=== PATIENT | male | born 1995 | race Hispanic/Latino ===

== ENCOUNTER 2018-03-27 12:16 | Inpatient (IN) | payer OTHER ==
[2018-03-27] VITALS (33 sets, daily range): BP systolic 54–144; BP diastolic 25–107
[~2018-03-27] VITALS: Ht 182.9 cm; Wt 130.8 kg
[~2018-03-27 12:16] MED LIST: DAYQUIL; TYLENOL
[2018-03-27] MEDS ORDERED: AMIODARONE HCL 200 ML IV ONE (12:43)
[2018-03-27] MEDS ORDERED: ASPIRIN 81 MG CHEW TAB PO ONE ×2 (12:45→16:00)
[2018-03-27] MEDS ORDERED: ADENOSINE 6 MG/2 ML VIAL IV ONE (12:45)
[2018-03-27] MEDS ORDERED: MIDAZOLAM HCL 2 MG/2 ML VIAL ONE ×3 (12:49→18:37)
[2018-03-27] MEDS ORDERED: SODIUM CHLORIDE 0.9% 1000ML 1,000 ML ONE ×3 (12:50→22:33)
[2018-03-27] MEDS ORDERED: AMIODARONE 900MG 500 ML IV ONE (12:52)
[2018-03-27 13:06] LABS: BASOPHILS # (AUTO) 0.1 (0.0-0.1); BASOPHILS % 0.4 % (0.0-1.0); EOSINOPHILS % 0.3 % (0.0-6.0); HEMATOCRIT 48.6 % (38.2-49.6); HEMOGLOBIN 16.1 g/dL (14.0-18.0); LYMPHOCYTES # (AUTO) 4.4 (1.0-3.2); LYMPHOCYTES % 29.2 % (18.0-39.1); MEAN CORPUSCULAR HEMOGLOBIN 28.6 pg (28-32); MEAN CORPUSCULAR HGB CONC 33.1 g/dL (31-35); MEAN CORPUSCULAR VOLUME 86.5 fL (81-99); MONOCYTES # (AUTO) 0.9 (0.2-0.8); MONOCYTES % 6.1 % (4.4-11.3); NEUTROPHILS # (AUTO) 9.5 (2.1-6.9); NEUTROPHILS % 63.7 % (38.7-80.0); PLATELET COUNT 321 x10e3/uL (140-360); RED BLOOD COUNT 5.62 x10e6/uL (4.3-5.7); RED CELL DISTRIBUTION WIDTH 13.5 % (11.7-14.4)
[2018-03-27 13:11] LABS: INR 1.09; PROTHROMBIN TIME 13.3 seconds (11.9-14.5)
[2018-03-27 13:12] LABS: PARTIAL THROMBOPLASTIN TIME 26.4 seconds (23.8-35.5)
[2018-03-27 13:19] LABS: ALANINE AMINOTRANSFERASE 66 IU/L (0-55); ALBUMIN/GLOBULIN RATIO 1.1 (0.8-2.0); ALKALINE PHOSPHATASE 78 IU/L (40-150); ANION GAP 14.8 mmol/L (8-16); BLOOD UREA NITROGEN 7 mg/dL (7-26); BUN/CREATININE RATIO 9 (6-25); CALCIUM 9.5 mg/dL (8.4-10.2); CARBON DIOXIDE 22 mmol/L (22-29); CHLORIDE 106 mmol/L (98-107); CREATINE KINASE 199 IU/L (30-200); CREATININE, SERUM 0.77 mg/dL (0.72-1.25); EST GLOMERULAR FILTRATION RATE > 60 ML/MIN (60-); GLUCOSE 105 mg/dL (74-118); POTASSIUM 3.8 mmol/L (3.5-5.1); SODIUM 139 mmol/L (136-145)
[2018-03-27] MEDS ORDERED: FUROSEMIDE INJ 10 MG/ML 2 ML VIAL IV ONE (14:15)
--- NOTE | 2018-03-27 14:43 | Diagnostic Imaging Report ---
EXAMINATION: CHEST SINGLE (PORTABLE) INDICATION: \S\ERMD ORDER \S\[id number] \S\1335 \S\Y COMPARISON: None FINDINGS: AP view TUBES and LINES: None. LUNGS: Lungs are well inflated. Hazy bibasilar opacity. Central venous congestion. PLEURA: No pleural effusion or pneumothorax. HEART AND MEDIASTINUM: The cardiomediastinal silhouette is upper normal.. BONES AND SOFT TISSUES: No acute osseous lesion. Soft tissues are unremarkable. UPPER ABDOMEN: No free air under the diaphragm. IMPRESSION: Hazy bibasilar opacities which may be related to body habitus and technique. Recommend two-view chest radiograph if clinically feasible. Signed by: DR. Cheo Jay MD on 03/27/2018 2:39 PM
[2018-03-27] MEDS ORDERED: LIDOCAINE HCL 2% 100 MG/5 ML IV ONE ×2 (14:47→15:19)
[2018-03-27] MEDS ORDERED: MAGNESIUM SULFATE 2GM/50ML 50 ML IV ONE ×2 (14:51→15:00)
[2018-03-27] MEDS ORDERED: LIDOCAINE 1% 5ML-MPF INJ ONE (15:00)
[2018-03-27] MEDS ORDERED: METOPROLOL TARTRATE INJ 1 MG/ML VIAL ONE (15:10)
[2018-03-27 15:26] LABS: FREE T4 (FREE THYROXINE) 1.2 ng/dL (0.9-1.8); THYROID STIMULATING HORMONE 1.208 uIU/mL (0.350-4.940)
[2018-03-27] MEDS ORDERED: DEXTROSE 5% IV STA (15:31)
[2018-03-27] MEDS ORDERED: PROCAINAMIDE HCL IV STA (15:31)
[2018-03-27 15:59] LABS: AMPHETAMINES SCREEN,URINE NEGATIVE (NEGATIVE); BENZODIAZEPINES SCREEN,URINE NEGATIVE (NEGATIVE); BILIRUBIN,URINE NEGATIVE (NEGATIVE); CLARITY,URINE SL CLOUDY (CLEAR); COLOR,URINE YELLOW (YELLOW); KETONES,URINE NEGATIVE (NEGATIVE); LEUKOCYTE ESTERASE ,URINE NEGATIVE (NEGATIVE); NITRITE,URINE NEGATIVE (NEGATIVE); PHENCYCLIDINE SCREEN,URINE NEGATIVE (NEGATIVE); PROTEIN,URINE DIPSTICK 1+ (NEGATIVE); URINE UROBILINOGEN 0.2 mg/dL (0.2 - 1)
[2018-03-27 16:08] LABS: CHOL/HDL RATIO 4.5 (3.9-4.7)
[2018-03-27 16:10] LABS: BACTERIA,URINE FEW /HPF; EPITHELIAL CELLS,URINE FEW /LPF; MUCUS,URINE MODERATE (RARE); WBC,URINE (MAN) 0-5 /HPF (0-5)
[2018-03-27] MEDS ORDERED: VECURONIUM BROMIDE FOR INJ 20 MG VIAL ONE ×3 (16:15→22:36)
[2018-03-27 16:23] LABS: ABG HCO3 17 mmol/L (23-28); ABG PCO2 42 mmHg (41-51); ABG PO2 58 mmHg (80-105)
[2018-03-27] MEDS ORDERED: FUROSEMIDE INJ 10 MG/ML 4 ML VIAL IV ONE (16:45)
--- NOTE | 2018-03-27 16:45 | Diagnostic Imaging Report ---
EXAM: CT Chest WITH contrast 03/27/2018 2:13 PM INDICATION: \S\PE PROTOCOL \S\[id number] \S\1600 \S\Y COMPARISON: None TECHNIQUE: Chest was scanned utilizing a multidetector helical scanner from the lung apex through the level of the adrenal glands without administration of IV contrast. Coronal and sagittal reformations were obtained. Routine protocol was performed. IV CONTRAST: 100 mL of Isovue-370 COMPLICATIONS: None RADIATION DOSE: Total DLP: 593.62 mGy*cm Estimated effective dose: (DLP x 0.014 x size factor) mSv CTDIvol has been reviewed. It is below the limits set by the Radiation Protocol Committee (RPC). FINDINGS: LINES/ TUBES: Endotracheal tube tip approximately 2.8 cm above the geramnia. LUNGS AND AIRWAYS: Patchy bilateral airspace opacities with interlobular septal thickening. No filling defects to the level of the segmental pulmonary arteries. Central airways are clear. PLEURA: Small pleural effusions. HEART AND MEDIASTINUM: The thyroid gland is normal. No mediastinal, hilar or axillary lymphadenopathy. The heart is normal in size.. There is no pericardial effusion. Main pulmonary artery measures 2.7 cm in diameter. UPPER ABDOMEN: Unremarkable. BONES: The visualized bony thorax is within normal limits. SOFT TISSUES: Unremarkable. IMPRESSION: Findings concerning for multifocal pneumonia with superimposed interstitial edema. No pulmonary emboli. Signed by: DR. Cheo Jay MD on 03/27/2018 4:41 PM
[2018-03-27] MEDS: MIDAZOLAM HCL 25 MG in SODIUM CHLORIDE 0.9% 50ML 45 ML IV PRN ×2 (16:53→20:45)
[2018-03-27] MEDS ORDERED: ENOXAPARIN SOD INJ 40 MG/0.4 ML SYR SC SCH (17:00)
[2018-03-27] MEDS ORDERED: ACETAMINOPHEN 1000 MG/100 ML 100 ML IV ONE ×2 (17:08→22:42)
--- NOTE | 2018-03-27 17:12 | Consultation ---
DATE OF CONSULTATION: March 27, 2018 CARDIOLOGY CONSULTATION REQUESTING PHYSICIAN: Dr. Sarmiento REASON FOR CONSULTATION: Ventricular tachycardia. HISTORY OF PRESENT ILLNESS: Mr. Kaur is a 22-year-old gentleman with past medical history as listed below. Reportedly has been short of breath since yesterday. Patient reportedly did not sleep well. Today the patient reportedly went to [facility]. He was noted to have wide-complex tachycardia, and he was sent to the hospital. Patient was noted to have wide-complex tachycardia. He was given amiodarone reportedly and transiently converted to sinus rhythm but went back into wide-complex tachycardia. Subsequently, the patient vomited, and he had to be intubated. He was shocked multiple times. The patient has been going back and forth into wide-complex tachycardia, probably ventricular tachycardia and sinus rhythm. He reportedly had smoked some marijuana 5 days back. Patient was also given lidocaine. He denied any chest pain or palpitations earlier. At the current time, the patient is intubated and on the vent. He was converted to sinus rhythm. Some PACs/PVCs. There is mild slurring of his QRS although there is an obvious pre-excitation on surface EKG. Patient is going to be given procainamide and going to be started on a procainamide drip. REVIEW OF SYMPTOMS: Not obtainable. However, prior to intubation, the patient apparently denied any palpitations or chest pain. He has been complaining of shortness of breath. PAST MEDICAL HISTORY: No significant past medical history. SOCIAL HISTORY: Patient apparently smoked marijuana a few days back. Otherwise, unsure about his other social habits. FAMILY HISTORY: Noncontributory. PHYSICAL EXAMINATION GENERAL: Obese gentleman, intubated on a vent. VITALS: Heart rate at the current time is in the 90s, has converted to sinus rhythm with some PACs with aberrant conduction. Blood pressure 116/72. HEENT: Atraumatic. Orotracheal tube in place. NECK: No JVD, bruit, thyromegaly, lymphadenopathy. CARDIOVASCULAR: First and 2nd heart sounds heard. No murmurs, rubs or gallops appreciated. CHEST: Decreased air entry at the bases. No adventitious sounds appreciated. ABDOMEN: Obese, nontender. EXTREMITIES: No edema. LABORATORY DATA: WBC is 14.9, hemoglobin 16.1, hematocrit 48.6, platelets 321. Sodium is 139, potassium 3.8, chloride 106, bicarb 22, BUN 7, creatinine 0.7. Total bili is 1.7, AST is 41, ALT 66, alk phos 78. Troponin 0.032. BNP is 535. TSH is 1.2. Chest x-ray: Hazy bibasilar opacities may be related to body habitus. EKG from 1231 showed wide QRS tachycardia with left bundle-branch block. Repeat EKG at 1524 showed sinus rhythm with PACs with aberrant conduction at 99 beats per minute. Normal axis. Prolonged QT interval. Nonspecific ST-T changes. IMPRESSION 1. Wide-complex tachycardia, probably ventricular tachycardia. 2. Obesity. 3. History of marijuana use. PLAN 1. Patient received multiple antiarrhythmics including amiodarone, lidocaine and procainamide. He is going to be started on procainamide drip. 2. No obvious pre-excitation on surface EKG. However, underlying concealed accessory pathway cannot be totally ruled out. 3. Patient has been intubated. He has received multiple shocks. He has converted to a sinus rhythm. He had some PACs with aberrant conduction. 4. Get echocardiogram to assess LV function and valvular function. 5. Get a CT scan to rule out PE. 6. Electrophysiology has been consulted. Discussed the case with Dr. Tsang, who has graciously agreed to see the patient. 7. Continue to follow electrolytes. 8. Will follow cardiac enzymes. Ischemia is less likely cause. However, cardiac enzymes could be elevated given the patient was shocked multiple times. 9. The patient's BNP is elevated. Will repeat and follow up. Give lasix. 10. Patient's TSH is normal. 11. Further cardiac workup depending on clinical course. As always, I appreciate and thank you very much for your referrals. Job#: [id number] SONIA MCCORMACK
[2018-03-27] MEDS ORDERED: CEFTRIAXONE SOD 1 GM VIAL IV SCH (17:15)
[2018-03-27] MEDS ORDERED: DEXTROSE 5% IV SCH (17:30)
[2018-03-27] MEDS ORDERED: VECURONIUM BROMIDE FOR INJ 20 MG VIAL IV PRN ×2 (17:30→18:15)
[2018-03-27] MEDS ORDERED: PROCAINAMIDE HCL IV SCH (17:30)
[2018-03-27] MEDS ORDERED: AMIODARONE HCL 900 MG in DEXTROSE 5% 500ML 500 ML IV SCH (17:30)
--- OUTSIDE RECORDS SUMMARY | 2018-03-27 17:31 | XMS REPORT ---
Author Author [facility] Address Unknown Phone Unavailable Care Team Providers Care Glue Plant Operator Name Role Phone DANTE JACKSON Unavailable Unavailable Problems This patient has no known problems. Allergies, Adverse Reactions, Alerts This patient has no known allergies or adverse reactions. Medications This patient has no known medications. Results Test Description Test Time Test Comments Text Results Atomic Results Result Comments CT CHEST W [place] [address] Patient Name: MERON COFFMAN MR #: [id number] : 1995 Age/Sex: 22/M Req #: [id number] Adm Physician: Ordered by: DANTE JACKSON MD Report #: [id number] Location: ER Room/Bed: Procedure: [id number] CT/CT CHEST W Exam Date: 03/27/18 Exam Time: 1600 REPORT STATUS: Signed EXAM: CT Chest WITH contrast 03/27/2018 2:13 PM INDICATION: COMPARISON: None TECHNIQUE: Chest was scanned utilizing a multidetector helical scanner from the lung apex through the level of the adrenal glands without administration of IV contrast. Coronal and sagittal reformations were obtained. Routine protocol was performed. IV CONTRAST: 100 mL of Isovue-370 COMPLICATIONS: None RADIATION DOSE: Total DLP: 593.62 mGy*cm Estimated effective dose: (DLP x 0.014 x size factor) mSv CTDIvol has been reviewed. It is below the limits set by the Radiation Protocol Committee (RPC). FINDINGS : LINES/ TUBES: Endotracheal tube tip approximately 2.8 cm above the germania. LUNGS AND AIRWAYS: Patchy bilateral airspace opacities with interlobular septal thickening. No filling defects to the level of the segmental pulmonary arteries. Central airways are clear. PLEURA: Small pleural effusions. HEART AND MEDIASTINUM: The thyroid gland is normal. No mediastinal, hilar or axillary lymphadenopathy. The heart is normal in size.. There is no pericardial effusion. Main pulmonary artery measures 2.7 cm in diameter. UPPER ABDOMEN: Unremarkable. BONES: The visualized bony thorax is within normal limits. SOFT TISSUES: Unremarkable. IMPRESSION: Findings concerning for multifocal pneumonia with superimposed interstitial edema. No pulmonary emboli. Signed by: DR. Cheo Patel MD on 03/27/2018 4:41 PM Dictated By: CHEO PATEL MD 164 Transcribed By: NU on 1641 COPY TO: DANTE JACKSON MD CHEST SINGLE (PORTABLE) [place] [address] Patient Name: MERON COFFMAN MR #: [id number] : 1995 Age/Sex: 22/M Req #: [id number] Adm Physician: Ordered by: MATT BERGERON NP Report #: [id number] Location: ER Room/Bed: Procedure: [id number] DX/CHEST SINGLE (PORTABLE) Exam Date: 03/27/18 Exam Time: 1335 REPORT STATUS: Signed EXAMINATION: CHEST SINGLE (PORTABLE) INDICATION: COMPARISON: None FINDINGS: AP view TUBES and LINES: None. LUNGS: Lungs are well inflated. Hazy bibasilar opacity. Central venous congestion. PLEURA: No pleural effusion or pneumothorax. HEART AND MEDIASTINUM: The cardiomediastinal silhouette is upper normal.. BONES AND SOFT TISSUES: No acute osseous lesion. Soft tissues are unremarkable. UPPER ABDOMEN: No free air under the diaphragm. IMPRESSION: Hazy bibasilar opacities which may be related to body habitus and technique. Recommend two-view chest radiograph if clinically feasible. Signed by: DR. Cheo Patel MD on 03/27/2018 2:39 PM Dictated By: CHEO PATEL MD 143 Transcribed By: NU on 03/27/18 1439 COPY TO: MATT BERGERON NP
[2018-03-27] MEDS ORDERED: SODIUM CHLORIDE 0.9% 50ML 50 ML ONE ×2 (18:31→20:42)
[2018-03-27] MEDS ORDERED: IOPAMIDOL 370 MG/ML 200 ML INFUS..BTL INJ ONE (18:33)
[2018-03-27] MEDS ORDERED: ETOMIDATE 2 MG/ML 10 ML INJ IV ONE (18:37)
[2018-03-27] MEDS ORDERED: WATER STERILE 10 ML VIAL ONE (18:37)
[2018-03-27] MEDS ORDERED: SUCCINYLCHOLINE CHLORIDE 20 MG/ML 10ML VIAL ONE (18:37)
--- NOTE | 2018-03-27 19:13 | Consultation ---
DATE OF CONSULTATION: March 27, 2018 PULMONARY CRITICAL CARE MEDICINE CONSULTATION REASON FOR REFERRAL: Shortness of breath. HISTORY: Mr. Kaur is a pleasant 22-year-old gentleman with acute respiratory failure. The patient presented to his clinic today where he was found to have shortness of breath. He was having tachycardia with abnormal EKG with widening of the QRS interval. Patient was referred to the hospital. When he presented to [facility], heart rate was 170s. Reported narrow complex tachycardia related to refractory symptoms. He required amiodarone and then he later progressed to have wide complex tachycardia reported. He even threw up. At this point, the patient went into tachycardia, and he was noted to have need for electrical cardioversion. The patient remained refractory, and overall had 6-7 different shocks . Patient was eventually intubated and he was getting short of breath and having frothy sputum come up. Patient went for chest x-ray showing bilateral patchy opacities, pneumonia versus heart failure. CT angiography showed no PE, but consistent with more focal pneumonitis with superimposed edema. Spleen borderline small, left adrenal mildly increased, although no mass present. I am consulted. Patient later had fever to 101.6. Preliminary EF is 20% by echo. PAST MEDICAL HISTORY: Not significant. MEDICATIONS: Reportedly no medications. ALLERGIES: NO KNOWN DRUG ALLERGIES. SOCIAL HISTORY: Smoked marijuana apparently a few days back, but unclear of other social habits. Mother and father at bedside. Limited due to intubated state. FAMILY HISTORY: Noncontributory to this that we know of as of now. REVIEW OF SYSTEMS: Cannot get as he is intubated. PHYSICAL EXAMINATION VITAL SIGNS: Noted and unstable per electronic record. GENERAL: In no acute distress, but sedated. HEENT: Normocephalic and atraumatic. NECK: Supple. Throat midline. LUNGS: Bilateral air entry. Few crackles. CARDIOVASCULAR: S1 and S2. No murmurs, rubs or gallops. ABDOMEN: Soft and nontender. EXTREMITIES: No clubbing. No cyanosis. There is no edema. INTEGUMENT: No rash. No purpura. LABS: Potassium 2.8, magnesium 2. White count mildly elevated. No anemia. BNP 555. Urine drug screen unremarkable. LFTs minimally elevated. CK 199. Albumin is 4 with globulin of 3.6. IMPRESSION AND PLAN 1. Acute respiratory failure, intubated. 2. Pulmonary edema. 3. Abnormal chest radiography: More classic for pattern of pneumonitis for which we will treat for. 4. Cardiomyopathy, not otherwise specified, under evaluation. 5. Mild obesity. 6. Elevated liver function tests, mild. 7. Elevated gammaglobulin. 8. Refractory tachycardia, now in wide complex per record. At this point, check thyroid function tests. Maintain potassium and magnesium high normal. Patient furthermore needs to have extensive sedation and even needs to have paralysis if needed. Avoid QT prolonging agents. Will follow along closely. Empiric antibiotics for pneumonia. Once the patient is stable, will work on diuresing him. Follow liver function testing. Patient is very critical, and I discussed how fragile he is with his parents. Will follow up awaiting further optimization per electrophysiology experts who for now want amiodarone and procainamide. Thank you very much, Dr. George, for this consult. Please call for questions. >30 min direct care, multiple evaluation and intervention over multiple times this date Job#: [id number] DARON MCCORMACK
[2018-03-27] MEDS ORDERED: VANCOMYCIN 1GM/NS 250 ML 250 ML IV ONE (19:15)
[2018-03-27] MEDS ORDERED: AMIODARONE 900MG 500 ML IV SCH (19:30)
[2018-03-27] MEDS: VECURONIUM BROMIDE FOR INJ 20 MG VIAL IV PRN ×2 (19:40→22:45)
[2018-03-27 19:46] LABS: CREATINE KINASE MB 1.5 ng/mL (0-5.0)
[2018-03-27] MEDS: SODIUM CHLORIDE FLUSH 10 ML SYR INJ PRN ×16 (19:48→23:15)
[2018-03-27] MEDS ORDERED: MIDAZOLAM HCL 5 MG/ML VIAL ONE (20:42)
[2018-03-27] MEDS ORDERED: ACETAMINOPHEN 325 MG TAB PO PRN (20:45)
[2018-03-27] MEDS ORDERED: METOPROLOL TARTRATE 25 MG TAB PO ONE (20:45)
[2018-03-27] MEDS ORDERED: METOPROLOL SUCCINATE 25 MG TAB XL ONE (20:51)
--- NOTE | 2018-03-27 22:16 | Diagnostic Imaging Report ---
CHEST XRAY LINE PLACEMENT, 03/27/2018 9:33 PM Technique: CHEST XRAY LINE PLACEMENT Comparison: 03/27/2018 Clinical history: PICC line placement Findings: See Impression Impression: Severely limited by portable technique and body habitus. 1. Lines/Tubes: Right PICC seen over the expected right brachiocephalic vein. ET tube 3.1 cm above the germania. NG tube extends subdiaphragmatically. 2. Stable enlarged cardiomediastinal silhouette. Diffuse bilateral opacities increased from prior chest radiograph. Signed by: Dr Isadora Amin MD on 03/27/2018 10:12 PM
[2018-03-27] MEDS: SODIUM CHLORIDE 0.9% 1000ML 1,000 ML IV PRN (22:35)
[2018-03-27] MEDS ORDERED: ACETAMINOPHEN 1000 MG/100 ML IV PRN (22:40)
[2018-03-27 22:54] LABS: ABG HCO3 17 mmol/L (23-28); ABG PCO2 32 mmHg (41-51); ABG PH 7.33 (7.31-7.41); ABG PO2 144 mmHg (80-105)
[2018-03-27 22:56] LABS: BASOPHILS % 0.2 % (0.0-1.0); HEMOGLOBIN 15.9 g/dL (14.0-18.0); LYMPHOCYTES # (AUTO) 1.5 (1.0-3.2); LYMPHOCYTES % 8.6 % (18.0-39.1); MEAN CORPUSCULAR HEMOGLOBIN 28.5 pg (28-32); MEAN CORPUSCULAR HGB CONC 32.4 g/dL (31-35); MONOCYTES % 6.1 % (4.4-11.3); NEUTROPHILS # (AUTO) 14.3 (2.1-6.9); NEUTROPHILS % 84.2 % (38.7-80.0); PLATELET COUNT 234 x10e3/uL (140-360); RED BLOOD COUNT 5.57 x10e6/uL (4.3-5.7); RED CELL DISTRIBUTION WIDTH 13.5 % (11.7-14.4)
[2018-03-27 23:12] LABS: ALANINE AMINOTRANSFERASE 862 IU/L (0-55); ALBUMIN 3.2 g/dL (3.5-5.0); ALBUMIN/GLOBULIN RATIO 1.1 (0.8-2.0); ALKALINE PHOSPHATASE 66 IU/L (40-150); ANION GAP 14.4 mmol/L (8-16); BLOOD UREA NITROGEN 13 mg/dL (7-26); BUN/CREATININE RATIO 10 (6-25); CALCIUM 7.9 mg/dL (8.4-10.2); CARBON DIOXIDE 20 mmol/L (22-29); CHLORIDE 108 mmol/L (98-107); CREATININE, SERUM 1.33 mg/dL (0.72-1.25); EST GLOMERULAR FILTRATION RATE > 60 ML/MIN (60-); GLUCOSE 123 mg/dL (74-118); POTASSIUM 5.4 mmol/L (3.5-5.1); SODIUM 137 mmol/L (136-145)
[2018-03-27] MEDS ORDERED: VANCOMYCIN 1GM/NS 250 ML 250 ML ONE (23:24)
[2018-03-27] MEDS: FAMOTIDINE 20 MG/2 ML VIAL IV SCH (23:30)
[2018-03-27] MEDS ORDERED: SOD POLYSTYRENE SULFONATE SUSP 15 GM/60 ML BTL PR ONE (23:45)
[2018-03-27] MEDS ORDERED: SOD POLYSTYRENE SULFONATE SUSP 15 GM/60 ML BTL PO ONE (23:45)
[2018-03-27] MEDS: DOXYCYCLINE 100MG/NS 100ML 100 ML IV SCH (23:45)
[2018-03-28] VITALS (252 sets, daily range): BP systolic 79–143; BP diastolic 20–116
[2018-03-28] MEDS ORDERED: METOPROLOL TARTRATE 25 MG TAB PO SCH
[2018-03-28] MEDS: SODIUM CHLORIDE 0.9% 1000ML 1,000 ML IV PRN (00:15)
[2018-03-28 00:36] LABS: ALANINE AMINOTRANSFERASE 1176 IU/L (0-55); ALBUMIN 2.8 g/dL (3.5-5.0); ALKALINE PHOSPHATASE 64 IU/L (40-150); ANION GAP 16.7 mmol/L (8-16); BLOOD UREA NITROGEN 11 mg/dL (7-26); BUN/CREATININE RATIO 9 (6-25); CARBON DIOXIDE 13 mmol/L (22-29); CHLORIDE 97 mmol/L (98-107); CREATININE, SERUM 1.17 mg/dL (0.72-1.25); EST GLOMERULAR FILTRATION RATE > 60 ML/MIN (60-); MAGNESIUM 2.6 MG/DL (1.3-2.1); PHOSPHORUS 5.6 MG/DL (2.3-4.7); POTASSIUM 4.7 mmol/L (3.5-5.1); SODIUM 122 mmol/L (136-145)
[2018-03-28 00:39] LABS: GLUCOSE 661 mg/dL (74-118)
[2018-03-28 00:40] LABS: CALCIUM 6.6 mg/dL (8.4-10.2)
[2018-03-28] MEDS ORDERED: CALCIUM GLUCONATE 10% INJ 0.465 MEQ/ML VIAL ONE (00:53)
[2018-03-28] MEDS ORDERED: SODIUM CHLORIDE 0.9% 200 ML ONE (00:54)
[2018-03-28] MEDS ORDERED: INSULIN REGULAR, HUMAN 100 UNIT/1 ML 3ML VIAL ONE (00:55)
[2018-03-28] MEDS ORDERED: INSULIN REGULAR, HUMAN 3ML VL 100 UNIT in SODIUM CHLORIDE 0.9% 100 ML 99 ML IV SCH ×2 (01:00)
[2018-03-28] MEDS ORDERED: CALCIUM GLUCONATE 10% INJ 9.3 MEQ in SODIUM CHLORIDE 0.9% 100 ML 100 ML IV ONE (01:00)
[2018-03-28] MEDS ORDERED: NOREPINEPHRINE 8 MG/D5W 250 ML 250 ML ONE ×2 (01:04→07:07)
[2018-03-28] MEDS: NOREPINEPHRINE INJ 4MG/4ML 8 MG in DEXTROSE 5% 250ML 250 ML IV PRN ×3 (01:05→10:39)
[2018-03-28 01:22] LABS: AMYLASE 25 U/L (25-125); LIPASE 14 U/L (8-78)
[2018-03-28] MEDS ORDERED: AMIODARONE 900MG 500 ML IV SCH (01:30)
[2018-03-28] MEDS: SODIUM CHLORIDE FLUSH 10 ML SYR INJ PRN ×4 (02:00→03:05)
[2018-03-28] MEDS ORDERED: MIDAZOLAM HCL 5 MG/ML VIAL ONE (02:19)
[2018-03-28] MEDS ORDERED: MIDAZOLAM HCL 2 MG/2 ML VIAL ONE (02:20)
[2018-03-28] MEDS ORDERED: SODIUM CHLORIDE 0.9% 50ML 50 ML ONE (02:21)
[2018-03-28] MEDS: MIDAZOLAM HCL 25 MG in SODIUM CHLORIDE 0.9% 50ML 45 ML IV PRN ×4 (02:30→15:58)
[2018-03-28 03:07] LABS: CREATINE KINASE MB 1.2 ng/mL (0-5.0)
[2018-03-28 03:16] LABS: ANION GAP 17.4 mmol/L (8-16); BLOOD UREA NITROGEN 14 mg/dL (7-26); BUN/CREATININE RATIO 10 (6-25); CALCIUM 7.3 mg/dL (8.4-10.2); CARBON DIOXIDE 14 mmol/L (22-29); CHLORIDE 111 mmol/L (98-107); EST GLOMERULAR FILTRATION RATE > 60 ML/MIN (60-); GLUCOSE 111 mg/dL (74-118); POTASSIUM 5.4 mmol/L (3.5-5.1); SODIUM 137 mmol/L (136-145)
[2018-03-28 04:40] LABS: ALBUMIN 3.2 g/dL (3.5-5.0)
[2018-03-28] MEDS: FAMOTIDINE 20 MG/2 ML VIAL IV SCH (04:50)
[2018-03-28] MEDS ORDERED: AMIODARONE 900MG 500 ML IV ONE (04:55)
[2018-03-28] MEDS: VECURONIUM BROMIDE FOR INJ 20 MG VIAL IV PRN ×6 (05:04→21:40)
--- NOTE | 2018-03-28 05:59 | Diagnostic Imaging Report ---
CHEST SINGLE (PORTABLE), 03/28/2018 5:00 AM Technique: CHEST SINGLE (PORTABLE) Comparison: previous day Clinical history: Intubated Findings: See Impression Impression: Severely limited by portable technique and motion with lung apices excluded. 1. Lines/Tubes: Right PICC seen over the expected very proximal SVC. ET tube 3.3 cm above the germania. Subdiaphragmatic NG tube. 2. Stable cardiomediastinal silhouette. 3. Persistent bilateral pulmonary opacities. Signed by: Dr Isadora Amin MD on 03/28/2018 5:55 AM
[2018-03-28 06:14] LABS: BASOPHILS # (AUTO) 0.1 (0.0-0.1); BASOPHILS % 0.3 % (0.0-1.0); HEMATOCRIT 53.6 % (38.2-49.6); HEMOGLOBIN 17.1 g/dL (14.0-18.0); LYMPHOCYTES # (AUTO) 1.5 (1.0-3.2); LYMPHOCYTES % 7.3 % (18.0-39.1); MEAN CORPUSCULAR HEMOGLOBIN 28.8 pg (28-32); MEAN CORPUSCULAR HGB CONC 31.9 g/dL (31-35); MEAN CORPUSCULAR VOLUME 90.2 fL (81-99); MONOCYTES # (AUTO) 2.1 (0.2-0.8); MONOCYTES % 10.1 % (4.4-11.3); NEUTROPHILS % 80.5 % (38.7-80.0); PLATELET COUNT 208 x10e3/uL (140-360); RED BLOOD COUNT 5.94 x10e6/uL (4.3-5.7); RED CELL DISTRIBUTION WIDTH 13.5 % (11.7-14.4)
[2018-03-28 06:29] LABS: INR 2.05; PROTHROMBIN TIME 21.7 seconds (11.9-14.5)
[2018-03-28 06:37] LABS: ALBUMIN 3.4 g/dL (3.5-5.0); ALBUMIN/GLOBULIN RATIO 1.1 (0.8-2.0); ANION GAP 20.7 mmol/L (8-16); CALCIUM 8.1 mg/dL (8.4-10.2); CREATININE, SERUM 1.65 mg/dL (0.72-1.25); MAGNESIUM 2.3 MG/DL (1.3-2.1); PHOSPHORUS 7.4 MG/DL (2.3-4.7); POTASSIUM 5.7 mmol/L (3.5-5.1)
[2018-03-28 06:58] LABS: AMYLASE 46 U/L (25-125); LIPASE 25 U/L (8-78)
[2018-03-28 06:59] LABS: CREATINE KINASE MB 1.7 ng/mL (0-5.0)
[2018-03-28 07:43] LABS: BAND NEUTROPHILS % (MANUAL) 3 %; LYMPHOCYTES % (MANUAL) 6 % (19-48); MONOCYTES % (MANUAL) 11 % (3.4-9.0); NEUTROPHILS % (MANUAL) 80 % (40-74)
[2018-03-28 07:44] LABS: PLATELET ESTIMATE ADEQUATE; PLATELET MORPHOLOGY COMMENT NORMAL; RBC MORPHOLOGY COMMENT NORMAL
[2018-03-28] MEDS: DOXYCYCLINE 100MG/NS 100ML 100 ML IV SCH ×2 (08:54→20:25)
[2018-03-28] MEDS ORDERED: FUROSEMIDE INJ 10 MG/ML 4 ML VIAL IV SCH (09:00)
[2018-03-28] MEDS ORDERED: PIPER-TAZ 3.375 GM 50 ML IV SCH (12:00)
[2018-03-28] MEDS ORDERED: LACTATED RINGER'S 1,000 ML IV ONE (12:00)
[2018-03-28 12:06] LABS: BASOPHILS # (AUTO) 0.1 (0.0-0.1); BASOPHILS % 0.2 % (0.0-1.0); HEMATOCRIT 51.2 % (38.2-49.6); HEMOGLOBIN 15.8 g/dL (14.0-18.0); LYMPHOCYTES # (AUTO) 1.2 (1.0-3.2); LYMPHOCYTES % 4.9 % (18.0-39.1); MEAN CORPUSCULAR HEMOGLOBIN 28.6 pg (28-32); MEAN CORPUSCULAR HGB CONC 30.9 g/dL (31-35); MEAN CORPUSCULAR VOLUME 92.6 fL (81-99); MONOCYTES # (AUTO) 1.9 (0.2-0.8); MONOCYTES % 7.5 % (4.4-11.3); NEUTROPHILS # (AUTO) 21.1 (2.1-6.9); NEUTROPHILS % 85.5 % (38.7-80.0); PLATELET COUNT 278 x10e3/uL (140-360); RED BLOOD COUNT 5.53 x10e6/uL (4.3-5.7); RED CELL DISTRIBUTION WIDTH 13.4 % (11.7-14.4)
[2018-03-28] MEDS ORDERED: METHYLPREDNISOLONE SOD SUCC 40 MG/ML VIAL IV ONE (12:15)
--- NOTE | 2018-03-28 12:18 | Diagnostic Imaging Report ---
PROCEDURE:X-RAY ABDOMEN - KUB COMPARISON:[facility], DX, CHEST SINGLE (PORTABLE), 03/28/2018, 5:30. INDICATIONS:ABD PAIN FINDINGS: Enteric tube has distal tip projecting in the stomach fundus. Mild dilation of the ascending colon, which is air-filled and measures approximately 8 cm in diameter. No other air-filled, dilated loops of bowel are identified. No abnormal calcifications project over genitourinary system. No acute bony abnormalities. Unchanged increased density in the left retrocardiac region and obscuration of left hemidiaphragm, which represent pleural effusion with atelectasis and/or consolidation. CONCLUSION: Enteric tube with distal tip projecting in the stomach fundus. Mild dilation of the ascending colon, which is air-filled and measures approximately 8 cm. Kirby Sharp M.D. Dictated by: Kirby Sharp M.D. on 03/28/2018 at 12:21 Electronically approved by: Kirby Sharp M.D. on 03/28/2018 at 12:21
[2018-03-28 12:28] LABS: CREATINE KINASE MB 2.6 ng/mL (0-5.0)
[2018-03-28 12:31] LABS: INR 1.89; PROTHROMBIN TIME 20.4 seconds (11.9-14.5)
[2018-03-28 12:32] LABS: PARTIAL THROMBOPLASTIN TIME 33.8 seconds (23.8-35.5)
[2018-03-28] MEDS ORDERED: BUMETANIDE INJ 0.25MG/ML 4ML VIAL ONE (12:32)
[2018-03-28 12:35] LABS: ALBUMIN 3.5 g/dL (3.5-5.0); BILIRUBIN,DIRECT 1.1 mg/dL (0.0-0.5); CALCIUM 8.1 mg/dL (8.4-10.2); CREATININE, SERUM 2.26 mg/dL (0.72-1.25); MAGNESIUM 2.2 MG/DL (1.3-2.1); PHOSPHORUS 7.7 MG/DL (2.3-4.7)
[2018-03-28] MEDS ORDERED: SODIUM BICARBONATE 8.4% SYRING 150 ML in DEXTROSE 5% 1,000 ML IV SCH ×2 (12:37→13:15)
[2018-03-28 12:39] LABS: LYMPHOCYTES % (MANUAL) 3 % (19-48); MONOCYTES % (MANUAL) 9 % (3.4-9.0); NEUTROPHILS % (MANUAL) 88 % (40-74)
[2018-03-28 12:40] LABS: PLATELET ESTIMATE ADEQUATE; PLATELET MORPHOLOGY COMMENT NORMAL; RBC MORPHOLOGY COMMENT NORMAL
[2018-03-28] MEDS ORDERED: BUMETANIDE INJ 0.25MG/ML 4ML VIAL IV STA (12:41)
[2018-03-28] MEDS ORDERED: VASOPRESSIN 100 UNIT in DEXTROSE 5% 100ML 100 ML IV PRN ×2 (12:45→13:00)
[2018-03-28] MEDS ORDERED: CALCIUM GLUCONATE 10% INJ 4.65 MEQ in SODIUM CHLORIDE 0.9% 50ML 50 ML IV ONE ×2 (12:45→13:15)
--- NOTE | 2018-03-28 14:01 | Progress Note ---
DATE: March 28, 2018 PULMONARY MEDICINE PROGRESS NOTE SUBJECTIVE: Mr. Kaur was seen and examined at bedside. He continues to have a lot of critical issues going on. He remained febrile throughout the night despite some Tylenol use and some cooling techniques. He remains intubated, heavily sedated and intermittently paralyzed. Reviewing the chart, there was no succinylcholine or de-polarizing neuromuscular agents that I can see that were given. The patient currently on Levophed at 12 mcg per minute. He is some basal fluids, which was usually about 50 mL at night in addition to the boluses. He is intubated and on the ventilator. LFTs also with extensive worsening, as well as kidney function, which is also diminished significantly. Potassium was addressed, although it is not clear if he had a good bowel movement on Kayexalate. REVIEW OF SYSTEMS: Cannot get as he is intubated. OBJECTIVE VITAL SIGNS: Noted. Per electronic record. GENERAL: In no acute distress, although he is heavily sedated/paralyzed. HEENT: Normocephalic and atraumatic. NECK: Supple. Throat midline. LUNGS: Bilateral air entry. Limited on auscultation and limited efforts. CARDIOVASCULAR: S1 and S2. No enlarged precordial thump. ABDOMEN: Soft, obese and nontender. EXTREMITIES: No clubbing. No cyanosis. There is no edema. INTEGUMENT: No rash. No purpura. LABS: White count 24,000, hematocrit 51 and platelets 278,000. INR is 1.89 right now. Potassium went to 6, bicarbonate 14, BUN 19, creatinine 2.3. Calcium 8.1. Phosphorus 7.7, magnesium 2.2. AST 14,600, ALT 5500. Chest x-ray with small opacities to the lung, endotracheal tube in place. IMPRESSION AND PLAN 1. Critical ventricular tachycardia, recurrent episodes: Status post multiple cardioversions electrical yesterday. 2. Cardiomyopathy, 15% to 20% ejection fraction estimated. 3. Acute respiratory failure: Pulmonary edema plus or minus pneumonia. 4. Acute kidney injury, hypoperfusion, possible septic acute tubular necrosis, possible cardiorenal/hepatorenal. 5. Acute liver failure. 6. Obesity. 7. Coagulopathy: Mostly from liver. 8. Possible sepsis: Viral versus other. At this time, will continue current therapy. The patient remains in very critical condition. He remains at high risk of , but so far his heart is being shown stability. Amiodarone was stopped, although he continues on close watch per the EP service for his arrhythmia. Keep him heavily sedated/paralyzed. Control temperature slowly. Adjust ventilator by increasing PEEP mildly and decreasing FIO2. Update ABG. Give vitamin K. Repeat blood work to ensure that the liver and kidneys start to improve. Renal has been consulted as expected. Give dialysis likely. Will follow along closely. I discussed with sausage cooker and primary doctor. Thank you very much for the opportunity to participate in the care of Mr. Kaur. Call for questions. Greater than 30 minutes in direct care and multiple evaluations. Job#: [id number] DARON
--- NOTE | 2018-03-28 14:33 | Consultation ---
DATE OF CONSULTATION: March 28, 2018 RENAL CONSULTATION HISTORY OF PRESENT ILLNESS: History predominantly from family. A 22-year-old gentleman, no prior history of any medical disorders. Developed shortness of breath, could not breathe very well Tuesday night and he lives with his parents. Mother thought that it was the heat. He was also coughing, coming up with phlegm, and he was coughing quite hard according to mother. Today they brought the patient to [facility] where he was immediately sent to the emergency room, and they were told that patient had a high heart rate. Here patient developed respiratory failure, was intubated. Now has multiorgan failure with acute kidney injury, most likely ATN with oliguria, hyperkalemic, severely acidotic. Elevated white count 24,000 with liver failure. AST of 8989, ALT of 4018, total bilirubin 2.1. He is intubated. He is sedated. He is on Levophed. Has a Valdez catheter. He does not appear to be in any distress. I am unable to get review of systems. He does not follow any commands because of sedation. PAST MEDICAL HISTORY: There is no history of prior surgical procedures, diabetes, hypertension. SOCIAL HISTORY: Patient smokes cigarette. Last day family knows he had any alcohol was a month ago. He does occasionally do marijuana but not recently. There is no other history of substance abuse. CURRENT MEDICATIONS: He is on norepinephrine, famotidine, midazolam, doxycycline, piperacillin/tazobactam, metoprolol, Tylenol p.r.n. Was on Ringer's lactate, but that has been stopped. FAMILY HISTORY: Significant for hypertension in mother and diabetes in father. CURRENT LABS: Sodium 136. Potassium 6. Chloride 107. Bicarbonate 14. BUN 19. Creatinine 2.2. White count 24.7. Hemoglobin 15.8. Platelet 278. Chest x-ray shows bilateral infiltrates with cardiomegaly. Echo shows a dilated cardiomyopathy with poor ejection fraction but no left ventricular hypertrophy. He also had a CT with IV contrast. Please see official reports. There was no PE. His INR is 1.89. PHYSICAL EXAMINATION: VITALS: At the moment blood pressure 92/57, temperature 102.8, pulse 109, oxygen saturation 94%. HEAD AND NECK: Pupils slightly dilated and reactive. Orally intubated. LUNGS: Harsh vesicular breath sounds. Air entry good bilaterally. HEART: A 2/6 to 3/6 ejection systolic murmur heard over left sternal border. Questionable S3 gallop. ABDOMEN: Otherwise soft, nontender. Flanks full. LOWER EXTREMITY EXAMINATION: No edema and no rash noted. He has got a tattoo on the right upper extremity. IMPRESSION: Multiorgan failure, acute tubular necrosis, oligoanuric with bilateral lung infiltrates, cardiomyopathy. Severely septic with septic shock, focus probably pneumonia given his history. Infectious Disease consulted. Critical Care has seen the patient. I discussed with Dr. Galvan and Dr. George and family in great detail. Patient has life-threatening hyperkalemia and acidosis. Will start IV bicarbonate, give 1 amp of calcium gluconate for the ionized calcium of 1. Will send a urine drug screen and HIV. Will get a stat dialysis catheter placed by IR. IR consulted at 12:45 p.m. for a stat Trialysis triple-lumen dialysis catheter. Dialysis nurse at bedside ready to start dialysis. Will attempt diuresis with Bumex 3 mg IV and more diuretics later. Overall prognosis guarded. Discussed in detail with both father and mother. Job#: [id number] [place]
[2018-03-28] MEDS ORDERED: VANCOMYCIN 1GM/NS 250 ML 250 ML IV ONE (15:00)
[2018-03-28] MEDS ORDERED: VANCOMYCIN 1GM/NS 250 ML 250 ML IV SCH (15:00)
[2018-03-28 15:20] LABS: ABG HCO3 18 mmol/L (23-28); ABG PCO2 55 mmHg (41-51); ABG PH 7.12 (7.31-7.41); ABG PO2 68 mmHg (80-105)
--- NOTE | 2018-03-28 15:53 | Diagnostic Imaging Report ---
PROCEDURE: A single AP view of the chest. COMPARISON: [facility], , CHEST SINGLE (PORTABLE), 03/28/2018, 5:30. INDICATIONS: S/P HD CATHETER FINDINGS: See impression. IMPRESSION: 1. interval placement of hemodialysis catheter, with distal tip projecting in the region of the proximal atrium. Unchanged endotracheal and enteric tubes. 2. No pneumothorax is identified. 3. No interval change in enlarged cardiac silhouette, central pulmonary venous congestion, bilateral interstitial edema and likely bilateral pleural effusions, left greater than right, with left lower lobe atelectasis or consolidation. Kirby Sharp M.D. Dictated by: Kirby Sharp M.D. on 03/28/2018 at 15:56 Electronically approved by: Kirby Sharp M.D. on 03/28/2018 at 15:56
--- NOTE | 2018-03-28 16:03 | Consultation ---
DATE OF CONSULTATION: REASON FOR CONSULTATION: Sepsis and pneumonia. This patient who is a 22-year-old male with no past medical history and obesity. For the last 4 weeks or so, he has been having progressive shortness of breath and not feeling well in general. There is no fever. No chills. No cough in the beginning. He just had shortness of breath. Could not sleep well. Then in the last 3-4 days had been progressively worse. He went to go to the emergency room. His mother made an appointment with [facility] to see him at 9 in the morning. He came to [facility] and apparently was tachycardiac. He was sent to the emergency room where he was admitted. Currently, the patient is reintubated, on multiple vasopressors and infectious disease was consulted. PAST MEDICAL HISTORY: Denies. PAST SURGICAL HISTORY: Denies. ALLERGIES: NKA. SOCIAL HISTORY: He smoked marijuana, but no smoking, drug abuse or alcohol abuse. There is no travel recently. He used to [employer] and [employer], but the last time was 5 months ago. He went fishing 6 months ago. Besides what is mentioned above, I have met with the mother and father, and that is the only complaint that the patient had. REVIEW OF SYSTEMS: Not reviewed any problems. There is no new drugs. PHYSICAL EXAMINATION GENERAL: The patient is currently intubated and sedated. He is running fever. HEENT: Orally intubated. CHEST: Few crackles bilateral. CORE: S1 and S2. No murmurs. ABDOMEN: Soft and obese. EXTREMITIES: No edema. VITALS: His temperature has been running 103 and 102 since admission. LABORATORY DATA: Reviewed. White count is 24.7, hemoglobin 15.8, his hematocrit is 51, and platelets 278,000. Sodium 136, potassium 6, creatinine of 2.26. AST 14,606. His BNP was elevated at 1393. Patient is currently intubated and sedated. IMPRESSION: Multiorgan failure at the present time. My concern is it probably started with some type myocarditis and led to cardiomyopathy and congestive heart failure leading to multiorgan failure, including kidney, liver and lungs. He may have superimposed pneumonia, bacterial at the present time. My concern is that he may need either a ventricular assist or other. What I recommend is proceed with hemodialysis now. Will put him on meropenem, vancomycin, doxycycline. Will send serology for HIV and hepatitis and . He is already in the process of transferring him downtown. Discussed with the family at length and discussed with all consultants. Will follow. Job#: [id number] [place]
--- NOTE | 2018-03-28 16:13 | Diagnostic Imaging Report ---
PROCEDURE:US RETROPERITONEAL ( KIDNEY ). COMPARISON:None. INDICATIONS:ATN TECHNIQUE: Maher-scale and color sonographic images of the bilateral kidneys and bladder where obtained in transverse and longitudinal planes. FINDINGS: Exam limited due to the patient's large body habitus and inability to mobilize, intubation (ICU patient) RIGHT KIDNEY: 13.7 cm, cortex 1.5 cm Cysts: None Solid masses: None Stones: None Hydronephrosis: None Echogenicity: Normal LEFT KIDNEY: 12.6 cm, cortex 2.0 cm Cysts: None Solid masses: None Stones: None Hydronephrosis: None Echogenicity: Normal Bladder: Decompressed, with Valdez catheter in place. Incidental note is made of increase echogenicity of the visualized hepatic parenchyma. CONCLUSION: 1. Normal bilateral renal size, and echogenicity. No hydronephrosis, stones, or solid masses. 2. Hepatic steatosis. Kirby Sharp M.D. Dictated by: Kirby Sharp M.D. on 03/28/2018 at 16:16 Electronically approved by: Kirby Sharp M.D. on 03/28/2018 at 16:16
--- NOTE | 2018-03-28 16:29 | Diagnostic Imaging Report ---
Non-tunneled Dialysis Catheter Placement 03/28/2018 Pre-Procedure Diagnosis: Kidney failure Post-procedure Diagnosis:Kidney failure Hot Sealing Machine Operator: Rohan Be Cullet Trucker: None Sedation: None. Heart rate and oxygen saturation were monitored in real-time. Blood pressure was measured in 5 minute increments. 1% lidocaine was used for local anesthesia. Estimate blood loss: <5 mL Blood administered: None Complications: None Implants/Grafts: 13 Arabic 15 cm 3 lumen temporary dialysis catheter (Trialysis) Specimen: None Procedure: Informed consent was obtained and the patient positioned supine in the ICU. A timeout was performed, followed by preliminary ultrasound of the right internal jugular vein (see findings below). The right neck and chest were prepped and draped in standard fashion. Using real-time ultrasound guidance a 18 gauge vascular needle was used to access the right internal jugular vein. An image was stored in the electronic medical record. A wire was advanced and the needle exchanged for a non-tunneled dialysis catheter using standard Salinger technique. At the end of the procedure the catheter was flushed, secured to the skin and a sterile dressing applied. The patient tolerated the procedure well and without immediate complication. Findings: Patent right internal jugular vein as demonstrated by normal ultrasound compressibility. Impression: Successful placement of a non-tunneled right internal jugular vein dialysis catheter using ultrasound guidance. This report was generated with voice-recognition technology. Errors in smt technician can occur. Please interpret accordingly and contact a radiologist if there are any questions regarding the report. Signed by: Dr. Naman Be M.D. on 03/28/2018 4:25 PM
[2018-03-28] MEDS ORDERED: MEROPENEM 500 MG VIAL IV SCH ×2 (16:30→21:00)
[2018-03-28] MEDS ORDERED: MANNITOL 25% 12.5GM/50ML 100 ML ONE (17:36)
[2018-03-28] MEDS ORDERED: SODIUM CHLORIDE 0.9% 1000ML 2,000 ML IV PRN (17:45)
[2018-03-28] MEDS ORDERED: HEPARIN SOD (PORCINE) 1000 UNIT/ML SDV IV PRN (17:45)
[2018-03-28] MEDS ORDERED: MANNITOL 25% 12.5GM/50 ML VIAL IV PRN (17:45)
[2018-03-28 19:22] LABS: ABG HCO3 23 mmol/L (23-28); ABG PCO2 37 mmHg (41-51); ABG PH 7.39 (7.31-7.41); ABG PO2 84 mmHg (80-105)
[2018-03-28] MEDS ORDERED: PIPER-TAZ 3.375 GM / NS 50ML IV SCH (21:00)
[2018-03-28] MEDS ORDERED: MEROPENEM 500MG 500 MG in SODIUM CHLORIDE 0.9% 50ML 50 ML IV SCH (21:00)
[2018-03-28] MEDS ORDERED: AMIODARONE HCL 300 MG in DEXTROSE 5% 100ML 100 ML IV ONE (21:30)
--- NOTE | 2018-03-28 21:38 | Consultation ---
DATE OF CONSULTATION: GASTROENTEROLOGY CONSULTATION REFERRING PHYSICIAN: Dr. George. REASON FOR CONSULTATION: Elevated LFTs. HISTORY OF PRESENT ILLNESS: Mr. Kaur is a 22-year-old man who came in initially with shortness of breath. He was found at [facility] to have wide complex tachycardia and sent to the hospital. Apparently, as he came here, he went into VT. Had multiple shocks, reportedly vomited and is intubated. He is found to have low ejection fraction and is being [facility]. He also has significantly elevated liver function tests. On admission, his bilirubin was 1.7 and has fluctuated at 2.2 highest. AST is steadily rising from 41 to 14,606. ALT is also rising from 66 to 5513. Alkaline phosphatase is normal. Family is not aware of any prior elevated LFTs. His INR is currently 1.89. U-tox was negative. Influenza was negative. Apparently, he smoked some marijuana recently per notes, but otherwise not had any illicit substances. Per family, they do not think he had any significant alcohol use, maybe a small volume a couple of times a week, but never intoxicated or daily. He had been having some cold and headaches and did take [facility] NyQuil and some occasional acetaminophen, but it does not appear it was at a therapeutic range. He did not have any flu-like or mono-like symptoms immediately prior to this hospital stay. PAST MEDICAL HISTORY: Obesity. MEDICATION AND ALLERGIES: REVIEWED, PLEASE SEE MAR. SOCIAL HISTORY: History of marijuana, but no other significant habits other than occasional alcohol. FAMILY HISTORY: Negative for liver disease. REVIEW OF SYSTEMS: Unable to obtain due to altered mental status and intubation. Most of history was obtained from family. PHYSICAL EXAMINATION: GENERAL: He is intubated, sedated, paralyzed. HEENT: Eyes are anicteric. He is intubated. NECK: Supple. LUNGS: Positive for crackles. CARDIOVASCULAR: S1 and S2. ABDOMEN: Soft, nontender, nondistended. No organomegaly. EXTREMITIES: No clubbing, cyanosis. PSYCHIATRIC: Unable. NEURO: Unable. HEM/ONC: No significant ecchymosis or adenopathy. SKIN: No rash. Electronic health records reviewed for laboratory and radiologic studies as well as history. ASSESSMENT: Elevated liver function tests: This degree of transaminase elevation is most likely related to an ischemic liver injury. Given his history, it is much less likely that he would have had a toxic ingestion or viral infection. I will go ahead and send off acute hepatitis workup. However, I expect that this is more likely related to an ischemic liver injury. He will need ultrasound with Doppler to evaluate his portal system. Otherwise, continue to try to optimize him from a cardiopulmonary standpoint. Thank you very much for asking me to see Mr. Kaur. Any questions or concerns, please do not hesitate to contact me. Job#: [id number]
--- NOTE | 2018-03-28 22:54 | Diagnostic Imaging Report ---
EXAM: US LIVER DATE: 03/28/2018 12:00 AM INDICATION: \S\elevated lft, evaluate portal system, COMPARISON: None TECHNIQUE: Transverse and longitudinal prieto scale and color doppler sonographic images of the upper abdomen were obtained. FINDINGS: LIVER 17.2 cm in the right midclavicular line, borderline enlarged Increased echogenicity, normal contour, no masses. GALLBLADDER No stones, sludge, wall-thickening (remeasured 2.6 mm) or pericholecystic fluid. Negative sonographic Guan's sign. BILE DUCTS No intra nor extra-hepatic biliary dilation. Common bile duct measures 0.4 cm PANCREAS: Visualized portions are normal. RIGHT KIDNEY: 12.1 cm Echogenicity: Normal Collecting System: No hydronephrosis Stones: None Cyst/Mass: None VESSELS: Aorta: Visualized portions are within normal size limits Inferior Vena Cava: Visualized portions are normal Main Portal Vein: 1.2 cm, with hepatopetal flow, but with slow velocities < 20 cm/s. Patent visualized right and left portal veins. FREE FLUID: None IMPRESSION: Hepatic steatosis with borderline hepatomegaly. Patent visualized portal veins, with slow velocities in the main portal vein. Signed by: Dr Isadora Amin MD on 03/28/2018 10:51 PM
[2018-03-29] MEDS ORDERED: PHYTONADIONE 10 MG/ML AMP SQ SCH (09:00)
[2018-03-29] MEDS ORDERED: FAMOTIDINE 20 MG/2 ML VIAL IV SCH (09:00)
--- NOTE | 2018-03-29 17:40 | Progress Note ---
DATE: March 28, 2018 PULMONARY MEDICINE PROGRESS NOTE ADDENDUM TO EARLIER PROGRESS NOTE SUBJECTIVE: Patient with continued critical illness. He was able to start dialysis, but he did have some wide-complex tachycardia episodes. Patient required more cardioversion. Patient successfully did have dialysis with 800 mL taken out. Patient left finally to [facility] for further care. Patient was arranged to go by [facility]. IMPRESSION AND PLAN: 1. Acute respiratory failure, intubated. 2. Advanced cardiomyopathy, under investigation. 3. Chest radiography suggestive of pneumonitis. 4. Pulmonary edema. 5. Acute kidney injury. 6. Shock liver. Continue current treatment. He will continue to require aggressive care and for this reason, he was life flighted out to [facility] for hospital facility. Will follow. For now, will sign off, but we are available if needed. Continue aggressive care as ordered. Job#: [id number]
--- NOTE | 2018-03-30 07:47 | Diagnostic Imaging Report ---
Non-tunneled Dialysis Catheter Placement 03/28/2018 Pre-Procedure Diagnosis: Kidney failure Post-procedure Diagnosis: Kidney failure Stationary Steam Engineer: Rohan Be Field Crops Harvest Machine Operator: None Sedation: None. Heart rate and oxygen saturation were monitored in real-time. Blood pressure was measured in 5 minute increments. 1% lidocaine was used for local anesthesia. Estimate blood loss: <5 mL Blood administered: None Complications: None Implants/Grafts: 13 Zimbabwean 15 cm 3 lumen temporary dialysis catheter (Trialysis) Specimen: None Procedure: Informed consent was obtained and the patient positioned supine in the ICU. A timeout was performed, followed by preliminary ultrasound of the right internal jugular vein (see findings below). The right neck and chest were prepped and draped in standard fashion. Using real-time ultrasound guidance a 18 gauge vascular needle was used to access the right internal jugular vein. An image was stored in the electronic medical record. A wire was advanced and the needle exchanged for a non-tunneled dialysis catheter using standard Salinger technique. At the end of the procedure the catheter was flushed, secured to the skin and a sterile dressing applied. The patient tolerated the procedure well and without immediate complication. Findings: Patent right internal jugular vein as demonstrated by normal ultrasound compressibility. Impression: Successful placement of a non-tunneled right internal jugular vein dialysis catheter using ultrasound guidance. Electronically approved by: Naman Be M.D. on 03/30/2018 at 7:50
== END 2018-03-28 22:35 | disposition short-term general hospital (02) | DRG 871 ==
LOC: ER 12:16 → ERHOLD 17:28 → ICU 21:55
PROVIDERS: ADMIT Internal Medicine; ATTEND Internal Medicine
PROC: 0BH18EZ Insertion of Endotracheal Airway into Trachea, Via Natural or Artificial Opening Endoscopic (ICD-10-PCS; principal; 2018-03-27)
PROC: 5A1935Z Respiratory Ventilation, Less than 24 Consecutive Hours (ICD-10-PCS; 2018-03-27)
PROC: 02HV33Z Insertion of Infusion Device into Superior Vena Cava, Percutaneous Approach (ICD-10-PCS; 2018-03-27)
PROC: 02HV33Z Insertion of Infusion Device into Superior Vena Cava, Percutaneous Approach (ICD-10-PCS; 2018-03-28)
PROC: B548ZZA Ultrasonography of Superior Vena Cava, Guidance (ICD-10-PCS; 2018-03-28)
PROC: 5A1D70Z Performance of Urinary Filtration, Intermittent, Less than 6 Hours Per Day (ICD-10-PCS; 2018-03-28)
DX: A41.9 Sepsis, unspecified organism (principal); J96.00 Acute respiratory failure, unspecified whether with hypoxia or hypercapnia; N17.0 Acute kidney failure with tubular necrosis; R65.21 Severe sepsis with septic shock; J18.9 Pneumonia, unspecified organism; K72.00 Acute and subacute hepatic failure without coma; R57.0 Cardiogenic shock; I42.9 Cardiomyopathy, unspecified; E87.2 Acidosis; I47.2 Ventricular tachycardia; D68.4 Acquired coagulation factor deficiency; G72.81 Critical illness myopathy; E87.5 Hyperkalemia; F17.210 Nicotine dependence, cigarettes, uncomplicated; D89.2 Hypergammaglobulinemia, unspecified; E66.9 Obesity, unspecified; Z68.39 Body mass index [BMI] 39.0-39.9, adult; F12.10 Cannabis abuse, uncomplicated; I49.3 Ventricular premature depolarization
CPT/HCPCS: 31500; 36415; 36430; 36556; 36569; 36600; 51700; 71045; 74018; 74470; 76705; 76770; 76937; 80048; 80053; 80076; 82150; 82330; 82390; 82550; 82553; 82805; 82948; 83605; 83690; 83735; 83880; 84100; 84479; 84484; 85025; 85379; 85610; 85730; 86039; 86255; 86631; 86644; 86645; 86663; 86664; 86665; 86677; 86704; 86707; 86738; 86757; 86803; 87340; 87529; 93005; 93970; 94003; 96365; 99285; J0330; J0610; J0696; J1644; J1650; J1940; J2001; J2150; J2185; J2250; J2543; J2690; J2920; J3370; J7030; J7050; J7060; J7070; J7120; Q9967

== ENCOUNTER 2020-06-30 10:04 | Emergency (ER) | payer OTHER ==
[~2020-06-30] VITALS: Ht 177.8 cm; Wt 110.2 kg
[2020-06-30] MEDS ORDERED: ASPIRIN 81 MG CHEW TAB PO ONE (10:45)
[2020-06-30 11:40] LABS: ALANINE AMINOTRANSFERASE 17 IU/L (0-55); ALBUMIN 4.5 g/dL (3.5-5.0); ALBUMIN/GLOBULIN RATIO 1.3 (0.8-2.0); ALKALINE PHOSPHATASE 102 IU/L (40-150); ANION GAP 15.9 mmol/L (8-16); BASOPHILS # (AUTO) 0.1 (0.0-0.1); BASOPHILS % 0.5 % (0.0-1.0); BLOOD UREA NITROGEN 10 mg/dL (7-26); BUN/CREATININE RATIO 13 (6-25); CALCIUM 9.4 mg/dL (8.4-10.2); CARBON DIOXIDE 21 mmol/L (22-29); CHLORIDE 105 mmol/L (98-107); CREATINE KINASE 237 IU/L (30-200); CREATININE, SERUM 0.75 mg/dL (0.72-1.25); EOSINOPHILS # (AUTO) 0.1 (0.0-0.4); EOSINOPHILS % 1.1 % (0.0-6.0); EST GLOMERULAR FILTRATION RATE > 60 ML/MIN (60-); GLUCOSE 91 mg/dL (74-118); HEMATOCRIT 52.9 % (38.2-49.6); HEMOGLOBIN 17.2 g/dL (14.0-18.0); LYMPHOCYTES # (AUTO) 3.5 (1.0-3.2); LYMPHOCYTES % 35.6 % (18.0-39.1); MAGNESIUM 2.1 MG/DL (1.3-2.1); MEAN CORPUSCULAR HEMOGLOBIN 28.1 pg (28-32); MEAN CORPUSCULAR HGB CONC 32.5 g/dL (31-35); MEAN CORPUSCULAR VOLUME 86.3 fL (81-99); MONOCYTES # (AUTO) 0.6 (0.2-0.8); MONOCYTES % 6.5 % (4.4-11.3); NEUTROPHILS # (AUTO) 5.5 (2.1-6.9); NEUTROPHILS % 55.8 % (38.7-80.0); PLATELET COUNT 274 x10e3/uL (140-360); POTASSIUM 3.9 mmol/L (3.5-5.1); RED BLOOD COUNT 6.13 x10e6/uL (4.3-5.7); RED CELL DISTRIBUTION WIDTH 14.3 % (11.7-14.4); SODIUM 138 mmol/L (136-145)
--- OUTSIDE RECORDS SUMMARY | 2020-06-30 11:49 | XMS REPORT | Clinical Summary ---
Author Author [facility] Address Unknown Phone Unavailable Care Team Providers Care Toy Assembly Supervisor Name Role Phone Rai Ibrahim RN PCP Unavailable Librado Ortega Unavailable Allergies No Known Allergies Medications End Date Status Medication Sig Dispensed Refills Start Date Active ferrous sulfate 325 (65 Take 325 mg 0 FE) MG tabletIndications: by mouth Post-operative state daily with breakfast . 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 Last Filed Vital Signs Not on file Plan of Treatment Health Maintenance Due Date Last Done Comments PNEUMOCOCCAL VACCINE 2-64 2000 YEARS AT RISK (1 of 1 - PPSV23) INFLUENZA VACCINE (#1) 2020 LIPID PANEL 04/05/2021 04/05/2018 Implants Device Identifier Shelf Expiration Date Model / Serial / L ot Implanted Type Area Manufactur er 12/28/2020 [id number] / [id number] / [id number] Grft Vasc [id number] - Graft/Patc Right: Chest TER UMO:VAS [id number] [id number] Implanted: Qty: 1 on 03/31/2018 by Shanna Saunders MD Results Not on fileafter 06/30/2019 Insurance Payer Benefit Subscriber ID Type Phone Address Plan / Group [employer] - MGD CARE CIGNA xxxxxxxxxxx HMO/POS HMO/POS/OP EN ACCESS Advance Directives For more information, please contact: [address] [address] Date Inactivated Comments Code Status Date Activated 04/27/2018 6:46 PM Full Code 04/19/2018 9:45 PM This code status was determined by: Patient 04/19/2018 9:45 PM Full Code 03/29/2018 2:48 AM This code status was determined by: Patient
--- NOTE | 2020-06-30 11:51 | Diagnostic Imaging Report ---
TECHNIQUE: Frontal view of the chest. INDICATION: ^SHORTNESS OF BREATH ^20200630 ^1102 COMPARISON: Prior day. DISCUSSION: Limited evaluation due to portable technique. Lines and hardware: None Heart and mediastinum: Cardiomediastinal silhouette and pulmonary vascularity are within normal limits. Trachea projects midline. Lungs and pleura: No focal airspace consolidation. No pleural effusion. No pneumothorax. Soft tissues and bones: No acute abnormality. Surgical clips are noted in the right axilla. IMPRESSION: Negative for acute intrathoracic process. Signed by: Iglesia Mina MD on 06/30/2020 11:48 AM
--- OUTSIDE RECORDS SUMMARY | 2020-06-30 11:52 | XMS REPORT | Continuity of Care Document ---
Author Author [facility] t Organization [facility] Address [address] [place] [address] [address] [place] [address] Phone Unavailable Care Team Providers Care Progress Worker Name Role Phone NONSTAFF PCP Unavailable Sangeeta Church Attphys Unavailable MASSAMEE, FRANCIA Attphys Unavailable Margarita BALDWIN Attphys Unavailable Ronaldo GANT Admphys Unavailable Margarita BALDWIN YICHING Admphys Unavailable Payers Payer Name Policy Type Policy Number Effective Date Expiration Date Ronaldo schwartz CIGNA - MGD CARECIGNA HMO/POS/OPEN ACCESSxxxxxxxxxxxHMO/POS xxxxxxxxxxx [facility] Cigna o [id number] 2016 00:00:00 [facility] Problems Condition Name Condition Details Condition Category Status Onset Date Resolution Date Last Treatment Date Treating Clinician Comments Source 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 Social History Social Habit Start Date Stop Date Quantity Comments Source Sex Assigned At [facility] Smoking Status Start Date Stop Date Source Never smoker [facility] Medications Ordered Medication Name Filled Medication Name Start Date Stop Da te Current Medication? Ordering Clinician Indication Dosage Frequency Signature (SIG) Comments Components Source ferrous sulfate 325 (65 FE) MG tablet 2018-05-11 09:25:22 Yes Post- operative state 325mg Take 325 mg by mouth daily with breakfast . [facility] Dayquil , Dayquil , 2015-07-23 00:00:00 No [facility] Tylenol , Tylenol , 2015-07-23 00:00:00 No [facility] Procedures Procedure Date / Time Performed Performing Clinician [facility]ly [facility] e Ultrasound, renal 2018-03-28 00:00:00 ROBSON ZAMORANO [facility] Ultrasound guidance for vascular access 2018-03-28 00:00:00 EDGAR BALDWIN [facility] US liver 2018-03-28 00:00:00 MOLLY HESS [facility] Computed tomography of chest with contrast 2018-03-27 00:00:00 H DANTE FUNES [facility] Plan of Care Planned Activity Planned Date Details Comments Source Future Scheduled Test 2021-04-05 00:00:00 Lipid panel (proce dure) [code = 98494313] [facility] Future Scheduled Test 2020-07-01 00:00:00 INFLUENZA VACCINE (#1) [code = INFLUENZA VACCINE (#1)] [facility] Future Scheduled Test 2000 00:00:00 PNEUMOCOCCAL VACCI NE 2-64 YEARS AT RISK (1 of 1 - PPSV23) [code = PNEUMOCOCCAL VACCINE 2-64 YEARS AT RISK (1 of 1 - PPSV23)] [facility] Encounters Start Date/Time End Date/Time Encounter Type Admission Type [facility] Care Department Encounter ID Source 2018-03-27 17:28:00 2018-03-28 22:35:00 Discharged Inpatient [address] [facility] [id number] [facility] Results Test Description Test Time Test Comments Results Result Comments Source CBC W/PLT COUNT & AUTO DIFFERENTIAL 2018-04-27 14:08:00 Test Item WHITE BLOOD CELL COUNT (BEAKER) (test code = 775) 3.9 K/ L 3.5- 10.5 RED BLOOD CELL COUNT (BEAKER) (test code = 761) 3.22 M/ L 4.63-6 .08 L HEMOGLOBIN (BEAKER) (test code = 410) 9.5 GM/DL 13.7-17.5 L HEMATOCRIT (BEAKER) (test code = 411) 30.7 % 40.1-51.0 L MEAN CORPUSCULAR VOLUME (BEAKER) (test code = 753) 95.3 fL 79. 0-92.2 H MEAN CORPUSCULAR HEMOGLOBIN (BEAKER) (test code = 751) 29.5 pg 25.7-32.2 MEAN CORPUSCULAR HEMOGLOBIN CONC (BEAKER) (test code = 752) 30.9 GM/DL 32.3-36.5 L RED CELL DISTRIBUTION WIDTH (BEAKER) (test code = 412) 15.4 % 11.6-14.4 H PLATELET COUNT (BEAKER) (test code = 756) 423 K/CU MM 150-450 MEAN PLATELET VOLUME (BEAKER) (test code = 754) 9.9 fL 9.4-12 .4 NUCLEATED RED BLOOD CELLS (BEAKER) (test code = 413) 2 /100 WBC 0 -0 H (CELLAVISION MANUAL DIFF)2018-04-27 14:08:00* Test Item Value Reference Range Interpretation Comments NEUTROPHILS - REL (CELLAVISION)(BEAKER) (test code = 2816) 1 % LYMPHOCYTES - REL (CELLAVISION)(BEAKER) (test code = 2817) 52 % MONOCYTES - REL (CELLAVISION)(BEAKER) (test code = 2818) 14 % EOSINOPHILS - REL (CELLAVISION)(BEAKER) (test code = 2819) 1 % METAMYELOCYTES - REL (CELLAVISION)(BEAKER) (test code = 2821) 6 % 0-0 H MYELOCYTES - REL (CELLAVISION)(BEAKER) (test code = 2822) 4 % 0-0 H PROMYELOCYTES - REL (CELLAVSION)(BEAKER) (test code = 2825) 13 % 0-0 H BANDS - REL (CELLAVISION)(BEAKER) (test code = 2826) 5 % 0 -10 ATYPICAL LYMPHOCYTES - REL (CELLAVISION)(BEAKER) (test code = 2829) 4 % 0-0 H NEUTROPHILS - ABS (CELLAVISION)(BEAKER) (test code = 2830) 0.04 K/ul 1.78-5.38 L LYMPHOCYTES - ABS (CELLAVISION)(BEAKER) (test code = 2831) 2.03 K/ul 1.32-3.57 MONOCYTES - ABS (CELLAVISION)(BEAKER) (test code = 2832) 0.55 K/uL 0.30-0.82 EOSINOPHILS - ABS (CELLAVISION)(BEAKER) (test code = 2834) 0.04 K/uL 0.04-0.54 METAMYELOCYTES - ABS (CELLAVISION)(BEAKER) (test code = 2836 ) 0.23 K/uL 0.00-0.00 H MYELOCYTES-ABS (CELLAVISION)(BEAKER) (test code = 2837) 0.16 K/uL 0.00-0.00 H PROMYELOCYTES - ABS (CELLAVISION)(BEAKER) (test code = 2838) 0.51 K/uL 0.00-0.00 H BANDS - ABS (CELLAVISION)(BEAKER) (test code = 2840) 0.20 K/uL 0 .00-0.80 ATYPICAL LYMPHOCYTES - ABS (CELLAVISION)(BEAKER) (test code = 2858) 0.16 K/uL 0.00-0.00 H TOTAL COUNTED (BEAKER) (test code = 1351) 100 MANUAL NRBC PER 100 CELLS (BEAKER) (test code = 1353) 5 /100 WBC 0-0 H SMUDGE CELLS (BEAKER) (test code = 1371) Present GIANT PLATELETS (BEAKER) (test code = 313) Present POLYCHROMATOPHILLIC RBCS(BEAKER) (test code = 478) 1+ few ANISOCYTOSIS (BEAKER) (test code = 961) 1+ few MICROCYTES (BEAKER) (test code = 965) 1+ few ARTIFACT (CELLAVISION)(BEAKER) (test code = 3432) Present PLATELET CONCENTRATION (CELLAVISION)(BEAKER) (test code = 3438) Pascale quate Received comment: User comments: Slide comments: COMPREHENSIVE METABOLIC PANEL 2018-04-27 05:55:00* Test Item Value Reference Range Interpretation Comments TOTAL PROTEIN (BEAKER) (test code = 770) 7.0 gm/dL 6.0-8.3 ALBUMIN (BEAKER) (test code = 1145) 3.4 g/dL 3.5-5.0 L ALKALINE PHOSPHATASE (BEAKER) (test code = 346) 102 U/L 40-150 BILIRUBIN TOTAL (BEAKER) (test code = 377) 1.5 mg/dL 0.2-1.2 H SODIUM (BEAKER) (test code = 381) 139 meq/L 136-145 POTASSIUM (BEAKER) (test code = 379) 3.5 meq/L 3.5-5.1 CHLORIDE (BEAKER) (test code = 382) 106 meq/L 98-107 CO2 (BEAKER) (test code = 355) 23 meq/L 22-29 BLOOD UREA NITROGEN (BEAKER) (test code = 354) 23 mg/dL 7-21 H CREATININE (BEAKER) (test code = 358) 1.51 mg/dL 0.57-1.25 H GLUCOSE RANDOM (BEAKER) (test code = 652) 76 mg/dL 70-105 CALCIUM (BEAKER) (test code = 697) 9.0 mg/dL 8.4-10.2 AST (SGOT) (BEAKER) (test code = 353) 29 U/L 5-34 ALT (SGPT) (BEAKER) (test code = 347) 32 U/L 6-55 EGFR (BEAKER) (test code = 1092) mL/min/1.73 sq m INSUFFICIENT CLINICAL DATA TO CALCULATE ESTIMATED GFR. [id number] 05:30:00* Test Item Value Reference Range Interpretation Comments MAGNESIUM (BEAKER) (test code = 627) 1.5 mg/dL 1.6-2.6 L RAD, CHEST, 1 VIEW, NON [id number] 05:08:00Reason for exam:->pulmonary edemaShould this be performed at the bedside?->YesFINAL REPORT Comparison examination: 04/26/2018 No pneumothorax, focal pulmonary consolidation, or significant pleural effusion. The cardiac size is magnified by the portable technique. Normal mediastinal contours. Normal skeleton. Right midline catheter is stable in position. Right axillary surgical skin sadie and right axillary surgical clips redemonstrated. Impression: No acute abnormality. Signed: Steven Wei MDReport Verified Date/Time: 04/27/2018 05:08:57 Reading Location: [facility] [id number] Ortho Consult Reading Room W/PLT COUNT & AUTO DIFFERENTIAL 2018-04-26 09:50:00* Test Item Value Reference Range Interpretation Comments WHITE BLOOD CELL COUNT (BEAKER) (test code = 775) 2.1 K/ L 3.5- 10.5 L RED BLOOD CELL COUNT (BEAKER) (test code = 761) 2.91 M/ L 4.63-6 .08 L HEMOGLOBIN (BEAKER) (test code = 410) 8.7 GM/DL 13.7-17.5 L HEMATOCRIT (BEAKER) (test code = 411) 27.3 % 40.1-51.0 L MEAN CORPUSCULAR VOLUME (BEAKER) (test code = 753) 93.8 fL 79. 0-92.2 H MEAN CORPUSCULAR HEMOGLOBIN (BEAKER) (test code = 751) 29.9 pg 25.7-32.2 MEAN CORPUSCULAR HEMOGLOBIN CONC (BEAKER) (test code = 752) 31.9 GM/DL 32.3-36.5 L RED CELL DISTRIBUTION WIDTH (BEAKER) (test code = 412) 15.1 % 11.6-14.4 H PLATELET COUNT (BEAKER) (test code = 756) 373 K/CU MM 150-450 MEAN PLATELET VOLUME (BEAKER) (test code = 754) 10.1 fL 9.4-12 .4 NUCLEATED RED BLOOD CELLS (BEAKER) (test code = 413) 2 /100 WBC 0 -0 H (CELLAVISION MANUAL DIFF)2018-04-26 09:50:00* Test Item Value Reference Range Interpretation Comments LYMPHOCYTES - REL (CELLAVISION)(BEAKER) (test code = 2817) 82 % MONOCYTES - REL (CELLAVISION)(BEAKER) (test code = 2818) 15 % BASOPHILS - REL (CELLAVISION)(BEAKER) (test code = 2820) 3 % LYMPHOCYTES - ABS (CELLAVISION)(BEAKER) (test code = 2831) 1.72 K/ul 1.32-3.57 MONOCYTES - ABS (CELLAVISION)(BEAKER) (test code = 2832) 0.32 K/uL 0.30-0.82 BASOPHILS - ABS (CELLAVISION)(BEAKER) (test code = 2835) 0.06 K/uL 0.01-0.08 TOTAL COUNTED (BEAKER) (test code = 1351) 100 MANUAL NRBC PER 100 CELLS (BEAKER) (test code = 1353) 2 /100 WBC 0-0 H PLT MORPHOLOGY (BEAKER) (test code = 486) Normal SMUDGE CELLS (BEAKER) (test code = 1371) Present POLYCHROMATOPHILLIC RBCS(BEAKER) (test code = 478) 1+ few ANISOCYTOSIS (BEAKER) (test code = 961) 1+ few MICROCYTES (BEAKER) (test code = 965) 1+ few ARTIFACT (CELLAVISION)(BEAKER) (test code = 3432) Present PLATELET CONCENTRATION (CELLAVISION)(BEAKER) (test code = 3438) Pascale quate Received comment: User comments: Slide comments: RAD, CHEST, 1 VIEW, NON DEPT 2018-04-26 07:59:00Reason for exam:->pulmonary edemaShould this be performed at the bedside?->YesFINAL REPORT Chest one view compared to April 25 Discussion: Heart, lungs, bones, soft tissues unremarkable. No effusion or pneumothorax. Signed: Angela Griffin Verified Date/Time: 04/26/2018 07:59:36 Reading Location: [facility] Radiology Reading Room REHENSIVE METABOLIC [id number] 05:45:00* Test Item Value Reference Range Interpretation Comments TOTAL PROTEIN (BEAKER) (test code = 770) 6.7 gm/dL 6.0-8.3 ALBUMIN (BEAKER) (test code = 1145) 3.3 g/dL 3.5-5.0 L ALKALINE PHOSPHATASE (BEAKER) (test code = 346) 89 U/L 40-150 BILIRUBIN TOTAL (BEAKER) (test code = 377) 1.4 mg/dL 0.2-1.2 H SODIUM (BEAKER) (test code = 381) 141 meq/L 136-145 POTASSIUM (BEAKER) (test code = 379) 3.7 meq/L 3.5-5.1 CHLORIDE (BEAKER) (test code = 382) 110 meq/L 98-107 H CO2 (BEAKER) (test code = 355) 20 meq/L 22-29 L BLOOD UREA NITROGEN (BEAKER) (test code = 354) 26 mg/dL 7-21 H CREATININE (BEAKER) (test code = 358) 1.41 mg/dL 0.57-1.25 H GLUCOSE RANDOM (BEAKER) (test code = 652) 89 mg/dL 70-105 CALCIUM (BEAKER) (test code = 697) 9.1 mg/dL 8.4-10.2 AST (SGOT) (BEAKER) (test code = 353) 26 U/L 5-34 ALT (SGPT) (BEAKER) (test code = 347) 33 U/L 6-55 EGFR (BEAKER) (test code = 1092) mL/min/1.73 sq m INSUFFICIENT CLINICAL DATA TO CALCULATE ESTIMATED GFR. [id number] 05:38:00* Test Item Value Reference Range Interpretation Comments MAGNESIUM (BEAKER) (test code = 627) 1.8 mg/dL 1.6-2.6 CBC W/PLT COUNT & AUTO [id number] 16:09:00* Test Item Value Reference Range Interpretation Comments WHITE BLOOD CELL COUNT (BEAKER) (test code = 775) 1.5 K/ L 3.5- 10.5 L RED BLOOD CELL COUNT (BEAKER) (test code = 761) 2.99 M/ L 4.63-6 .08 L HEMOGLOBIN (BEAKER) (test code = 410) 8.9 GM/DL 13.7-17.5 L HEMATOCRIT (BEAKER) (test code = 411) 27.9 % 40.1-51.0 L MEAN CORPUSCULAR VOLUME (BEAKER) (test code = 753) 93.3 fL 79. 0-92.2 H MEAN CORPUSCULAR HEMOGLOBIN (BEAKER) (test code = 751) 29.8 pg 25.7-32.2 MEAN CORPUSCULAR HEMOGLOBIN CONC (BEAKER) (test code = 752) 31.9 GM/DL 32.3-36.5 L RED CELL DISTRIBUTION WIDTH (BEAKER) (test code = 412) 14.7 % 11.6-14.4 H PLATELET COUNT (BEAKER) (test code = 756) 411 K/CU MM 150-450 MEAN PLATELET VOLUME (BEAKER) (test code = 754) 10.3 fL 9.4-12 .4 NUCLEATED RED BLOOD CELLS (BEAKER) (test code = 413) 0 /100 WBC 0 -0 (MANUAL DIFFERENTIAL)2018-04-25 16:09:00* Test Item Value Reference Range Interpretation Comments NEUTROPHILS - REL (DIFF) (BEAKER) (test code = 1359) 3 % LYMPHOCYTES - REL (DIFF) (BEAKER) (test code = 1360) 80 % MONOCYTES - REL (DIFF) (BEAKER) (test code = 1361) 11 % EOSINOPHILS - REL (DIFF) (BEAKER) (test code = 1362) 0 % BASOPHILS - REL (DIFF) (BEAKER) (test code = 1363) 1 % ATYPICAL LYMPHOCYTE - REL (DIFF) (BEAKER) (test code = 260) 5 % 0-0 H NEUTROPHILS - ABS (DIFF) (BEAKER) (test code = 1365) 0.05 K/ L 1 .80-8.00 L LYMPHOCYTES - ABS (DIFF) (BEAKER) (test code = 1366) 1.20 K/ L 1 .48-4.50 L MONOCYTES - ABS (DIFF) (BEAKER) (test code = 1367) 0.17 K/ L 0.0 0-1.30 EOSINOPHILS - ABS (DIFF) (BEAKER) (test code = 1368) 0.00 K/ L 0 .00-0.50 BASOPHILS - ABS (DIFF) (BEAKER) (test code = 1369) 0.02 K/ L 0.0 0-0.20 ATYPICAL LYMPHOCYTES - ABS (DIFF) (BEAKER) (test code = 263) 0.08 K/ L 0.00-0.00 H TOTAL COUNTED (BEAKER) (test code = 1351) 100 WBC MORPHOLOGY (BEAKER) (test code = 487) Normal PLT MORPHOLOGY (BEAKER) (test code = 486) Normal RBC MORPHOLOGY (BEAKER) (test code = 762) Normal COMPREHENSIVE METABOLIC [id number] 07:46:00* Test Item Value Reference Range Interpretation Comments TOTAL PROTEIN (BEAKER) (test code = 770) 7.3 gm/dL 6.0-8.3 ALBUMIN (BEAKER) (test code = 1145) 3.5 g/dL 3.5-5.0 ALKALINE PHOSPHATASE (BEAKER) (test code = 346) 94 U/L 40-150 BILIRUBIN TOTAL (BEAKER) (test code = 377) 1.5 mg/dL 0.2-1.2 H SODIUM (BEAKER) (test code = 381) 142 meq/L 136-145 POTASSIUM (BEAKER) (test code = 379) 3.6 meq/L 3.5-5.1 CHLORIDE (BEAKER) (test code = 382) 109 meq/L 98-107 H CO2 (BEAKER) (test code = 355) 22 meq/L 22-29 BLOOD UREA NITROGEN (BEAKER) (test code = 354) 31 mg/dL 7-21 H CREATININE (BEAKER) (test code = 358) 1.59 mg/dL 0.57-1.25 H GLUCOSE RANDOM (BEAKER) (test code = 652) 91 mg/dL 70-105 CALCIUM (BEAKER) (test code = 697) 9.4 mg/dL 8.4-10.2 AST (SGOT) (BEAKER) (test code = 353) 29 U/L 5-34 ALT (SGPT) (BEAKER) (test code = 347) 39 U/L 6-55 EGFR (BEAKER) (test code = 1092) mL/min/1.73 sq m INSUFFICIENT CLINICAL DATA TO CALCULATE ESTIMATED GFR. [id number] 07:42:00* Test Item Value Reference Range Interpretation Comments MAGNESIUM (BEAKER) (test code = 627) 1.9 mg/dL 1.6-2.6 RAD, CHEST, 1 VIEW, NON [id number] 07:42:00Reason for exam:->pulmonary edemaShould this be performed at the bedside?->YesFINAL REPORT Chest one view compared to April 24, 2018 Discussion: Heart, lungs, bones, soft tissues unremarkable. No effusion or pneumothorax. Signed: Angela Griffineport Verified Date/Time: 04/25/2018 07:42:02 Reading Location: [facility] Radiology Reading Room , CHEST, 1 VIEW, NON [id number] 08:45:00 Reason for exam:->pulmonary edemaShould this be performed at the bedside?->Yes FINAL REPORT INDICATION: pulmonary edema COMPARISON: April 23, 2018 TECHNIQUE: Chest radiograph, single view, portable technique. FINDINGS / IMPRESSION: There is no evidence of pneumonia or pulmonary edema. Cardiac and mediastinal contours are unremarkable for portable technique. Right subclavian cutdown site and right midline in the axillary vein noted. No pleural effusion o r pneumothorax is demonstrated. Osseous structures are unremarkable. Signed: Olivia Gayle MDReport Verified Date/Time: 04/24/2018 08:45:31 Reading Location : [facility] Mammo Reading Room W/PLT COUNT & AUTO [id number] 08:26:00 * Test Item Value Reference Range Interpretation Comments WHITE BLOOD CELL COUNT (BEAKER) (test code = 775) 1.3 K/ L 3.5- 10.5 L RED BLOOD CELL COUNT (BEAKER) (test code = 761) 3.06 M/ L 4.63-6 .08 L HEMOGLOBIN (BEAKER) (test code = 410) 9.1 GM/DL 13.7-17.5 L HEMATOCRIT (BEAKER) (test code = 411) 28.4 % 40.1-51.0 L MEAN CORPUSCULAR VOLUME (BEAKER) (test code = 753) 92.8 fL 79. 0-92.2 H MEAN CORPUSCULAR HEMOGLOBIN (BEAKER) (test code = 751) 29.7 pg 25.7-32.2 MEAN CORPUSCULAR HEMOGLOBIN CONC (BEAKER) (test code = 752) 32.0 GM/DL 32.3-36.5 L RED CELL DISTRIBUTION WIDTH (BEAKER) (test code = 412) 14.3 % 11.6-14.4 PLATELET COUNT (BEAKER) (test code = 756) 434 K/CU MM 150-450 MEAN PLATELET VOLUME (BEAKER) (test code = 754) 10.3 fL 9.4-12 .4 NUCLEATED RED BLOOD CELLS (BEAKER) (test code = 413) 0 /100 WBC 0 -0 (CELLAVISION MANUAL DIFF)2018-04-24 08:26:00* Test Item Value Reference Range Interpretation Comments LYMPHOCYTES - REL (CELLAVISION)(BEAKER) (test code = 2817) 84 % MONOCYTES - REL (CELLAVISION)(BEAKER) (test code = 2818) 13 % BASOPHILS - REL (CELLAVISION)(BEAKER) (test code = 2820) 1 % BANDS - REL (CELLAVISION)(BEAKER) (test code = 2826) 1 % 0 -10 ATYPICAL LYMPHOCYTES - REL (CELLAVISION)(BEAKER) (test code = 2829) 1 % 0-0 H LYMPHOCYTES - ABS (CELLAVISION)(BEAKER) (test code = 2831) 1.09 K/ul 1.32-3.57 L MONOCYTES - ABS (CELLAVISION)(BEAKER) (test code = 2832) 0.17 K/uL 0.30-0.82 L BASOPHILS - ABS (CELLAVISION)(BEAKER) (test code = 2835) 0.01 K/uL 0.01-0.08 BANDS - ABS (CELLAVISION)(BEAKER) (test code = 2840) 0.01 K/uL 0 .00-0.80 ATYPICAL LYMPHOCYTES - ABS (CELLAVISION)(BEAKER) (test code = 2858) 0.01 K/uL 0.00-0.00 H TOTAL COUNTED (BEAKER) (test code = 1351) 100 WBC MORPHOLOGY (BEAKER) (test code = 487) Normal LARGE PLT(BEAKER) (test code = 2156) Present POLYCHROMATOPHILLIC RBCS(BEAKER) (test code = 478) 1+ few ANISOCYTOSIS (BEAKER) (test code = 961) 2+ moderate MICROCYTES (BEAKER) (test code = 965) 2+ moderate ARTIFACT (CELLAVISION)(BEAKER) (test code = 3432) Present PLATELET CONCENTRATION (CELLAVISION)(BEAKER) (test code = 3438) Pascale quate Received comment: User comments: Slide comments: BASIC METABOLIC [id number] 08:09:00* Test Item Value Reference Range Interpretation Comments SODIUM (BEAKER) (test code = 381) 141 meq/L 136-145 POTASSIUM (BEAKER) (test code = 379) 3.8 meq/L 3.5-5.1 CHLORIDE (BEAKER) (test code = 382) 108 meq/L 98-107 H CO2 (BEAKER) (test code = 355) 25 meq/L 22-29 BLOOD UREA NITROGEN (BEAKER) (test code = 354) 33 mg/dL 7-21 H CREATININE (BEAKER) (test code = 358) 1.63 mg/dL 0.57-1.25 H GLUCOSE RANDOM (BEAKER) (test code = 652) 91 mg/dL 70-105 CALCIUM (BEAKER) (test code = 697) 9.8 mg/dL 8.4-10.2 EGFR (BEAKER) (test code = 1092) mL/min/1.73 sq m INSUFFICIENT CLINICAL DATA TO CALCULATE ESTIMATED GFR. [id number] 08:07:00* Test Item Value Reference Range Interpretation Comments MAGNESIUM (BEAKER) (test code = 627) 2.1 mg/dL 1.6-2.6 COMPREHENSIVE METABOLIC [id number] 05:21:00* Test Item Value Reference Range Interpretation Comments TOTAL PROTEIN (BEAKER) (test code = 770) 5.5 gm/dL 6.0-8.3 L ALBUMIN (BEAKER) (test code = 1145) 2.6 g/dL 3.5-5.0 L ALKALINE PHOSPHATASE (BEAKER) (test code = 346) 69 U/L 40-150 BILIRUBIN TOTAL (BEAKER) (test code = 377) 1.1 mg/dL 0.2-1.2 SODIUM (BEAKER) (test code = 381) 145 meq/L 136-145 POTASSIUM (BEAKER) (test code = 379) 2.9 meq/L 3.5-5.1 L CHLORIDE (BEAKER) (test code = 382) 118 meq/L 98-107 H CO2 (BEAKER) (test code = 355) 20 meq/L 22-29 L BLOOD UREA NITROGEN (BEAKER) (test code = 354) 29 mg/dL 7-21 H CREATININE (BEAKER) (test code = 358) 1.29 mg/dL 0.57-1.25 H GLUCOSE RANDOM (BEAKER) (test code = 652) 77 mg/dL 70-105 CALCIUM (BEAKER) (test code = 697) 7.4 mg/dL 8.4-10.2 L AST (SGOT) (BEAKER) (test code = 353) 28 U/L 5-34 ALT (SGPT) (BEAKER) (test code = 347) 31 U/L 6-55 EGFR (BEAKER) (test code = 1092) mL/min/1.73 sq m INSUFFICIENT CLINICAL DATA TO CALCULATE ESTIMATED GFR. [id number] 05:20:00* Test Item Value Reference Range Interpretation Comments MAGNESIUM (BEAKER) (test code = 627) 1.5 mg/dL 1.6-2.6 L CBC W/PLT COUNT & AUTO [id number] 10:34:00* Test Item Value Reference Range Interpretation Comments WHITE BLOOD CELL COUNT (BEAKER) (test code = 775) 1.3 K/ L 3.5- 10.5 L RED BLOOD CELL COUNT (BEAKER) (test code = 761) 2.93 M/ L 4.63-6 .08 L HEMOGLOBIN (BEAKER) (test code = 410) 8.7 GM/DL 13.7-17.5 L HEMATOCRIT (BEAKER) (test code = 411) 27.4 % 40.1-51.0 L MEAN CORPUSCULAR VOLUME (BEAKER) (test code = 753) 93.5 fL 79. 0-92.2 H MEAN CORPUSCULAR HEMOGLOBIN (BEAKER) (test code = 751) 29.7 pg 25.7-32.2 MEAN CORPUSCULAR HEMOGLOBIN CONC (BEAKER) (test code = 752) 31.8 GM/DL 32.3-36.5 L RED CELL DISTRIBUTION WIDTH (BEAKER) (test code = 412) 14.1 % 11.6-14.4 PLATELET COUNT (BEAKER) (test code = 756) 398 K/CU MM 150-450 MEAN PLATELET VOLUME (BEAKER) (test code = 754) 10.0 fL 9.4-12 .4 NUCLEATED RED BLOOD CELLS (BEAKER) (test code = 413) 0 /100 WBC 0 -0 (CELLAVISION MANUAL DIFF)2018-04-23 10:34:00* Test Item Value Reference Range Interpretation Comments NEUTROPHILS - REL (CELLAVISION)(BEAKER) (test code = 2816) 11 % LYMPHOCYTES - REL (CELLAVISION)(BEAKER) (test code = 2817) 76 % MONOCYTES - REL (CELLAVISION)(BEAKER) (test code = 2818) 7 % ATYPICAL LYMPHOCYTES - REL (CELLAVISION)(BEAKER) (test code = 2829) 6 % 0-0 H NEUTROPHILS - ABS (CELLAVISION)(BEAKER) (test code = 2830) 0.14 K/ul 1.78-5.38 L LYMPHOCYTES - ABS (CELLAVISION)(BEAKER) (test code = 2831) 0.99 K/ul 1.32-3.57 L MONOCYTES - ABS (CELLAVISION)(BEAKER) (test code = 2832) 0.09 K/uL 0.30-0.82 L ATYPICAL LYMPHOCYTES - ABS (CELLAVISION)(BEAKER) (test code = 2858) 0.08 K/uL 0.00-0.00 H TOTAL COUNTED (BEAKER) (test code = 1351) 100 WBC MORPHOLOGY (BEAKER) (test code = 487) Normal LARGE PLT(BEAKER) (test code = 2156) Present POLYCHROMATOPHILLIC RBCS(BEAKER) (test code = 478) 1+ few ARTIFACT (CELLAVISION)(BEAKER) (test code = 3432) Present PLATELET CONCENTRATION (CELLAVISION)(BEAKER) (test code = 3438) Pascale quate Received comment: User comments: Slide comments: RAD, CHEST, 1 VIEW, NON DEPT 2018-04-23 07:33:00Reason for exam:->pulmonary edemaShould this be performed at the bedside?->YesFINAL REPORT Chest one view AP 04/23/2018 7:33 AM CLINICAL HISTORY: pulmonary edema COMPARISON: 04/22/2018 FINDINGS: The lungs are clear. Cardiomediastinal contours are within normal limits. The central pulmonary vasculature is not engorged. IMPRESSION: Unremarkable frontal chest radiograph. Signed: Delroy Oro Verified Date/Time: 04/23/2018 07:33:14 Reading Location: [address] Neuro Reading Room REHENSIVE METABOLIC [id number] 06:57:00* Test Item Value Reference Range Interpretation Comments TOTAL PROTEIN (BEAKER) (test code = 770) 7.3 gm/dL 6.0-8.3 ALBUMIN (BEAKER) (test code = 1145) 3.4 g/dL 3.5-5.0 L ALKALINE PHOSPHATASE (BEAKER) (test code = 346) 87 U/L 40-150 BILIRUBIN TOTAL (BEAKER) (test code = 377) 1.6 mg/dL 0.2-1.2 H SODIUM (BEAKER) (test code = 381) 141 meq/L 136-145 POTASSIUM (BEAKER) (test code = 379) 3.6 meq/L 3.5-5.1 CHLORIDE (BEAKER) (test code = 382) 109 meq/L 98-107 H CO2 (BEAKER) (test code = 355) 22 meq/L 22-29 BLOOD UREA NITROGEN (BEAKER) (test code = 354) 36 mg/dL 7-21 H CREATININE (BEAKER) (test code = 358) 1.75 mg/dL 0.57-1.25 H GLUCOSE RANDOM (BEAKER) (test code = 652) 92 mg/dL 70-105 CALCIUM (BEAKER) (test code = 697) 9.0 mg/dL 8.4-10.2 AST (SGOT) (BEAKER) (test code = 353) 43 U/L 5-34 H ALT (SGPT) (BEAKER) (test code = 347) 42 U/L 6-55 EGFR (BEAKER) (test code = 1092) mL/min/1.73 sq m INSUFFICIENT CLINICAL DATA TO CALCULATE ESTIMATED GFR. [id number] 06:50:00* Test Item Value Reference Range Interpretation Comments MAGNESIUM (BEAKER) (test code = 627) 2.0 mg/dL 1.6-2.6 CBC W/PLT COUNT & AUTO [id number] 09:03:00* Test Item Value Reference Range Interpretation Comments WHITE BLOOD CELL COUNT (BEAKER) (test code = 775) 1.9 K/ L 3.5- 10.5 L RED BLOOD CELL COUNT (BEAKER) (test code = 761) 2.66 M/ L 4.63-6 .08 L HEMOGLOBIN (BEAKER) (test code = 410) 8.0 GM/DL 13.7-17.5 L HEMATOCRIT (BEAKER) (test code = 411) 24.5 % 40.1-51.0 L MEAN CORPUSCULAR VOLUME (BEAKER) (test code = 753) 92.1 fL 79. 0-92.2 MEAN CORPUSCULAR HEMOGLOBIN (BEAKER) (test code = 751) 30.1 pg 25.7-32.2 MEAN CORPUSCULAR HEMOGLOBIN CONC (BEAKER) (test code = 752) 32.7 GM/DL 32.3-36.5 RED CELL DISTRIBUTION WIDTH (BEAKER) (test code = 412) 14.2 % 11.6-14.4 PLATELET COUNT (BEAKER) (test code = 756) 333 K/CU MM 150-450 MEAN PLATELET VOLUME (BEAKER) (test code = 754) 10.4 fL 9.4-12 .4 NUCLEATED RED BLOOD CELLS (BEAKER) (test code = 413) 0 /100 WBC 0 -0 (CELLAVISION MANUAL DIFF)2018-04-22 09:03:00* Test Item Value Reference Range Interpretation Comments NEUTROPHILS - REL (CELLAVISION)(BEAKER) (test code = 2816) 22 % LYMPHOCYTES - REL (CELLAVISION)(BEAKER) (test code = 2817) 71 % MONOCYTES - REL (CELLAVISION)(BEAKER) (test code = 2818) 4 % BASOPHILS - REL (CELLAVISION)(BEAKER) (test code = 2820) 2 % ATYPICAL LYMPHOCYTES - REL (CELLAVISION)(BEAKER) (test code = 2829) 1 % 0-0 H NEUTROPHILS - ABS (CELLAVISION)(BEAKER) (test code = 2830) 0.42 K/ul 1.78-5.38 L LYMPHOCYTES - ABS (CELLAVISION)(BEAKER) (test code = 2831) 1.35 K/ul 1.32-3.57 MONOCYTES - ABS (CELLAVISION)(BEAKER) (test code = 2832) 0.08 K/uL 0.30-0.82 L BASOPHILS - ABS (CELLAVISION)(BEAKER) (test code = 2835) 0.04 K/uL 0.01-0.08 ATYPICAL LYMPHOCYTES - ABS (CELLAVISION)(BEAKER) (test code = 2858) 0.02 K/uL 0.00-0.00 H TOTAL COUNTED (BEAKER) (test code = 1351) 100 WBC MORPHOLOGY (BEAKER) (test code = 487) Normal PLT MORPHOLOGY (BEAKER) (test code = 486) Normal ANISOCYTOSIS (BEAKER) (test code = 961) 1+ few MICROCYTES (BEAKER) (test code = 965) 1+ few ARTIFACT (CELLAVISION)(BEAKER) (test code = 3432) Present PLATELET CONCENTRATION (CELLAVISION)(BEAKER) (test code = 3438) Pascale quate Received comment: User comments: Slide comments: RAD, CHEST, 1 VIEW, NON DEPT 2018-04-22 07:57:00Reason for exam:->pulmonary edemaShould this be performed at the bedside?->YesFINAL REPORT INDICATION: pulmonary edema COMPARISON: April 21, 2018 TECHNIQUE: Chest radiograph, single view, portable technique. FINDINGS / IMPRESSION: There is no evidence of pneumonia or pulmonary edema. Cardiac and mediastinal contours are unremarkable for portable technique. Right subclavian cutdown skin sadie noted. No pleural effusion or pneumothorax is demonstrated. Osseous structures are unremarkable. Signed: Olivia Duraneport Verified Date/Time: 04/22/2018 07:57:14 Reading Location: [facility] [id number] Ortho Consult Reading Room [id number] 06:05:00* Test Item Value Reference Range Interpretation Comments MAGNESIUM (BEAKER) (test code = 627) 2.2 mg/dL 1.6-2.6 COMPREHENSIVE METABOLIC [id number] 06:05:00* Test Item Value Reference Range Interpretation Comments TOTAL PROTEIN (BEAKER) (test code = 770) 7.0 gm/dL 6.0-8.3 ALBUMIN (BEAKER) (test code = 1145) 3.2 g/dL 3.5-5.0 L ALKALINE PHOSPHATASE (BEAKER) (test code = 346) 78 U/L 40-150 BILIRUBIN TOTAL (BEAKER) (test code = 377) 1.4 mg/dL 0.2-1.2 H SODIUM (BEAKER) (test code = 381) 140 meq/L 136-145 POTASSIUM (BEAKER) (test code = 379) 3.5 meq/L 3.5-5.1 CHLORIDE (BEAKER) (test code = 382) 110 meq/L 98-107 H CO2 (BEAKER) (test code = 355) 20 meq/L 22-29 L BLOOD UREA NITROGEN (BEAKER) (test code = 354) 44 mg/dL 7-21 H CREATININE (BEAKER) (test code = 358) 2.11 mg/dL 0.57-1.25 H GLUCOSE RANDOM (BEAKER) (test code = 652) 94 mg/dL 70-105 CALCIUM (BEAKER) (test code = 697) 8.6 mg/dL 8.4-10.2 AST (SGOT) (BEAKER) (test code = 353) 45 U/L 5-34 H ALT (SGPT) (BEAKER) (test code = 347) 39 U/L 6-55 EGFR (BEAKER) (test code = 1092) mL/min/1.73 sq m INSUFFICIENT CLINICAL DATA TO CALCULATE ESTIMATED GFR. B-TYPE NATRIURETIC FACTOR (BNP)2018-04-22 05:21:00* Test Item Value Reference Range Interpretation Comments B-TYPE NATRIURETIC PEPTIDE (BEAKER) (test code = 700) 393 pg/mL 0-100 H COMPREHENSIVE METABOLIC [id number] 05:07:00* Test Item Value Reference Range Interpretation Comments TOTAL PROTEIN (BEAKER) (test code = 770) 7.0 gm/dL 6.0-8.3 ALBUMIN (BEAKER) (test code = 1145) 3.2 g/dL 3.5-5.0 L ALKALINE PHOSPHATASE (BEAKER) (test code = 346) 77 U/L 40-150 BILIRUBIN TOTAL (BEAKER) (test code = 377) 1.3 mg/dL 0.2-1.2 H SODIUM (BEAKER) (test code = 381) 142 meq/L 136-145 POTASSIUM (BEAKER) (test code = 379) 3.6 meq/L 3.5-5.1 CHLORIDE (BEAKER) (test code = 382) 109 meq/L 98-107 H CO2 (BEAKER) (test code = 355) 22 meq/L 22-29 BLOOD UREA NITROGEN (BEAKER) (test code = 354) 49 mg/dL 7-21 H CREATININE (BEAKER) (test code = 358) 2.29 mg/dL 0.57-1.25 H GLUCOSE RANDOM (BEAKER) (test code = 652) 91 mg/dL 70-105 CALCIUM (BEAKER) (test code = 697) 9.0 mg/dL 8.4-10.2 AST (SGOT) (BEAKER) (test code = 353) 42 U/L 5-34 H ALT (SGPT) (BEAKER) (test code = 347) 39 U/L 6-55 EGFR (BEAKER) (test code = 1092) mL/min/1.73 sq m INSUFFICIENT CLINICAL DATA TO CALCULATE ESTIMATED GFR. [id number] 04:53:00* Test Item Value Reference Range Interpretation Comments PHOSPHORUS (BEAKER) (test code = 604) 4.2 mg/dL 2.3-4.7 [id number] 04:53:00* Test Item Value Reference Range Interpretation Comments MAGNESIUM (BEAKER) (test code = 627) 1.8 mg/dL 1.6-2.6 RAD, CHEST, 1 VIEW, NON [id number] 04:41:00Reason for exam:->IMPELLA PLACEMENT, volume overload, cardiogenic shockShould this be performed at the bedside?->YesFINAL REPORT EXAMINATION: AP PORTABLE CHEST RADIOGRAPH CLINICAL INDICATION: Cardiogenic shock IMPRESSION: Compared with 04/20/2018 The Impella device has been removed in the interval. Catheter tubing projects over the right axilla which may reflect a peripherally inserted central line. Cardiac silhouette is mildly prominent for this projection but stable. Overall aeration of the lungs has improved. Thin curvilinear opacities persist in both lungs. The morphology and distribution favor atelectasis. No evidence of pulmonary edema, large pleural effusion or pneumothorax. Signed: Juarez Pineda MDReport Verified Date/Time: 04/21/2018 04:41:49 Reading Location: [address] Reading Room D GAS, [id number] 03:51:00* Test Item Value Reference Range Interpretation Comments PH ARTERIAL (BEAKER) (test code = 383) 7.46 7.35-7.45 H PCO2 ARTERIAL (BEAKER) (test code = 384) 38 mmHg 35-45 PO2 ARTERIAL (BEAKER) (test code = 385) 134 mmHg 80-90 H O2 SATURATION ARTERIAL (BEAKER) (test code = 386) 98.8 % 96.0 -97.0 H HCO3 ARTERIAL (BEAKER) (test code = 388) 26 mmol/L 21-29 BASE EXCESS ARTERIAL (BEAKER) (test code = 387) 2.5 mmol/L -2.0-3 .0 PATIENT TEMPERATURE (BEAKER) (test code = 1818) 37.0 C FIO2 (BEAKER) (test code = 1819) 100.0 % LACTIC ACID, ARTERIAL, WHOLE [id number] 03:44:00* Test Item Value Reference Range Interpretation Comments LACTATE BLOOD ARTERIAL (2) (BEAKER) (test code = 2874) 0.7 mmol/L 0.5-2.2 Effective 03/03/2016: Units/Reference Range ChangeNew: 0.5-2.2 mmol/L Previous: 5 -20 mg/dLCBC W/PLT COUNT & AUTO [id number] 03:36:00* Test Item Value Reference Range Interpretation Comments WHITE BLOOD CELL COUNT (BEAKER) (test code = 775) 2.5 K/ L 3.5- 10.5 L RED BLOOD CELL COUNT (BEAKER) (test code = 761) 2.85 M/ L 4.63-6 .08 L HEMOGLOBIN (BEAKER) (test code = 410) 8.4 GM/DL 13.7-17.5 L HEMATOCRIT (BEAKER) (test code = 411) 26.2 % 40.1-51.0 L MEAN CORPUSCULAR VOLUME (BEAKER) (test code = 753) 91.9 fL 79. 0-92.2 MEAN CORPUSCULAR HEMOGLOBIN (BEAKER) (test code = 751) 29.5 pg 25.7-32.2 MEAN CORPUSCULAR HEMOGLOBIN CONC (BEAKER) (test code = 752) 32.1 GM/DL 32.3-36.5 L RED CELL DISTRIBUTION WIDTH (BEAKER) (test code = 412) 14.2 % 11.6-14.4 PLATELET COUNT (BEAKER) (test code = 756) 283 K/CU MM 150-450 MEAN PLATELET VOLUME (BEAKER) (test code = 754) 10.1 fL 9.4-12 .4 NUCLEATED RED BLOOD CELLS (BEAKER) (test code = 413) 0 /100 WBC 0 -0 NEUTROPHILS RELATIVE PERCENT (BEAKER) (test code = 429) 40 % LYMPHOCYTES RELATIVE PERCENT (BEAKER) (test code = 430) 44 % MONOCYTES RELATIVE PERCENT (BEAKER) (test code = 431) 15 % EOSINOPHILS RELATIVE PERCENT (BEAKER) (test code = 432) 0 % BASOPHILS RELATIVE PERCENT (BEAKER) (test code = 437) 1 % NEUTROPHILS ABSOLUTE COUNT (BEAKER) (test code = 670) 1.01 K/ L 1.78-5.38 L LYMPHOCYTES ABSOLUTE COUNT (BEAKER) (test code = 414) 1.10 K/ L 1.32-3.57 L MONOCYTES ABSOLUTE COUNT (BEAKER) (test code = 415) 0.37 K/ L 0. 30-0.82 EOSINOPHILS ABSOLUTE COUNT (BEAKER) (test code = 416) 0.01 K/ L 0.04-0.54 L BASOPHILS ABSOLUTE COUNT (BEAKER) (test code = 417) 0.03 K/ L 0. 01-0.08 IMMATURE GRANULOCYTES-RELATIVE PERCENT (BEAKER) (test code = 2801) 0 % 0-1 HEMOGLOBIN AND [id number] 08:28:00* Test Item Value Reference Range Interpretation Comments HEMOGLOBIN (BEAKER) (test code = 410) 8.4 GM/DL 13.7-17.5 L HEMATOCRIT (BEAKER) (test code = 411) 25.7 % 40.1-51.0 L COMPREHENSIVE METABOLIC [id number] 05:20:00* Test Item Value Reference Range Interpretation Comments TOTAL PROTEIN (BEAKER) (test code = 770) 6.7 gm/dL 6.0-8.3 ALBUMIN (BEAKER) (test code = 1145) 3.0 g/dL 3.5-5.0 L ALKALINE PHOSPHATASE (BEAKER) (test code = 346) 74 U/L 40-150 BILIRUBIN TOTAL (BEAKER) (test code = 377) 1.6 mg/dL 0.2-1.2 H SODIUM (BEAKER) (test code = 381) 142 meq/L 136-145 POTASSIUM (BEAKER) (test code = 379) 3.6 meq/L 3.5-5.1 CHLORIDE (BEAKER) (test code = 382) 107 meq/L 98-107 CO2 (BEAKER) (test code = 355) 23 meq/L 22-29 BLOOD UREA NITROGEN (BEAKER) (test code = 354) 54 mg/dL 7-21 H CREATININE (BEAKER) (test code = 358) 2.58 mg/dL 0.57-1.25 H GLUCOSE RANDOM (BEAKER) (test code = 652) 96 mg/dL 70-105 CALCIUM (BEAKER) (test code = 697) 9.0 mg/dL 8.4-10.2 AST (SGOT) (BEAKER) (test code = 353) 43 U/L 5-34 H ALT (SGPT) (BEAKER) (test code = 347) 43 U/L 6-55 EGFR (BEAKER) (test code = 1092) mL/min/1.73 sq m INSUFFICIENT CLINICAL DATA TO CALCULATE ESTIMATED GFR. [id number] 05:15:00* Test Item Value Reference Range Interpretation Comments PHOSPHORUS (BEAKER) (test code = 604) 4.4 mg/dL 2.3-4.7 [id number] 05:15:00* Test Item Value Reference Range Interpretation Comments MAGNESIUM (BEAKER) (test code = 627) 2.0 mg/dL 1.6-2.6 LACTATE DEHYDROGENASE (LDH)2018-04-20 05:15:00* Test Item Value Reference Range Interpretation Comments LACTATE DEHYDROGENASE (BEAKER) (test code = 635) 870 U/L 125-2 20 H [id number] 05:11:00* Test Item Value Reference Range Interpretation Comments PARTIAL THROMBOPLASTIN TIME (BEAKER) (test code = 760) 62.4 seconds 22.5-36.0 H LACTIC ACID, ARTERIAL, WHOLE [id number] 05:01:00* Test Item Value Reference Range Interpretation Comments LACTATE BLOOD ARTERIAL (2) (BEAKER) (test code = 2874) 0.6 mmol/L 0.5-2.2 Effective 03/03/2016: Units/Reference Range ChangeNew: 0.5-2.2 mmol/L Previous: 5 -20 mg/dLCBC W/PLT COUNT & AUTO [id number] 04:41:00* Test Item Value Reference Range Interpretation Comments WHITE BLOOD CELL COUNT (BEAKER) (test code = 775) 3.0 K/ L 3.5- 10.5 L RED BLOOD CELL COUNT (BEAKER) (test code = 761) 2.80 M/ L 4.63-6 .08 L HEMOGLOBIN (BEAKER) (test code = 410) 8.2 GM/DL 13.7-17.5 L HEMATOCRIT (BEAKER) (test code = 411) 25.7 % 40.1-51.0 L MEAN CORPUSCULAR VOLUME (BEAKER) (test code = 753) 91.8 fL 79. 0-92.2 MEAN CORPUSCULAR HEMOGLOBIN (BEAKER) (test code = 751) 29.3 pg 25.7-32.2 MEAN CORPUSCULAR HEMOGLOBIN CONC (BEAKER) (test code = 752) 31.9 GM/DL 32.3-36.5 L RED CELL DISTRIBUTION WIDTH (BEAKER) (test code = 412) 14.2 % 11.6-14.4 PLATELET COUNT (BEAKER) (test code = 756) 228 K/CU MM 150-450 MEAN PLATELET VOLUME (BEAKER) (test code = 754) 10.4 fL 9.4-12 .4 NUCLEATED RED BLOOD CELLS (BEAKER) (test code = 413) 0 /100 WBC 0 -0 NEUTROPHILS RELATIVE PERCENT (BEAKER) (test code = 429) 56 % LYMPHOCYTES RELATIVE PERCENT (BEAKER) (test code = 430) 33 % MONOCYTES RELATIVE PERCENT (BEAKER) (test code = 431) 10 % EOSINOPHILS RELATIVE PERCENT (BEAKER) (test code = 432) 1 % BASOPHILS RELATIVE PERCENT (BEAKER) (test code = 437) 0 % NEUTROPHILS ABSOLUTE COUNT (BEAKER) (test code = 670) 1.70 K/ L 1.78-5.38 L LYMPHOCYTES ABSOLUTE COUNT (BEAKER) (test code = 414) 0.98 K/ L 1.32-3.57 L MONOCYTES ABSOLUTE COUNT (BEAKER) (test code = 415) 0.30 K/ L 0. 30-0.82 EOSINOPHILS ABSOLUTE COUNT (BEAKER) (test code = 416) 0.02 K/ L 0.04-0.54 L BASOPHILS ABSOLUTE COUNT (BEAKER) (test code = 417) 0.01 K/ L 0. 01-0.08 IMMATURE GRANULOCYTES-RELATIVE PERCENT (BEAKER) (test code = 2801) 0 % 0-1 RAD, CHEST, 1 VIEW, NON [id number] 04:30:00Reason for exam:->IMPELLA PLACEMENT, volume overload, cardiogenic shockShould this be performed at the bedside?->YesFINAL REPORT EXAMINATION: AP PORTABLE CHEST RADIOGRAPH CLINICAL INDICATION: Cardiogenic shock. IMPRESSION: Compared with 04/19/2018 An Impella device is again noted, grossly stable in position. Curvilinear and patchy opacities are again noted in both lungs, similar to previous. No definite evidence of new lung consolidation or pneumothorax. Cardiac and mediastinal contours are also unchanged. Signed: Juarez Pinedaeport Verified Date/Time: 04/20/2018 04:30:59 Reading Location: [address] Reading Room [id number] 01:07:00* Test Item Value Reference Range Interpretation Comments PARTIAL THROMBOPLASTIN TIME (BEAKER) (test code = 760) 58.7 seconds 22.5-36.0 H POTASSIUM-STAT [id number] 00:56:00* Test Item Value Reference Range Interpretation Comments POTASSIUM (BEAKER) (test code = 379) 3.5 meq/L 3.6-5.5 L HEMOGLOBIN AND [id number] 00:55:00* Test Item Value Reference Range Interpretation Comments HEMOGLOBIN (BEAKER) (test code = 410) 8.1 GM/DL 13.7-17.5 L HEMATOCRIT (BEAKER) (test code = 411) 24.8 % 40.1-51.0 L [id number] 18:25:00* Test Item Value Reference Range Interpretation Comments PARTIAL THROMBOPLASTIN TIME (BEAKER) (test code = 760) 60.9 seconds 22.5-36.0 H POCT-GLUCOSE [id number] 18:17:00* Test Item Value Reference Range Interpretation Comments POC-GLUCOSE METER (BEAKER) (test code = 1538) 105 mg/dL 70-110 TESTED AT [place] [address] [facility] [address] HEMOGLOBIN AND [id number] 16:36:00* Test Item Value Reference Range Interpretation Comments HEMOGLOBIN (BEAKER) (test code = 410) 8.8 GM/DL 13.7-17.5 L HEMATOCRIT (BEAKER) (test code = 411) 26.6 % 40.1-51.0 L POTASSIUM-STAT [id number] 16:29:00* Test Item Value Reference Range Interpretation Comments POTASSIUM (BEAKER) (test code = 379) 3.3 meq/L 3.6-5.5 L OXYGEN SATURATION, [id number] 14:01:00* Test Item Value Reference Range Interpretation Comments O2 SATURATION (MEASURED) (BEAKER) (test code = 1455) 57.0 % [id number] 11:35:00* Test Item Value Reference Range Interpretation Comments PARTIAL THROMBOPLASTIN TIME (BEAKER) (test code = 760) 53.3 seconds 22.5-36.0 H HEMOGLOBIN AND [id number] 09:06:00* Test Item Value Reference Range Interpretation Comments HEMOGLOBIN (BEAKER) (test code = 410) 8.2 GM/DL 13.7-17.5 L HEMATOCRIT (BEAKER) (test code = 411) 25.5 % 40.1-51.0 L [id number] 05:00:00* Test Item Value Reference Range Interpretation Comments PARTIAL THROMBOPLASTIN TIME (BEAKER) (test code = 760) 79.7 seconds 22.5-36.0 H LACTIC ACID, ARTERIAL, WHOLE [id number] 04:35:00* Test Item Value Reference Range Interpretation Comments LACTATE BLOOD ARTERIAL (2) (BEAKER) (test code = 2874) 0.7 mmol/L 0.5-2.2 Effective 03/03/2016: Units/Reference Range ChangeNew: 0.5-2.2 mmol/L Previous: 5 -20 mg/dLCOMPREHENSIVE METABOLIC [id number] 04:26:00* Test Item Value Reference Range Interpretation Comments TOTAL PROTEIN (BEAKER) (test code = 770) 6.5 gm/dL 6.0-8.3 ALBUMIN (BEAKER) (test code = 1145) 2.9 g/dL 3.5-5.0 L ALKALINE PHOSPHATASE (BEAKER) (test code = 346) 74 U/L 40-150 BILIRUBIN TOTAL (BEAKER) (test code = 377) 1.6 mg/dL 0.2-1.2 H SODIUM (BEAKER) (test code = 381) 142 meq/L 136-145 POTASSIUM (BEAKER) (test code = 379) 3.8 meq/L 3.5-5.1 CHLORIDE (BEAKER) (test code = 382) 107 meq/L 98-107 CO2 (BEAKER) (test code = 355) 25 meq/L 22-29 BLOOD UREA NITROGEN (BEAKER) (test code = 354) 64 mg/dL 7-21 H CREATININE (BEAKER) (test code = 358) 3.14 mg/dL 0.57-1.25 H GLUCOSE RANDOM (BEAKER) (test code = 652) 99 mg/dL 70-105 CALCIUM (BEAKER) (test code = 697) 8.9 mg/dL 8.4-10.2 AST (SGOT) (BEAKER) (test code = 353) 43 U/L 5-34 H ALT (SGPT) (BEAKER) (test code = 347) 40 U/L 6-55 EGFR (BEAKER) (test code = 1092) mL/min/1.73 sq m INSUFFICIENT CLINICAL DATA TO CALCULATE ESTIMATED GFR. [id number] 04:24:00* Test Item Value Reference Range Interpretation Comments PHOSPHORUS (BEAKER) (test code = 604) 4.6 mg/dL 2.3-4.7 [id number] 04:24:00* Test Item Value Reference Range Interpretation Comments MAGNESIUM (BEAKER) (test code = 627) 2.1 mg/dL 1.6-2.6 LACTATE DEHYDROGENASE (LDH)2018-04-19 04:24:00* Test Item Value Reference Range Interpretation Comments LACTATE DEHYDROGENASE (BEAKER) (test code = 635) 954 U/L 125-2 20 H CBC W/PLT COUNT & AUTO [id number] 04:15:00* Test Item Value Reference Range Interpretation Comments WHITE BLOOD CELL COUNT (BEAKER) (test code = 775) 4.8 K/ L 3.5- 10.5 RED BLOOD CELL COUNT (BEAKER) (test code = 761) 2.70 M/ L 4.63-6 .08 L HEMOGLOBIN (BEAKER) (test code = 410) 7.9 GM/DL 13.7-17.5 L HEMATOCRIT (BEAKER) (test code = 411) 24.8 % 40.1-51.0 L MEAN CORPUSCULAR VOLUME (BEAKER) (test code = 753) 91.9 fL 79. 0-92.2 MEAN CORPUSCULAR HEMOGLOBIN (BEAKER) (test code = 751) 29.3 pg 25.7-32.2 MEAN CORPUSCULAR HEMOGLOBIN CONC (BEAKER) (test code = 752) 31.9 GM/DL 32.3-36.5 L RED CELL DISTRIBUTION WIDTH (BEAKER) (test code = 412) 14.8 % 11.6-14.4 H PLATELET COUNT (BEAKER) (test code = 756) 145 K/CU MM 150-450 L MEAN PLATELET VOLUME (BEAKER) (test code = 754) 10.4 fL 9.4-12 .4 NUCLEATED RED BLOOD CELLS (BEAKER) (test code = 413) 0 /100 WBC 0 -0 NEUTROPHILS RELATIVE PERCENT (BEAKER) (test code = 429) 61 % LYMPHOCYTES RELATIVE PERCENT (BEAKER) (test code = 430) 26 % MONOCYTES RELATIVE PERCENT (BEAKER) (test code = 431) 11 % EOSINOPHILS RELATIVE PERCENT (BEAKER) (test code = 432) 2 % BASOPHILS RELATIVE PERCENT (BEAKER) (test code = 437) 0 % NEUTROPHILS ABSOLUTE COUNT (BEAKER) (test code = 670) 2.92 K/ L 1.78-5.38 LYMPHOCYTES ABSOLUTE COUNT (BEAKER) (test code = 414) 1.22 K/ L 1.32-3.57 L MONOCYTES ABSOLUTE COUNT (BEAKER) (test code = 415) 0.54 K/ L 0. 30-0.82 EOSINOPHILS ABSOLUTE COUNT (BEAKER) (test code = 416) 0.08 K/ L 0.04-0.54 BASOPHILS ABSOLUTE COUNT (BEAKER) (test code = 417) 0.02 K/ L 0. 01-0.08 IMMATURE GRANULOCYTES-RELATIVE PERCENT (BEAKER) (test code = 2801) 0 % 0-1 POTASSIUM-STAT [id number] 04:07:00* Test Item Value Reference Range Interpretation Comments POTASSIUM (BEAKER) (test code = 379) 3.7 meq/L 3.6-5.5 BLOOD GAS, [id number] 04:07:00* Test Item Value Reference Range Interpretation Comments PH ARTERIAL (BEAKER) (test code = 383) 7.48 7.35-7.45 H PCO2 ARTERIAL (BEAKER) (test code = 384) 35 mmHg 35-45 PO2 ARTERIAL (BEAKER) (test code = 385) 105 mmHg 80-90 H O2 SATURATION ARTERIAL (BEAKER) (test code = 386) 98.2 % 96.0 -97.0 H HCO3 ARTERIAL (BEAKER) (test code = 388) 25 mmol/L 21-29 BASE EXCESS ARTERIAL (BEAKER) (test code = 387) 2.0 mmol/L -2.0-3 .0 PATIENT TEMPERATURE (BEAKER) (test code = 1818) 37.2 C FIO2 (BEAKER) (test code = 1819) 32.0 % RAD, CHEST, 1 VIEW, NON [id number] 03:58:00Reason for exam:->IMPELLA PLACEMENT, volume overload, cardiogenic shockShould this be performed at the bedside?->YesFINAL REPORT CLINICAL INDICATION: Support lines. Comparison: 04/18/2018 The cardiomediastinal contours are stable. Central pulmonary vascular congestion and bilateral parenchymal opacities have significantly improved, suggesting improving pulmonary edema. There is no pneumothorax. Support lines are stable. Signed: Radha Duran MDReport Verified Date/Time: 04/19/2018 03:58:24 Reading Location: [address] Reading Room [id number] 22:14:00* Test Item Value Reference Range Interpretation Comments PARTIAL THROMBOPLASTIN TIME (BEAKER) (test code = 760) 71.2 seconds 22.5-36.0 H [id number] 15:23:00* Test Item Value Reference Range Interpretation Comments PARTIAL THROMBOPLASTIN TIME (BEAKER) (test code = 760) 54.1 seconds 22.5-36.0 H POTASSIUM-STAT [id number] 15:15:00* Test Item Value Reference Range Interpretation Comments POTASSIUM (BEAKER) (test code = 379) 3.5 meq/L 3.6-5.5 L HEMOGLOBIN AND [id number] 15:13:00* Test Item Value Reference Range Interpretation Comments HEMOGLOBIN (BEAKER) (test code = 410) 7.8 GM/DL 13.7-17.5 L HEMATOCRIT (BEAKER) (test code = 411) 24.0 % 40.1-51.0 L VANCOMYCIN LEVEL, [id number] 05:54:00* Test Item Value Reference Range Interpretation Comments VANCOMYCIN RANDOM (BEAKER) (test code = 523) 18.1 ug/mL Reference Range: No NormalsRAD, CHEST, 1 VIEW, NON [id number] 04:48:00Reason for exam:->IMPELLA PLACEMENT, volume overload, cardiogenic shockShould this be performed at the bedside?->YesFINAL REPORT CLINICAL INDICATION: Support lines. Comparison: 04/17/2018 The cardiomediastinal contours are stable. The lung volumes remain low. Central pulmonary vascular prominence and bilateral parenchymal opacities are unchanged. There is no pneumothorax. A right IJ CVC has been removed. An Impella device remains in place. Signed: Radha Duran MDReport Verified Date/Time: 04/18/2018 04:48:39 Reading Location: [address] Reading Room REHENSIVE METABOLIC PANEL 2018-04-18 04:05:00* Test Item Value Reference Range Interpretation Comments TOTAL PROTEIN (BEAKER) (test code = 770) 6.4 gm/dL 6.0-8.3 ALBUMIN (BEAKER) (test code = 1145) 2.9 g/dL 3.5-5.0 L ALKALINE PHOSPHATASE (BEAKER) (test code = 346) 73 U/L 40-150 BILIRUBIN TOTAL (BEAKER) (test code = 377) 1.7 mg/dL 0.2-1.2 H SODIUM (BEAKER) (test code = 381) 139 meq/L 136-145 POTASSIUM (BEAKER) (test code = 379) 3.5 meq/L 3.5-5.1 CHLORIDE (BEAKER) (test code = 382) 104 meq/L 98-107 CO2 (BEAKER) (test code = 355) 24 meq/L 22-29 BLOOD UREA NITROGEN (BEAKER) (test code = 354) 72 mg/dL 7-21 H CREATININE (BEAKER) (test code = 358) 4.27 mg/dL 0.57-1.25 H GLUCOSE RANDOM (BEAKER) (test code = 652) 115 mg/dL 70-105 H CALCIUM (BEAKER) (test code = 697) 8.7 mg/dL 8.4-10.2 AST (SGOT) (BEAKER) (test code = 353) 49 U/L 5-34 H ALT (SGPT) (BEAKER) (test code = 347) 36 U/L 6-55 EGFR (BEAKER) (test code = 1092) mL/min/1.73 sq m INSUFFICIENT CLINICAL DATA TO CALCULATE ESTIMATED GFR. [id number] 03:54:00* Test Item Value Reference Range Interpretation Comments PHOSPHORUS (BEAKER) (test code = 604) 5.0 mg/dL 2.3-4.7 H [id number] 03:54:00* Test Item Value Reference Range Interpretation Comments MAGNESIUM (BEAKER) (test code = 627) 2.3 mg/dL 1.6-2.6 LACTATE DEHYDROGENASE (LDH)2018-04-18 03:54:00* Test Item Value Reference Range Interpretation Comments LACTATE DEHYDROGENASE (BEAKER) (test code = 635) 1085 U/L 125-2 20 H LACTIC ACID, ARTERIAL, WHOLE [id number] 03:44:00* Test Item Value Reference Range Interpretation Comments LACTATE BLOOD ARTERIAL (2) (BEAKER) (test code = 2874) 0.6 mmol/L 0.5-2.2 Effective 03/03/2016: Units/Reference Range ChangeNew: 0.5-2.2 mmol/L Previous: 5 -20 mg/[id number] 03:40:00* Test Item Value Reference Range Interpretation Comments PARTIAL THROMBOPLASTIN TIME (BEAKER) (test code = 760) 37.3 seconds 22.5-36.0 H BLOOD GAS, [id number] 03:39:00* Test Item Value Reference Range Interpretation Comments PH ARTERIAL (BEAKER) (test code = 383) 7.46 7.35-7.45 H PCO2 ARTERIAL (BEAKER) (test code = 384) 37 mmHg 35-45 PO2 ARTERIAL (BEAKER) (test code = 385) 86 mmHg 80-90 O2 SATURATION ARTERIAL (BEAKER) (test code = 386) 97.1 % 96.0 -97.0 H HCO3 ARTERIAL (BEAKER) (test code = 388) 26 mmol/L 21-29 BASE EXCESS ARTERIAL (BEAKER) (test code = 387) 2.1 mmol/L -2.0-3 .0 PATIENT TEMPERATURE (BEAKER) (test code = 1818) 36.7 C FIO2 (BEAKER) (test code = 1819) 36.0 % POTASSIUM-STAT [id number] 03:39:00* Test Item Value Reference Range Interpretation Comments POTASSIUM (BEAKER) (test code = 379) 3.3 meq/L 3.6-5.5 L CBC W/PLT COUNT & AUTO [id number] 03:30:00* Test Item Value Reference Range Interpretation Comments WHITE BLOOD CELL COUNT (BEAKER) (test code = 775) 6.6 K/ L 3.5- 10.5 RED BLOOD CELL COUNT (BEAKER) (test code = 761) 2.59 M/ L 4.63-6 .08 L HEMOGLOBIN (BEAKER) (test code = 410) 7.8 GM/DL 13.7-17.5 L HEMATOCRIT (BEAKER) (test code = 411) 23.9 % 40.1-51.0 L MEAN CORPUSCULAR VOLUME (BEAKER) (test code = 753) 92.3 fL 79. 0-92.2 H MEAN CORPUSCULAR HEMOGLOBIN (BEAKER) (test code = 751) 30.1 pg 25.7-32.2 MEAN CORPUSCULAR HEMOGLOBIN CONC (BEAKER) (test code = 752) 32.6 GM/DL 32.3-36.5 RED CELL DISTRIBUTION WIDTH (BEAKER) (test code = 412) 15.0 % 11.6-14.4 H PLATELET COUNT (BEAKER) (test code = 756) 102 K/CU MM 150-450 L MEAN PLATELET VOLUME (BEAKER) (test code = 754) 10.0 fL 9.4-12 .4 NUCLEATED RED BLOOD CELLS (BEAKER) (test code = 413) 0 /100 WBC 0 -0 NEUTROPHILS RELATIVE PERCENT (BEAKER) (test code = 429) 77 % LYMPHOCYTES RELATIVE PERCENT (BEAKER) (test code = 430) 12 % MONOCYTES RELATIVE PERCENT (BEAKER) (test code = 431) 10 % EOSINOPHILS RELATIVE PERCENT (BEAKER) (test code = 432) 1 % BASOPHILS RELATIVE PERCENT (BEAKER) (test code = 437) 0 % NEUTROPHILS ABSOLUTE COUNT (BEAKER) (test code = 670) 5.09 K/ L 1.78-5.38 LYMPHOCYTES ABSOLUTE COUNT (BEAKER) (test code = 414) 0.78 K/ L 1.32-3.57 L MONOCYTES ABSOLUTE COUNT (BEAKER) (test code = 415) 0.64 K/ L 0. 30-0.82 EOSINOPHILS ABSOLUTE COUNT (BEAKER) (test code = 416) 0.09 K/ L 0.04-0.54 BASOPHILS ABSOLUTE COUNT (BEAKER) (test code = 417) 0.01 K/ L 0. 01-0.08 IMMATURE GRANULOCYTES-RELATIVE PERCENT (BEAKER) (test code = 2801) 1 % 0-1 [id number] 21:59:00* Test Item Value Reference Range Interpretation Comments MAGNESIUM (BEAKER) (test code = 627) 2.4 mg/dL 1.6-2.6 POTASSIUM-STAT [id number] 21:44:00* Test Item Value Reference Range Interpretation Comments POTASSIUM (BEAKER) (test code = 379) 3.3 meq/L 3.6-5.5 L BASIC METABOLIC [id number] 15:25:00* Test Item Value Reference Range Interpretation Comments SODIUM (BEAKER) (test code = 381) 139 meq/L 136-145 POTASSIUM (BEAKER) (test code = 379) 3.8 meq/L 3.5-5.1 CHLORIDE (BEAKER) (test code = 382) 105 meq/L 98-107 CO2 (BEAKER) (test code = 355) 24 meq/L 22-29 BLOOD UREA NITROGEN (BEAKER) (test code = 354) 71 mg/dL 7-21 H CREATININE (BEAKER) (test code = 358) 4.63 mg/dL 0.57-1.25 H GLUCOSE RANDOM (BEAKER) (test code = 652) 107 mg/dL 70-105 H CALCIUM (BEAKER) (test code = 697) 8.6 mg/dL 8.4-10.2 EGFR (BEAKER) (test code = 1092) mL/min/1.73 sq m INSUFFICIENT CLINICAL DATA TO CALCULATE ESTIMATED GFR. HEMOGLOBIN AND [id number] 15:02:00* Test Item Value Reference Range Interpretation Comments HEMOGLOBIN (BEAKER) (test code = 410) 8.0 GM/DL 13.7-17.5 L HEMATOCRIT (BEAKER) (test code = 411) 24.1 % 40.1-51.0 L [id number] 08:13:00* Test Item Value Reference Range Interpretation Comments PARTIAL THROMBOPLASTIN TIME (BEAKER) (test code = 760) 35.8 seconds 22.5-36.0 HEMOGLOBIN AND [id number] 08:05:00* Test Item Value Reference Range Interpretation Comments HEMOGLOBIN (BEAKER) (test code = 410) 8.6 GM/DL 13.7-17.5 L HEMATOCRIT (BEAKER) (test code = 411) 26.7 % 40.1-51.0 L CBC W/PLT COUNT & AUTO [id number] 06:25:00* Test Item Value Reference Range Interpretation Comments WHITE BLOOD CELL COUNT (BEAKER) (test code = 775) 10.1 K/ L 3.5- 10.5 RED BLOOD CELL COUNT (BEAKER) (test code = 761) 2.66 M/ L 4.63-6 .08 L HEMOGLOBIN (BEAKER) (test code = 410) 7.9 GM/DL 13.7-17.5 L HEMATOCRIT (BEAKER) (test code = 411) 24.1 % 40.1-51.0 L MEAN CORPUSCULAR VOLUME (BEAKER) (test code = 753) 90.6 fL 79. 0-92.2 MEAN CORPUSCULAR HEMOGLOBIN (BEAKER) (test code = 751) 29.7 pg 25.7-32.2 MEAN CORPUSCULAR HEMOGLOBIN CONC (BEAKER) (test code = 752) 32.8 GM/DL 32.3-36.5 RED CELL DISTRIBUTION WIDTH (BEAKER) (test code = 412) 15.3 % 11.6-14.4 H PLATELET COUNT (BEAKER) (test code = 756) 101 K/CU MM 150-450 L MEAN PLATELET VOLUME (BEAKER) (test code = 754) 10.3 fL 9.4-12 .4 NUCLEATED RED BLOOD CELLS (BEAKER) (test code = 413) 0 /100 WBC 0 -0 NEUTROPHILS RELATIVE PERCENT (BEAKER) (test code = 429) 81 % LYMPHOCYTES RELATIVE PERCENT (BEAKER) (test code = 430) 10 % MONOCYTES RELATIVE PERCENT (BEAKER) (test code = 431) 8 % EOSINOPHILS RELATIVE PERCENT (BEAKER) (test code = 432) 1 % BASOPHILS RELATIVE PERCENT (BEAKER) (test code = 437) 0 % NEUTROPHILS ABSOLUTE COUNT (BEAKER) (test code = 670) 8.13 K/ L 1.78-5.38 H LYMPHOCYTES ABSOLUTE COUNT (BEAKER) (test code = 414) 0.99 K/ L 1.32-3.57 L MONOCYTES ABSOLUTE COUNT (BEAKER) (test code = 415) 0.82 K/ L 0. 30-0.82 EOSINOPHILS ABSOLUTE COUNT (BEAKER) (test code = 416) 0.07 K/ L 0.04-0.54 BASOPHILS ABSOLUTE COUNT (BEAKER) (test code = 417) 0.02 K/ L 0. 01-0.08 IMMATURE GRANULOCYTES-RELATIVE PERCENT (BEAKER) (test code = 2801) 1 % 0-1 LACTATE DEHYDROGENASE (LDH)2018-04-17 05:48:00* Test Item Value Reference Range Interpretation Comments LACTATE DEHYDROGENASE (BEAKER) (test code = 635) 1073 U/L 125-2 20 H COMPREHENSIVE METABOLIC [id number] 05:44:00* Test Item Value Reference Range Interpretation Comments TOTAL PROTEIN (BEAKER) (test code = 770) 5.9 gm/dL 6.0-8.3 L ALBUMIN (BEAKER) (test code = 1145) 2.7 g/dL 3.5-5.0 L ALKALINE PHOSPHATASE (BEAKER) (test code = 346) 72 U/L 40-150 BILIRUBIN TOTAL (BEAKER) (test code = 377) 1.7 mg/dL 0.2-1.2 H SODIUM (BEAKER) (test code = 381) 139 meq/L 136-145 POTASSIUM (BEAKER) (test code = 379) 3.4 meq/L 3.5-5.1 L CHLORIDE (BEAKER) (test code = 382) 105 meq/L 98-107 CO2 (BEAKER) (test code = 355) 24 meq/L 22-29 BLOOD UREA NITROGEN (BEAKER) (test code = 354) 69 mg/dL 7-21 H CREATININE (BEAKER) (test code = 358) 5.12 mg/dL 0.57-1.25 H GLUCOSE RANDOM (BEAKER) (test code = 652) 103 mg/dL 70-105 CALCIUM (BEAKER) (test code = 697) 8.6 mg/dL 8.4-10.2 AST (SGOT) (BEAKER) (test code = 353) 48 U/L 5-34 H ALT (SGPT) (BEAKER) (test code = 347) 30 U/L 6-55 EGFR (BEAKER) (test code = 1092) mL/min/1.73 sq m INSUFFICIENT CLINICAL DATA TO CALCULATE ESTIMATED GFR. POTASSIUM-STAT [id number] 05:36:00* Test Item Value Reference Range Interpretation Comments POTASSIUM (BEAKER) (test code = 379) 3.2 meq/L 3.6-5.5 L BLOOD GAS, [id number] 05:36:00* Test Item Value Reference Range Interpretation Comments PH ARTERIAL (BEAKER) (test code = 383) 7.44 7.35-7.45 PCO2 ARTERIAL (BEAKER) (test code = 384) 39 mmHg 35-45 PO2 ARTERIAL (BEAKER) (test code = 385) 107 mmHg 80-90 H O2 SATURATION ARTERIAL (BEAKER) (test code = 386) 98.1 % 96.0 -97.0 H HCO3 ARTERIAL (BEAKER) (test code = 388) 25 mmol/L 21-29 BASE EXCESS ARTERIAL (BEAKER) (test code = 387) 1.1 mmol/L -2.0-3 .0 PATIENT TEMPERATURE (BEAKER) (test code = 1818) 36.7 C FIO2 (BEAKER) (test code = 1819) 36.0 % LACTIC ACID, ARTERIAL, WHOLE [id number] 05:36:00* Test Item Value Reference Range Interpretation Comments LACTATE BLOOD ARTERIAL (2) (BEAKER) (test code = 2874) 0.6 mmol/L 0.5-2.2 Effective 03/03/2016: Units/Reference Range ChangeNew: 0.5-2.2 mmol/L Previous: 5 -20 mg/dLRAD, CHEST, 1 VIEW, NON [id number] 04:55:00Reason for exam:-> IMPELLA PLACEMENT, volume overload, cardiogenic shockShould this be performed at the bedside?->YesFINAL REPORT Comparison exam: 04/16/2018 Increasing airspace opacities, especially in the right lung. Stable cardiomediastinal contours. Right IJ central venous catheter terminates in the inferior vena cava. If clinically indicated, the catheter been can be retracted by 14 [address] in order to place the tip near the junction of the superior vena cava and right atrium. Impella stable in position. Signed: Steven Wei MDReport Verified Date/Time: 04/17/2018 04:55:05 Reading Location: [address] Ortho Consult Reading Room GLOBIN AND [id number] 00:30:00* Test Item Value Reference Range Interpretation Comments HEMOGLOBIN (BEAKER) (test code = 410) 8.1 GM/DL 13.7-17.5 L HEMATOCRIT (BEAKER) (test code = 411) 24.6 % 40.1-51.0 L POTASSIUM-STAT [id number] 00:26:00* Test Item Value Reference Range Interpretation Comments POTASSIUM (BEAKER) (test code = 379) 3.5 meq/L 3.6-5.5 L BLOOD GAS, [id number] 19:50:00* Test Item Value Reference Range Interpretation Comments PH ARTERIAL (BEAKER) (test code = 383) 7.50 7.35-7.45 H PCO2 ARTERIAL (BEAKER) (test code = 384) 30 mmHg 35-45 L PO2 ARTERIAL (BEAKER) (test code = 385) 62 mmHg 80-90 L O2 SATURATION ARTERIAL (BEAKER) (test code = 386) 93.3 % 96.0 -97.0 L HCO3 ARTERIAL (BEAKER) (test code = 388) 23 mmol/L 21-29 BASE EXCESS ARTERIAL (BEAKER) (test code = 387) 0.2 mmol/L -2.0-3 .0 PATIENT TEMPERATURE (BEAKER) (test code = 1818) 37.7 C FIO2 (BEAKER) (test code = 1819) 32.0 % HEMOGLOBIN AND [id number] 18:11:00* Test Item Value Reference Range Interpretation Comments HEMOGLOBIN (BEAKER) (test code = 410) 8.2 GM/DL 13.7-17.5 L HEMATOCRIT (BEAKER) (test code = 411) 23.9 % 40.1-51.0 L POTASSIUM-STAT [id number] 18:05:00* Test Item Value Reference Range Interpretation Comments POTASSIUM (BEAKER) (test code = 379) 3.6 meq/L 3.6-5.5 RAD, CHEST, 1 VIEW, NON [id number] 14:34:00Reason for exam:->eval pulmonary congestionShould this be performed at the bedside?->YesFINAL REPORT Clinical History: Evaluate pulmonary congestion Comparison Study: April 16, 2018 Findings: The cardiac silhouette is enlarged. An Impella device is seen. Surgical skin sadie are seen. There is a right-sided central line, the tip extending inferiorly towards the IVC. Pulmonary venous congestion is seen with scattered airspace opacities. The pleural spaces are clear. No significant bony or soft tissue abnormalities are seen. Impression: 1. Cardiomegaly. Findings suggestive of volume overload. It is similar to previou s.2. Tip of right central line extending inferiorly towards the IVC below the co nfines of the film. Signed: Suma Martinez MDReport Verified Date/Time: 2017 14:34:28 Reading Location: [address] Ortho Consult Reading Room Dejah ctronically signed by: SUMA MARTINEZ M.D. on 04/16/2018 02:34 PM HEMOGLOBIN AND [id number] 10:18:00* Test Item Value Reference Range Interpretation Comments HEMOGLOBIN (BEAKER) (test code = 410) 8.2 GM/DL 13.7-17.5 L HEMATOCRIT (BEAKER) (test code = 411) 24.3 % 40.1-51.0 L RAD, CHEST, 1 VIEW, NON [id number] 05:07:00Reason for exam:->IMPELLA PLACEMENT, volume overload, cardiogenic shockShould this be performed at the bedside?->YesFINAL REPORT Comparison exam: 04/14/2018 Pulmonary venous congestion new when compared to the prior exam. Stable cardiomediastinal contours. Appropriate position of the support hardware. Signed: Steven Weiort Verified Date/Time: 04/16/2018 05:07:27 Reading Location: [facility] B1 [id number] Ortho Consult Reading Room OMYCIN LEVEL, [id number] 05:00:00* Test Item Value Reference Range Interpretation Comments VANCOMYCIN RANDOM (BEAKER) (test code = 523) 18.4 ug/mL Reference Range: No NormalsCOMPREHENSIVE METABOLIC [id number] 04:56:00* Test Item Value Reference Range Interpretation Comments TOTAL PROTEIN (BEAKER) (test code = 770) 5.8 gm/dL 6.0-8.3 L ALBUMIN (BEAKER) (test code = 1145) 2.6 g/dL 3.5-5.0 L ALKALINE PHOSPHATASE (BEAKER) (test code = 346) 72 U/L 40-150 BILIRUBIN TOTAL (BEAKER) (test code = 377) 1.7 mg/dL 0.2-1.2 H SODIUM (BEAKER) (test code = 381) 135 meq/L 136-145 L POTASSIUM (BEAKER) (test code = 379) 3.4 meq/L 3.5-5.1 L CHLORIDE (BEAKER) (test code = 382) 100 meq/L 98-107 CO2 (BEAKER) (test code = 355) 22 meq/L 22-29 BLOOD UREA NITROGEN (BEAKER) (test code = 354) 74 mg/dL 7-21 H CREATININE (BEAKER) (test code = 358) 6.24 mg/dL 0.57-1.25 H GLUCOSE RANDOM (BEAKER) (test code = 652) 97 mg/dL 70-105 CALCIUM (BEAKER) (test code = 697) 8.5 mg/dL 8.4-10.2 AST (SGOT) (BEAKER) (test code = 353) 43 U/L 5-34 H ALT (SGPT) (BEAKER) (test code = 347) 29 U/L 6-55 EGFR (BEAKER) (test code = 1092) mL/min/1.73 sq m INSUFFICIENT CLINICAL DATA TO CALCULATE ESTIMATED GFR. LACTATE DEHYDROGENASE (LDH)2018-04-16 04:54:00* Test Item Value Reference Range Interpretation Comments LACTATE DEHYDROGENASE (BEAKER) (test code = 635) 985 U/L 125-2 20 H LACTIC ACID, ARTERIAL, WHOLE [id number] 04:40:00* Test Item Value Reference Range Interpretation Comments LACTATE BLOOD ARTERIAL (2) (BEAKER) (test code = 2874) 0.6 mmol/L 0.5-2.2 Effective 03/03/2016: Units/Reference Range ChangeNew: 0.5-2.2 mmol/L Previous: 5 -20 mg/dLPOTASSIUM-STAT [id number] 04:33:00* Test Item Value Reference Range Interpretation Comments POTASSIUM (BEAKER) (test code = 379) 3.2 meq/L 3.6-5.5 L BLOOD GAS, [id number] 04:33:00* Test Item Value Reference Range Interpretation Comments PH ARTERIAL (BEAKER) (test code = 383) 7.48 7.35-7.45 H PCO2 ARTERIAL (BEAKER) (test code = 384) 34 mmHg 35-45 L PO2 ARTERIAL (BEAKER) (test code = 385) 92 mmHg 80-90 H O2 SATURATION ARTERIAL (BEAKER) (test code = 386) 97.7 % 96.0 -97.0 H HCO3 ARTERIAL (BEAKER) (test code = 388) 25 mmol/L 21-29 BASE EXCESS ARTERIAL (BEAKER) (test code = 387) 1.7 mmol/L -2.0-3 .0 PATIENT TEMPERATURE (BEAKER) (test code = 1818) 36.3 C FIO2 (BEAKER) (test code = 1819) 28.0 % [id number] 04:32:00* Test Item Value Reference Range Interpretation Comments PARTIAL THROMBOPLASTIN TIME (BEAKER) (test code = 760) 36.1 seconds 22.5-36.0 H CBC W/PLT COUNT & AUTO [id number] 04:25:00* Test Item Value Reference Range Interpretation Comments WHITE BLOOD CELL COUNT (BEAKER) (test code = 775) 10.0 K/ L 3.5- 10.5 RED BLOOD CELL COUNT (BEAKER) (test code = 761) 2.59 M/ L 4.63-6 .08 L HEMOGLOBIN (BEAKER) (test code = 410) 7.8 GM/DL 13.7-17.5 L HEMATOCRIT (BEAKER) (test code = 411) 23.0 % 40.1-51.0 L MEAN CORPUSCULAR VOLUME (BEAKER) (test code = 753) 88.8 fL 79. 0-92.2 MEAN CORPUSCULAR HEMOGLOBIN (BEAKER) (test code = 751) 30.1 pg 25.7-32.2 MEAN CORPUSCULAR HEMOGLOBIN CONC (BEAKER) (test code = 752) 33.9 GM/DL 32.3-36.5 RED CELL DISTRIBUTION WIDTH (BEAKER) (test code = 412) 15.1 % 11.6-14.4 H PLATELET COUNT (BEAKER) (test code = 756) 94 K/CU MM 150-450 L MEAN PLATELET VOLUME (BEAKER) (test code = 754) 10.3 fL 9.4-12 .4 NUCLEATED RED BLOOD CELLS (BEAKER) (test code = 413) 0 /100 WBC 0 -0 NEUTROPHILS RELATIVE PERCENT (BEAKER) (test code = 429) 76 % LYMPHOCYTES RELATIVE PERCENT (BEAKER) (test code = 430) 10 % MONOCYTES RELATIVE PERCENT (BEAKER) (test code = 431) 13 % EOSINOPHILS RELATIVE PERCENT (BEAKER) (test code = 432) 1 % BASOPHILS RELATIVE PERCENT (BEAKER) (test code = 437) 0 % NEUTROPHILS ABSOLUTE COUNT (BEAKER) (test code = 670) 7.53 K/ L 1.78-5.38 H LYMPHOCYTES ABSOLUTE COUNT (BEAKER) (test code = 414) 1.01 K/ L 1.32-3.57 L MONOCYTES ABSOLUTE COUNT (BEAKER) (test code = 415) 1.25 K/ L 0. 30-0.82 H EOSINOPHILS ABSOLUTE COUNT (BEAKER) (test code = 416) 0.14 K/ L 0.04-0.54 BASOPHILS ABSOLUTE COUNT (BEAKER) (test code = 417) 0.01 K/ L 0. 01-0.08 IMMATURE GRANULOCYTES-RELATIVE PERCENT (BEAKER) (test code = 2801) 0 % 0-1 HEMOGLOBIN AND [id number] 23:55:00* Test Item Value Reference Range Interpretation Comments HEMOGLOBIN (BEAKER) (test code = 410) 7.9 GM/DL 13.7-17.5 L HEMATOCRIT (BEAKER) (test code = 411) 23.2 % 40.1-51.0 L POTASSIUM-STAT [id number] 16:36:00* Test Item Value Reference Range Interpretation Comments POTASSIUM (BEAKER) (test code = 379) 4.0 meq/L 3.5-5.1 HEMOGLOBIN AND [id number] 16:09:00* Test Item Value Reference Range Interpretation Comments HEMOGLOBIN (BEAKER) (test code = 410) 8.2 GM/DL 13.7-17.5 L HEMATOCRIT (BEAKER) (test code = 411) 24.1 % 40.1-51.0 L HEMOGLOBIN AND [id number] 10:31:00* Test Item Value Reference Range Interpretation Comments HEMOGLOBIN (BEAKER) (test code = 410) 8.3 GM/DL 13.7-17.5 L HEMATOCRIT (BEAKER) (test code = 411) 24.7 % 40.1-51.0 L COMPREHENSIVE METABOLIC [id number] 05:23:00* Test Item Value Reference Range Interpretation Comments TOTAL PROTEIN (BEAKER) (test code = 770) 5.7 gm/dL 6.0-8.3 L ALBUMIN (BEAKER) (test code = 1145) 2.6 g/dL 3.5-5.0 L ALKALINE PHOSPHATASE (BEAKER) (test code = 346) 74 U/L 40-150 BILIRUBIN TOTAL (BEAKER) (test code = 377) 2.0 mg/dL 0.2-1.2 H SODIUM (BEAKER) (test code = 381) 131 meq/L 136-145 L POTASSIUM (BEAKER) (test code = 379) 3.6 meq/L 3.5-5.1 CHLORIDE (BEAKER) (test code = 382) 96 meq/L 98-107 L CO2 (BEAKER) (test code = 355) 21 meq/L 22-29 L BLOOD UREA NITROGEN (BEAKER) (test code = 354) 73 mg/dL 7-21 H CREATININE (BEAKER) (test code = 358) 6.97 mg/dL 0.57-1.25 H GLUCOSE RANDOM (BEAKER) (test code = 652) 98 mg/dL 70-105 CALCIUM (BEAKER) (test code = 697) 8.3 mg/dL 8.4-10.2 L AST (SGOT) (BEAKER) (test code = 353) 46 U/L 5-34 H ALT (SGPT) (BEAKER) (test code = 347) 30 U/L 6-55 EGFR (BEAKER) (test code = 1092) mL/min/1.73 sq m INSUFFICIENT CLINICAL DATA TO CALCULATE ESTIMATED GFR. LACTATE DEHYDROGENASE (LDH)2018-04-15 05:21:00* Test Item Value Reference Range Interpretation Comments LACTATE DEHYDROGENASE (BEAKER) (test code = 635) 1020 U/L 125-2 20 H LACTIC ACID, ARTERIAL, WHOLE [id number] 04:59:00* Test Item Value Reference Range Interpretation Comments LACTATE BLOOD ARTERIAL (2) (BEAKER) (test code = 2874) 0.6 mmol/L 0.5-2.2 Effective 03/03/2016: Units/Reference Range ChangeNew: 0.5-2.2 mmol/L Previous: 5 -20 mg/[id number] 04:55:00* Test Item Value Reference Range Interpretation Comments PARTIAL THROMBOPLASTIN TIME (BEAKER) (test code = 760) 36.0 seconds 22.5-36.0 CBC W/PLT COUNT & AUTO [id number] 04:52:00* Test Item Value Reference Range Interpretation Comments WHITE BLOOD CELL COUNT (BEAKER) (test code = 775) 11.9 K/ L 3.5- 10.5 H RED BLOOD CELL COUNT (BEAKER) (test code = 761) 2.59 M/ L 4.63-6 .08 L HEMOGLOBIN (BEAKER) (test code = 410) 7.8 GM/DL 13.7-17.5 L HEMATOCRIT (BEAKER) (test code = 411) 22.9 % 40.1-51.0 L MEAN CORPUSCULAR VOLUME (BEAKER) (test code = 753) 88.4 fL 79. 0-92.2 MEAN CORPUSCULAR HEMOGLOBIN (BEAKER) (test code = 751) 30.1 pg 25.7-32.2 MEAN CORPUSCULAR HEMOGLOBIN CONC (BEAKER) (test code = 752) 34.1 GM/DL 32.3-36.5 RED CELL DISTRIBUTION WIDTH (BEAKER) (test code = 412) 15.6 % 11.6-14.4 H PLATELET COUNT (BEAKER) (test code = 756) 86 K/CU MM 150-450 L MEAN PLATELET VOLUME (BEAKER) (test code = 754) 10.3 fL 9.4-12 .4 NUCLEATED RED BLOOD CELLS (BEAKER) (test code = 413) 0 /100 WBC 0 -0 NEUTROPHILS RELATIVE PERCENT (BEAKER) (test code = 429) 79 % LYMPHOCYTES RELATIVE PERCENT (BEAKER) (test code = 430) 9 % MONOCYTES RELATIVE PERCENT (BEAKER) (test code = 431) 10 % EOSINOPHILS RELATIVE PERCENT (BEAKER) (test code = 432) 1 % BASOPHILS RELATIVE PERCENT (BEAKER) (test code = 437) 0 % NEUTROPHILS ABSOLUTE COUNT (BEAKER) (test code = 670) 9.35 K/ L 1.78-5.38 H LYMPHOCYTES ABSOLUTE COUNT (BEAKER) (test code = 414) 1.02 K/ L 1.32-3.57 L MONOCYTES ABSOLUTE COUNT (BEAKER) (test code = 415) 1.24 K/ L 0. 30-0.82 H EOSINOPHILS ABSOLUTE COUNT (BEAKER) (test code = 416) 0.16 K/ L 0.04-0.54 BASOPHILS ABSOLUTE COUNT (BEAKER) (test code = 417) 0.03 K/ L 0. 01-0.08 IMMATURE GRANULOCYTES-RELATIVE PERCENT (BEAKER) (test code = 2801) 1 % 0-1 HEMOGLOBIN AND [id number] 04:47:00* Test Item Value Reference Range Interpretation Comments HEMOGLOBIN (BEAKER) (test code = 410) 7.8 GM/DL 13.7-17.5 L HEMATOCRIT (BEAKER) (test code = 411) 22.9 % 40.1-51.0 L BLOOD GAS, [id number] 04:40:00* Test Item Value Reference Range Interpretation Comments PH ARTERIAL (BEAKER) (test code = 383) 7.52 7.35-7.45 H PCO2 ARTERIAL (BEAKER) (test code = 384) 29 mmHg 35-45 L PO2 ARTERIAL (BEAKER) (test code = 385) 90 mmHg 80-90 O2 SATURATION ARTERIAL (BEAKER) (test code = 386) 97.6 % 96.0 -97.0 H HCO3 ARTERIAL (BEAKER) (test code = 388) 23 mmol/L 21-29 BASE EXCESS ARTERIAL (BEAKER) (test code = 387) 0.6 mmol/L -2.0-3 .0 PATIENT TEMPERATURE (BEAKER) (test code = 1818) 37.3 C FIO2 (BEAKER) (test code = 1819) 30.0 % POTASSIUM-STAT [id number] 04:39:00* Test Item Value Reference Range Interpretation Comments POTASSIUM (BEAKER) (test code = 379) 3.4 meq/L 3.6-5.5 L HEMOGLOBIN AND [id number] 02:47:00* Test Item Value Reference Range Interpretation Comments HEMOGLOBIN (BEAKER) (test code = 410) 7.9 GM/DL 13.7-17.5 L HEMATOCRIT (BEAKER) (test code = 411) 23.0 % 40.1-51.0 L HEMOGLOBIN AND [id number] 23:29:00* Test Item Value Reference Range Interpretation Comments HEMOGLOBIN (BEAKER) (test code = 410) 8.1 GM/DL 13.7-17.5 L HEMATOCRIT (BEAKER) (test code = 411) 24.1 % 40.1-51.0 L HEMOGLOBIN AND [id number] 18:42:00* Test Item Value Reference Range Interpretation Comments HEMOGLOBIN (BEAKER) (test code = 410) 8.5 GM/DL 13.7-17.5 L HEMATOCRIT (BEAKER) (test code = 411) 25.3 % 40.1-51.0 L POTASSIUM-STAT [id number] 15:32:00* Test Item Value Reference Range Interpretation Comments POTASSIUM (BEAKER) (test code = 379) 3.4 meq/L 3.6-5.5 L HGB/HCT (H&H) - STAT [id number] 15:32:00* Test Item Value Reference Range Interpretation Comments HEMOGLOBIN (BEAKER) (test code = 410) 9.0 GM/DL 13.0-16.8 L HEMATOCRIT (BEAKER) (test code = 411) 26.0 % 40.0-50.0 L BASIC METABOLIC [id number] 11:33:00* Test Item Value Reference Range Interpretation Comments SODIUM (BEAKER) (test code = 381) 131 meq/L 136-145 L POTASSIUM (BEAKER) (test code = 379) 3.9 meq/L 3.5-5.1 CHLORIDE (BEAKER) (test code = 382) 97 meq/L 98-107 L CO2 (BEAKER) (test code = 355) 20 meq/L 22-29 L BLOOD UREA NITROGEN (BEAKER) (test code = 354) 69 mg/dL 7-21 H CREATININE (BEAKER) (test code = 358) 6.88 mg/dL 0.57-1.25 H GLUCOSE RANDOM (BEAKER) (test code = 652) 134 mg/dL 70-105 H CALCIUM (BEAKER) (test code = 697) 8.4 mg/dL 8.4-10.2 EGFR (BEAKER) (test code = 1092) mL/min/1.73 sq m INSUFFICIENT CLINICAL DATA TO CALCULATE ESTIMATED GFR. Specimen slightly [id number] 11:31:00* Test Item Value Reference Range Interpretation Comments PHOSPHORUS (BEAKER) (test code = 604) 6.2 mg/dL 2.3-4.7 H [id number] 11:31:00* Test Item Value Reference Range Interpretation Comments MAGNESIUM (BEAKER) (test code = 627) 1.6 mg/dL 1.6-2.6 HEMOGLOBIN AND [id number] 11:11:00* Test Item Value Reference Range Interpretation Comments HEMOGLOBIN (BEAKER) (test code = 410) 8.9 GM/DL 13.7-17.5 L HEMATOCRIT (BEAKER) (test code = 411) 26.2 % 40.1-51.0 L RAD, CHEST, 1 VIEW, NON [id number] 08:21:00Reason for exam:->IMPELLA PLACEMENT, volume overload, cardiogenic shockShould this be performed at the bedside?->YesFINAL REPORT Chest, 1 view Clinical history: IMPELLA PLACEMENT, volume overload, cardiogenic shock Comparison: 04/13/2018 Discussion: The support hardware appears unchanged in positions. There is no pneumothorax or pleural effusion. There is mild bibasilar atelectasis. The cardiac silhouette is magnified by portable technique. Signed: Charlie Sadlereport Verified Date/Time: 04/14/2018 08:21:39 Reading Location: [facility] Radiology Reading Room D GAS, [id number] 05:56:00* Test Item Value Reference Range Interpretation Comments PH ARTERIAL (BEAKER) (test code = 383) 7.50 7.35-7.45 H PCO2 ARTERIAL (BEAKER) (test code = 384) 34 mm Hg 35-45 L PO2 ARTERIAL (BEAKER) (test code = 385) 96 mm Hg 80-90 H O2 SATURATION ARTERIAL (BEAKER) (test code = 386) 97.8 % 96.0 -97.0 H HCO3 ARTERIAL (BEAKER) (test code = 388) 26 mmol/L 21-29 BASE EXCESS ARTERIAL (BEAKER) (test code = 387) 2.4 mmol/L -2.0-3 .0 PATIENT TEMPERATURE (BEAKER) (test code = 1818) 37.2 FIO2 (BEAKER) (test code = 1819) 21 VANCOMYCIN LEVEL, [id number] 05:50:00* Test Item Value Reference Range Interpretation Comments VANCOMYCIN RANDOM (BEAKER) (test code = 523) 16.8 ug/mL Reference Range: No NormalsCOMPREHENSIVE METABOLIC [id number] 05:38:00* Test Item Value Reference Range Interpretation Comments TOTAL PROTEIN (BEAKER) (test code = 770) 5.4 gm/dL 6.0-8.3 L ALBUMIN (BEAKER) (test code = 1145) 2.5 g/dL 3.5-5.0 L ALKALINE PHOSPHATASE (BEAKER) (test code = 346) 72 U/L 40-150 BILIRUBIN TOTAL (BEAKER) (test code = 377) 2.0 mg/dL 0.2-1.2 H SODIUM (BEAKER) (test code = 381) 132 meq/L 136-145 L POTASSIUM (BEAKER) (test code = 379) 3.8 meq/L 3.5-5.1 CHLORIDE (BEAKER) (test code = 382) 97 meq/L 98-107 L CO2 (BEAKER) (test code = 355) 23 meq/L 22-29 BLOOD UREA NITROGEN (BEAKER) (test code = 354) 66 mg/dL 7-21 H CREATININE (BEAKER) (test code = 358) 7.14 mg/dL 0.57-1.25 H GLUCOSE RANDOM (BEAKER) (test code = 652) 94 mg/dL 70-105 CALCIUM (BEAKER) (test code = 697) 8.3 mg/dL 8.4-10.2 L AST (SGOT) (BEAKER) (test code = 353) 46 U/L 5-34 H ALT (SGPT) (BEAKER) (test code = 347) 32 U/L 6-55 EGFR (BEAKER) (test code = 1092) mL/min/1.73 sq m INSUFFICIENT CLINICAL DATA TO CALCULATE ESTIMATED GFR. LACTATE DEHYDROGENASE (LDH)2018-04-14 05:37:00* Test Item Value Reference Range Interpretation Comments LACTATE DEHYDROGENASE (BEAKER) (test code = 635) 917 U/L 125-2 20 H [id number] 05:33:00* Test Item Value Reference Range Interpretation Comments PARTIAL THROMBOPLASTIN TIME (BEAKER) (test code = 760) 35.2 seconds 22.5-36.0 LACTIC ACID, ARTERIAL, WHOLE [id number] 05:31:00* Test Item Value Reference Range Interpretation Comments LACTATE BLOOD ARTERIAL (2) (BEAKER) (test code = 2874) 0.6 mmol/L 0.5-2.2 Effective 03/03/2016: Units/Reference Range ChangeNew: 0.5-2.2 mmol/L Previous: 5 -20 mg/dLCBC W/PLT COUNT & AUTO [id number] 05:22:00* Test Item Value Reference Range Interpretation Comments WHITE BLOOD CELL COUNT (BEAKER) (test code = 775) 14.1 K/ L 3.5- 10.5 H RED BLOOD CELL COUNT (BEAKER) (test code = 761) 2.42 M/ L 4.63-6 .08 L HEMOGLOBIN (BEAKER) (test code = 410) 7.3 GM/DL 13.7-17.5 L HEMATOCRIT (BEAKER) (test code = 411) 21.6 % 40.1-51.0 L MEAN CORPUSCULAR VOLUME (BEAKER) (test code = 753) 89.3 fL 79. 0-92.2 MEAN CORPUSCULAR HEMOGLOBIN (BEAKER) (test code = 751) 30.2 pg 25.7-32.2 MEAN CORPUSCULAR HEMOGLOBIN CONC (BEAKER) (test code = 752) 33.8 GM/DL 32.3-36.5 RED CELL DISTRIBUTION WIDTH (BEAKER) (test code = 412) 15.7 % 11.6-14.4 H PLATELET COUNT (BEAKER) (test code = 756) 78 K/CU MM 150-450 L MEAN PLATELET VOLUME (BEAKER) (test code = 754) 10.6 fL 9.4-12 .4 NUCLEATED RED BLOOD CELLS (BEAKER) (test code = 413) 0 /100 WBC 0 -0 NEUTROPHILS RELATIVE PERCENT (BEAKER) (test code = 429) 81 % LYMPHOCYTES RELATIVE PERCENT (BEAKER) (test code = 430) 9 % MONOCYTES RELATIVE PERCENT (BEAKER) (test code = 431) 9 % EOSINOPHILS RELATIVE PERCENT (BEAKER) (test code = 432) 1 % BASOPHILS RELATIVE PERCENT (BEAKER) (test code = 437) 0 % NEUTROPHILS ABSOLUTE COUNT (BEAKER) (test code = 670) 11.33 K/ L 1.78-5.38 H LYMPHOCYTES ABSOLUTE COUNT (BEAKER) (test code = 414) 1.24 K/ L 1.32-3.57 L MONOCYTES ABSOLUTE COUNT (BEAKER) (test code = 415) 1.22 K/ L 0. 30-0.82 H EOSINOPHILS ABSOLUTE COUNT (BEAKER) (test code = 416) 0.17 K/ L 0.04-0.54 BASOPHILS ABSOLUTE COUNT (BEAKER) (test code = 417) 0.02 K/ L 0. 01-0.08 IMMATURE GRANULOCYTES-RELATIVE PERCENT (BEAKER) (test code = 2801) 1 % 0-1 HEMOGLOBIN AND [id number] 05:21:00* Test Item Value Reference Range Interpretation Comments HEMOGLOBIN (BEAKER) (test code = 410) 7.3 GM/DL 13.7-17.5 L HEMATOCRIT (BEAKER) (test code = 411) 21.6 % 40.1-51.0 L HEMOGLOBIN AND [id number] 05:21:00* Test Item Value Reference Range Interpretation Comments HEMOGLOBIN (BEAKER) (test code = 410) 7.2 GM/DL 13.7-17.5 L HEMATOCRIT (BEAKER) (test code = 411) 21.1 % 40.1-51.0 L HEMOGLOBIN AND [id number] 22:27:00* Test Item Value Reference Range Interpretation Comments HEMOGLOBIN (BEAKER) (test code = 410) 7.8 GM/DL 13.7-17.5 L HEMATOCRIT (BEAKER) (test code = 411) 22.9 % 40.1-51.0 L HEMOGLOBIN AND [id number] 19:05:00* Test Item Value Reference Range Interpretation Comments HEMOGLOBIN (BEAKER) (test code = 410) 7.7 GM/DL 13.7-17.5 L HEMATOCRIT (BEAKER) (test code = 411) 23.2 % 40.1-51.0 L HEMOGLOBIN AND [id number] 15:19:00* Test Item Value Reference Range Interpretation Comments HEMOGLOBIN (BEAKER) (test code = 410) 8.0 GM/DL 13.7-17.5 L HEMATOCRIT (BEAKER) (test code = 411) 23.4 % 40.1-51.0 L POTASSIUM-STAT [id number] 15:17:00* Test Item Value Reference Range Interpretation Comments POTASSIUM (BEAKER) (test code = 379) 3.8 meq/L 3.6-5.5 PERIPHERAL BLOOD SMEAR - PATHOLOGIST [id number] 12:08:00* Test Item Value Reference Range Interpretation Comments RBC MORPHOLOGY (BEAKER) (test code = 2846) Polychromasia RBC MORPHOLOGY (BEAKER) (test code = 01123) Anisocytosis RBC MORPHOLOGY (BEAKER) (test code = 68922) Poikilocytosis WBC MORPHOLOGY (BEAKER) (test code = 2847) Toxic Granulation [id number] (BEAKER) (test code = 2849) Gayle Mcknight M.D. (electronic signature) HEMOGLOBIN AND [id number] 08:37:00* Test Item Value Reference Range Interpretation Comments HEMOGLOBIN (BEAKER) (test code = 410) 8.4 GM/DL 13.7-17.5 L HEMATOCRIT (BEAKER) (test code = 411) 24.7 % 40.1-51.0 L RAD, CHEST, 1 VIEW, NON [id number] 07:57:00Reason for exam:->IMPELLA PLACEMENT, volume overload, cardiogenic shockShould this be performed at the bedside?->YesFINAL REPORT HISTORY : IMPELLA PLACEMENT, volume overload, cardiogenic shock. Comparison: 04/12/2018 Comment: Single portable view of the chest was obtained. The cardiac silhouette size is enlarged. Support lines, tubes and hardware are unchanged. No pneumothorax or pleural effusion is seen. There is some left basilar linear subsegmental atelectasis versus scarring. There is a mild degree of pulmonary venous congestion. Some interstitial prominence may represent interstitial edema. Signed: Collin Lubin MDReport Verified Date/Time: 04/13/2018 07:57:32 Reading Location: [facility] Diagnostic Imaging Reading Room - [place] [address] REHENSIVE METABOLIC [id number] 05:33:00* Test Item Value Reference Range Interpretation Comments TOTAL PROTEIN (BEAKER) (test code = 770) 5.1 gm/dL 6.0-8.3 L ALBUMIN (BEAKER) (test code = 1145) 2.4 g/dL 3.5-5.0 L ALKALINE PHOSPHATASE (BEAKER) (test code = 346) 70 U/L 40-150 BILIRUBIN TOTAL (BEAKER) (test code = 377) 2.1 mg/dL 0.2-1.2 H SODIUM (BEAKER) (test code = 381) 131 meq/L 136-145 L POTASSIUM (BEAKER) (test code = 379) 4.1 meq/L 3.5-5.1 CHLORIDE (BEAKER) (test code = 382) 98 meq/L 98-107 CO2 (BEAKER) (test code = 355) 22 meq/L 22-29 BLOOD UREA NITROGEN (BEAKER) (test code = 354) 56 mg/dL 7-21 H CREATININE (BEAKER) (test code = 358) 6.22 mg/dL 0.57-1.25 H GLUCOSE RANDOM (BEAKER) (test code = 652) 93 mg/dL 70-105 CALCIUM (BEAKER) (test code = 697) 7.9 mg/dL 8.4-10.2 L AST (SGOT) (BEAKER) (test code = 353) 46 U/L 5-34 H ALT (SGPT) (BEAKER) (test code = 347) 33 U/L 6-55 EGFR (BEAKER) (test code = 1092) mL/min/1.73 sq m INSUFFICIENT CLINICAL DATA TO CALCULATE ESTIMATED GFR. LACTATE DEHYDROGENASE (LDH)2018-04-13 05:32:00* Test Item Value Reference Range Interpretation Comments LACTATE DEHYDROGENASE (BEAKER) (test code = 635) 923 U/L 125-2 20 H [id number] 05:01:00* Test Item Value Reference Range Interpretation Comments PARTIAL THROMBOPLASTIN TIME (BEAKER) (test code = 760) 35.6 seconds 22.5-36.0 LACTIC ACID, ARTERIAL, WHOLE [id number] 05:00:00* Test Item Value Reference Range Interpretation Comments LACTATE BLOOD ARTERIAL (2) (BEAKER) (test code = 2874) 0.6 mmol/L 0.5-2.2 Effective 03/03/2016: Units/Reference Range ChangeNew: 0.5-2.2 mmol/L Previous: 5 -20 mg/dLCBC W/PLT COUNT & AUTO [id number] 04:57:00* Test Item Value Reference Range Interpretation Comments WHITE BLOOD CELL COUNT (BEAKER) (test code = 775) 12.7 K/ L 3.5- 10.5 H RED BLOOD CELL COUNT (BEAKER) (test code = 761) 2.46 M/ L 4.63-6 .08 L HEMOGLOBIN (BEAKER) (test code = 410) 7.4 GM/DL 13.7-17.5 L HEMATOCRIT (BEAKER) (test code = 411) 22.1 % 40.1-51.0 L MEAN CORPUSCULAR VOLUME (BEAKER) (test code = 753) 89.8 fL 79. 0-92.2 MEAN CORPUSCULAR HEMOGLOBIN (BEAKER) (test code = 751) 30.1 pg 25.7-32.2 MEAN CORPUSCULAR HEMOGLOBIN CONC (BEAKER) (test code = 752) 33.5 GM/DL 32.3-36.5 RED CELL DISTRIBUTION WIDTH (BEAKER) (test code = 412) 16.1 % 11.6-14.4 H PLATELET COUNT (BEAKER) (test code = 756) 70 K/CU MM 150-450 L MEAN PLATELET VOLUME (BEAKER) (test code = 754) 11.4 fL 9.4-12 .4 NUCLEATED RED BLOOD CELLS (BEAKER) (test code = 413) 0 /100 WBC 0 -0 NEUTROPHILS RELATIVE PERCENT (BEAKER) (test code = 429) 75 % LYMPHOCYTES RELATIVE PERCENT (BEAKER) (test code = 430) 10 % MONOCYTES RELATIVE PERCENT (BEAKER) (test code = 431) 12 % EOSINOPHILS RELATIVE PERCENT (BEAKER) (test code = 432) 1 % BASOPHILS RELATIVE PERCENT (BEAKER) (test code = 437) 0 % NEUTROPHILS ABSOLUTE COUNT (BEAKER) (test code = 670) 9.50 K/ L 1.78-5.38 H LYMPHOCYTES ABSOLUTE COUNT (BEAKER) (test code = 414) 1.29 K/ L 1.32-3.57 L MONOCYTES ABSOLUTE COUNT (BEAKER) (test code = 415) 1.55 K/ L 0. 30-0.82 H EOSINOPHILS ABSOLUTE COUNT (BEAKER) (test code = 416) 0.18 K/ L 0.04-0.54 BASOPHILS ABSOLUTE COUNT (BEAKER) (test code = 417) 0.02 K/ L 0. 01-0.08 IMMATURE GRANULOCYTES-RELATIVE PERCENT (BEAKER) (test code = 2801) 1 % 0-1 CALCIUM, [id number] 04:54:00* Test Item Value Reference Range Interpretation Comments CALCIUM IONIZED (BEAKER) (test code = 698) 1.03 mmol/L 1.12-1.27 L PH, BLOOD (BEAKER) (test code = 1810) 7.47 BLOOD GAS, [id number] 04:54:00* Test Item Value Reference Range Interpretation Comments PH ARTERIAL (BEAKER) (test code = 383) 7.48 7.35-7.45 H PCO2 ARTERIAL (BEAKER) (test code = 384) 36 mmHg 35-45 PO2 ARTERIAL (BEAKER) (test code = 385) 81 mmHg 80-90 O2 SATURATION ARTERIAL (BEAKER) (test code = 386) 96.7 % 96.0 -97.0 HCO3 ARTERIAL (BEAKER) (test code = 388) 26 mmol/L 21-29 BASE EXCESS ARTERIAL (BEAKER) (test code = 387) 2.3 mmol/L -2.0-3 .0 PATIENT TEMPERATURE (BEAKER) (test code = 1818) 36.7 C FIO2 (BEAKER) (test code = 1819) 21.0 % HEMOGLOBIN AND [id number] 04:51:00* Test Item Value Reference Range Interpretation Comments HEMOGLOBIN (BEAKER) (test code = 410) 7.4 GM/DL 13.7-17.5 L HEMATOCRIT (BEAKER) (test code = 411) 22.1 % 40.1-51.0 L POTASSIUM-STAT [id number] 04:42:00* Test Item Value Reference Range Interpretation Comments POTASSIUM (BEAKER) (test code = 379) 4.0 meq/L 3.6-5.5 HEMOGLOBIN AND [id number] 02:07:00* Test Item Value Reference Range Interpretation Comments HEMOGLOBIN (BEAKER) (test code = 410) 7.6 GM/DL 13.7-17.5 L HEMATOCRIT (BEAKER) (test code = 411) 22.7 % 40.1-51.0 L HEMOGLOBIN AND [id number] 21:53:00* Test Item Value Reference Range Interpretation Comments HEMOGLOBIN (BEAKER) (test code = 410) 7.0 GM/DL 13.7-17.5 L HEMATOCRIT (BEAKER) (test code = 411) 20.6 % 40.1-51.0 L [id number] 18:56:00* Test Item Value Reference Range Interpretation Comments PARTIAL THROMBOPLASTIN TIME (BEAKER) (test code = 760) 36.3 seconds 22.5-36.0 H HGB/HCT (H&H) - STAT [id number] 18:08:00* Test Item Value Reference Range Interpretation Comments HEMOGLOBIN (BEAKER) (test code = 410) 6.6 g/dL 13.0-16.8 L HEMATOCRIT (BEAKER) (test code = 411) 19.0 % 40.0-50.0 L POTASSIUM-STAT [id number] 16:43:00* Test Item Value Reference Range Interpretation Comments POTASSIUM (BEAKER) (test code = 379) 4.1 meq/L 3.6-5.5 [id number] 12:04:00* Test Item Value Reference Range Interpretation Comments HAPTOGLOBIN (BEAKER) (test code = 366) < mg/dL 14-258 L HGB/HCT (H&H) - STAT [id number] 11:05:00* Test Item Value Reference Range Interpretation Comments HEMOGLOBIN (BEAKER) (test code = 410) 7.4 g/dL 13.0-16.8 L HEMATOCRIT (BEAKER) (test code = 411) 22.0 % 40.0-50.[address], [id number] 10:24:00Evaluate for source of bleedingFINAL REPORT CT of the Chest, abdomen and pelvis dated 04/12/2018 COMPARISON: April 05, 2018 Clinical information: Abdominal pain, unspecified Comment: Axial images of the chest, abdomen, and pelvis were obtained from thoracic inlet to the pubic symphysis without GI or intravenous contrast. Th is exam was performed according to our departmental dose-optimization program, w hich includes automated exposure control, adjustment of the mA and/or kV accordi ng to patient size and/or use of interactive reconstruction technique. A hematom a is seen in the right exam measuring approximately 4.5 x 5.1 cm, previously 4.5 x 5 cm. A second hematoma is seen in the right upper anterior chest wall measur ing approximately 3.3 x 4.1 cmSince prior study. A 1.9 x 6.2 cm hematoma is seen in the right mid lateral chest wall. Heart is normal in size. Great vessels are unremarkable. No adenopathy in the mediastinum or perihilar region. Trachea and mainstem bronchi are patent. Subsegmental atelectasis is seen in the lingula and both lung bases. A focal nodular parenchymal disease is seen in the left upp er lobe measuring approximately 2.4 cm. A 1.1 x 2.2 cm focal parenchyma disease is seen in the right mid lobe. There is trace left pleural effusion. Liver and s pleen are normal in size. No focal lesion is seen in the liver or the spleen. Ga llbladder is distended. No gallstone or biliary dilatation is noted. Pancreas an d adrenals are unremarkable. Both kidneys are normal in size. No hydronephrosis, hydroureter, or urolithiasis is seen. There is interval development of a hemato ma in the left retroperitoneal space surrounding the left Gerota's fascia and in volving the left iliopsoas musculature measuring at least 3.6 x 7.2 x 20 cm. A 3 x 3.5 cm hematoma is seen in the left inguinal region. A 1.8 x 3.2 cm hematoma is seen in the right inguinal region. The opacified small and large bowel are rivera boptimally evaluated secondary to lack of GI and intravenous contrast. No small large bowel dilatation is seen. Appendix is unremarkable. Trace amount of free f luid is seen in the abdomen and pelvis. Impression: 1. Interval development of h ematomas in the right chest wall, left perinephric space, left iliopsoas muscula ture, and bilateral inguinal region.2. Trace free fluid in the abdomen and pelvi s Findings were given to patient's nurse Radha at the time of the dictation. S igned: Cheyenne Mederos MDReport Verified Date/Time: 04/12/2018 10:24:42 Reading Loc ation: [facility] B1 C013Y CT Body Reading Room , CHEST, WITHOUT [id number] 10:24:00 Reevaluate hematoma and other source of bleedingFINAL REPORT CT of the Chest, abdomen and pelvis dated 04/12/2018 COMPARISON: April 05, 2018 Clinical information: Abdominal pain, unspecified Comment: Axial images of the chest, abdomen, and pelvis were obtained from thoracic inlet to the pubic symphysis without GI or intravenous contrast. This exam was performed according to our departmental dose-optimization program, which includes automated exposure control, adjustment of the mA and/or kV according to patient size and/or use of interactive reconstruction technique. A hematoma is seen in the right exam measuring approximately 4.5 x 5.1 cm, previously 4.5 x 5 cm. A second hematoma is seen in the right upper anterior chest wall measuring approximately 3.3 x 4.1 cmSince prior study. A 1.9 x 6.2 cm hematoma is seen in the right mid lateral chest wall. Heart is normal in size. Great vessels are unremarkable. No adenopathy in the mediastinum or perihilar region. Trachea and mainstem bronchi are patent. Subsegmental atelectasis is seen in the lingula and both lung bases. A focal nodular parenchymal disease is seen in the left upp er lobe measuring approximately 2.4 cm. A 1.1 x 2.2 cm focal parenchyma disease is seen in the right mid lobe. There is trace left pleural effusion. Liver and s pleen are normal in size. No focal lesion is seen in the liver or the spleen. Ga llbladder is distended. No gallstone or biliary dilatation is noted. Pancreas an d adrenals are unremarkable. Both kidneys are normal in size. No hydronephrosis, hydroureter, or urolithiasis is seen. There is interval development of a hemato ma in the left retroperitoneal space surrounding the left Gerota's fascia and in volving the left iliopsoas musculature measuring at least 3.6 x 7.2 x 20 cm. A 3 x 3.5 cm hematoma is seen in the left inguinal region. A 1.8 x 3.2 cm hematoma is seen in the right inguinal region. The opacified small and large bowel are rivera boptimally evaluated secondary to lack of GI and intravenous contrast. No small large bowel dilatation is seen. Appendix is unremarkable. Trace amount of free f luid is seen in the abdomen and pelvis. Impression: 1. Interval development of h ematomas in the right chest wall, left perinephric space, left iliopsoas muscula ture, and bilateral inguinal region.2. Trace free fluid in the abdomen and pelvi s Findings were given to patient's nurse Radha at the time of the dictation. S igned: Cheyenne Mederos [facility] Verified Date/Time: 04/12/2018 10:24:42 Reading Loc ation: [facility] B1 C013Y CT Body Reading Room C METABOLIC [id number] 09:32:00* Test Item Value Reference Range Interpretation Comments SODIUM (BEAKER) (test code = 381) 134 meq/L 136-145 L POTASSIUM (BEAKER) (test code = 379) 4.1 meq/L 3.5-5.1 CHLORIDE (BEAKER) (test code = 382) 101 meq/L 98-107 CO2 (BEAKER) (test code = 355) 24 meq/L 22-29 BLOOD UREA NITROGEN (BEAKER) (test code = 354) 47 mg/dL 7-21 H CREATININE (BEAKER) (test code = 358) 4.77 mg/dL 0.57-1.25 H GLUCOSE RANDOM (BEAKER) (test code = 652) 103 mg/dL 70-105 CALCIUM (BEAKER) (test code = 697) 8.3 mg/dL 8.4-10.2 L EGFR (BEAKER) (test code = 1092) mL/min/1.73 sq m INSUFFICIENT CLINICAL DATA TO CALCULATE ESTIMATED GFR. [id number] 09:04:00* Test Item Value Reference Range Interpretation Comments PHOSPHORUS (BEAKER) (test code = 604) 4.7 mg/dL 2.3-4.7 [id number] 09:04:00* Test Item Value Reference Range Interpretation Comments MAGNESIUM (BEAKER) (test code = 627) 1.9 mg/dL 1.6-2.6 RAD, ABDOMEN/KUB, 1 VIEW [id number] 08:00:00Reason for exam:->LLQ discomfort FINAL REPORT CLINICAL HISTORY: LLQ discomfort TECHNIQUE: Supine abdomen COMPARISON: 04/01/2018 IMPRESSION: Tubing terminates over the right hemidiaphragm, in the expected location of the inferior vena cava. There is rel ative displacement of bowel away from the left lower quadrant. The bowel gas pat tern is otherwise nonspecific. Free air and air-fluid levels cannot be excluded on the supine view. If clinically warranted, cross-sectional imaging should be p erformed for further evaluation. Signed: Idris Braxton MDReport Verified Date/Ti me: 04/12/2018 08:00:08 Reading Location: [facility] Radiology Reading Room OMYCIN LEVEL, [id number] 07:24:00* Test Item Value Reference Range Interpretation Comments VANCOMYCIN RANDOM (BEAKER) (test code = 523) 11.1 ug/mL Reference Range: No NormalsLACTIC ACID, ARTERIAL, WHOLE [id number] 04:57:00 * Test Item Value Reference Range Interpretation Comments LACTATE BLOOD ARTERIAL (2) (BEAKER) (test code = 2874) 0.6 mmol/L 0.5-2.2 Effective 03/03/2016: Units/Reference Range ChangeNew: 0.5-2.2 mmol/L Previous: 5 -20 mg/dLCOMPREHENSIVE METABOLIC [id number] 04:55:00* Test Item Value Reference Range Interpretation Comments TOTAL PROTEIN (BEAKER) (test code = 770) 5.5 gm/dL 6.0-8.3 L ALBUMIN (BEAKER) (test code = 1145) 2.5 g/dL 3.5-5.0 L ALKALINE PHOSPHATASE (BEAKER) (test code = 346) 82 U/L 40-150 BILIRUBIN TOTAL (BEAKER) (test code = 377) 2.2 mg/dL 0.2-1.2 H SODIUM (BEAKER) (test code = 381) 131 meq/L 136-145 L POTASSIUM (BEAKER) (test code = 379) 3.8 meq/L 3.5-5.1 CHLORIDE (BEAKER) (test code = 382) 97 meq/L 98-107 L CO2 (BEAKER) (test code = 355) 23 meq/L 22-29 BLOOD UREA NITROGEN (BEAKER) (test code = 354) 63 mg/dL 7-21 H CREATININE (BEAKER) (test code = 358) 5.72 mg/dL 0.57-1.25 H GLUCOSE RANDOM (BEAKER) (test code = 652) 107 mg/dL 70-105 H CALCIUM (BEAKER) (test code = 697) 8.2 mg/dL 8.4-10.2 L AST (SGOT) (BEAKER) (test code = 353) 56 U/L 5-34 H ALT (SGPT) (BEAKER) (test code = 347) 39 U/L 6-55 EGFR (BEAKER) (test code = 1092) mL/min/1.73 sq m INSUFFICIENT CLINICAL DATA TO CALCULATE ESTIMATED GFR. Specimen slightly ictericBASIC METABOLIC [id number] 04:55:00* Test Item Value Reference Range Interpretation Comments SODIUM (BEAKER) (test code = 381) 131 meq/L 136-145 L POTASSIUM (BEAKER) (test code = 379) 3.8 meq/L 3.5-5.1 CHLORIDE (BEAKER) (test code = 382) 97 meq/L 98-107 L CO2 (BEAKER) (test code = 355) 23 meq/L 22-29 BLOOD UREA NITROGEN (BEAKER) (test code = 354) 63 mg/dL 7-21 H CREATININE (BEAKER) (test code = 358) 5.72 mg/dL 0.57-1.25 H GLUCOSE RANDOM (BEAKER) (test code = 652) 107 mg/dL 70-105 H CALCIUM (BEAKER) (test code = 697) 8.2 mg/dL 8.4-10.2 L EGFR (BEAKER) (test code = 1092) mL/min/1.73 sq m INSUFFICIENT CLINICAL DATA TO CALCULATE ESTIMATED GFR. Specimen slightly [id number] 04:53:00* Test Item Value Reference Range Interpretation Comments PHOSPHORUS (BEAKER) (test code = 604) 5.1 mg/dL 2.3-4.7 H [id number] 04:53:00* Test Item Value Reference Range Interpretation Comments MAGNESIUM (BEAKER) (test code = 627) 1.6 mg/dL 1.6-2.6 LACTATE DEHYDROGENASE (LDH)2018-04-12 04:53:00* Test Item Value Reference Range Interpretation Comments LACTATE DEHYDROGENASE (BEAKER) (test code = 635) 1034 U/L 125-2 20 H [id number] 04:28:00* Test Item Value Reference Range Interpretation Comments PARTIAL THROMBOPLASTIN TIME (BEAKER) (test code = 760) 62.5 seconds 22.5-36.0 H CBC W/PLT COUNT & AUTO [id number] 04:16:00* Test Item Value Reference Range Interpretation Comments WHITE BLOOD CELL COUNT (BEAKER) (test code = 775) 14.5 K/ L 3.5- 10.5 H RED BLOOD CELL COUNT (BEAKER) (test code = 761) 2.30 M/ L 4.63-6 .08 L HEMOGLOBIN (BEAKER) (test code = 410) 6.8 GM/DL 13.7-17.5 L HEMATOCRIT (BEAKER) (test code = 411) 20.2 % 40.1-51.0 L MEAN CORPUSCULAR VOLUME (BEAKER) (test code = 753) 87.8 fL 79. 0-92.2 MEAN CORPUSCULAR HEMOGLOBIN (BEAKER) (test code = 751) 29.6 pg 25.7-32.2 MEAN CORPUSCULAR HEMOGLOBIN CONC (BEAKER) (test code = 752) 33.7 GM/DL 32.3-36.5 RED CELL DISTRIBUTION WIDTH (BEAKER) (test code = 412) 17.0 % 11.6-14.4 H PLATELET COUNT (BEAKER) (test code = 756) 75 K/CU MM 150-450 L MEAN PLATELET VOLUME (BEAKER) (test code = 754) 11.2 fL 9.4-12 .4 NUCLEATED RED BLOOD CELLS (BEAKER) (test code = 413) 0 /100 WBC 0 -0 NEUTROPHILS RELATIVE PERCENT (BEAKER) (test code = 429) 82 % LYMPHOCYTES RELATIVE PERCENT (BEAKER) (test code = 430) 7 % MONOCYTES RELATIVE PERCENT (BEAKER) (test code = 431) 8 % EOSINOPHILS RELATIVE PERCENT (BEAKER) (test code = 432) 1 % BASOPHILS RELATIVE PERCENT (BEAKER) (test code = 437) 0 % NEUTROPHILS ABSOLUTE COUNT (BEAKER) (test code = 670) 11.92 K/ L 1.78-5.38 H LYMPHOCYTES ABSOLUTE COUNT (BEAKER) (test code = 414) 1.05 K/ L 1.32-3.57 L MONOCYTES ABSOLUTE COUNT (BEAKER) (test code = 415) 1.21 K/ L 0. 30-0.82 H EOSINOPHILS ABSOLUTE COUNT (BEAKER) (test code = 416) 0.14 K/ L 0.04-0.54 BASOPHILS ABSOLUTE COUNT (BEAKER) (test code = 417) 0.01 K/ L 0. 01-0.08 IMMATURE GRANULOCYTES-RELATIVE PERCENT (BEAKER) (test code = 2801) 1 % 0-1 CALCIUM, [id number] 04:09:00* Test Item Value Reference Range Interpretation Comments CALCIUM IONIZED (BEAKER) (test code = 698) 1.03 mmol/L 1.12-1.27 L PH, BLOOD (BEAKER) (test code = 1810) 7.46 BLOOD GAS, [id number] 04:08:00* Test Item Value Reference Range Interpretation Comments PH ARTERIAL (BEAKER) (test code = 383) 7.47 7.35-7.45 H PCO2 ARTERIAL (BEAKER) (test code = 384) 37 mmHg 35-45 PO2 ARTERIAL (BEAKER) (test code = 385) 86 mmHg 80-90 O2 SATURATION ARTERIAL (BEAKER) (test code = 386) 97.2 % 96.0 -97.0 H HCO3 ARTERIAL (BEAKER) (test code = 388) 27 mmol/L 21-29 BASE EXCESS ARTERIAL (BEAKER) (test code = 387) 2.8 mmol/L -2.0-3 .0 PATIENT TEMPERATURE (BEAKER) (test code = 1818) 36.6 C FIO2 (BEAKER) (test code = 1819) 21.0 % RAD, CHEST, 1 VIEW, NON [id number] 03:48:00Reason for exam:->IMPELLA PLACEMENT, volume overload, cardiogenic shockShould this be performed at the bedside?->YesFINAL REPORT RAD, CHEST, 1 VIEW, NON DEPT INDICATION: IMPELLA PLACEMENT, volume overload, cardiogenic shock COMPARISON: Prior day's exam FINDINGS: Portable frontal view of the chest. IMPRESSION: Support Lines: Right IJ central venous catheter terminates over the low right atrium. Correlation for function recommended. Stable positioning of the Impella device. Lungs and pleura: Clear lungs. No effusion or pneumothorax. No pneumothorax.Heart and mediastinum: Stable contours. Additional findings: None. Signed: JR Montgomery Robert MDReport Verified Date/Time: 04/12/2018 03:48:37 Reading Location: [address] Reading Room C METABOLIC [id number] 18:20:00* Test Item Value Reference Range Interpretation Comments SODIUM (BEAKER) (test code = 381) 123 meq/L 136-145 L POTASSIUM (BEAKER) (test code = 379) 4.4 meq/L 3.5-5.1 CHLORIDE (BEAKER) (test code = 382) 92 meq/L 98-107 L CO2 (BEAKER) (test code = 355) 17 meq/L 22-29 L BLOOD UREA NITROGEN (BEAKER) (test code = 354) 91 mg/dL 7-21 H CREATININE (BEAKER) (test code = 358) 9.18 mg/dL 0.57-1.25 H GLUCOSE RANDOM (BEAKER) (test code = 652) 120 mg/dL 70-105 H CALCIUM (BEAKER) (test code = 697) 7.9 mg/dL 8.4-10.2 L EGFR (BEAKER) (test code = 1092) mL/min/1.73 sq m INSUFFICIENT CLINICAL DATA TO CALCULATE ESTIMATED GFR. [id number] 18:17:00* Test Item Value Reference Range Interpretation Comments PHOSPHORUS (BEAKER) (test code = 604) 8.4 mg/dL 2.3-4.7 H [id number] 18:17:00* Test Item Value Reference Range Interpretation Comments MAGNESIUM (BEAKER) (test code = 627) 2.1 mg/dL 1.6-2.6 HEMOGLOBIN AND [id number] 17:58:00* Test Item Value Reference Range Interpretation Comments HEMOGLOBIN (BEAKER) (test code = 410) 7.5 GM/DL 13.7-17.5 L HEMATOCRIT (BEAKER) (test code = 411) 22.3 % 40.1-51.0 L ANG, NON-TUNNELED CATH/PICC >5 Y.O.2018-04-11 17:20:00Reason for exam:->picc insertion vs repositionFINAL REPORT Right upper extremity midline insertion, 04/11/2018. History: Need for IV access. Malpositioned right arm PICC. Pulper Operator: Fanta. Rebrander: None. Modality: Fluoroscopy. Sedation: None. Anesthesia: Two percent Lidocaine without epinephrine. Estimated blood loss: None Specimen: None. Fluoroscopy Time: 1.7 min. Dose (Ka,r): 31.6 mGy. Technique: Informed written consent was obtained. All elements maximal sterile barrier technique was utilized for this procedure, including utilization of sterile scrub solution for skin prep, a large sterile sheet to cover the areas of the patient that were not prepped, and hand hygiene, mask, head covering, and sterile gown for performing radiologist and scrub technologist. The skin was anesthetized with 2% lidocaine. The existing PICC was partially withdrawn. A 0.018 inch wire was placed through the existing right arm PICC line into the vein, but resistance was encountered in the right subclavian region. Contrast was injected for DSA run. The old PICC was removed and a 5 British peel-away sheath was placed. The 5 British double-lumen PICC line was measured and cut at 22 cm, and advanced through the sheath, with its distal tip terminating in the right axillary vein. The peel-away sheath was removed. The ports were flushed and aspirated easily following placement. The PICC line was secured with suture material. Vital signs were monitored throughout the procedure by a nurse, and remained stable. The patient tolerated the procedure well and left the department in the same condition. Findings: 1. 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 Spot radiograph of the chest demonstrates the new right upper extremity midline to terminate in the right axillary region. Impression: Successful, uncomplicated placement of a right upper extremity midline using fluoroscopic guidance. Signed: Jaret Gibson Verified Date/Time: 04/11/2018 17:20:57 Reading Location: [place] [address] Angio Body Reading Room SSIUM-STAT [id number] 16:24:00* Test Item Value Reference Range Interpretation Comments POTASSIUM (BEAKER) (test code = 379) 4.1 meq/L 3.6-5.5 [id number] 05:28:00* Test Item Value Reference Range Interpretation Comments PARTIAL THROMBOPLASTIN TIME (BEAKER) (test code = 760) 58.2 seconds 22.5-36.0 H For IR procedure todayRAD, CHEST, 1 VIEW, NON [id number] 04:18:00Reason for exam:->IMPELLA PLACEMENT, volume overload, cardiogenic shockShould this be performed at the bedside?->YesFINAL REPORT RAD, CHEST, 1 VIEW, NON DEPT INDICATION: IMPELLA PLACEMENT, volume overload, cardiogenic shock COMPARISON: Prior day's exam FINDINGS: Portable frontal view of the chest. IMPRESSION: Support Lines: Stable. Lungs and pleura: Lungs are clear. No effusion. No pneumothorax.Heart and mediastinum: Stable contours. Additional findings: None. Signed: JR Montgomery Robert MDReport Verified Date/Time: 04/11/2018 04:18:45 Reading Location: [address] Reading Room REHENSIVE METABOLIC [id number] 04:06:00* Test Item Value Reference Range Interpretation Comments TOTAL PROTEIN (BEAKER) (test code = 770) 5.7 gm/dL 6.0-8.3 L ALBUMIN (BEAKER) (test code = 1145) 2.7 g/dL 3.5-5.0 L ALKALINE PHOSPHATASE (BEAKER) (test code = 346) 83 U/L 40-150 BILIRUBIN TOTAL (BEAKER) (test code = 377) 1.9 mg/dL 0.2-1.2 H SODIUM (BEAKER) (test code = 381) 126 meq/L 136-145 L POTASSIUM (BEAKER) (test code = 379) 4.4 meq/L 3.5-5.1 CHLORIDE (BEAKER) (test code = 382) 94 meq/L 98-107 L CO2 (BEAKER) (test code = 355) 20 meq/L 22-29 L BLOOD UREA NITROGEN (BEAKER) (test code = 354) 87 mg/dL 7-21 H CREATININE (BEAKER) (test code = 358) 8.75 mg/dL 0.57-1.25 H GLUCOSE RANDOM (BEAKER) (test code = 652) 104 mg/dL 70-105 CALCIUM (BEAKER) (test code = 697) 8.0 mg/dL 8.4-10.2 L AST (SGOT) (BEAKER) (test code = 353) 60 U/L 5-34 H ALT (SGPT) (BEAKER) (test code = 347) 47 U/L 6-55 EGFR (BEAKER) (test code = 1092) mL/min/1.73 sq m INSUFFICIENT CLINICAL DATA TO CALCULATE ESTIMATED GFR. VANCOMYCIN LEVEL, [id number] 04:05:00* Test Item Value Reference Range Interpretation Comments VANCOMYCIN RANDOM (BEAKER) (test code = 523) 24.3 ug/mL Reference Range: No NormalsLACTIC ACID, ARTERIAL, WHOLE [id number] 04:05:00 * Test Item Value Reference Range Interpretation Comments LACTATE BLOOD ARTERIAL (2) (BEAKER) (test code = 2874) 0.7 mmol/L 0.5-2.2 Effective 03/03/2016: Units/Reference Range ChangeNew: 0.5-2.2 mmol/L Previous: 5 -20 mg/dLLACTATE DEHYDROGENASE (LDH)2018-04-11 04:03:00* Test Item Value Reference Range Interpretation Comments LACTATE DEHYDROGENASE (BEAKER) (test code = 635) 1114 U/L 125-2 20 H PROTHROMBIN [id number] 04:00:00* Test Item Value Reference Range Interpretation Comments PROTIME (BEAKER) (test code = 759) 14.9 seconds 11.7-14.7 H INR (BEAKER) (test code = 370) 1.2 <=5.9 RECOMMENDED COUMADIN/WARFARIN INR THERAPY RANGESSTANDARD DOSE: 2.0 - 3.0 Inclu beata: PROPHYLAXIS for venous thrombosis, systemic embolization; TREATMENT for shaan ous thrombosis and/or pulmonary embolus.HIGH RISK: Target INR is 2.5-3.5 for pat ients with mechanical heart valves.[facility] 2018-04-11 03:57:00* Test Item Value Reference Range Interpretation Comments WHITE BLOOD CELL COUNT (BEAKER) (test code = 775) 14.6 K/ L 3.5- 10.5 H RED BLOOD CELL COUNT (BEAKER) (test code = 761) 2.36 M/ L 4.63-6 .08 L HEMOGLOBIN (BEAKER) (test code = 410) 7.0 GM/DL 13.7-17.5 L HEMATOCRIT (BEAKER) (test code = 411) 20.7 % 40.1-51.0 L MEAN CORPUSCULAR VOLUME (BEAKER) (test code = 753) 87.7 fL 79. 0-92.2 MEAN CORPUSCULAR HEMOGLOBIN (BEAKER) (test code = 751) 29.7 pg 25.7-32.2 MEAN CORPUSCULAR HEMOGLOBIN CONC (BEAKER) (test code = 752) 33.8 GM/DL 32.3-36.5 RED CELL DISTRIBUTION WIDTH (BEAKER) (test code = 412) 18.0 % 11.6-14.4 H PLATELET COUNT (BEAKER) (test code = 756) 76 K/CU MM 150-450 L MEAN PLATELET VOLUME (BEAKER) (test code = 754) 11.7 fL 9.4-12 .4 NUCLEATED RED BLOOD CELLS (BEAKER) (test code = 413) 0 /100 WBC 0 -0 BLOOD GAS, [id number] 03:46:00* Test Item Value Reference Range Interpretation Comments PH ARTERIAL (BEAKER) (test code = 383) 7.47 7.35-7.45 H PCO2 ARTERIAL (BEAKER) (test code = 384) 31 mmHg 35-45 L PO2 ARTERIAL (BEAKER) (test code = 385) 73 mmHg 80-90 L O2 SATURATION ARTERIAL (BEAKER) (test code = 386) 95.5 % 96.0 -97.0 L HCO3 ARTERIAL (BEAKER) (test code = 388) 22 mmol/L 21-29 BASE EXCESS ARTERIAL (BEAKER) (test code = 387) -1.0 mmol/L -2.0-3 .0 PATIENT TEMPERATURE (BEAKER) (test code = 1818) 37.3 C FIO2 (BEAKER) (test code = 1819) 21.0 % POTASSIUM-STAT [id number] 03:34:00* Test Item Value Reference Range Interpretation Comments POTASSIUM (BEAKER) (test code = 379) 4.3 meq/L 3.6-5.5 POCT-GLUCOSE [id number] 19:17:00* Test Item Value Reference Range Interpretation Comments POC-GLUCOSE METER (BEAKER) (test code = 1538) 131 mg/dL 70-[address] [facility] [address] [facility] [address] POTASSIUM-STAT [id number] 16:53:00* Test Item Value Reference Range Interpretation Comments POTASSIUM (BEAKER) (test code = 379) 4.5 meq/L 3.6-5.5 OCCULT BLOOD, [id number] 14:37:00* Test Item Value Reference Range Interpretation Comments FECAL OCCULT BLOOD (BEAKER) (test code = 618) Positive Negative A HEMOGLOBIN AND [id number] 11:19:00* Test Item Value Reference Range Interpretation Comments HEMOGLOBIN (BEAKER) (test code = 410) 8.2 GM/DL 13.7-17.5 L HEMATOCRIT (BEAKER) (test code = 411) 24.4 % 40.1-51.0 L CBC W/PLT COUNT & AUTO [id number] 10:32:00* Test Item Value Reference Range Interpretation Comments WHITE BLOOD CELL COUNT (BEAKER) (test code = 775) 15.2 K/ L 3.5- 10.5 H RED BLOOD CELL COUNT (BEAKER) (test code = 761) 2.41 M/ L 4.63-6 .08 L HEMOGLOBIN (BEAKER) (test code = 410) 7.1 GM/DL 13.7-17.5 L HEMATOCRIT (BEAKER) (test code = 411) 21.7 % 40.1-51.0 L MEAN CORPUSCULAR VOLUME (BEAKER) (test code = 753) 90.0 fL 79. 0-92.2 MEAN CORPUSCULAR HEMOGLOBIN (BEAKER) (test code = 751) 29.5 pg 25.7-32.2 MEAN CORPUSCULAR HEMOGLOBIN CONC (BEAKER) (test code = 752) 32.7 GM/DL 32.3-36.5 RED CELL DISTRIBUTION WIDTH (BEAKER) (test code = 412) 18.9 % 11.6-14.4 H PLATELET COUNT (BEAKER) (test code = 756) 73 K/CU MM 150-450 L MEAN PLATELET VOLUME (BEAKER) (test code = 754) 12.1 fL 9.4-12 .4 NUCLEATED RED BLOOD CELLS (BEAKER) (test code = 413) 0 /100 WBC 0 -0 (CELLAVISION MANUAL DIFF)2018-04-10 10:32:00* Test Item Value Reference Range Interpretation Comments NEUTROPHILS - REL (CELLAVISION)(BEAKER) (test code = 2816) 78 % LYMPHOCYTES - REL (CELLAVISION)(BEAKER) (test code = 2817) 10 % MONOCYTES - REL (CELLAVISION)(BEAKER) (test code = 2818) 5 % EOSINOPHILS - REL (CELLAVISION)(BEAKER) (test code = 2819) 4 % BASOPHILS - REL (CELLAVISION)(BEAKER) (test code = 2820) 1 % METAMYELOCYTES - REL (CELLAVISION)(BEAKER) (test code = 2821) 1 % 0-0 H NEUTROPHILS - ABS (CELLAVISION)(BEAKER) (test code = 2830) 11.86 K/ul 1.78-5.38 H LYMPHOCYTES - ABS (CELLAVISION)(BEAKER) (test code = 2831) 1.52 K/ul 1.32-3.57 MONOCYTES - ABS (CELLAVISION)(BEAKER) (test code = 2832) 0.76 K/uL 0.30-0.82 EOSINOPHILS - ABS (CELLAVISION)(BEAKER) (test code = 2834) 0.61 K/uL 0.04-0.54 H BASOPHILS - ABS (CELLAVISION)(BEAKER) (test code = 2835) 0.15 K/uL 0.01-0.08 H METAMYELOCYTES - ABS (CELLAVISION)(BEAKER) (test code = 2836 ) 0.15 K/uL 0.00-0.00 H TOTAL COUNTED (BEAKER) (test code = 1351) 100 WBC MORPHOLOGY (BEAKER) (test code = 487) Normal PLT MORPHOLOGY (BEAKER) (test code = 486) Normal POLYCHROMATOPHILLIC RBCS(BEAKER) (test code = 478) 1+ few ANISOCYTOSIS (BEAKER) (test code = 961) 1+ few MICROCYTES (BEAKER) (test code = 965) 1+ few ARTIFACT (CELLAVISION)(BEAKER) (test code = 3432) Present PLATELET CONCENTRATION (CELLAVISION)(BEAKER) (test code = 3438) Dec reased Received comment: User comments: Slide comments: IRON, TIBC, % SAT. (WITHOUT FERRITIN)2018-04-10 08:54:00* Test Item Value Reference Range Interpretation Comments IRON (BEAKER) (test code = 547) 46 ug/dL 40-160 TOTAL IRON BINDING CAPACITY (BEAKER) (test code = 769) 261 ug/dL 250-450 IRON % SATURATION (2) (BEAKER) (test code = 2590) 18 % 20-5 5 L RAD, CHEST, 1 VIEW, NON [id number] 06:54:00Reason for exam:->IMPELLA PLACEMENT, volume overload, cardiogenic shockShould this be performed at the bedside?->YesFINAL REPORT Chest one view. Clinical history: IMPELLA PLACEMENT, volume overload, cardiogenic shock Comparison: Chest radiograph 04/08/18 Technique: A single frontal view of the chest was obtained. Findings: There is an Impella device unchanged in position. There is a right IJ central venous catheter with tip in the distal right atrium. The cardiac silhouette is enlarged. There is no focal pulmonary consolidation, pleural effusion or pneumothorax. There is no pulmonary edema. Signed: Priscilla Emerson MDReport Verified Date/Time: 04/10/2018 06:54:49 Reading Location: [address] Transitional Reading Room ATE DEHYDROGENASE (LDH)2018-04-10 06:45:00* Test Item Value Reference Range Interpretation Comments LACTATE DEHYDROGENASE (BEAKER) (test code = 635) 1295 U/L 125-2 20 H Specimen slightly hemolyzed COMPREHENSIVE METABOLIC [id number] 06:44:00* Test Item Value Reference Range Interpretation Comments TOTAL PROTEIN (BEAKER) (test code = 770) 6.1 gm/dL 6.0-8.3 Specimen slightly hemolyzed ALBUMIN (BEAKER) (test code = 1145) 2.8 g/dL 3.5-5.0 L Specimen slightly hemolyzed ALKALINE PHOSPHATASE (BEAKER) (test code = 346) 92 U/L 40-150 BILIRUBIN TOTAL (BEAKER) (test code = 377) 2.1 mg/dL 0.2-1.2 H Specimen slightly hemolyzed SODIUM (BEAKER) (test code = 381) 127 meq/L 136-145 L POTASSIUM (BEAKER) (test code = 379) 4.7 meq/L 3.5-5.1 Specimen slightly hemolyzed CHLORIDE (BEAKER) (test code = 382) 96 meq/L 98-107 L CO2 (BEAKER) (test code = 355) 20 meq/L 22-29 L BLOOD UREA NITROGEN (BEAKER) (test code = 354) 75 mg/dL 7-21 H CREATININE (BEAKER) (test code = 358) 7.24 mg/dL 0.57-1.25 H Specimen slightly hemolyzed GLUCOSE RANDOM (BEAKER) (test code = 652) 106 mg/dL 70-105 H CALCIUM (BEAKER) (test code = 697) 7.7 mg/dL 8.4-10.2 L AST (SGOT) (BEAKER) (test code = 353) 76 U/L 5-34 H Specimen slightly hemolyzed ALT (SGPT) (BEAKER) (test code = 347) 53 U/L 6-55 Specimen slightly hemolyzed EGFR (BEAKER) (test code = 1092) mL/min/1.73 sq m INSUFFICIENT CLINICAL DATA TO CALCULATE ESTIMATED GFR. [id number] 06:11:00* Test Item Value Reference Range Interpretation Comments MAGNESIUM (BEAKER) (test code = 627) 2.2 mg/dL 1.6-2.6 Specimen slightly hemolyzed [id number] 06:11:00* Test Item Value Reference Range Interpretation Comments PHOSPHORUS (BEAKER) (test code = 604) 6.8 mg/dL 2.3-4.7 H Specimen slightly hemolyzed [id number] 06:00:00* Test Item Value Reference Range Interpretation Comments PARTIAL THROMBOPLASTIN TIME (BEAKER) (test code = 760) 63.2 seconds 22.5-36.0 H LACTIC ACID, ARTERIAL, WHOLE [id number] 05:50:00* Test Item Value Reference Range Interpretation Comments LACTATE BLOOD ARTERIAL (2) (BEAKER) (test code = 2874) 0.8 mmol/L 0.5-2.2 Effective 03/03/2016: Units/Reference Range ChangeNew: 0.5-2.2 mmol/L Previous: 5 -20 mg/dLCALCIUM, [id number] 05:40:00* Test Item Value Reference Range Interpretation Comments CALCIUM IONIZED (BEAKER) (test code = 698) 0.96 mmol/L 1.12-1.27 L PH, BLOOD (BEAKER) (test code = 1810) 7.49 BLOOD GAS, [id number] 05:39:00* Test Item Value Reference Range Interpretation Comments PH ARTERIAL (BEAKER) (test code = 383) 7.50 7.35-7.45 H PCO2 ARTERIAL (BEAKER) (test code = 384) 29 mmHg 35-45 L PO2 ARTERIAL (BEAKER) (test code = 385) 97 mmHg 80-90 H O2 SATURATION ARTERIAL (BEAKER) (test code = 386) 98.0 % 96.0 -97.0 H HCO3 ARTERIAL (BEAKER) (test code = 388) 22 mmol/L 21-29 BASE EXCESS ARTERIAL (BEAKER) (test code = 387) -0.9 mmol/L -2.0-3 .0 PATIENT TEMPERATURE (BEAKER) (test code = 1818) 36.8 C FIO2 (BEAKER) (test code = 1819) 21.0 % [id number] 22:32:00* Test Item Value Reference Range Interpretation Comments PARTIAL THROMBOPLASTIN TIME (BEAKER) (test code = 760) 51.1 seconds 22.5-36.0 H POTASSIUM-STAT [id number] 16:09:00* Test Item Value Reference Range Interpretation Comments POTASSIUM (BEAKER) (test code = 379) 4.3 meq/L 3.6-5.5 VANCOMYCIN LEVEL, [id number] 12:44:00* Test Item Value Reference Range Interpretation Comments VANCOMYCIN TROUGH (BEAKER) (test code = 522) 15.7 ug/mL 10.0-20.0 PT/[id number] 08:35:00* Test Item Value Reference Range Interpretation Comments PROTIME (BEAKER) (test code = 759) 14.6 seconds 11.7-14.7 INR (BEAKER) (test code = 370) 1.1 <=5.9 PARTIAL THROMBOPLASTIN TIME (BEAKER) (test code = 760) 58.1 seconds 22.5-36.0 H RECOMMENDED COUMADIN/WARFARIN INR THERAPY RANGESSTANDARD DOSE: 2.0 - 3.0 Inclu beata: PROPHYLAXIS for venous thrombosis, systemic embolization; TREATMENT for shaan ous thrombosis and/or pulmonary embolus.HIGH RISK: Target INR is 2.5-3.5 for pat ients with mechanical heart valves.VANCOMYCIN LEVEL, [id number] 08:33:00* Test Item Value Reference Range Interpretation Comments VANCOMYCIN RANDOM (BEAKER) (test code = 523) 15.3 ug/mL Reference Range: No NormalsHEMOGLOBIN AND [id number] 08:18:00* Test Item Value Reference Range Interpretation Comments HEMOGLOBIN (BEAKER) (test code = 410) 8.0 GM/DL 13.7-17.5 L HEMATOCRIT (BEAKER) (test code = 411) 24.6 % 40.1-51.0 L Post transfusionCOMPREHENSIVE METABOLIC [id number] 04:32:00* Test Item Value Reference Range Interpretation Comments TOTAL PROTEIN (BEAKER) (test code = 770) 6.1 gm/dL 6.0-8.3 ALBUMIN (BEAKER) (test code = 1145) 2.8 g/dL 3.5-5.0 L ALKALINE PHOSPHATASE (BEAKER) (test code = 346) 99 U/L 40-150 BILIRUBIN TOTAL (BEAKER) (test code = 377) 2.7 mg/dL 0.2-1.2 H SODIUM (BEAKER) (test code = 381) 130 meq/L 136-145 L POTASSIUM (BEAKER) (test code = 379) 3.8 meq/L 3.5-5.1 CHLORIDE (BEAKER) (test code = 382) 97 meq/L 98-107 L CO2 (BEAKER) (test code = 355) 21 meq/L 22-29 L BLOOD UREA NITROGEN (BEAKER) (test code = 354) 64 mg/dL 7-21 H CREATININE (BEAKER) (test code = 358) 5.09 mg/dL 0.57-1.25 H GLUCOSE RANDOM (BEAKER) (test code = 652) 99 mg/dL 70-105 CALCIUM (BEAKER) (test code = 697) 8.4 mg/dL 8.4-10.2 AST (SGOT) (BEAKER) (test code = 353) 87 U/L 5-34 H ALT (SGPT) (BEAKER) (test code = 347) 64 U/L 6-55 H EGFR (BEAKER) (test code = 1092) mL/min/1.73 sq m INSUFFICIENT CLINICAL DATA TO CALCULATE ESTIMATED GFR. Specimen slightly ictericBASIC METABOLIC [id number] 04:32:00* Test Item Value Reference Range Interpretation Comments SODIUM (BEAKER) (test code = 381) 130 meq/L 136-145 L POTASSIUM (BEAKER) (test code = 379) 3.8 meq/L 3.5-5.1 CHLORIDE (BEAKER) (test code = 382) 97 meq/L 98-107 L CO2 (BEAKER) (test code = 355) 21 meq/L 22-29 L BLOOD UREA NITROGEN (BEAKER) (test code = 354) 64 mg/dL 7-21 H CREATININE (BEAKER) (test code = 358) 5.09 mg/dL 0.57-1.25 H GLUCOSE RANDOM (BEAKER) (test code = 652) 99 mg/dL 70-105 CALCIUM (BEAKER) (test code = 697) 8.4 mg/dL 8.4-10.2 EGFR (BEAKER) (test code = 1092) mL/min/1.73 sq m INSUFFICIENT CLINICAL DATA TO CALCULATE ESTIMATED GFR. Specimen slightly [id number] 04:29:00* Test Item Value Reference Range Interpretation Comments PHOSPHORUS (BEAKER) (test code = 604) 5.1 mg/dL 2.3-4.7 H [id number] 04:29:00* Test Item Value Reference Range Interpretation Comments MAGNESIUM (BEAKER) (test code = 627) 2.0 mg/dL 1.6-2.6 LACTATE DEHYDROGENASE (LDH)2018-04-09 04:29:00* Test Item Value Reference Range Interpretation Comments LACTATE DEHYDROGENASE (BEAKER) (test code = 635) 1393 U/L 125-2 20 H LACTIC ACID, ARTERIAL, WHOLE [id number] 04:14:00* Test Item Value Reference Range Interpretation Comments LACTATE BLOOD ARTERIAL (2) (BEAKER) (test code = 2874) 0.6 mmol/L 0.5-2.2 Effective 03/03/2016: Units/Reference Range ChangeNew: 0.5-2.2 mmol/L Previous: 5 -20 mg/[id number] 04:00:00* Test Item Value Reference Range Interpretation Comments PARTIAL THROMBOPLASTIN TIME (BEAKER) (test code = 760) 38.3 seconds 22.5-36.0 H PROTHROMBIN TIME/[id number] 03:59:00* Test Item Value Reference Range Interpretation Comments PROTIME (BEAKER) (test code = 759) 14.5 seconds 11.7-14.7 INR (BEAKER) (test code = 370) 1.1 <=5.9 RECOMMENDED COUMADIN/WARFARIN INR THERAPY RANGESSTANDARD DOSE: 2.0 - 3.0 Inclu beata: PROPHYLAXIS for venous thrombosis, systemic embolization; TREATMENT for shaan ous thrombosis and/or pulmonary embolus.HIGH RISK: Target INR is 2.5-3.5 for pat ients with mechanical heart valves.CBC W/PLT COUNT & AUTO [id number] 03:52:00* Test Item Value Reference Range Interpretation Comments WHITE BLOOD CELL COUNT (BEAKER) (test code = 775) 14.5 K/ L 3.5- 10.5 H RED BLOOD CELL COUNT (BEAKER) (test code = 761) 2.33 M/ L 4.63-6 .08 L HEMOGLOBIN (BEAKER) (test code = 410) 7.0 GM/DL 13.7-17.5 L HEMATOCRIT (BEAKER) (test code = 411) 20.8 % 40.1-51.0 L MEAN CORPUSCULAR VOLUME (BEAKER) (test code = 753) 89.3 fL 79. 0-92.2 MEAN CORPUSCULAR HEMOGLOBIN (BEAKER) (test code = 751) 30.0 pg 25.7-32.2 MEAN CORPUSCULAR HEMOGLOBIN CONC (BEAKER) (test code = 752) 33.7 GM/DL 32.3-36.5 RED CELL DISTRIBUTION WIDTH (BEAKER) (test code = 412) 19.5 % 11.6-14.4 H PLATELET COUNT (BEAKER) (test code = 756) 73 K/CU MM 150-450 L MEAN PLATELET VOLUME (BEAKER) (test code = 754) 12.5 fL 9.4-12 .4 H NUCLEATED RED BLOOD CELLS (BEAKER) (test code = 413) 0 /100 WBC 0 -0 NEUTROPHILS RELATIVE PERCENT (BEAKER) (test code = 429) 74 % LYMPHOCYTES RELATIVE PERCENT (BEAKER) (test code = 430) 11 % MONOCYTES RELATIVE PERCENT (BEAKER) (test code = 431) 11 % EOSINOPHILS RELATIVE PERCENT (BEAKER) (test code = 432) 2 % BASOPHILS RELATIVE PERCENT (BEAKER) (test code = 437) 0 % NEUTROPHILS ABSOLUTE COUNT (BEAKER) (test code = 670) 10.70 K/ L 1.78-5.38 H LYMPHOCYTES ABSOLUTE COUNT (BEAKER) (test code = 414) 1.58 K/ L 1.32-3.57 MONOCYTES ABSOLUTE COUNT (BEAKER) (test code = 415) 1.63 K/ L 0. 30-0.82 H EOSINOPHILS ABSOLUTE COUNT (BEAKER) (test code = 416) 0.26 K/ L 0.04-0.54 BASOPHILS ABSOLUTE COUNT (BEAKER) (test code = 417) 0.01 K/ L 0. 01-0.08 IMMATURE GRANULOCYTES-RELATIVE PERCENT (BEAKER) (test code = 2801) 2 % 0-1 H CALCIUM, [id number] 03:48:00* Test Item Value Reference Range Interpretation Comments CALCIUM IONIZED (BEAKER) (test code = 698) 1.05 mmol/L 1.12-1.27 L PH, BLOOD (BEAKER) (test code = 1810) 7.49 BLOOD GAS, [id number] 03:47:00* Test Item Value Reference Range Interpretation Comments PH ARTERIAL (BEAKER) (test code = 383) 7.49 7.35-7.45 H PCO2 ARTERIAL (BEAKER) (test code = 384) 33 mmHg 35-45 L PO2 ARTERIAL (BEAKER) (test code = 385) 80 mmHg 80-90 O2 SATURATION ARTERIAL (BEAKER) (test code = 386) 96.7 % 96.0 -97.0 HCO3 ARTERIAL (BEAKER) (test code = 388) 25 mmol/L 21-29 BASE EXCESS ARTERIAL (BEAKER) (test code = 387) 1.5 mmol/L -2.0-3 .0 PATIENT TEMPERATURE (BEAKER) (test code = 1818) 36.9 C FIO2 (BEAKER) (test code = 1819) 21.0 % POTASSIUM-STAT [id number] 03:45:00* Test Item Value Reference Range Interpretation Comments POTASSIUM (BEAKER) (test code = 379) 3.7 meq/L 3.6-5.5 BASIC METABOLIC [id number] 23:45:00* Test Item Value Reference Range Interpretation Comments SODIUM (BEAKER) (test code = 381) 125 meq/L 136-145 L POTASSIUM (BEAKER) (test code = 379) 4.9 meq/L 3.5-5.1 CHLORIDE (BEAKER) (test code = 382) 96 meq/L 98-107 L CO2 (BEAKER) (test code = 355) 18 meq/L 22-29 L BLOOD UREA NITROGEN (BEAKER) (test code = 354) 91 mg/dL 7-21 H CREATININE (BEAKER) (test code = 358) 7.10 mg/dL 0.57-1.25 H GLUCOSE RANDOM (BEAKER) (test code = 652) 110 mg/dL 70-105 H CALCIUM (BEAKER) (test code = 697) 7.8 mg/dL 8.4-10.2 L EGFR (BEAKER) (test code = 1092) mL/min/1.73 sq m INSUFFICIENT CLINICAL DATA TO CALCULATE ESTIMATED GFR. [id number] 23:44:00* Test Item Value Reference Range Interpretation Comments PHOSPHORUS (BEAKER) (test code = 604) 6.8 mg/dL 2.3-4.7 H [id number] 23:44:00* Test Item Value Reference Range Interpretation Comments MAGNESIUM (BEAKER) (test code = 627) 2.2 mg/dL 1.6-2.6 CALCIUM, [id number] 23:39:00* Test Item Value Reference Range Interpretation Comments CALCIUM IONIZED (BEAKER) (test code = 698) 1.00 mmol/L 1.12-1.27 L PH, BLOOD (BEAKER) (test code = 1810) 7.46 [id number] 22:06:00* Test Item Value Reference Range Interpretation Comments PHOSPHORUS (BEAKER) (test code = 604) 9.2 mg/dL 2.3-4.7 HH BASIC METABOLIC [id number] 22:01:00* Test Item Value Reference Range Interpretation Comments SODIUM (BEAKER) (test code = 381) 123 meq/L 136-145 L POTASSIUM (BEAKER) (test code = 379) 5.9 meq/L 3.5-5.1 H CHLORIDE (BEAKER) (test code = 382) 93 meq/L 98-107 L CO2 (BEAKER) (test code = 355) 15 meq/L 22-29 L BLOOD UREA NITROGEN (BEAKER) (test code = 354) 108 mg/dL 7-21 H CREATININE (BEAKER) (test code = 358) 9.11 mg/dL 0.57-1.25 H GLUCOSE RANDOM (BEAKER) (test code = 652) 121 mg/dL 70-105 H CALCIUM (BEAKER) (test code = 697) 7.6 mg/dL 8.4-10.2 L EGFR (BEAKER) (test code = 1092) mL/min/1.73 sq m INSUFFICIENT CLINICAL DATA TO CALCULATE ESTIMATED GFR. [id number] 21:58:00* Test Item Value Reference Range Interpretation Comments MAGNESIUM (BEAKER) (test code = 627) 2.4 mg/dL 1.6-2.6 CALCIUM, [id number] 21:40:00* Test Item Value Reference Range Interpretation Comments CALCIUM IONIZED (BEAKER) (test code = 698) 0.95 mmol/L 1.12-1.27 L PH, BLOOD (BEAKER) (test code = 1810) 7.46 [id number] 15:30:00* Test Item Value Reference Range Interpretation Comments POTASSIUM (BEAKER) (test code = 379) 5.5 meq/L 3.5-5.1 H Draw potassium q 4 hours x [id number] 11:56:00* Test Item Value Reference Range Interpretation Comments POTASSIUM (BEAKER) (test code = 379) 5.6 meq/L 3.5-5.1 H Draw potassium q 4 hours x 3CBC (HEMOGRAM ONLY)2018-04-08 11:38:00* Test Item Value Reference Range Interpretation Comments WHITE BLOOD CELL COUNT (BEAKER) (test code = 775) 18.9 K/ L 3.5- 10.5 H RED BLOOD CELL COUNT (BEAKER) (test code = 761) 2.51 M/ L 4.63-6 .08 L HEMOGLOBIN (BEAKER) (test code = 410) 7.3 GM/DL 13.7-17.5 L HEMATOCRIT (BEAKER) (test code = 411) 22.2 % 40.1-51.0 L MEAN CORPUSCULAR VOLUME (BEAKER) (test code = 753) 88.4 fL 79. 0-92.2 MEAN CORPUSCULAR HEMOGLOBIN (BEAKER) (test code = 751) 29.1 pg 25.7-32.2 MEAN CORPUSCULAR HEMOGLOBIN CONC (BEAKER) (test code = 752) 32.9 GM/DL 32.3-36.5 RED CELL DISTRIBUTION WIDTH (BEAKER) (test code = 412) 19.0 % 11.6-14.4 H PLATELET COUNT (BEAKER) (test code = 756) 86 K/CU MM 150-450 L MEAN PLATELET VOLUME (BEAKER) (test code = 754) 12.0 fL 9.4-12 .4 NUCLEATED RED BLOOD CELLS (BEAKER) (test code = 413) 0 /100 WBC 0 -0 RAD, CHEST, 1 VIEW, NON [id number] 08:01:00Reason for exam:->PA CATHETER; IMPELLA PLACEMENTShould this be performed at the bedside?->YesFINAL REPORT HISTORY : PA CATHETER; IMPELLA PLACEMENT. Comparison: 04/07/2018 Comment: Single portable view of the chest was obtained. The cardiac silhouette size is enlarged. There are findings of pulmonary venous congestion. Some interstitial prominence may represent interstitial edema. There has been interval removal of the left sided internal jugular venous catheter. The remainder of the support lines and tubes are otherwise unchanged. No pneumothora x is visualized. Signed: Collin Lubin MDReport Verified Date/Time: 04/08/2018 0 8:01:46 Reading Location: [address] Transitional Reading Room [facility] signed by: COLLIN LUBIN M.D. on 04/08/2018 08:01 AM [id number] 07:55:00* Test Item Value Reference Range Interpretation Comments POTASSIUM (BEAKER) (test code = 379) 5.5 meq/L 3.5-5.1 H Draw potassium q 4 hours x 3HEMOGLOBIN AND [id number] 07:44:00* Test Item Value Reference Range Interpretation Comments HEMOGLOBIN (BEAKER) (test code = 410) 7.4 GM/DL 13.7-17.5 L HEMATOCRIT (BEAKER) (test code = 411) 23.0 % 40.1-51.0 L COMPREHENSIVE METABOLIC [id number] 04:33:00* Test Item Value Reference Range Interpretation Comments TOTAL PROTEIN (BEAKER) (test code = 770) 6.0 gm/dL 6.0-8.3 ALBUMIN (BEAKER) (test code = 1145) 2.7 g/dL 3.5-5.0 L ALKALINE PHOSPHATASE (BEAKER) (test code = 346) 101 U/L 40-150 BILIRUBIN TOTAL (BEAKER) (test code = 377) 2.5 mg/dL 0.2-1.2 H SODIUM (BEAKER) (test code = 381) 127 meq/L 136-145 L POTASSIUM (BEAKER) (test code = 379) 5.2 meq/L 3.5-5.1 H CHLORIDE (BEAKER) (test code = 382) 96 meq/L 98-107 L CO2 (BEAKER) (test code = 355) 17 meq/L 22-29 L BLOOD UREA NITROGEN (BEAKER) (test code = 354) 97 mg/dL 7-21 H CREATININE (BEAKER) (test code = 358) 7.67 mg/dL 0.57-1.25 H GLUCOSE RANDOM (BEAKER) (test code = 652) 115 mg/dL 70-105 H CALCIUM (BEAKER) (test code = 697) 7.5 mg/dL 8.4-10.2 L AST (SGOT) (BEAKER) (test code = 353) 111 U/L 5-34 H ALT (SGPT) (BEAKER) (test code = 347) 84 U/L 6-55 H EGFR (BEAKER) (test code = 1092) mL/min/1.73 sq m INSUFFICIENT CLINICAL DATA TO CALCULATE ESTIMATED GFR. [id number] 03:59:00* Test Item Value Reference Range Interpretation Comments PHOSPHORUS (BEAKER) (test code = 604) 8.0 mg/dL 2.3-4.7 H [id number] 03:59:00* Test Item Value Reference Range Interpretation Comments MAGNESIUM (BEAKER) (test code = 627) 2.4 mg/dL 1.6-2.6 LACTATE DEHYDROGENASE (LDH)2018-04-08 03:59:00* Test Item Value Reference Range Interpretation Comments LACTATE DEHYDROGENASE (BEAKER) (test code = 635) 1549 U/L 125-2 20 H CBC W/PLT COUNT & AUTO [id number] 03:51:00* Test Item Value Reference Range Interpretation Comments WHITE BLOOD CELL COUNT (BEAKER) (test code = 775) 18.8 K/ L 3.5- 10.5 H RED BLOOD CELL COUNT (BEAKER) (test code = 761) 2.19 M/ L 4.63-6 .08 L HEMOGLOBIN (BEAKER) (test code = 410) 6.5 GM/DL 13.7-17.5 L HEMATOCRIT (BEAKER) (test code = 411) 19.5 % 40.1-51.0 L MEAN CORPUSCULAR VOLUME (BEAKER) (test code = 753) 89.0 fL 79. 0-92.2 MEAN CORPUSCULAR HEMOGLOBIN (BEAKER) (test code = 751) 29.7 pg 25.7-32.2 MEAN CORPUSCULAR HEMOGLOBIN CONC (BEAKER) (test code = 752) 33.3 GM/DL 32.3-36.5 RED CELL DISTRIBUTION WIDTH (BEAKER) (test code = 412) 19.8 % 11.6-14.4 H PLATELET COUNT (BEAKER) (test code = 756) 78 K/CU MM 150-450 L MEAN PLATELET VOLUME (BEAKER) (test code = 754) 12.5 fL 9.4-12 .4 H NUCLEATED RED BLOOD CELLS (BEAKER) (test code = 413) 0 /100 WBC 0 -0 NEUTROPHILS RELATIVE PERCENT (BEAKER) (test code = 429) 69 % LYMPHOCYTES RELATIVE PERCENT (BEAKER) (test code = 430) 12 % MONOCYTES RELATIVE PERCENT (BEAKER) (test code = 431) 14 % EOSINOPHILS RELATIVE PERCENT (BEAKER) (test code = 432) 2 % BASOPHILS RELATIVE PERCENT (BEAKER) (test code = 437) 0 % NEUTROPHILS ABSOLUTE COUNT (BEAKER) (test code = 670) 13.01 K/ L 1.78-5.38 H LYMPHOCYTES ABSOLUTE COUNT (BEAKER) (test code = 414) 2.33 K/ L 1.32-3.57 MONOCYTES ABSOLUTE COUNT (BEAKER) (test code = 415) 2.57 K/ L 0. 30-0.82 H EOSINOPHILS ABSOLUTE COUNT (BEAKER) (test code = 416) 0.34 K/ L 0.04-0.54 BASOPHILS ABSOLUTE COUNT (BEAKER) (test code = 417) 0.04 K/ L 0. 01-0.08 IMMATURE GRANULOCYTES-RELATIVE PERCENT (BEAKER) (test code = 2801) 3 % 0-1 H LACTIC ACID, ARTERIAL, WHOLE [id number] 03:50:00* Test Item Value Reference Range Interpretation Comments LACTATE BLOOD ARTERIAL (2) (BEAKER) (test code = 2874) 0.7 mmol/L 0.5-2.2 Effective 03/03/2016: Units/Reference Range ChangeNew: 0.5-2.2 mmol/L Previous: 5 -20 mg/[id number] 03:39:00* Test Item Value Reference Range Interpretation Comments PARTIAL THROMBOPLASTIN TIME (BEAKER) (test code = 760) 67.4 seconds 22.5-36.0 H POTASSIUM-STAT [id number] 03:09:00* Test Item Value Reference Range Interpretation Comments POTASSIUM (BEAKER) (test code = 379) 5.1 meq/L 3.6-5.5 BLOOD GAS, [id number] 03:09:00* Test Item Value Reference Range Interpretation Comments PH ARTERIAL (BEAKER) (test code = 383) 7.52 7.35-7.45 H PCO2 ARTERIAL (BEAKER) (test code = 384) 23 mmHg 35-45 L PO2 ARTERIAL (BEAKER) (test code = 385) 84 mmHg 80-90 O2 SATURATION ARTERIAL (BEAKER) (test code = 386) 97.4 % 96.0 -97.0 H HCO3 ARTERIAL (BEAKER) (test code = 388) 18 mmol/L 21-29 L BASE EXCESS ARTERIAL (BEAKER) (test code = 387) -3.9 mmol/L -2.0-3 .0 L PATIENT TEMPERATURE (BEAKER) (test code = 1818) 36.9 C FIO2 (BEAKER) (test code = 1819) 21.0 % [id number] 16:43:00* Test Item Value Reference Range Interpretation Comments PHOSPHORUS (BEAKER) (test code = 604) 7.2 mg/dL 2.3-4.7 H [id number] 16:43:00* Test Item Value Reference Range Interpretation Comments MAGNESIUM (BEAKER) (test code = 627) 2.3 mg/dL 1.6-2.6 POTASSIUM-STAT [id number] 16:24:00* Test Item Value Reference Range Interpretation Comments POTASSIUM (BEAKER) (test code = 379) 5.1 meq/L 3.6-5.5 CALCIUM, [id number] 16:24:00* Test Item Value Reference Range Interpretation Comments CALCIUM IONIZED (BEAKER) (test code = 698) 0.98 mmol/L 1.12-1.27 L PH, BLOOD (BEAKER) (test code = 1810) 7.47 HGB/HCT (H&H) - STAT [id number] 16:24:00* Test Item Value Reference Range Interpretation Comments HEMOGLOBIN (BEAKER) (test code = 410) 7.6 g/dL 13.0-16.8 L HEMATOCRIT (BEAKER) (test code = 411) 22.0 % 40.0-50.0 L VANCOMYCIN LEVEL, [id number] 14:44:00* Test Item Value Reference Range Interpretation Comments VANCOMYCIN RANDOM (BEAKER) (test code = 523) 15.7 ug/mL Reference Range: No NormalsRAD, CHEST, 1 VIEW, NON [id number] 14:24:00Reason for exam:->check picc placementi suspect malpoShould this be performed at the bedside?->YesFINAL REPORT TECHNIQUE: Frontal chest radiograph dated 04/07/2018. CLINICAL HISTORY: Check picc placement COMPARISON STUDY: Chest radiograph performed earlier the same day. IMPRESSION:Right sided central vascular line is seen with the tip below the edge of the diaphragm, unchanged. Left-sided vascular line is seen with the tip near the region of the superior vena cava/right atrial junction. Impala device is unchanged. A catheter is seen projected over the right axilla with the tip projected over the scapula, it is not clear this is the PICC. Lungs are clear. No pleural effusion or pneumothorax. Cardiomediastinal silhouette is normal in size. No pulmonary edema. No fracture. Signed: Binh Hartmanneport Verified Date/Time: 04/07/2018 14:24:34 Reading Location: [facility] Radiology Reading Room [id number] 13:30:00* Test Item Value Reference Range Interpretation Comments PHOSPHORUS (BEAKER) (test code = 604) 6.4 mg/dL 2.3-4.7 H [id number] 13:30:00* Test Item Value Reference Range Interpretation Comments MAGNESIUM (BEAKER) (test code = 627) 2.5 mg/dL 1.6-2.6 CALCIUM, [id number] 13:02:00* Test Item Value Reference Range Interpretation Comments CALCIUM IONIZED (BEAKER) (test code = 698) 0.98 mmol/L 1.12-1.27 L PH, BLOOD (BEAKER) (test code = 1810) 7.50 BASIC METABOLIC [id number] 07:25:00* Test Item Value Reference Range Interpretation Comments SODIUM (BEAKER) (test code = 381) 129 meq/L 136-145 L POTASSIUM (BEAKER) (test code = 379) 4.6 meq/L 3.5-5.1 CHLORIDE (BEAKER) (test code = 382) 98 meq/L 98-107 CO2 (BEAKER) (test code = 355) 19 meq/L 22-29 L BLOOD UREA NITROGEN (BEAKER) (test code = 354) 74 mg/dL 7-21 H CREATININE (BEAKER) (test code = 358) 5.14 mg/dL 0.57-1.25 H GLUCOSE RANDOM (BEAKER) (test code = 652) 122 mg/dL 70-105 H CALCIUM (BEAKER) (test code = 697) 8.0 mg/dL 8.4-10.2 L EGFR (BEAKER) (test code = 1092) mL/min/1.73 sq m INSUFFICIENT CLINICAL DATA TO CALCULATE ESTIMATED GFR. Specimen slightly [id number] 07:20:00* Test Item Value Reference Range Interpretation Comments PHOSPHORUS (BEAKER) (test code = 604) 5.4 mg/dL 2.3-4.7 H [id number] 07:20:00* Test Item Value Reference Range Interpretation Comments MAGNESIUM (BEAKER) (test code = 627) 2.1 mg/dL 1.6-2.6 CALCIUM, [id number] 06:46:00* Test Item Value Reference Range Interpretation Comments CALCIUM IONIZED (BEAKER) (test code = 698) 1.01 mmol/L 1.12-1.27 L PH, BLOOD (BEAKER) (test code = 1810) 7.52 COMPREHENSIVE METABOLIC [id number] 05:02:00* Test Item Value Reference Range Interpretation Comments TOTAL PROTEIN (BEAKER) (test code = 770) 6.2 gm/dL 6.0-8.3 ALBUMIN (BEAKER) (test code = 1145) 2.9 g/dL 3.5-5.0 L ALKALINE PHOSPHATASE (BEAKER) (test code = 346) 110 U/L 40-150 BILIRUBIN TOTAL (BEAKER) (test code = 377) 3.3 mg/dL 0.2-1.2 H SODIUM (BEAKER) (test code = 381) 130 meq/L 136-145 L POTASSIUM (BEAKER) (test code = 379) 4.4 meq/L 3.5-5.1 CHLORIDE (BEAKER) (test code = 382) 99 meq/L 98-107 CO2 (BEAKER) (test code = 355) 20 meq/L 22-29 L BLOOD UREA NITROGEN (BEAKER) (test code = 354) 71 mg/dL 7-21 H CREATININE (BEAKER) (test code = 358) 4.63 mg/dL 0.57-1.25 H GLUCOSE RANDOM (BEAKER) (test code = 652) 122 mg/dL 70-105 H CALCIUM (BEAKER) (test code = 697) 8.6 mg/dL 8.4-10.2 AST (SGOT) (BEAKER) (test code = 353) 150 U/L 5-34 H ALT (SGPT) (BEAKER) (test code = 347) 125 U/L 6-55 H EGFR (BEAKER) (test code = 1092) mL/min/1.73 sq m INSUFFICIENT CLINICAL DATA TO CALCULATE ESTIMATED GFR. Specimen slightly [id number] 04:38:00* Test Item Value Reference Range Interpretation Comments MAGNESIUM (BEAKER) (test code = 627) 2.2 mg/dL 1.6-2.6 LACTATE DEHYDROGENASE (LDH)2018-04-07 04:38:00* Test Item Value Reference Range Interpretation Comments LACTATE DEHYDROGENASE (BEAKER) (test code = 635) 1855 U/L 125-2 20 H RAD, CHEST, 1 VIEW, NON [id number] 04:23:00Reason for exam:->PA CATHETER; IMPELLA PLACEMENTShould this be performed at the bedside?->YesFINAL REPORT RAD, CHEST, 1 VIEW, NON DEPT INDICATION: PA CATHETER; IMPELLA PLACEMENT COMPARISON: Prior day's exam FINDINGS: Portable frontal view of the chest. IMPRESSION: Support Lines: Stable. Lungs and pleura: Clear lungs. No effusion. No pneumothorax.Heart and mediastinum: Stable contours. Additional findings: None. Signed: JR Montgomery Robert MDReport Verified D ate/Time: 04/07/2018 04:23:29 Reading Location: [address] Reading Room IC ACID, ARTERIAL, WHOLE [id number] 04:17:00* Test Item Value Reference Range Interpretation Comments LACTATE BLOOD ARTERIAL (2) (BEAKER) (test code = 2874) 0.8 mmol/L 0.5-2.2 Effective 03/03/2016: Units/Reference Range ChangeNew: 0.5-2.2 mmol/L Previous: 5 -20 mg/dLSpecimen slightly [id number] 04:02:00* Test Item Value Reference Range Interpretation Comments PARTIAL THROMBOPLASTIN TIME (BEAKER) (test code = 760) 71.4 seconds 22.5-36.0 H BLOOD GAS, [id number] 03:59:00* Test Item Value Reference Range Interpretation Comments PH ARTERIAL (BEAKER) (test code = 383) 7.52 7.35-7.45 H PCO2 ARTERIAL (BEAKER) (test code = 384) 28 mmHg 35-45 L PO2 ARTERIAL (BEAKER) (test code = 385) 86 mmHg 80-90 O2 SATURATION ARTERIAL (BEAKER) (test code = 386) 97.4 % 96.0 -97.0 H HCO3 ARTERIAL (BEAKER) (test code = 388) 22 mmol/L 21-29 BASE EXCESS ARTERIAL (BEAKER) (test code = 387) -0.4 mmol/L -2.0-3 .0 PATIENT TEMPERATURE (BEAKER) (test code = 1818) 37.3 C FIO2 (BEAKER) (test code = 1819) 21.0 % POTASSIUM-STAT [id number] 03:56:00* Test Item Value Reference Range Interpretation Comments POTASSIUM (BEAKER) (test code = 379) 4.2 meq/L 3.6-5.5 CBC W/PLT COUNT & AUTO [id number] 03:54:00* Test Item Value Reference Range Interpretation Comments WHITE BLOOD CELL COUNT (BEAKER) (test code = 775) 24.4 K/ L 3.5- 10.5 H RED BLOOD CELL COUNT (BEAKER) (test code = 761) 2.53 M/ L 4.63-6 .08 L HEMOGLOBIN (BEAKER) (test code = 410) 7.4 GM/DL 13.7-17.5 L HEMATOCRIT (BEAKER) (test code = 411) 22.1 % 40.1-51.0 L MEAN CORPUSCULAR VOLUME (BEAKER) (test code = 753) 87.4 fL 79. 0-92.2 MEAN CORPUSCULAR HEMOGLOBIN (BEAKER) (test code = 751) 29.2 pg 25.7-32.2 MEAN CORPUSCULAR HEMOGLOBIN CONC (BEAKER) (test code = 752) 33.5 GM/DL 32.3-36.5 RED CELL DISTRIBUTION WIDTH (BEAKER) (test code = 412) 19.3 % 11.6-14.4 H PLATELET COUNT (BEAKER) (test code = 756) 56 K/CU MM 150-450 L MEAN PLATELET VOLUME (BEAKER) (test code = 754) 12.5 fL 9.4-12 .4 H NUCLEATED RED BLOOD CELLS (BEAKER) (test code = 413) 1 /100 WBC 0 -0 H NEUTROPHILS RELATIVE PERCENT (BEAKER) (test code = 429) 75 % LYMPHOCYTES RELATIVE PERCENT (BEAKER) (test code = 430) 11 % MONOCYTES RELATIVE PERCENT (BEAKER) (test code = 431) 10 % EOSINOPHILS RELATIVE PERCENT (BEAKER) (test code = 432) 1 % BASOPHILS RELATIVE PERCENT (BEAKER) (test code = 437) 0 % NEUTROPHILS ABSOLUTE COUNT (BEAKER) (test code = 670) 18.18 K/ L 1.78-5.38 H LYMPHOCYTES ABSOLUTE COUNT (BEAKER) (test code = 414) 2.71 K/ L 1.32-3.57 MONOCYTES ABSOLUTE COUNT (BEAKER) (test code = 415) 2.46 K/ L 0. 30-0.82 H EOSINOPHILS ABSOLUTE COUNT (BEAKER) (test code = 416) 0.20 K/ L 0.04-0.54 BASOPHILS ABSOLUTE COUNT (BEAKER) (test code = 417) 0.04 K/ L 0. 01-0.08 IMMATURE GRANULOCYTES-RELATIVE PERCENT (BEAKER) (test code = 2801) 3 % 0-1 H BASIC METABOLIC [id number] 01:18:00* Test Item Value Reference Range Interpretation Comments SODIUM (BEAKER) (test code = 381) 128 meq/L 136-145 L POTASSIUM (BEAKER) (test code = 379) 4.7 meq/L 3.5-5.1 CHLORIDE (BEAKER) (test code = 382) 98 meq/L 98-107 CO2 (BEAKER) (test code = 355) 18 meq/L 22-29 L BLOOD UREA NITROGEN (BEAKER) (test code = 354) 84 mg/dL 7-21 H CREATININE (BEAKER) (test code = 358) 5.19 mg/dL 0.57-1.25 H GLUCOSE RANDOM (BEAKER) (test code = 652) 118 mg/dL 70-105 H CALCIUM (BEAKER) (test code = 697) 8.1 mg/dL 8.4-10.2 L EGFR (BEAKER) (test code = 1092) mL/min/1.73 sq m INSUFFICIENT CLINICAL DATA TO CALCULATE ESTIMATED GFR. Specimen slightly [id number] 01:09:00* Test Item Value Reference Range Interpretation Comments PHOSPHORUS (BEAKER) (test code = 604) 4.7 mg/dL 2.3-4.7 [id number] 01:09:00* Test Item Value Reference Range Interpretation Comments MAGNESIUM (BEAKER) (test code = 627) 2.3 mg/dL 1.6-2.6 POTASSIUM-STAT [id number] 00:59:00* Test Item Value Reference Range Interpretation Comments POTASSIUM (BEAKER) (test code = 379) 4.5 meq/L 3.6-5.5 CALCIUM, [id number] 00:59:00* Test Item Value Reference Range Interpretation Comments CALCIUM IONIZED (BEAKER) (test code = 698) 1.02 mmol/L 1.12-1.27 L PH, BLOOD (BEAKER) (test code = 1810) 7.53 [id number] 22:15:00* Test Item Value Reference Range Interpretation Comments PHOSPHORUS (BEAKER) (test code = 604) 6.6 mg/dL 2.3-4.7 H [id number] 22:15:00* Test Item Value Reference Range Interpretation Comments MAGNESIUM (BEAKER) (test code = 627) 2.7 mg/dL 1.6-2.6 H BASIC METABOLIC [id number] 22:15:00* Test Item Value Reference Range Interpretation Comments SODIUM (BEAKER) (test code = 381) 127 meq/L 136-145 L POTASSIUM (BEAKER) (test code = 379) 5.7 meq/L 3.5-5.1 H CHLORIDE (BEAKER) (test code = 382) 99 meq/L 98-107 CO2 (BEAKER) (test code = 355) 12 meq/L 22-29 L BLOOD UREA NITROGEN (BEAKER) (test code = 354) 113 mg/dL 7-21 H CREATININE (BEAKER) (test code = 358) 7.26 mg/dL 0.57-1.25 H GLUCOSE RANDOM (BEAKER) (test code = 652) 124 mg/dL 70-105 H CALCIUM (BEAKER) (test code = 697) 7.2 mg/dL 8.4-10.2 L EGFR (BEAKER) (test code = 1092) mL/min/1.73 sq m INSUFFICIENT CLINICAL DATA TO CALCULATE ESTIMATED GFR. HEMOGLOBIN AND [id number] 21:33:00* Test Item Value Reference Range Interpretation Comments HEMOGLOBIN (BEAKER) (test code = 410) 7.0 GM/DL 13.7-17.5 L HEMATOCRIT (BEAKER) (test code = 411) 21.0 % 40.1-51.0 L POTASSIUM-STAT [id number] 21:29:00* Test Item Value Reference Range Interpretation Comments POTASSIUM (BEAKER) (test code = 379) 5.7 meq/L 3.6-5.5 H No hemolysis.CALCIUM, [id number] 21:25:00* Test Item Value Reference Range Interpretation Comments CALCIUM IONIZED (BEAKER) (test code = 698) 0.93 mmol/L 1.12-1.27 L PH, BLOOD (BEAKER) (test code = 1810) 7.45 BLOOD [id number] 18:00:00* Test Item Value Reference Range Interpretation Comments CULTURE (BEAKER) (test code = 1095) No growth in 5 days POTASSIUM-STAT [id number] 16:58:00* Test Item Value Reference Range Interpretation Comments POTASSIUM (BEAKER) (test code = 379) 5.5 meq/L 3.6-5.5 POTASSIUM-STAT [id number] 12:42:00* Test Item Value Reference Range Interpretation Comments POTASSIUM (BEAKER) (test code = 379) 5.6 meq/L 3.6-5.5 H BLOOD [id number] 11:00:00* Test Item Value Reference Range Interpretation Comments CULTURE (BEAKER) (test code = 1095) No growth in 5 days POTASSIUM-STAT [id number] 08:39:00* Test Item Value Reference Range Interpretation Comments POTASSIUM (BEAKER) (test code = 379) 5.1 meq/L 3.6-5.5 [id number] 07:26:00* Test Item Value Reference Range Interpretation Comments POTASSIUM (BEAKER) (test code = 379) 5.2 meq/L 3.5-5.1 H Do k every 4 hours x3CBC W/PLT COUNT & AUTO [id number] 04:44:00* Test Item Value Reference Range Interpretation Comments WHITE BLOOD CELL COUNT (BEAKER) (test code = 775) 24.9 K/ L 3.5- 10.5 H RED BLOOD CELL COUNT (BEAKER) (test code = 761) 2.38 M/ L 4.63-6 .08 L HEMOGLOBIN (BEAKER) (test code = 410) 6.8 GM/DL 13.7-17.5 L HEMATOCRIT (BEAKER) (test code = 411) 21.9 % 40.1-51.0 L MEAN CORPUSCULAR VOLUME (BEAKER) (test code = 753) 92.0 fL 79. 0-92.2 MEAN CORPUSCULAR HEMOGLOBIN (BEAKER) (test code = 751) 28.6 pg 25.7-32.2 MEAN CORPUSCULAR HEMOGLOBIN CONC (BEAKER) (test code = 752) 31.1 GM/DL 32.3-36.5 L RED CELL DISTRIBUTION WIDTH (BEAKER) (test code = 412) 21.2 % 11.6-14.4 H PLATELET COUNT (BEAKER) (test code = 756) 77 K/CU MM 150-450 L MEAN PLATELET VOLUME (BEAKER) (test code = 754) 13.4 fL 9.4-12 .4 H NUCLEATED RED BLOOD CELLS (BEAKER) (test code = 413) 1 /100 WBC 0 -0 H NEUTROPHILS RELATIVE PERCENT (BEAKER) (test code = 429) 68 % LYMPHOCYTES RELATIVE PERCENT (BEAKER) (test code = 430) 17 % MONOCYTES RELATIVE PERCENT (BEAKER) (test code = 431) 12 % EOSINOPHILS RELATIVE PERCENT (BEAKER) (test code = 432) 1 % BASOPHILS RELATIVE PERCENT (BEAKER) (test code = 437) 0 % NEUTROPHILS ABSOLUTE COUNT (BEAKER) (test code = 670) 16.96 K/ L 1.78-5.38 H LYMPHOCYTES ABSOLUTE COUNT (BEAKER) (test code = 414) 4.14 K/ L 1.32-3.57 H MONOCYTES ABSOLUTE COUNT (BEAKER) (test code = 415) 2.89 K/ L 0. 30-0.82 H EOSINOPHILS ABSOLUTE COUNT (BEAKER) (test code = 416) 0.14 K/ L 0.04-0.54 BASOPHILS ABSOLUTE COUNT (BEAKER) (test code = 417) 0.03 K/ L 0. 01-0.08 IMMATURE GRANULOCYTES-RELATIVE PERCENT (BEAKER) (test code = 2801) 3 % 0-1 H VANCOMYCIN LEVEL, [id number] 04:42:00* Test Item Value Reference Range Interpretation Comments VANCOMYCIN RANDOM (BEAKER) (test code = 523) 28.3 ug/mL Reference Range: No [id number] 04:37:00* Test Item Value Reference Range Interpretation Comments PARTIAL THROMBOPLASTIN TIME (BEAKER) (test code = 760) 63.3 seconds 22.5-36.0 H PROTHROMBIN TIME/[id number] 04:36:00* Test Item Value Reference Range Interpretation Comments PROTIME (BEAKER) (test code = 759) 16.4 seconds 11.7-14.7 H INR (BEAKER) (test code = 370) 1.3 <=5.9 RECOMMENDED COUMADIN/WARFARIN INR THERAPY RANGESSTANDARD DOSE: 2.0 - 3.0 Inclu beata: PROPHYLAXIS for venous thrombosis, systemic embolization; TREATMENT for shaan ous thrombosis and/or pulmonary embolus.HIGH RISK: Target INR is 2.5-3.5 for pat ients with mechanical heart valves.RAD, CHEST, 1 VIEW, NON [id number] 04:32:00Reason for exam:->PA CATHETER; IMPELLA PLACEMENTShould this be performed at the bedside?->YesFINAL REPORT RAD, CHEST, 1 VIEW, NON DEPT INDICATION: PA CATHETER; IMPELLA PLACEMENT COMPARISON: Prior day's exam FINDINGS: Portable frontal view of the chest. IMPRESSION: Support Lines: Stable. Lungs and pleura: No focal consolidation or effusion. No pneumothorax.Heart and mediastinum: Stable contours. Stable surgical changes.Additional findings: None. Signed: JR Montgomery Robert MDReport Verified Date/Time: 04/06/2018 04:32:03 Reading Location: [address] Reading Room REHENSIVE METABOLIC [id number] 04:30:00* Test Item Value Reference Range Interpretation Comments TOTAL PROTEIN (BEAKER) (test code = 770) 6.5 gm/dL 6.0-8.3 ALBUMIN (BEAKER) (test code = 1145) 3.0 g/dL 3.5-5.0 L ALKALINE PHOSPHATASE (BEAKER) (test code = 346) 106 U/L 40-150 BILIRUBIN TOTAL (BEAKER) (test code = 377) 3.3 mg/dL 0.2-1.2 H SODIUM (BEAKER) (test code = 381) 129 meq/L 136-145 L POTASSIUM (BEAKER) (test code = 379) 5.2 meq/L 3.5-5.1 H CHLORIDE (BEAKER) (test code = 382) 99 meq/L 98-107 CO2 (BEAKER) (test code = 355) 16 meq/L 22-29 L BLOOD UREA NITROGEN (BEAKER) (test code = 354) 100 mg/dL 7-21 H CREATININE (BEAKER) (test code = 358) 6.17 mg/dL 0.57-1.25 H GLUCOSE RANDOM (BEAKER) (test code = 652) 151 mg/dL 70-105 H CALCIUM (BEAKER) (test code = 697) 7.9 mg/dL 8.4-10.2 L AST (SGOT) (BEAKER) (test code = 353) 142 U/L 5-34 H ALT (SGPT) (BEAKER) (test code = 347) 180 U/L 6-55 H EGFR (BEAKER) (test code = 1092) mL/min/1.73 sq m INSUFFICIENT CLINICAL DATA TO CALCULATE ESTIMATED GFR. Specimen slightly ictericLACTATE DEHYDROGENASE (LDH)2018-04-06 04:30:00* Test Item Value Reference Range Interpretation Comments LACTATE DEHYDROGENASE (BEAKER) (test code = 635) 1918 U/L 125-2 20 H [id number] 04:28:00* Test Item Value Reference Range Interpretation Comments PHOSPHORUS (BEAKER) (test code = 604) 6.1 mg/dL 2.3-4.7 H [id number] 04:28:00* Test Item Value Reference Range Interpretation Comments MAGNESIUM (BEAKER) (test code = 627) 2.6 mg/dL 1.6-2.6 HEPATIC FUNCTION [id number] 04:28:00* Test Item Value Reference Range Interpretation Comments TOTAL PROTEIN (BEAKER) (test code = 770) 6.5 gm/dL 6.0-8.3 ALBUMIN (BEAKER) (test code = 1145) 3.0 g/dL 3.5-5.0 L BILIRUBIN TOTAL (BEAKER) (test code = 377) 3.3 mg/dL 0.2-1.2 H BILIRUBIN DIRECT (BEAKER) (test code = 706) 2.3 mg/dL 0.1-0.5 H ALKALINE PHOSPHATASE (BEAKER) (test code = 346) 106 U/L 40-150 AST (SGOT) (BEAKER) (test code = 353) 142 U/L 5-34 H ALT (SGPT) (BEAKER) (test code = 347) 180 U/L 6-55 H Specimen slightly ictericLACTIC ACID, ARTERIAL, WHOLE [id number] 04:25:00* Test Item Value Reference Range Interpretation Comments LACTATE BLOOD ARTERIAL (2) (BEAKER) (test code = 2874) 1.3 mmol/L 0.5-2.2 Effective 03/03/2016: Units/Reference Range ChangeNew: 0.5-2.2 mmol/L Previous: 5 -20 mg/dLSpecimen slightly ictericOXYGEN SATURATION, [id number] 04:07:00 * Test Item Value Reference Range Interpretation Comments O2 SATURATION (MEASURED) (BEAKER) (test code = 1455) 46.7 % BLOOD GAS, [id number] 04:03:00* Test Item Value Reference Range Interpretation Comments PH ARTERIAL (BEAKER) (test code = 383) 7.46 7.35-7.45 H PCO2 ARTERIAL (BEAKER) (test code = 384) 23 mmHg 35-45 L PO2 ARTERIAL (BEAKER) (test code = 385) 84 mmHg 80-90 O2 SATURATION ARTERIAL (BEAKER) (test code = 386) 97.1 % 96.0 -97.0 H HCO3 ARTERIAL (BEAKER) (test code = 388) 16 mmol/L 21-29 L BASE EXCESS ARTERIAL (BEAKER) (test code = 387) -7.0 mmol/L -2.0-3 .0 L PATIENT TEMPERATURE (BEAKER) (test code = 1818) 36.7 C FIO2 (BEAKER) (test code = 1819) 21.0 % CALCIUM, [id number] 04:01:00* Test Item Value Reference Range Interpretation Comments CALCIUM IONIZED (BEAKER) (test code = 698) 1.01 mmol/L 1.12-1.27 L PH, BLOOD (BEAKER) (test code = 1810) 7.46 POTASSIUM-STAT [id number] 00:36:00* Test Item Value Reference Range Interpretation Comments POTASSIUM (BEAKER) (test code = 379) 5.1 meq/L 3.6-5.5 POTASSIUM-STAT [id number] 20:19:00* Test Item Value Reference Range Interpretation Comments POTASSIUM (BEAKER) (test code = 379) 4.8 meq/L 3.6-5.5 CBC W/PLT COUNT & AUTO [id number] 18:55:00* Test Item Value Reference Range Interpretation Comments WHITE BLOOD CELL COUNT (BEAKER) (test code = 775) 30.2 K/ L 3.5- 10.5 H RED BLOOD CELL COUNT (BEAKER) (test code = 761) 2.59 M/ L 4.63-6 .08 L HEMOGLOBIN (BEAKER) (test code = 410) 7.4 GM/DL 13.7-17.5 L HEMATOCRIT (BEAKER) (test code = 411) 24.1 % 40.1-51.0 L MEAN CORPUSCULAR VOLUME (BEAKER) (test code = 753) 93.1 fL 79. 0-92.2 H MEAN CORPUSCULAR HEMOGLOBIN (BEAKER) (test code = 751) 28.6 pg 25.7-32.2 MEAN CORPUSCULAR HEMOGLOBIN CONC (BEAKER) (test code = 752) 30.7 GM/DL 32.3-36.5 L RED CELL DISTRIBUTION WIDTH (BEAKER) (test code = 412) 22.1 % 11.6-14.4 H PLATELET COUNT (BEAKER) (test code = 756) 74 K/CU MM 150-450 L MEAN PLATELET VOLUME (BEAKER) (test code = 754) 13.5 fL 9.4-12 .4 H NUCLEATED RED BLOOD CELLS (BEAKER) (test code = 413) 0 /100 WBC 0 -0 POCT-GLUCOSE [id number] 17:59:00* Test Item Value Reference Range Interpretation Comments POC-GLUCOSE METER (BEAKER) (test code = 1538) 116 mg/dL 70-[address] [facility] [address] [facility] [address] [address], ABDOMEN, WITHOUT [id number] 17:51:00Reason for exam:->LVAD workupWhat is the patient's sedation requirement?->No SedationFINAL REPORT CT scan of the chest and abdomen. HISTORY: Left ventricular assist device workup. COMPARISON STUDY: Chest x-ray dated April 05, 2018. TECHNIQUE: Contiguous helical slices were acquired through the thorax and abdomen without the administration of contrast. This exam was performed accord ing to our department dose optimization program which includes automated exposur e control, adjustment of the mA and/or kV according to the patient's size and/or use of iterative reconstruction technique. FINDINGS: The mediastinum demonstrat es no suspicious masses or adenopathy. A right-sided jugular line, Bessemer-Gentry cat heter, feeding tube and Impella device are in place. The tip of the jugular line is within the distal IVC. There is a 4.1 x 3.5 cm intramuscular hematoma in the right supraclavicular region at the Impella site insertion. Adjacent stranding is seen. No pleural effusion is seen. The tracheobronchial tree is clear with no bronchial lesions. The pulmonary parenchyma demonstrates a 3.2 x 3.6 cm groundg lass opacity in the anterior aspect of the left upper lobe. This extends more in feriorly where it measures 2.1 x 1.8 cm. Other peripheral multifocal airspace an d groundglass opacities are seen with scattered areas of subcentimeter nodularit y The abdomen is limited by lack of contrast. The liver, spleen, pancreas, kidne ys and adrenal glands are unremarkable. Some high attenuation material is seen w ithin the gallbladder, sludge versus stones. There are no dilated loops of bowel seen to suggest obstruction. A normal appendix is seen. No free fluid or free a ir is seen. There is no suspicious adenopathy. Bone windows demonstrate degenera tive changes. IMPRESSION:1. Multifocal predominately peripheral groundglass and airspace opacities with other areas of subcentimeter pulmonary nodular. The diff erential includes a multifocal pneumonia and embolic disease. Clinical correlati on is recommended. Follow-up imaging in nature resolution and exclude other etio logies.2. Multiple support lines and tubes in place. The tip of the right jugula r line is in the distal IVC.3. Intramuscular hematoma in the right supraclavicul ar region.4. High attenuation material in the gallbladder, sludge versus stones. A verbal report was given to the patient's nurse, Radha at the time of dictat ion. He was instructed to inform the physician. Signed: Suma Martinez MDReport Verified Date/Time: 04/05/2018 17:51:38 Reading Location: [address] Reading Room 18 05:[address], CHEST, WITHOUT [id number] 17:51:00Reason for exam:->LVAD workupWhat is the patient's sedation requirement?->No SedationFINAL REPORT CT scan of the chest and abdomen. HISTORY: Left ventricular assist device workup. COMPARISON STUDY: Chest x-ray dated April 05, 2018. TECHNIQUE: Contiguous helical slices were acquired through the thorax and abdomen without the administration of contrast. This exam was performed accord ing to our department dose optimization program which includes automated exposur e control, adjustment of the mA and/or kV according to the patient's size and/or use of iterative reconstruction technique. FINDINGS: The mediastinum demonstrat es no suspicious masses or adenopathy. A right-sided jugular line, [place]essemer-Gentry cat heter, feeding tube and Impella device are in place. The tip of the jugular line is within the distal IVC. There is a 4.1 x 3.5 cm intramuscular hematoma in the right supraclavicular region at the Impella site insertion. Adjacent stranding is seen. No pleural effusion is seen. The tracheobronchial tree is clear with no bronchial lesions. The pulmonary parenchyma demonstrates a 3.2 x 3.6 cm groundg lass opacity in the anterior aspect of the left upper lobe. This extends more in feriorly where it measures 2.1 x 1.8 cm. Other peripheral multifocal airspace an d groundglass opacities are seen with scattered areas of subcentimeter nodularit y The abdomen is limited by lack of contrast. The liver, spleen, pancreas, kidne ys and adrenal glands are unremarkable. Some high attenuation material is seen w ithin the gallbladder, sludge versus stones. There are no dilated loops of bowel seen to suggest obstruction. A normal appendix is seen. No free fluid or free a ir is seen. There is no suspicious adenopathy. Bone windows demonstrate degenera tive changes. IMPRESSION:1. Multifocal predominately peripheral groundglass and airspace opacities with other areas of subcentimeter pulmonary nodular. The diff erential includes a multifocal pneumonia and embolic disease. Clinical correlati on is recommended. Follow-up imaging in nature resolution and exclude other etio logies.2. Multiple support lines and tubes in place. The tip of the right jugula r line is in the distal IVC.3. Intramuscular hematoma in the right supraclavicul ar region.4. High attenuation material in the gallbladder, sludge versus stones. A verbal report was given to the patient's nurse, Radha at the time of dictat ion. He was instructed to inform the physician. Signed: Suma Martinez MDReport Verified Date/Time: 04/05/2018 17:51:38 Reading Location: [address] Reading Room 18 05:51 PM VITAMIN D, [id number] 15:25:00* Test Item Value Reference Range Interpretation Comments VITAMIN D 25-OH (BEAKER) (test code = 2764) 12.0 ng/mL 6.6-49.9 Effective 08/10/2017: Reference Range ChangeNew: 6.6-49.9 ng/mL Previous: 13.0 -47.8 ng/mLRecommended Vitamin D Target Range: 30.0-40.0 ng/[id number] 15:07:00* Test Item Value Reference Range Interpretation Comments PARTIAL THROMBOPLASTIN TIME (BEAKER) (test code = 760) 74.1 seconds 22.5-36.0 H PROTHROMBIN TIME/[id number] 15:06:00* Test Item Value Reference Range Interpretation Comments PROTIME (BEAKER) (test code = 759) 16.5 seconds 11.7-14.7 H INR (BEAKER) (test code = 370) 1.3 <=5.9 RECOMMENDED COUMADIN/WARFARIN INR THERAPY RANGESSTANDARD DOSE: 2.0 - 3.0 Inclu beata: PROPHYLAXIS for venous thrombosis, systemic embolization; TREATMENT for shaan ous thrombosis and/or pulmonary embolus.HIGH RISK: Target INR is 2.5-3.5 for pat ients with mechanical heart valves.[id number] 15:06:00* Test Item Value Reference Range Interpretation Comments FIBRINOGEN LEVEL (BEAKER) (test code = 658) 372 mg/dl 225-434 BASIC METABOLIC [id number] 14:52:00* Test Item Value Reference Range Interpretation Comments SODIUM (BEAKER) (test code = 381) 128 meq/L 136-145 L POTASSIUM (BEAKER) (test code = 379) 4.9 meq/L 3.5-5.1 CHLORIDE (BEAKER) (test code = 382) 98 meq/L 98-107 CO2 (BEAKER) (test code = 355) 19 meq/L 22-29 L BLOOD UREA NITROGEN (BEAKER) (test code = 354) 82 mg/dL 7-21 H CREATININE (BEAKER) (test code = 358) 4.66 mg/dL 0.57-1.25 H GLUCOSE RANDOM (BEAKER) (test code = 652) 166 mg/dL 70-105 H CALCIUM (BEAKER) (test code = 697) 8.0 mg/dL 8.4-10.2 L EGFR (BEAKER) (test code = 1092) mL/min/1.73 sq m INSUFFICIENT CLINICAL DATA TO CALCULATE ESTIMATED GFR. Specimen slightly ictericLACTATE DEHYDROGENASE (LDH)2018-04-05 14:52:00* Test Item Value Reference Range Interpretation Comments LACTATE DEHYDROGENASE (BEAKER) (test code = 635) 2022 U/L 125-2 20 H [id number] 14:49:00* Test Item Value Reference Range Interpretation Comments PHOSPHORUS (BEAKER) (test code = 604) 5.7 mg/dL 2.3-4.7 H [id number] 14:49:00* Test Item Value Reference Range Interpretation Comments MAGNESIUM (BEAKER) (test code = 627) 2.4 mg/dL 1.6-2.6 HEPATIC FUNCTION [id number] 14:49:00* Test Item Value Reference Range Interpretation Comments TOTAL PROTEIN (BEAKER) (test code = 770) 6.7 gm/dL 6.0-8.3 ALBUMIN (BEAKER) (test code = 1145) 3.2 g/dL 3.5-5.0 L BILIRUBIN TOTAL (BEAKER) (test code = 377) 3.7 mg/dL 0.2-1.2 H BILIRUBIN DIRECT (BEAKER) (test code = 706) 2.6 mg/dL 0.1-0.5 H ALKALINE PHOSPHATASE (BEAKER) (test code = 346) 100 U/L 40-150 AST (SGOT) (BEAKER) (test code = 353) 142 U/L 5-34 H ALT (SGPT) (BEAKER) (test code = 347) 233 U/L 6-55 H Specimen slightly [id number] 14:49:00* Test Item Value Reference Range Interpretation Comments AMYLASE (BEAKER) (test code = 349) 380 U/L 25-125 H Specimen slightly ictericCHOLESTEROL, [id number] 14:49:00* Test Item Value Reference Range Interpretation Comments CHOLESTEROL (BEAKER) (test code = 631) 119 mg/dL Cholesterol Reference Range: Low Risk <200 Borderline 200-239 High Risk >240 Specimen slightly [id number] 14:49:00* Test Item Value Reference Range Interpretation Comments LIPASE (BEAKER) (test code = 749) 378 U/L 8-78 H Specimen slightly [id number] 14:44:00* Test Item Value Reference Range Interpretation Comments PREALBUMIN (BEAKER) (test code = 586) 15 mg/dL 14-45 VANCOMYCIN LEVEL, [id number] 11:32:00* Test Item Value Reference Range Interpretation Comments VANCOMYCIN TROUGH (BEAKER) (test code = 522) 30.8 ug/mL 10.0-20.0 HH POTASSIUM-STAT [id number] 10:26:00* Test Item Value Reference Range Interpretation Comments POTASSIUM (BEAKER) (test code = 379) 4.8 meq/L 3.6-5.5 RAD, CHEST, 1 VIEW, NON [id number] 09:33:00Reason for exam:->possible movement of impella catheterShould this be performed at the bedside?->YesFINAL REPORT Chest one view INDICATION: Impella catheter COMPARISON: 04/05/2018 at 0433 hours IMPRESSION: The Impella catheter has been ret racted approximately 2-3 cm. Left jugular PA catheter extends to the right pulmo nary artery. Remaining support devices are grossly unchanged. The cardiac silhou ette is enlarged. There are low lung volumes with pulmonary vascular congestion and bibasilar opacities suggestive of atelectasis. Pneumonitis should be exclude d clinically. No pneumothorax or significant pleural effusion is seen. Signed: Amanda Jones MDReport Verified Date/Time: 04/05/2018 09:33:05 Reading Lo cation: [facility] Reading Room MBOELASTOGRAPH (TEG)2018-04-05 08:40:00* Test Item Value Reference Range Interpretation Comments TEG ACTIVATED CLOTTING TIME (BEAKER) (test code = 1407) 58.7 minute s 4.0-7.0 H NO CLOT DETECTED TEG FIBRINOGEN ACTIVITY (BEAKER) (test code = 1408) degrees 61 .0-73.0 NO CLOT DETECTED TEG PLT. AGGREGATION (BEAKER) (test code = 1409) MM 55.0- 65.0 NO CLOT DETECTED TEG FIBRINOLYSIS (BEAKER) (test code = 1410) % 0.0-5.0 NO CLOT DETECTED TGH ACTIVATED CLOTTING TIME (BEAKER) (test code = 1411) 9.8 minutes 4.0-7.0 H TGH FIBRINOGEN ACTIVITY (BEAKER) (test code = 1412) 60.8 degrees 61 .0-73.0 L TGH PLT. AGGREGATION (BEAKER) (test code = 1413) 43.4 MM 55.0- 65.0 L TGH FIBRINOLYSIS (BEAKER) (test code = 1414) 3.0 % 0.0-5.0 RAD, CHEST, 1 VIEW, NON [id number] 05:03:00Reason for exam:->PA CATHETER; IMPELLA PLACEMENTShould this be performed at the bedside?->YesFINAL REPORT Comparison exam: 04/04/2018 No pneumothorax, focal pulmonary consolidation, or significant pleural effusion. Stable cardi omediastinal contours. Appropriate position of the support hardware. Sig sarah: Steven Wei MDReport Verified Date/Time: 04/05/2018 05:03:54 Reading Loca tion: [facility] Reading Room ATE DEHYDROGENASE (LDH)2018-04-05 03:58:00* Test Item Value Reference Range Interpretation Comments LACTATE DEHYDROGENASE (BEAKER) (test code = 635) 2246 U/L 125-2 20 H COMPREHENSIVE METABOLIC [id number] 03:57:00* Test Item Value Reference Range Interpretation Comments TOTAL PROTEIN (BEAKER) (test code = 770) 7.4 gm/dL 6.0-8.3 ALBUMIN (BEAKER) (test code = 1145) 3.5 g/dL 3.5-5.0 ALKALINE PHOSPHATASE (BEAKER) (test code = 346) 107 U/L 40-150 BILIRUBIN TOTAL (BEAKER) (test code = 377) 4.8 mg/dL 0.2-1.2 H SODIUM (BEAKER) (test code = 381) 133 meq/L 136-145 L POTASSIUM (BEAKER) (test code = 379) 4.6 meq/L 3.5-5.1 CHLORIDE (BEAKER) (test code = 382) 100 meq/L 98-107 CO2 (BEAKER) (test code = 355) 18 meq/L 22-29 L BLOOD UREA NITROGEN (BEAKER) (test code = 354) 65 mg/dL 7-21 H CREATININE (BEAKER) (test code = 358) 3.36 mg/dL 0.57-1.25 H GLUCOSE RANDOM (BEAKER) (test code = 652) 124 mg/dL 70-105 H CALCIUM (BEAKER) (test code = 697) 9.2 mg/dL 8.4-10.2 AST (SGOT) (BEAKER) (test code = 353) 167 U/L 5-34 H ALT (SGPT) (BEAKER) (test code = 347) 334 U/L 6-55 H EGFR (BEAKER) (test code = 1092) mL/min/1.73 sq m INSUFFICIENT CLINICAL DATA TO CALCULATE ESTIMATED GFR. Specimen slightly [id number] 03:47:00* Test Item Value Reference Range Interpretation Comments PHOSPHORUS (BEAKER) (test code = 604) 3.6 mg/dL 2.3-4.7 [id number] 03:47:00* Test Item Value Reference Range Interpretation Comments MAGNESIUM (BEAKER) (test code = 627) 2.3 mg/dL 1.6-2.6 HEPATIC FUNCTION [id number] 03:47:00* Test Item Value Reference Range Interpretation Comments TOTAL PROTEIN (BEAKER) (test code = 770) 7.4 gm/dL 6.0-8.3 ALBUMIN (BEAKER) (test code = 1145) 3.5 g/dL 3.5-5.0 BILIRUBIN TOTAL (BEAKER) (test code = 377) 4.8 mg/dL 0.2-1.2 H BILIRUBIN DIRECT (BEAKER) (test code = 706) 3.2 mg/dL 0.1-0.5 H ALKALINE PHOSPHATASE (BEAKER) (test code = 346) 107 U/L 40-150 AST (SGOT) (BEAKER) (test code = 353) 167 U/L 5-34 H ALT (SGPT) (BEAKER) (test code = 347) 334 U/L 6-55 H Specimen slightly ictericLACTIC ACID, ARTERIAL, WHOLE [id number] 03:39:00* Test Item Value Reference Range Interpretation Comments LACTATE BLOOD ARTERIAL (2) (BEAKER) (test code = 2874) 2.1 mmol/L 0.5-2.2 Effective 03/03/2016: Units/Reference Range ChangeNew: 0.5-2.2 mmol/L Previous: 5 -20 mg/dLSpecimen slightly [id number] 03:23:00* Test Item Value Reference Range Interpretation Comments PARTIAL THROMBOPLASTIN TIME (BEAKER) (test code = 760) 64.9 seconds 22.5-36.0 H PROTHROMBIN TIME/[id number] 03:21:00* Test Item Value Reference Range Interpretation Comments PROTIME (BEAKER) (test code = 759) 15.9 seconds 11.7-14.7 H INR (BEAKER) (test code = 370) 1.3 <=5.9 RECOMMENDED COUMADIN/WARFARIN INR THERAPY RANGESSTANDARD DOSE: 2.0 - 3.0 Inclu beata: PROPHYLAXIS for venous thrombosis, systemic embolization; TREATMENT for shaan ous thrombosis and/or pulmonary embolus.HIGH RISK: Target INR is 2.5-3.5 for pat ients with mechanical heart valves.CBC W/PLT COUNT & AUTO [id number] 03:16:00* Test Item Value Reference Range Interpretation Comments WHITE BLOOD CELL COUNT (BEAKER) (test code = 775) 42.0 K/ L 3.5- 10.5 H RED BLOOD CELL COUNT (BEAKER) (test code = 761) 2.96 M/ L 4.63-6 .08 L HEMOGLOBIN (BEAKER) (test code = 410) 8.6 GM/DL 13.7-17.5 L HEMATOCRIT (BEAKER) (test code = 411) 26.7 % 40.1-51.0 L MEAN CORPUSCULAR VOLUME (BEAKER) (test code = 753) 90.2 fL 79. 0-92.2 MEAN CORPUSCULAR HEMOGLOBIN (BEAKER) (test code = 751) 29.1 pg 25.7-32.2 MEAN CORPUSCULAR HEMOGLOBIN CONC (BEAKER) (test code = 752) 32.2 GM/DL 32.3-36.5 L RED CELL DISTRIBUTION WIDTH (BEAKER) (test code = 412) 21.2 % 11.6-14.4 H PLATELET COUNT (BEAKER) (test code = 756) 74 K/CU MM 150-450 L MEAN PLATELET VOLUME (BEAKER) (test code = 754) 13.3 fL 9.4-12 .4 H NUCLEATED RED BLOOD CELLS (BEAKER) (test code = 413) 0 /100 WBC 0 -0 NEUTROPHILS RELATIVE PERCENT (BEAKER) (test code = 429) 77 % LYMPHOCYTES RELATIVE PERCENT (BEAKER) (test code = 430) 10 % MONOCYTES RELATIVE PERCENT (BEAKER) (test code = 431) 8 % EOSINOPHILS RELATIVE PERCENT (BEAKER) (test code = 432) 0 % BASOPHILS RELATIVE PERCENT (BEAKER) (test code = 437) 0 % NEUTROPHILS ABSOLUTE COUNT (BEAKER) (test code = 670) 32.41 K/ L 1.78-5.38 H LYMPHOCYTES ABSOLUTE COUNT (BEAKER) (test code = 414) 4.30 K/ L 1.32-3.57 H MONOCYTES ABSOLUTE COUNT (BEAKER) (test code = 415) 3.31 K/ L 0. 30-0.82 H EOSINOPHILS ABSOLUTE COUNT (BEAKER) (test code = 416) 0.06 K/ L 0.04-0.54 BASOPHILS ABSOLUTE COUNT (BEAKER) (test code = 417) 0.08 K/ L 0. 01-0.08 IMMATURE GRANULOCYTES-RELATIVE PERCENT (BEAKER) (test code = 2801) 4 % 0-1 H CALCIUM, [id number] 03:11:00* Test Item Value Reference Range Interpretation Comments CALCIUM IONIZED (BEAKER) (test code = 698) 1.11 mmol/L 1.12-1.27 L PH, BLOOD (BEAKER) (test code = 1810) 7.45 BLOOD GAS, [id number] 03:11:00* Test Item Value Reference Range Interpretation Comments PH ARTERIAL (BEAKER) (test code = 383) 7.45 7.35-7.45 PCO2 ARTERIAL (BEAKER) (test code = 384) 32 mmHg 35-45 L PO2 ARTERIAL (BEAKER) (test code = 385) 101 mmHg 80-90 H O2 SATURATION ARTERIAL (BEAKER) (test code = 386) 97.9 % 96.0 -97.0 H HCO3 ARTERIAL (BEAKER) (test code = 388) 22 mmol/L 21-29 BASE EXCESS ARTERIAL (BEAKER) (test code = 387) -1.7 mmol/L -2.0-3 .0 PATIENT TEMPERATURE (BEAKER) (test code = 1818) 37.1 C FIO2 (BEAKER) (test code = 1819) 36.0 % HGB/HCT (H&H) - STAT [id number] 03:11:00* Test Item Value Reference Range Interpretation Comments HEMOGLOBIN (BEAKER) (test code = 410) 9.2 g/dL 13.0-16.8 L HEMATOCRIT (BEAKER) (test code = 411) 27.0 % 40.0-50.0 L POTASSIUM-STAT [id number] 03:09:00* Test Item Value Reference Range Interpretation Comments POTASSIUM (BEAKER) (test code = 379) 4.6 meq/L 3.6-5.5 OXYGEN SATURATION, [id number] 03:06:00* Test Item Value Reference Range Interpretation Comments O2 SATURATION (MEASURED) (BEAKER) (test code = 1455) 44.5 % POCT-GLUCOSE [id number] 01:37:00* Test Item Value Reference Range Interpretation Comments POC-GLUCOSE METER (BEAKER) (test code = 1538) 159 mg/dL 70-[address] [facility] [address] [facility] [address] BASIC METABOLIC [id number] 22:00:00* Test Item Value Reference Range Interpretation Comments SODIUM (BEAKER) (test code = 381) 133 meq/L 136-145 L POTASSIUM (BEAKER) (test code = 379) 4.8 meq/L 3.5-5.1 CHLORIDE (BEAKER) (test code = 382) 99 meq/L 98-107 CO2 (BEAKER) (test code = 355) 18 meq/L 22-29 L BLOOD UREA NITROGEN (BEAKER) (test code = 354) 80 mg/dL 7-21 H CREATININE (BEAKER) (test code = 358) 4.29 mg/dL 0.57-1.25 H GLUCOSE RANDOM (BEAKER) (test code = 652) 110 mg/dL 70-105 H CALCIUM (BEAKER) (test code = 697) 8.5 mg/dL 8.4-10.2 EGFR (BEAKER) (test code = 1092) mL/min/1.73 sq m INSUFFICIENT CLINICAL DATA TO CALCULATE ESTIMATED GFR. Specimen slightly [id number] 21:49:00* Test Item Value Reference Range Interpretation Comments PHOSPHORUS (BEAKER) (test code = 604) 5.2 mg/dL 2.3-4.7 H [id number] 21:49:00* Test Item Value Reference Range Interpretation Comments MAGNESIUM (BEAKER) (test code = 627) 2.8 mg/dL 1.6-2.6 H [id number] 21:47:00* Test Item Value Reference Range Interpretation Comments PARTIAL THROMBOPLASTIN TIME (BEAKER) (test code = 760) 60.1 seconds 22.5-36.0 H CALCIUM, [id number] 21:32:00* Test Item Value Reference Range Interpretation Comments CALCIUM IONIZED (BEAKER) (test code = 698) 1.08 mmol/L 1.12-1.27 L PH, BLOOD (BEAKER) (test code = 1810) 7.47 HGB/HCT (H&H) - STAT [id number] 21:32:00* Test Item Value Reference Range Interpretation Comments HEMOGLOBIN (BEAKER) (test code = 410) 8.2 g/dL 13.0-16.8 L HEMATOCRIT (BEAKER) (test code = 411) 24.0 % 40.0-50.0 L GLUCOSE-STAT [id number] 21:32:00* Test Item Value Reference Range Interpretation Comments GLUCOSE RANDOM (BEAKER) (test code = 652) 111 mg/dL 70-110 H OXYGEN SATURATION, [id number] 21:32:00* Test Item Value Reference Range Interpretation Comments O2 SATURATION (MEASURED) (BEAKER) (test code = 1455) 47.9 % POTASSIUM-STAT [id number] 21:31:00* Test Item Value Reference Range Interpretation Comments POTASSIUM (BEAKER) (test code = 379) 4.6 meq/L 3.6-5.5 BASIC METABOLIC [id number] 16:50:00* Test Item Value Reference Range Interpretation Comments SODIUM (BEAKER) (test code = 381) 132 meq/L 136-145 L POTASSIUM (BEAKER) (test code = 379) 4.6 meq/L 3.5-5.1 CHLORIDE (BEAKER) (test code = 382) 100 meq/L 98-107 CO2 (BEAKER) (test code = 355) 20 meq/L 22-29 L BLOOD UREA NITROGEN (BEAKER) (test code = 354) 72 mg/dL 7-21 H CREATININE (BEAKER) (test code = 358) 3.65 mg/dL 0.57-1.25 H GLUCOSE RANDOM (BEAKER) (test code = 652) 115 mg/dL 70-105 H CALCIUM (BEAKER) (test code = 697) 8.7 mg/dL 8.4-10.2 EGFR (BEAKER) (test code = 1092) mL/min/1.73 sq m INSUFFICIENT CLINICAL DATA TO CALCULATE ESTIMATED GFR. [id number] 16:49:00* Test Item Value Reference Range Interpretation Comments PHOSPHORUS (BEAKER) (test code = 604) 4.7 mg/dL 2.3-4.7 [id number] 16:49:00* Test Item Value Reference Range Interpretation Comments MAGNESIUM (BEAKER) (test code = 627) 2.5 mg/dL 1.6-2.6 [id number] 16:38:00* Test Item Value Reference Range Interpretation Comments PROTIME (BEAKER) (test code = 759) 15.7 seconds 11.7-14.7 H INR (BEAKER) (test code = 370) 1.3 <=5.9 PARTIAL THROMBOPLASTIN TIME (BEAKER) (test code = 760) 55.7 seconds 22.5-36.0 H RECOMMENDED COUMADIN/WARFARIN INR THERAPY RANGESSTANDARD DOSE: 2.0 - 3.0 Inclu beata: PROPHYLAXIS for venous thrombosis, systemic embolization; TREATMENT for shaan ous thrombosis and/or pulmonary embolus.HIGH RISK: Target INR is 2.5-3.5 for pat ients with mechanical heart valves.POTASSIUM-STAT [id number] 16:19:00* Test Item Value Reference Range Interpretation Comments POTASSIUM (BEAKER) (test code = 379) 4.5 meq/L 3.6-5.5 CALCIUM, [id number] 16:19:00* Test Item Value Reference Range Interpretation Comments CALCIUM IONIZED (BEAKER) (test code = 698) 1.06 mmol/L 1.12-1.27 L PH, BLOOD (BEAKER) (test code = 1810) 7.50 BASIC METABOLIC [id number] 10:17:00* Test Item Value Reference Range Interpretation Comments SODIUM (BEAKER) (test code = 381) 133 meq/L 136-145 L POTASSIUM (BEAKER) (test code = 379) 4.8 meq/L 3.5-5.1 CHLORIDE (BEAKER) (test code = 382) 100 meq/L 98-107 CO2 (BEAKER) (test code = 355) 21 meq/L 22-29 L BLOOD UREA NITROGEN (BEAKER) (test code = 354) 58 mg/dL 7-21 H CREATININE (BEAKER) (test code = 358) 2.86 mg/dL 0.57-1.25 H GLUCOSE RANDOM (BEAKER) (test code = 652) 148 mg/dL 70-105 H CALCIUM (BEAKER) (test code = 697) 9.3 mg/dL 8.4-10.2 EGFR (BEAKER) (test code = 1092) mL/min/1.73 sq m INSUFFICIENT CLINICAL DATA TO CALCULATE ESTIMATED GFR. Specimen slightly [id number] 10:10:00* Test Item Value Reference Range Interpretation Comments MAGNESIUM (BEAKER) (test code = 627) 2.4 mg/dL 1.6-2.6 CBC W/PLT COUNT & AUTO [id number] 10:02:00* Test Item Value Reference Range Interpretation Comments WHITE BLOOD CELL COUNT (BEAKER) (test code = 775) 31.1 K/ L 3.5- 10.5 H RED BLOOD CELL COUNT (BEAKER) (test code = 761) 2.74 M/ L 4.63-6 .08 L HEMOGLOBIN (BEAKER) (test code = 410) 8.1 GM/DL 13.7-17.5 L HEMATOCRIT (BEAKER) (test code = 411) 24.9 % 40.1-51.0 L MEAN CORPUSCULAR VOLUME (BEAKER) (test code = 753) 90.9 fL 79. 0-92.2 MEAN CORPUSCULAR HEMOGLOBIN (BEAKER) (test code = 751) 29.6 pg 25.7-32.2 MEAN CORPUSCULAR HEMOGLOBIN CONC (BEAKER) (test code = 752) 32.5 GM/DL 32.3-36.5 RED CELL DISTRIBUTION WIDTH (BEAKER) (test code = 412) 20.0 % 11.6-14.4 H PLATELET COUNT (BEAKER) (test code = 756) 79 K/CU MM 150-450 L MEAN PLATELET VOLUME (BEAKER) (test code = 754) 13.2 fL 9.4-12 .4 H NUCLEATED RED BLOOD CELLS (BEAKER) (test code = 413) 2 /100 WBC 0 -0 H CALCIUM, [id number] 09:40:00* Test Item Value Reference Range Interpretation Comments CALCIUM IONIZED (BEAKER) (test code = 698) 1.12 mmol/L 1.12-1.27 PH, BLOOD (BEAKER) (test code = 1810) 7.53 RAD, CHEST, 1 VIEW, NON [id number] 08:09:00Reason for exam:->cvc placementShould this be performed at the bedside?->YesFINAL REPORT TECHNIQUE: Frontal chest radiograph dated 04/04/2018. CLINICAL HISTORY: CVC placement COMPARISON STUDY: Chest radiograph dated 04/04/2018 IMPRESSION:The right-sided Bessemer-Gentry catheter has been readjusted and the tip is now in the region of the main pulmonary artery. Minimal atelectasis is seen in the left lung base. Lungs are otherwise clear. No pleural effusion or pneumothorax. Cardiomediastinal silhouette is normal in size. No pulmonary edema. No fracture. Signed: Binh Hartmanneport Verified Date/Time: 04/04/2018 08:09:06 Reading Location: [facility] Radiology Reading Room REHENSIVE METABOLIC PANEL 2018-04-04 05:36:00* Test Item Value Reference Range Interpretation Comments TOTAL PROTEIN (BEAKER) (test code = 770) 7.0 gm/dL 6.0-8.3 ALBUMIN (BEAKER) (test code = 1145) 3.4 g/dL 3.5-5.0 L ALKALINE PHOSPHATASE (BEAKER) (test code = 346) 82 U/L 40-150 BILIRUBIN TOTAL (BEAKER) (test code = 377) 4.6 mg/dL 0.2-1.2 H SODIUM (BEAKER) (test code = 381) 132 meq/L 136-145 L POTASSIUM (BEAKER) (test code = 379) 4.4 meq/L 3.5-5.1 CHLORIDE (BEAKER) (test code = 382) 101 meq/L 98-107 CO2 (BEAKER) (test code = 355) 20 meq/L 22-29 L BLOOD UREA NITROGEN (BEAKER) (test code = 354) 57 mg/dL 7-21 H CREATININE (BEAKER) (test code = 358) 2.58 mg/dL 0.57-1.25 H GLUCOSE RANDOM (BEAKER) (test code = 652) 191 mg/dL 70-105 H CALCIUM (BEAKER) (test code = 697) 8.9 mg/dL 8.4-10.2 AST (SGOT) (BEAKER) (test code = 353) 230 U/L 5-34 H ALT (SGPT) (BEAKER) (test code = 347) 421 U/L 6-55 H EGFR (BEAKER) (test code = 1092) mL/min/1.73 sq m INSUFFICIENT CLINICAL DATA TO CALCULATE ESTIMATED GFR. LACTATE DEHYDROGENASE (LDH)2018-04-04 05:36:00* Test Item Value Reference Range Interpretation Comments LACTATE DEHYDROGENASE (BEAKER) (test code = 635) 2891 U/L 125-2 20 H [id number] 05:32:00* Test Item Value Reference Range Interpretation Comments PHOSPHORUS (BEAKER) (test code = 604) 2.6 mg/dL 2.3-4.7 [id number] 05:32:00* Test Item Value Reference Range Interpretation Comments MAGNESIUM (BEAKER) (test code = 627) 2.4 mg/dL 1.6-2.6 HEPATIC FUNCTION [id number] 05:32:00* Test Item Value Reference Range Interpretation Comments TOTAL PROTEIN (BEAKER) (test code = 770) 7.0 gm/dL 6.0-8.3 ALBUMIN (BEAKER) (test code = 1145) 3.4 g/dL 3.5-5.0 L BILIRUBIN TOTAL (BEAKER) (test code = 377) 4.6 mg/dL 0.2-1.2 H BILIRUBIN DIRECT (BEAKER) (test code = 706) 3.2 mg/dL 0.1-0.5 H ALKALINE PHOSPHATASE (BEAKER) (test code = 346) 82 U/L 40-150 AST (SGOT) (BEAKER) (test code = 353) 230 U/L 5-34 H ALT (SGPT) (BEAKER) (test code = 347) 421 U/L 6-55 H LACTIC ACID, ARTERIAL, WHOLE [id number] 05:25:00* Test Item Value Reference Range Interpretation Comments LACTATE BLOOD ARTERIAL (2) (BEAKER) (test code = 2874) 3.1 mmol/L 0.5-2.2 H Effective 03/03/2016: Units/Reference Range ChangeNew: 0.5-2.2 mmol/L Previous: 5 -20 mg/[id number] 05:09:00* Test Item Value Reference Range Interpretation Comments PARTIAL THROMBOPLASTIN TIME (BEAKER) (test code = 760) 62.6 seconds 22.5-36.0 H CALCIUM, [id number] 05:02:00* Test Item Value Reference Range Interpretation Comments CALCIUM IONIZED (BEAKER) (test code = 698) 1.09 mmol/L 1.12-1.27 L PH, BLOOD (BEAKER) (test code = 1810) 7.50 BLOOD GAS, [id number] 05:01:00* Test Item Value Reference Range Interpretation Comments PH ARTERIAL (BEAKER) (test code = 383) 7.50 7.35-7.45 H PCO2 ARTERIAL (BEAKER) (test code = 384) 30 mmHg 35-45 L PO2 ARTERIAL (BEAKER) (test code = 385) 90 mmHg 80-90 O2 SATURATION ARTERIAL (BEAKER) (test code = 386) 97.6 % 96.0 -97.0 H HCO3 ARTERIAL (BEAKER) (test code = 388) 23 mmol/L 21-29 BASE EXCESS ARTERIAL (BEAKER) (test code = 387) -0.1 mmol/L -2.0-3 .0 PATIENT TEMPERATURE (BEAKER) (test code = 1818) 37.0 C FIO2 (BEAKER) (test code = 1819) 36.0 % GLUCOSE-STAT [id number] 05:01:00* Test Item Value Reference Range Interpretation Comments GLUCOSE RANDOM (BEAKER) (test code = 652) 193 mg/dL 70-110 H HGB/HCT (H&H) - STAT [id number] 05:01:00* Test Item Value Reference Range Interpretation Comments HEMOGLOBIN (BEAKER) (test code = 410) 8.6 GM/DL 13.0-16.8 L HEMATOCRIT (BEAKER) (test code = 411) 25.0 % 40.0-50.0 L POTASSIUM-STAT [id number] 04:59:00* Test Item Value Reference Range Interpretation Comments POTASSIUM (BEAKER) (test code = 379) 4.2 meq/L 3.6-5.5 OXYGEN SATURATION, [id number] 04:57:00* Test Item Value Reference Range Interpretation Comments O2 SATURATION (MEASURED) (BEAKER) (test code = 1455) 45.8 % RAD, CHEST, 1 VIEW, NON [id number] 03:57:00Reason for exam:->PA CATHETER; IMPELLA PLACEMENTShould this be performed at the bedside?->YesFINAL REPORT Comparison exam: 04/03/2018 Mild left basilar atelectasis. No pneumothorax. Normal cardiac mediastinal contours. The pulmonary artery catheter terminates at the base of the right ventricle. This finding was called to the patient's nurse Jessica on 04/04/2018 at 3:50 AM Appropriately positioned Impella and feeding tube. Signed: Steven Wei [facility] Verified Date/Time: 04/04/2018 03:57:09 Reading Location: [address] Reading Room 2018-04-03 22:32:00* Test Item Value Reference Range Interpretation Comments PARTIAL THROMBOPLASTIN TIME (BEAKER) (test code = 760) 55.9 seconds 22.5-36.0 H [id number] 22:29:00* Test Item Value Reference Range Interpretation Comments PHOSPHORUS (BEAKER) (test code = 604) 3.1 mg/dL 2.3-4.7 [id number] 22:29:00* Test Item Value Reference Range Interpretation Comments MAGNESIUM (BEAKER) (test code = 627) 2.6 mg/dL 1.6-2.6 BASIC METABOLIC [id number] 22:29:00* Test Item Value Reference Range Interpretation Comments SODIUM (BEAKER) (test code = 381) 133 meq/L 136-145 L POTASSIUM (BEAKER) (test code = 379) 4.4 meq/L 3.5-5.1 CHLORIDE (BEAKER) (test code = 382) 102 meq/L 98-107 CO2 (BEAKER) (test code = 355) 18 meq/L 22-29 L BLOOD UREA NITROGEN (BEAKER) (test code = 354) 73 mg/dL 7-21 H CREATININE (BEAKER) (test code = 358) 3.46 mg/dL 0.57-1.25 H GLUCOSE RANDOM (BEAKER) (test code = 652) 213 mg/dL 70-105 H CALCIUM (BEAKER) (test code = 697) 8.5 mg/dL 8.4-10.2 EGFR (BEAKER) (test code = 1092) mL/min/1.73 sq m INSUFFICIENT CLINICAL DATA TO CALCULATE ESTIMATED GFR. Specimen slightly [id number] 22:23:00* Test Item Value Reference Range Interpretation Comments SODIUM (BEAKER) (test code = 381) 134 meq/L 136-145 L HGB/HCT (H&H) - STAT [id number] 22:17:00* Test Item Value Reference Range Interpretation Comments HEMOGLOBIN (BEAKER) (test code = 410) 8.3 g/dL 13.0-16.8 L HEMATOCRIT (BEAKER) (test code = 411) 24.0 % 40.0-50.0 L OXYGEN SATURATION, [id number] 22:17:00* Test Item Value Reference Range Interpretation Comments O2 SATURATION (MEASURED) (BEAKER) (test code = 1455) 49.5 % CALCIUM, [id number] 22:15:00* Test Item Value Reference Range Interpretation Comments CALCIUM IONIZED (BEAKER) (test code = 698) 1.12 mmol/L 1.12-1.27 PH, BLOOD (BEAKER) (test code = 1810) 7.47 BLOOD GAS, [id number] 22:14:00* Test Item Value Reference Range Interpretation Comments PH ARTERIAL (BEAKER) (test code = 383) 7.47 7.35-7.45 H PCO2 ARTERIAL (BEAKER) (test code = 384) 28 mmHg 35-45 L PO2 ARTERIAL (BEAKER) (test code = 385) 80 mmHg 80-90 O2 SATURATION ARTERIAL (BEAKER) (test code = 386) 96.5 % 96.0 -97.0 HCO3 ARTERIAL (BEAKER) (test code = 388) 20 mmol/L 21-29 L BASE EXCESS ARTERIAL (BEAKER) (test code = 387) -2.2 mmol/L -2.0-3 .0 L PATIENT TEMPERATURE (BEAKER) (test code = 1818) 37.2 C FIO2 (BEAKER) (test code = 1819) 36.0 % GLUCOSE-STAT [id number] 22:14:00* Test Item Value Reference Range Interpretation Comments GLUCOSE RANDOM (BEAKER) (test code = 652) 213 mg/dL 70-110 H POTASSIUM-STAT [id number] 22:13:00* Test Item Value Reference Range Interpretation Comments POTASSIUM (BEAKER) (test code = 379) 4.2 meq/L 3.6-5.5 RAD, CHEST, 1 VIEW, NON [id number] 20:15:00Reason for exam:->PA C ATHETER PLACEMENT Should this be performed at the bedside?->YesFINAL REPORT AP chest HISTORY: Pulmonary artery catheter COMPARISON: 04/03/2018 IMPRESSION:Left IJ pulmonary artery catheter retracted and looped distally. Remainder of supportive lines unchanged. Stable cardiac silhouette. Left basilar atelectasis. Signed: Rahat Altamirano MDReport Verified Date/Time: 04/03/2018 20:15:57 Reading Location: [address] Consult Reading Room [id number] 18:20:00* Test Item Value Reference Range Interpretation Comments PARTIAL THROMBOPLASTIN TIME (BEAKER) (test code = 760) 56.4 seconds 22.5-36.0 H POCT-GLUCOSE [id number] 18:02:00* Test Item Value Reference Range Interpretation Comments POC-GLUCOSE METER (BEAKER) (test code = 1538) 222 mg/dL 70-110 H TESTED AT [address] [address] BLOOD [id number] 18:00:00* Test Item Value Reference Range Interpretation Comments CULTURE (BEAKER) (test code = 1095) No growth in 5 days BLOOD [id number] 18:00:00* Test Item Value Reference Range Interpretation Comments CULTURE (BEAKER) (test code = 1095) No growth in 5 days [id number] 16:43:00* Test Item Value Reference Range Interpretation Comments PHOSPHORUS (BEAKER) (test code = 604) 3.3 mg/dL 2.3-4.7 [id number] 16:43:00* Test Item Value Reference Range Interpretation Comments MAGNESIUM (BEAKER) (test code = 627) 2.1 mg/dL 1.6-2.6 CALCIUM, [id number] 16:20:00* Test Item Value Reference Range Interpretation Comments CALCIUM IONIZED (BEAKER) (test code = 698) 1.10 mmol/L 1.12-1.27 L PH, BLOOD (BEAKER) (test code = 1810) 7.53 POTASSIUM-STAT [id number] 16:19:00* Test Item Value Reference Range Interpretation Comments POTASSIUM (BEAKER) (test code = 379) 4.3 meq/L 3.6-5.5 RAD, CHEST, 1 VIEW, NON [id number] 13:57:00Reason for exam:->line placementShould this be performed at the bedside?->YesFINAL REPORT EXAM: Frontal chest radiograph, 2 images HISTORY PROVIDED: Line placement COMPARISON: 04/03/2018 IMPRESSION:Support lines and tubes are in unchanged position. Pulmonary vascular congestion and suspected mild interstitial edema are similar. Bilateral small pleural effusions are suspected with left basilar opacities likely representing atelectasis. No discernible p neumothorax. The cardiac silhouette remains enlarged. No acute osseous abnormali ty. Signed: Bronwyn Catherine MDReport Verified Date/Time: 04/03/2018 13:57:22 Reading Location: [facility] Reading Room SSIUM-STAT [id number] 13:10:00* Test Item Value Reference Range Interpretation Comments POTASSIUM (BEAKER) (test code = 379) 4.1 meq/L 3.6-5.5 HGB/HCT (H&H) - STAT [id number] 13:10:00* Test Item Value Reference Range Interpretation Comments HEMOGLOBIN (BEAKER) (test code = 410) 8.3 g/dL 13.0-16.8 L HEMATOCRIT (BEAKER) (test code = 411) 24.0 % 40.0-50.0 L GLUCOSE-STAT [id number] 13:10:00* Test Item Value Reference Range Interpretation Comments GLUCOSE RANDOM (BEAKER) (test code = 652) 176 mg/dL 70-110 H THROMBOELASTOGRAPH (TEG)2018-04-03 10:02:00* Test Item Value Reference Range Interpretation Comments TEG ACTIVATED CLOTTING TIME (BEAKER) (test code = 1407) 82.5 minute s 4.0-7.0 H NO CLOT DETECTED TEG FIBRINOGEN ACTIVITY (BEAKER) (test code = 1408) degrees 61 .0-73.0 NO CLOT DETECTED TEG PLT. AGGREGATION (BEAKER) (test code = 1409) MM 55.0- 65.0 NO CLOT DETECTED TEG FIBRINOLYSIS (BEAKER) (test code = 1410) % 0.0-5.0 NO CLOT DETECTED TGH ACTIVATED CLOTTING TIME (BEAKER) (test code = 1411) 12.2 minute s 4.0-7.0 H TGH FIBRINOGEN ACTIVITY (BEAKER) (test code = 1412) 54.1 degrees 61 .0-73.0 L TGH PLT. AGGREGATION (BEAKER) (test code = 1413) 41.1 MM 55.0- 65.0 L TGH FIBRINOLYSIS (BEAKER) (test code = 1414) 0.0 % 0.0-5.0 [id number] 09:52:00* Test Item Value Reference Range Interpretation Comments PARTIAL THROMBOPLASTIN TIME (BEAKER) (test code = 760) 104.7 sec onds 22.5-36.0 H ANTITHROMBIN [id number] 09:17:00* Test Item Value Reference Range Interpretation Comments ANTITHROMBIN III ACTIVITY (BEAKER) (test code = 711) 43.0 % 8 0.0-120.0 L [id number] 08:39:00* Test Item Value Reference Range Interpretation Comments SODIUM (BEAKER) (test code = 381) 135 meq/L 136-145 L BRONCHIAL CULTURE + GRAM [id number] 08:37:00* Test Item Value Reference Range Interpretation Comments CULTURE (BEAKER) (test code = 1095) No growth GRAM STAIN RESULT (BEAKER) (test code = 1123) 1+ WBCs GRAM STAIN RESULT (BEAKER) (test code = 55300) No organisms seen SPUTUM CULTURE + GRAM [id number] 08:28:00* Test Item Value Reference Range Interpretation Comments CULTURE (BEAKER) (test code = 1095) No growth GRAM STAIN RESULT (BEAKER) (test code = 1123) <1+ WBCs GRAM STAIN RESULT (BEAKER) (test code = 60453) 0-5 epithelial cells GRAM STAIN RESULT (BEAKER) (test code = 86955) No organisms seen CALCIUM, [id number] 08:23:00* Test Item Value Reference Range Interpretation Comments CALCIUM IONIZED (BEAKER) (test code = 698) 1.11 mmol/L 1.12-1.27 L PH, BLOOD (BEAKER) (test code = 1810) 7.48 BLOOD GAS, [id number] 08:22:00* Test Item Value Reference Range Interpretation Comments PH ARTERIAL (BEAKER) (test code = 383) 7.49 7.35-7.45 H PCO2 ARTERIAL (BEAKER) (test code = 384) 30 mmHg 35-45 L PO2 ARTERIAL (BEAKER) (test code = 385) 77 mmHg 80-90 L O2 SATURATION ARTERIAL (BEAKER) (test code = 386) 96.7 % 96.0 -97.0 HCO3 ARTERIAL (BEAKER) (test code = 388) 23 mmol/L 21-29 BASE EXCESS ARTERIAL (BEAKER) (test code = 387) -0.5 mmol/L -2.0-3 .0 PATIENT TEMPERATURE (BEAKER) (test code = 1818) 36.3 C FIO2 (BEAKER) (test code = 1819) 32.0 % POTASSIUM-STAT [id number] 08:21:00* Test Item Value Reference Range Interpretation Comments POTASSIUM (BEAKER) (test code = 379) 4.4 meq/L 3.6-5.5 [id number] 06:56:00* Test Item Value Reference Range Interpretation Comments PARTIAL THROMBOPLASTIN TIME (BEAKER) (test code = 760) 100.0 sec onds 22.5-36.0 H [id number] 05:46:00* Test Item Value Reference Range Interpretation Comments ACTIVATED CLOTTING TIME (BEAKER) (test code = 441) 169 sec TESTED AT [place] [address] [id number] 05:46:00* Test Item Value Reference Range Interpretation Comments ACTIVATED CLOTTING TIME (BEAKER) (test code = 441) 103 sec TESTED AT [place] [address] [id number] 05:46:00* Test Item Value Reference Range Interpretation Comments ACTIVATED CLOTTING TIME (BEAKER) (test code = 441) 213 sec TESTED AT [place] [address] [id number] 05:46:00* Test Item Value Reference Range Interpretation Comments ACTIVATED CLOTTING TIME (BEAKER) (test code = 441) 175 sec TESTED AT [place] [address] [id number] 05:46:00* Test Item Value Reference Range Interpretation Comments ACTIVATED CLOTTING TIME (BEAKER) (test code = 441) 136 sec TESTED AT [place] [address] RAD, CHEST, 1 VIEW, NON [id number] 05:19:00Reason for exam:->intubatedShould this be performed at the bedside?->YesFINAL REPORT Comparison exam: 04/02/2018 Probable expiratory phase chest x-ray. Questionable pulmonary venous congestion. Stable cardiomediastinal contours. Appropriate position of the support hardware. Signed: Steven Wei MDRepmaida Verified Date/Time: 04/03/2018 05:19:27 Reading Location: [address] Reading Room IUM, [id number] 04:37:00* Test Item Value Reference Range Interpretation Comments CALCIUM IONIZED (BEAKER) (test code = 698) 1.11 mmol/L 1.12-1.27 L PH, BLOOD (BEAKER) (test code = 1810) 7.43 BLOOD GAS, [id number] 04:36:00* Test Item Value Reference Range Interpretation Comments PH ARTERIAL (BEAKER) (test code = 383) 7.45 7.35-7.45 PCO2 ARTERIAL (BEAKER) (test code = 384) 36 mmHg 35-45 PO2 ARTERIAL (BEAKER) (test code = 385) 81 mmHg 80-90 O2 SATURATION ARTERIAL (BEAKER) (test code = 386) 96.8 % 96.0 -97.0 HCO3 ARTERIAL (BEAKER) (test code = 388) 24 mmol/L 21-29 BASE EXCESS ARTERIAL (BEAKER) (test code = 387) 0.0 mmol/L -2.0-3 .0 PATIENT TEMPERATURE (BEAKER) (test code = 1818) 36.1 C FIO2 (BEAKER) (test code = 1819) 36.0 % POTASSIUM-STAT [id number] 04:36:00* Test Item Value Reference Range Interpretation Comments POTASSIUM (BEAKER) (test code = 379) 4.3 meq/L 3.6-5.5 OXYGEN SATURATION, [id number] 04:33:00* Test Item Value Reference Range Interpretation Comments O2 SATURATION (MEASURED) (BEAKER) (test code = 1455) 50.5 % LACTATE DEHYDROGENASE (LDH)2018-04-03 04:16:00* Test Item Value Reference Range Interpretation Comments LACTATE DEHYDROGENASE (BEAKER) (test code = 635) 3710 U/L 125-2 20 H COMPREHENSIVE METABOLIC [id number] 04:16:00* Test Item Value Reference Range Interpretation Comments TOTAL PROTEIN (BEAKER) (test code = 770) 7.1 gm/dL 6.0-8.3 ALBUMIN (BEAKER) (test code = 1145) 3.5 g/dL 3.5-5.0 ALKALINE PHOSPHATASE (BEAKER) (test code = 346) 80 U/L 40-150 BILIRUBIN TOTAL (BEAKER) (test code = 377) 6.2 mg/dL 0.2-1.2 H SODIUM (BEAKER) (test code = 381) 135 meq/L 136-145 L POTASSIUM (BEAKER) (test code = 379) 4.4 meq/L 3.5-5.1 CHLORIDE (BEAKER) (test code = 382) 102 meq/L 98-107 CO2 (BEAKER) (test code = 355) 22 meq/L 22-29 BLOOD UREA NITROGEN (BEAKER) (test code = 354) 48 mg/dL 7-21 H CREATININE (BEAKER) (test code = 358) 2.44 mg/dL 0.57-1.25 H GLUCOSE RANDOM (BEAKER) (test code = 652) 164 mg/dL 70-105 H CALCIUM (BEAKER) (test code = 697) 9.1 mg/dL 8.4-10.2 AST (SGOT) (BEAKER) (test code = 353) 433 U/L 5-34 H ALT (SGPT) (BEAKER) (test code = 347) 531 U/L 6-55 H EGFR (BEAKER) (test code = 1092) mL/min/1.73 sq m INSUFFICIENT CLINICAL DATA TO CALCULATE ESTIMATED GFR. Specimen slightly [id number] 04:13:00* Test Item Value Reference Range Interpretation Comments PHOSPHORUS (BEAKER) (test code = 604) 4.8 mg/dL 2.3-4.7 H [id number] 04:13:00* Test Item Value Reference Range Interpretation Comments MAGNESIUM (BEAKER) (test code = 627) 2.2 mg/dL 1.6-2.6 [id number] 04:13:00* Test Item Value Reference Range Interpretation Comments CALCIUM (BEAKER) (test code = 697) 9.1 mg/dL 8.4-10.2 PROTHROMBIN TIME/[id number] 04:01:00* Test Item Value Reference Range Interpretation Comments PROTIME (BEAKER) (test code = 759) 16.7 seconds 11.7-14.7 H INR (BEAKER) (test code = 370) 1.4 <=5.9 RECOMMENDED COUMADIN/WARFARIN INR THERAPY RANGESSTANDARD DOSE: 2.0 - 3.0 Inclu beata: PROPHYLAXIS for venous thrombosis, systemic embolization; TREATMENT for shaan ous thrombosis and/or pulmonary embolus.HIGH RISK: Target INR is 2.5-3.5 for pat ients with mechanical heart valves.LACTIC ACID, ARTERIAL, WHOLE [id number] 03:58:00* Test Item Value Reference Range Interpretation Comments LACTATE BLOOD ARTERIAL (2) (BEAKER) (test code = 2874) 1.0 mmol/L 0.5-2.2 Effective 03/03/2016: Units/Reference Range ChangeNew: 0.5-2.2 mmol/L Previous: 5 -20 mg/dLCBC (HEMOGRAM ONLY)2018-04-03 03:48:00* Test Item Value Reference Range Interpretation Comments WHITE BLOOD CELL COUNT (BEAKER) (test code = 775) 40.2 K/ L 3.5- 10.5 H RED BLOOD CELL COUNT (BEAKER) (test code = 761) 2.82 M/ L 4.63-6 .08 L HEMOGLOBIN (BEAKER) (test code = 410) 8.2 GM/DL 13.7-17.5 L HEMATOCRIT (BEAKER) (test code = 411) 24.6 % 40.1-51.0 L MEAN CORPUSCULAR VOLUME (BEAKER) (test code = 753) 87.2 fL 79. 0-92.2 MEAN CORPUSCULAR HEMOGLOBIN (BEAKER) (test code = 751) 29.1 pg 25.7-32.2 MEAN CORPUSCULAR HEMOGLOBIN CONC (BEAKER) (test code = 752) 33.3 GM/DL 32.3-36.5 RED CELL DISTRIBUTION WIDTH (BEAKER) (test code = 412) 17.4 % 11.6-14.4 H PLATELET COUNT (BEAKER) (test code = 756) 63 K/CU MM 150-450 L MEAN PLATELET VOLUME (BEAKER) (test code = 754) 12.6 fL 9.4-12 .4 H NUCLEATED RED BLOOD CELLS (BEAKER) (test code = 413) 3 /100 WBC 0 -0 H [id number] 00:31:00* Test Item Value Reference Range Interpretation Comments PARTIAL THROMBOPLASTIN TIME (BEAKER) (test code = 760) 126.7 sec onds 22.5-36.0 H POTASSIUM-STAT [id number] 23:31:00* Test Item Value Reference Range Interpretation Comments POTASSIUM (BEAKER) (test code = 379) 4.2 meq/L 3.6-5.5 CALCIUM, [id number] 23:31:00* Test Item Value Reference Range Interpretation Comments CALCIUM IONIZED (BEAKER) (test code = 698) 1.16 mmol/L 1.12-1.27 PH, BLOOD (BEAKER) (test code = 1810) 7.45 POCT-GLUCOSE [id number] 23:23:00* Test Item Value Reference Range Interpretation Comments POC-GLUCOSE METER (BEAKER) (test code = 1538) 187 mg/dL 70-[address] [facility] [address] [facility] [place] [address] [id number] 22:35:00* Test Item Value Reference Range Interpretation Comments SODIUM (BEAKER) (test code = 381) 134 meq/L 136-145 L POTASSIUM-STAT [id number] 21:57:00* Test Item Value Reference Range Interpretation Comments POTASSIUM (BEAKER) (test code = 379) 4.2 meq/L 3.6-5.5 BLOOD GAS, [id number] 19:03:00* Test Item Value Reference Range Interpretation Comments PH ARTERIAL (BEAKER) (test code = 383) 7.46 7.35-7.45 H PCO2 ARTERIAL (BEAKER) (test code = 384) 32 mmHg 35-45 L PO2 ARTERIAL (BEAKER) (test code = 385) 121 mmHg 80-90 H O2 SATURATION ARTERIAL (BEAKER) (test code = 386) 98.5 % 96.0 -97.0 H HCO3 ARTERIAL (BEAKER) (test code = 388) 22 mmol/L 21-29 BASE EXCESS ARTERIAL (BEAKER) (test code = 387) -1.4 mmol/L -2.0-3 .0 PATIENT TEMPERATURE (BEAKER) (test code = 1818) 37.6 C FIO2 (BEAKER) (test code = 1819) 36.0 % SODIUM NA-STAT [id number] 19:03:00* Test Item Value Reference Range Interpretation Comments SODIUM (BEAKER) (test code = 381) 134 meq/L 135-148 L GLUCOSE-STAT [id number] 19:03:00* Test Item Value Reference Range Interpretation Comments GLUCOSE RANDOM (BEAKER) (test code = 652) 143 mg/dL 70-110 H HGB/HCT (H&H) - STAT [id number] 19:03:00* Test Item Value Reference Range Interpretation Comments HEMOGLOBIN (BEAKER) (test code = 410) 8.7 g/dL 13.0-16.8 L HEMATOCRIT (BEAKER) (test code = 411) 26.0 % 40.0-50.0 L CALCIUM, [id number] 19:03:00* Test Item Value Reference Range Interpretation Comments CALCIUM IONIZED (BEAKER) (test code = 698) 1.25 mmol/L 1.12-1.27 PH, BLOOD (BEAKER) (test code = 1810) 7.46 POTASSIUM-STAT [id number] 18:58:00* Test Item Value Reference Range Interpretation Comments POTASSIUM (BEAKER) (test code = 379) 4.1 meq/L 3.6-5.5 [id number] 17:26:00* Test Item Value Reference Range Interpretation Comments PARTIAL THROMBOPLASTIN TIME (BEAKER) (test code = 760) 104.2 sec onds 22.5-36.0 H PROTHROMBIN TIME/[id number] 17:17:00* Test Item Value Reference Range Interpretation Comments PROTIME (BEAKER) (test code = 759) 18.0 seconds 11.7-14.7 H INR (BEAKER) (test code = 370) 1.5 <=5.9 RECOMMENDED COUMADIN/WARFARIN INR THERAPY RANGESSTANDARD DOSE: 2.0 - 3.0 Inclu beata: PROPHYLAXIS for venous thrombosis, systemic embolization; TREATMENT for shaan ous thrombosis and/or pulmonary embolus.HIGH RISK: Target INR is 2.5-3.5 for pat ients with mechanical heart valves.[id number] 17:01:00* Test Item Value Reference Range Interpretation Comments POTASSIUM (BEAKER) (test code = 379) 4.6 meq/L 3.5-5.1 [id number] 17:01:00* Test Item Value Reference Range Interpretation Comments MAGNESIUM (BEAKER) (test code = 627) 2.5 mg/dL 1.6-2.6 [id number] 17:01:00* Test Item Value Reference Range Interpretation Comments PHOSPHORUS (BEAKER) (test code = 604) 6.0 mg/dL 2.3-4.7 H LACTIC ACID, ARTERIAL, WHOLE [id number] 16:59:00* Test Item Value Reference Range Interpretation Comments LACTATE BLOOD ARTERIAL (2) (BEAKER) (test code = 2874) 1.7 mmol/L 0.5-2.2 Effective 03/03/2016: Units/Reference Range ChangeNew: 0.5-2.2 mmol/L Previous: 5 -20 mg/dLSpecimen slightly ictericPOTASSIUM-STAT [id number] 16:43:00* Test Item Value Reference Range Interpretation Comments POTASSIUM (BEAKER) (test code = 379) 4.4 meq/L 3.6-5.5 CALCIUM, [id number] 16:43:00* Test Item Value Reference Range Interpretation Comments CALCIUM IONIZED (BEAKER) (test code = 698) 1.04 mmol/L 1.12-1.27 L PH, BLOOD (BEAKER) (test code = 1810) 7.46 BLOOD GAS, [id number] 16:43:00* Test Item Value Reference Range Interpretation Comments PH ARTERIAL (BEAKER) (test code = 383) 7.46 7.35-7.45 H PCO2 ARTERIAL (BEAKER) (test code = 384) 33 mmHg 35-45 L PO2 ARTERIAL (BEAKER) (test code = 385) 100 mmHg 80-90 H O2 SATURATION ARTERIAL (BEAKER) (test code = 386) 97.6 % 96.0 -97.0 H HCO3 ARTERIAL (BEAKER) (test code = 388) 23 mmol/L 21-29 BASE EXCESS ARTERIAL (BEAKER) (test code = 387) -0.3 mmol/L -2.0-3 .0 PATIENT TEMPERATURE (BEAKER) (test code = 1818) 38.2 C FIO2 (BEAKER) (test code = 1819) 40.0 % GLUCOSE-STAT [id number] 16:43:00* Test Item Value Reference Range Interpretation Comments GLUCOSE RANDOM (BEAKER) (test code = 652) 156 mg/dL 70-110 H BLOOD GAS, [id number] 14:11:00* Test Item Value Reference Range Interpretation Comments PH ARTERIAL (BEAKER) (test code = 383) 7.49 7.35-7.45 H PCO2 ARTERIAL (BEAKER) (test code = 384) 30 mmHg 35-45 L PO2 ARTERIAL (BEAKER) (test code = 385) 111 mmHg 80-90 H O2 SATURATION ARTERIAL (BEAKER) (test code = 386) 98.2 % 96.0 -97.0 H HCO3 ARTERIAL (BEAKER) (test code = 388) 22 mmol/L 21-29 BASE EXCESS ARTERIAL (BEAKER) (test code = 387) -0.3 mmol/L -2.0-3 .0 PATIENT TEMPERATURE (BEAKER) (test code = 1818) 38.2 C FIO2 (BEAKER) (test code = 1819) 36.0 % [id number] 12:44:00* Test Item Value Reference Range Interpretation Comments PARTIAL THROMBOPLASTIN TIME (BEAKER) (test code = 760) 88.1 seconds 22.5-36.0 H GLUCOSE-STAT [id number] 12:11:00* Test Item Value Reference Range Interpretation Comments GLUCOSE RANDOM (BEAKER) (test code = 652) 131 mg/dL 70-110 H BLOOD GAS, [id number] 12:11:00* Test Item Value Reference Range Interpretation Comments PH ARTERIAL (BEAKER) (test code = 383) 7.50 7.35-7.45 H PCO2 ARTERIAL (BEAKER) (test code = 384) 29 mmHg 35-45 L PO2 ARTERIAL (BEAKER) (test code = 385) 129 mmHg 80-90 H O2 SATURATION ARTERIAL (BEAKER) (test code = 386) 98.8 % 96.0 -97.0 H HCO3 ARTERIAL (BEAKER) (test code = 388) 22 mmol/L 21-29 BASE EXCESS ARTERIAL (BEAKER) (test code = 387) -0.2 mmol/L -2.0-3 .0 PATIENT TEMPERATURE (BEAKER) (test code = 1818) 37.6 C FIO2 (BEAKER) (test code = 1819) 40.0 % [id number] 10:42:00* Test Item Value Reference Range Interpretation Comments POTASSIUM (BEAKER) (test code = 379) 4.9 meq/L 3.5-5.1 [id number] 10:42:00* Test Item Value Reference Range Interpretation Comments MAGNESIUM (BEAKER) (test code = 627) 2.5 mg/dL 1.6-2.6 [id number] 10:42:00* Test Item Value Reference Range Interpretation Comments PHOSPHORUS (BEAKER) (test code = 604) 3.0 mg/dL 2.3-4.7 LACTIC ACID, ARTERIAL, WHOLE [id number] 10:40:00* Test Item Value Reference Range Interpretation Comments LACTATE BLOOD ARTERIAL (2) (BEAKER) (test code = 2874) 2.5 mmol/L 0.5-2.2 H Effective 03/03/2016: Units/Reference Range ChangeNew: 0.5-2.2 mmol/L Previous: 5 -20 mg/dLSpecimen slightly ictericCALCIUM, [id number] 10:31:00* Test Item Value Reference Range Interpretation Comments CALCIUM IONIZED (BEAKER) (test code = 698) 1.11 mmol/L 1.12-1.27 L PH, BLOOD (BEAKER) (test code = 1810) 7.53 POTASSIUM-STAT [id number] 10:31:00* Test Item Value Reference Range Interpretation Comments POTASSIUM (BEAKER) (test code = 379) 4.3 meq/L 3.6-5.5 GLUCOSE-STAT [id number] 10:31:00* Test Item Value Reference Range Interpretation Comments GLUCOSE RANDOM (BEAKER) (test code = 652) 133 mg/dL 70-110 H OXYGEN SATURATION, [id number] 10:27:00* Test Item Value Reference Range Interpretation Comments O2 SATURATION (MEASURED) (BEAKER) (test code = 1455) 52.9 % THROMBOELASTOGRAPH (TEG)2018-04-02 09:59:00* Test Item Value Reference Range Interpretation Comments TEG ACTIVATED CLOTTING TIME (BEAKER) (test code = 1407) minutes 4.0-7.0 NO CLOT. TGH ACTIVATED CLOTTING TIME (BEAKER) (test code = 1411) 10.2 minute s 4.0-7.0 H TGH FIBRINOGEN ACTIVITY (BEAKER) (test code = 1412) 58.1 degrees 61 .0-73.0 L TGH PLT. AGGREGATION (BEAKER) (test code = 1413) 47.7 MM 55.0- 65.0 L TGH FIBRINOLYSIS (BEAKER) (test code = 1414) 2.7 % 0.0-5.0 [id number] 08:47:00* Test Item Value Reference Range Interpretation Comments SODIUM (BEAKER) (test code = 381) 134 meq/L 136-145 L RAD, CHEST, 1 VIEW, NON [id number] 08:40:00Reason for exam:->intubatedShould this be performed at the bedside?->YesFINAL REPORT Chest one view compared to April 01 Discussion: Tube/line placement and Impella device are noted. Lungs clear. Heart size upper limits of normal. No effusion or pneumothorax. Signed: Angela Griffinmaida Verified Date/Time: 04/02/2018 08:40:49 Reading Location: [facility] C013V Neuro Reading Room D GAS, ARTERIAL 2018-04-02 08:21:00* Test Item Value Reference Range Interpretation Comments PH ARTERIAL (BEAKER) (test code = 383) 7.51 7.35-7.45 H PCO2 ARTERIAL (BEAKER) (test code = 384) 31 mmHg 35-45 L PO2 ARTERIAL (BEAKER) (test code = 385) 125 mmHg 80-90 H O2 SATURATION ARTERIAL (BEAKER) (test code = 386) 98.7 % 96.0 -97.0 H HCO3 ARTERIAL (BEAKER) (test code = 388) 24 mmol/L 21-29 BASE EXCESS ARTERIAL (BEAKER) (test code = 387) 1.4 mmol/L -2.0-3 .0 PATIENT TEMPERATURE (BEAKER) (test code = 1818) 38.0 C FIO2 (BEAKER) (test code = 1819) 40.0 % POTASSIUM-STAT [id number] 08:20:00* Test Item Value Reference Range Interpretation Comments POTASSIUM (BEAKER) (test code = 379) 4.3 meq/L 3.6-5.5 CALCIUM, [id number] 08:17:00* Test Item Value Reference Range Interpretation Comments CALCIUM IONIZED (BEAKER) (test code = 698) 1.10 mmol/L 1.12-1.27 L PH, BLOOD (BEAKER) (test code = 1810) 7.54 OXYGEN SATURATION, [id number] 08:15:00* Test Item Value Reference Range Interpretation Comments O2 SATURATION (MEASURED) (BEAKER) (test code = 1455) 45.2 % THROMBOELASTOGRAPH (TEG)2018-04-02 06:13:00* Test Item Value Reference Range Interpretation Comments TEG ACTIVATED CLOTTING TIME (BEAKER) (test code = 1407) minutes 4.0-7.0 No clot TGH ACTIVATED CLOTTING TIME (BEAKER) (test code = 1411) 11.1 minute s 4.0-7.0 H TGH FIBRINOGEN ACTIVITY (BEAKER) (test code = 1412) 59.1 degrees 61 .0-73.0 L TGH PLT. AGGREGATION (BEAKER) (test code = 1413) 46.9 MM 55.0- 65.0 L TGH FIBRINOLYSIS (BEAKER) (test code = 1414) 0.7 % 0.0-5.0 COMPREHENSIVE METABOLIC [id number] 04:43:00* Test Item Value Reference Range Interpretation Comments TOTAL PROTEIN (BEAKER) (test code = 770) 8.1 gm/dL 6.0-8.3 ALBUMIN (BEAKER) (test code = 1145) 3.6 g/dL 3.5-5.0 ALKALINE PHOSPHATASE (BEAKER) (test code = 346) 105 U/L 40-150 BILIRUBIN TOTAL (BEAKER) (test code = 377) 7.5 mg/dL 0.2-1.2 H SODIUM (BEAKER) (test code = 381) 135 meq/L 136-145 L POTASSIUM (BEAKER) (test code = 379) 4.6 meq/L 3.5-5.1 CHLORIDE (BEAKER) (test code = 382) 101 meq/L 98-107 CO2 (BEAKER) (test code = 355) 21 meq/L 22-29 L BLOOD UREA NITROGEN (BEAKER) (test code = 354) 40 mg/dL 7-21 H CREATININE (BEAKER) (test code = 358) 2.50 mg/dL 0.57-1.25 H GLUCOSE RANDOM (BEAKER) (test code = 652) 130 mg/dL 70-105 H CALCIUM (BEAKER) (test code = 697) 9.6 mg/dL 8.4-10.2 AST (SGOT) (BEAKER) (test code = 353) 1096 U/L 5-34 H ALT (SGPT) (BEAKER) (test code = 347) 1066 U/L 6-55 H EGFR (BEAKER) (test code = 1092) mL/min/1.73 sq m INSUFFICIENT CLINICAL DATA TO CALCULATE ESTIMATED GFR. Specimen slightly ictericLACTATE DEHYDROGENASE (LDH)2018-04-02 04:42:00* Test Item Value Reference Range Interpretation Comments LACTATE DEHYDROGENASE (BEAKER) (test code = 635) 5186 U/L 125-2 20 H [id number] 04:32:00* Test Item Value Reference Range Interpretation Comments PHOSPHORUS (BEAKER) (test code = 604) 3.7 mg/dL 2.3-4.7 [id number] 04:32:00* Test Item Value Reference Range Interpretation Comments MAGNESIUM (BEAKER) (test code = 627) 2.7 mg/dL 1.6-2.6 H LACTIC ACID, ARTERIAL, WHOLE [id number] 04:26:00* Test Item Value Reference Range Interpretation Comments LACTATE BLOOD ARTERIAL (2) (BEAKER) (test code = 2874) 2.4 mmol/L 0.5-2.2 H Effective 03/03/2016: Units/Reference Range ChangeNew: 0.5-2.2 mmol/L Previous: 5 -20 mg/dLSpecimen slightly ictericOXYGEN SATURATION, [id number] 04:24:00 * Test Item Value Reference Range Interpretation Comments O2 SATURATION (MEASURED) (BEAKER) (test code = 1455) 50.3 % POTASSIUM-STAT [id number] 04:24:00* Test Item Value Reference Range Interpretation Comments POTASSIUM (BEAKER) (test code = 379) 4.1 meq/L 3.6-5.5 BLOOD GAS, [id number] 04:19:00* Test Item Value Reference Range Interpretation Comments PH ARTERIAL (BEAKER) (test code = 383) 7.46 7.35-7.45 H PCO2 ARTERIAL (BEAKER) (test code = 384) 34 mmHg 35-45 L PO2 ARTERIAL (BEAKER) (test code = 385) 105 mmHg 80-90 H O2 SATURATION ARTERIAL (BEAKER) (test code = 386) 97.9 % 96.0 -97.0 H HCO3 ARTERIAL (BEAKER) (test code = 388) 23 mmol/L 21-29 BASE EXCESS ARTERIAL (BEAKER) (test code = 387) 0.4 mmol/L -2.0-3 .0 PATIENT TEMPERATURE (BEAKER) (test code = 1818) 37.9 C FIO2 (BEAKER) (test code = 1819) 40.0 % SODIUM NA-STAT [id number] 04:19:00* Test Item Value Reference Range Interpretation Comments SODIUM (BEAKER) (test code = 381) 132 meq/L 135-148 L GLUCOSE-STAT [id number] 04:19:00* Test Item Value Reference Range Interpretation Comments GLUCOSE RANDOM (BEAKER) (test code = 652) 143 mg/dL 70-110 H HGB/HCT (H&H) - STAT [id number] 04:19:00* Test Item Value Reference Range Interpretation Comments HEMOGLOBIN (BEAKER) (test code = 410) 11.9 g/dL 13.0-16.8 L HEMATOCRIT (BEAKER) (test code = 411) 35.0 % 40.0-50.0 L CALCIUM, [id number] 04:18:00* Test Item Value Reference Range Interpretation Comments CALCIUM IONIZED (BEAKER) (test code = 698) 1.12 mmol/L 1.12-1.27 PH, BLOOD (BEAKER) (test code = 1810) 7.48 [id number] 04:11:00* Test Item Value Reference Range Interpretation Comments PARTIAL THROMBOPLASTIN TIME (BEAKER) (test code = 760) 75.1 seconds 22.5-36.0 H PROTHROMBIN TIME/[id number] 04:10:00* Test Item Value Reference Range Interpretation Comments PROTIME (BEAKER) (test code = 759) 15.9 seconds 11.7-14.7 H INR (BEAKER) (test code = 370) 1.3 <=5.9 RECOMMENDED COUMADIN/WARFARIN INR THERAPY RANGESSTANDARD DOSE: 2.0 - 3.0 Inclu beata: PROPHYLAXIS for venous thrombosis, systemic embolization; TREATMENT for shaan ous thrombosis and/or pulmonary embolus.HIGH RISK: Target INR is 2.5-3.5 for pat ients with mechanical heart valves.CBC (HEMOGRAM ONLY)2018-04-02 04:04:00* Test Item Value Reference Range Interpretation Comments WHITE BLOOD CELL COUNT (BEAKER) (test code = 775) 42.9 K/ L 3.5- 10.5 H RED BLOOD CELL COUNT (BEAKER) (test code = 761) 3.86 M/ L 4.63-6 .08 L HEMOGLOBIN (BEAKER) (test code = 410) 11.1 GM/DL 13.7-17.5 L HEMATOCRIT (BEAKER) (test code = 411) 33.3 % 40.1-51.0 L MEAN CORPUSCULAR VOLUME (BEAKER) (test code = 753) 86.3 fL 79. 0-92.2 MEAN CORPUSCULAR HEMOGLOBIN (BEAKER) (test code = 751) 28.8 pg 25.7-32.2 MEAN CORPUSCULAR HEMOGLOBIN CONC (BEAKER) (test code = 752) 33.3 GM/DL 32.3-36.5 RED CELL DISTRIBUTION WIDTH (BEAKER) (test code = 412) 16.4 % 11.6-14.4 H PLATELET COUNT (BEAKER) (test code = 756) 85 K/CU MM 150-450 L MEAN PLATELET VOLUME (BEAKER) (test code = 754) 12.9 fL 9.4-12 .4 H NUCLEATED RED BLOOD CELLS (BEAKER) (test code = 413) 15 /100 WBC 0 -0 H THROMBOELASTOGRAPH (TEG)2018-04-01 22:59:00* Test Item Value Reference Range Interpretation Comments TGH ACTIVATED CLOTTING TIME (BEAKER) (test code = 1411) 9.3 minutes 4.0-7.0 H TGH FIBRINOGEN ACTIVITY (BEAKER) (test code = 1412) 61.2 degrees 61 .0-73.0 TGH PLT. AGGREGATION (BEAKER) (test code = 1413) 46.5 MM 55.0- 65.0 L TGH FIBRINOLYSIS (BEAKER) (test code = 1414) 1.3 % 0.0-5.0 No clot in citrated kaolin.[id number] 22:05:00* Test Item Value Reference Range Interpretation Comments PARTIAL THROMBOPLASTIN TIME (BEAKER) (test code = 760) 65.0 seconds 22.5-36.0 H [id number] 22:02:00* Test Item Value Reference Range Interpretation Comments PHOSPHORUS (BEAKER) (test code = 604) 2.2 mg/dL 2.3-4.7 L [id number] 22:02:00* Test Item Value Reference Range Interpretation Comments MAGNESIUM (BEAKER) (test code = 627) 2.9 mg/dL 1.6-2.6 H PLATELET [id number] 22:00:00* Test Item Value Reference Range Interpretation Comments PLATELET COUNT (BEAKER) (test code = 756) 81 K/CU MM 150-450 L [id number] 21:56:00* Test Item Value Reference Range Interpretation Comments SODIUM (BEAKER) (test code = 381) 134 meq/L 136-145 L BLOOD GAS, [id number] 21:44:00* Test Item Value Reference Range Interpretation Comments PH ARTERIAL (BEAKER) (test code = 383) 7.50 7.35-7.45 H PCO2 ARTERIAL (BEAKER) (test code = 384) 32 mmHg 35-45 L PO2 ARTERIAL (BEAKER) (test code = 385) 156 mmHg 80-90 H O2 SATURATION ARTERIAL (BEAKER) (test code = 386) 99.1 % 96.0 -97.0 H HCO3 ARTERIAL (BEAKER) (test code = 388) 24 mmol/L 21-29 BASE EXCESS ARTERIAL (BEAKER) (test code = 387) 1.8 mmol/L -2.0-3 .0 PATIENT TEMPERATURE (BEAKER) (test code = 1818) 38.1 C FIO2 (BEAKER) (test code = 1819) 40.0 % SODIUM NA-STAT [id number] 21:44:00* Test Item Value Reference Range Interpretation Comments SODIUM (BEAKER) (test code = 381) 132 meq/L 135-148 L GLUCOSE-STAT [id number] 21:44:00* Test Item Value Reference Range Interpretation Comments GLUCOSE RANDOM (BEAKER) (test code = 652) 145 mg/dL 70-110 H HGB/HCT (H&H) - STAT [id number] 21:44:00* Test Item Value Reference Range Interpretation Comments HEMOGLOBIN (BEAKER) (test code = 410) 12.1 g/dL 13.0-16.8 L HEMATOCRIT (BEAKER) (test code = 411) 36.0 % 40.0-50.0 L CALCIUM, [id number] 21:44:00* Test Item Value Reference Range Interpretation Comments CALCIUM IONIZED (BEAKER) (test code = 698) 1.14 mmol/L 1.12-1.27 PH, BLOOD (BEAKER) (test code = 1810) 7.50 OXYGEN SATURATION, [id number] 21:44:00* Test Item Value Reference Range Interpretation Comments O2 SATURATION (MEASURED) (BEAKER) (test code = 1455) 45.0 % POTASSIUM-STAT [id number] 21:43:00* Test Item Value Reference Range Interpretation Comments POTASSIUM (BEAKER) (test code = 379) 4.3 meq/L 3.6-5.5 THROMBOELASTOGRAPH (TEG)2018-04-01 16:25:00* Test Item Value Reference Range Interpretation Comments TGH ACTIVATED CLOTTING TIME (BEAKER) (test code = 1411) 10.3 minute s 4.0-7.0 H TGH FIBRINOGEN ACTIVITY (BEAKER) (test code = 1412) 58.7 degrees 61 .0-73.0 L TGH PLT. AGGREGATION (BEAKER) (test code = 1413) 53.9 MM 55.0- 65.0 L TGH FIBRINOLYSIS (BEAKER) (test code = 1414) 0.0 % 0.0-5.0 No clot on citrated [id number] 15:50:00* Test Item Value Reference Range Interpretation Comments PARTIAL THROMBOPLASTIN TIME (BEAKER) (test code = 760) 72.8 seconds 22.5-36.0 H [id number] 15:44:00* Test Item Value Reference Range Interpretation Comments PHOSPHORUS (BEAKER) (test code = 604) 3.0 mg/dL 2.3-4.7 [id number] 15:44:00* Test Item Value Reference Range Interpretation Comments MAGNESIUM (BEAKER) (test code = 627) 2.2 mg/dL 1.6-2.6 POTASSIUM-STAT [id number] 15:19:00* Test Item Value Reference Range Interpretation Comments POTASSIUM (BEAKER) (test code = 379) 3.9 meq/L 3.6-5.5 BLOOD GAS, [id number] 15:19:00* Test Item Value Reference Range Interpretation Comments PH ARTERIAL (BEAKER) (test code = 383) 7.49 7.35-7.45 H PCO2 ARTERIAL (BEAKER) (test code = 384) 35 mmHg 35-45 PO2 ARTERIAL (BEAKER) (test code = 385) 80 mmHg 80-90 O2 SATURATION ARTERIAL (BEAKER) (test code = 386) 96.7 % 96.0 -97.0 HCO3 ARTERIAL (BEAKER) (test code = 388) 26 mmol/L 21-29 BASE EXCESS ARTERIAL (BEAKER) (test code = 387) 2.8 mmol/L -2.0-3 .0 PATIENT TEMPERATURE (BEAKER) (test code = 1818) 36.7 C FIO2 (BEAKER) (test code = 1819) 40.0 % GLUCOSE-STAT [id number] 15:19:00* Test Item Value Reference Range Interpretation Comments GLUCOSE RANDOM (BEAKER) (test code = 652) 127 mg/dL 70-110 H HGB/HCT (H&H) - STAT [id number] 15:19:00* Test Item Value Reference Range Interpretation Comments HEMOGLOBIN (BEAKER) (test code = 410) 11.2 g/dL 13.0-16.8 L HEMATOCRIT (BEAKER) (test code = 411) 33.0 % 40.0-50.0 L CALCIUM, [id number] 15:19:00* Test Item Value Reference Range Interpretation Comments CALCIUM IONIZED (BEAKER) (test code = 698) 1.17 mmol/L 1.12-1.27 PH, BLOOD (BEAKER) (test code = 1810) 7.49 RAD, CHEST, 1 VIEW, NON [id number] 12:11:00Reason for exam:->RL Atelectasis s/p toilet bronchoscopyShould this be performed at the bedside?->YesFINAL REPORT AP view of the chest dated 04/01/2018 COMPARISON: Same day CLINICAL INFORMATION: RL Atelectasis s/p toilet bronchoscopy Comment: Since prior examination, there is interval resolution of the right lower lobe atelectasis. Heart is normal in size. Interstitial pulmonary disease is seen bilaterally suggestive of subcutaneous congestion. Endotracheal tube, feeding tu be, Bessemer-Gentry catheter, right subclavian central venous catheter and PICC line r emain in place. No pneumothorax is seen. IMPRESSION: Interval resolution previou sly noted right lower lobe atelectasis. Signed: Cheyenne Mederos MDReport Verified Da te/Time: 04/01/2018 12:11:04 Reading Location: [facility] C013X Ortho Consult Readi Room D GAS, [id number] 12:10:00* Test Item Value Reference Range Interpretation Comments PH ARTERIAL (BEAKER) (test code = 383) 7.47 7.35-7.45 H PCO2 ARTERIAL (BEAKER) (test code = 384) 35 mmHg 35-45 PO2 ARTERIAL (BEAKER) (test code = 385) 164 mmHg 80-90 H O2 SATURATION ARTERIAL (BEAKER) (test code = 386) 99.2 % 96.0 -97.0 H HCO3 ARTERIAL (BEAKER) (test code = 388) 25 mmol/L 21-29 BASE EXCESS ARTERIAL (BEAKER) (test code = 387) 1.6 mmol/L -2.0-3 .0 PATIENT TEMPERATURE (BEAKER) (test code = 1818) 36.8 C FIO2 (BEAKER) (test code = 1819) 60.0 % GLUCOSE-STAT [id number] 12:10:00* Test Item Value Reference Range Interpretation Comments GLUCOSE RANDOM (BEAKER) (test code = 652) 125 mg/dL 70-110 H CALCIUM, [id number] 12:06:00* Test Item Value Reference Range Interpretation Comments CALCIUM IONIZED (BEAKER) (test code = 698) 1.15 mmol/L 1.12-1.27 PH, BLOOD (BEAKER) (test code = 1810) 7.47 POTASSIUM-STAT [id number] 12:05:00* Test Item Value Reference Range Interpretation Comments POTASSIUM (BEAKER) (test code = 379) 3.8 meq/L 3.6-5.5 RAD, ABDOMEN/KUB, 1 VIEW [id number] 11:37:00Reason for exam:->confirm feeding tube placement Should this be performed at the bedside?->YesFINAL REPORT Abdomen date 04/01/2018 Comment: Frontal view of the abdomen demonstrates a feeding tube present with tip noted in the distal duodenum. Signed: Cheyenne Mederos MDReport Verified Date/Time: 04/01/2018 11:37:26 Reading Location: [facility] C0X Ortho Consult Reading Room OMYCIN LEVEL, [id number] 11:02:00* Test Item Value Reference Range Interpretation Comments VANCOMYCIN TROUGH (BEAKER) (test code = 522) 14.7 ug/mL 10.0-20.0 Please draw before giving vanc on 04/01/18THROMBOELASTOGRAPH (TEG)2018-04-01 10:29:00* Test Item Value Reference Range Interpretation Comments TEG ACTIVATED CLOTTING TIME (BEAKER) (test code = 1407) minutes 4.0-7.0 No clot TEG FIBRINOGEN ACTIVITY (BEAKER) (test code = 1408) degrees 61 .0-73.0 No clot TEG PLT. AGGREGATION (BEAKER) (test code = 1409) MM 55.0- 65.0 No clot TEG FIBRINOLYSIS (BEAKER) (test code = 1410) % 0.0-5.0 No clot TGH ACTIVATED CLOTTING TIME (BEAKER) (test code = 1411) 8.9 minutes 4.0-7.0 H TGH FIBRINOGEN ACTIVITY (BEAKER) (test code = 1412) 61.2 degrees 61 .0-73.0 TGH PLT. AGGREGATION (BEAKER) (test code = 1413) 38.9 MM 55.0- 65.0 L TGH FIBRINOLYSIS (BEAKER) (test code = 1414) 0.0 % 0.0-5.0 BLOOD GAS, [id number] 08:42:00* Test Item Value Reference Range Interpretation Comments PH ARTERIAL (BEAKER) (test code = 383) 7.49 7.35-7.45 H PCO2 ARTERIAL (BEAKER) (test code = 384) 35 mmHg 35-45 PO2 ARTERIAL (BEAKER) (test code = 385) 90 mmHg 80-90 O2 SATURATION ARTERIAL (BEAKER) (test code = 386) 97.5 % 96.0 -97.0 H HCO3 ARTERIAL (BEAKER) (test code = 388) 26 mmol/L 21-29 BASE EXCESS ARTERIAL (BEAKER) (test code = 387) 2.4 mmol/L -2.0-3 .0 PATIENT TEMPERATURE (BEAKER) (test code = 1818) 36.8 C FIO2 (BEAKER) (test code = 1819) 50.0 % POTASSIUM-STAT [id number] 08:42:00* Test Item Value Reference Range Interpretation Comments POTASSIUM (BEAKER) (test code = 379) 3.9 meq/L 3.6-5.5 GLUCOSE-STAT [id number] 08:42:00* Test Item Value Reference Range Interpretation Comments GLUCOSE RANDOM (BEAKER) (test code = 652) 126 mg/dL 70-110 H [id number] 08:42:00* Test Item Value Reference Range Interpretation Comments SODIUM (BEAKER) (test code = 381) 133 meq/L 135-148 L [id number] 08:40:00* Test Item Value Reference Range Interpretation Comments PARTIAL THROMBOPLASTIN TIME (BEAKER) (test code = 760) 72.9 seconds 22.5-36.0 H CALCIUM, [id number] 08:39:00* Test Item Value Reference Range Interpretation Comments CALCIUM IONIZED (BEAKER) (test code = 698) 1.19 mmol/L 1.12-1.27 PH, BLOOD (BEAKER) (test code = 1810) 7.49 POTASSIUM-STAT [id number] 08:39:00* Test Item Value Reference Range Interpretation Comments POTASSIUM (BEAKER) (test code = 379) 3.9 meq/L 3.6-5.5 THROMBOELASTOGRAPH (TEG)2018-04-01 07:16:00* Test Item Value Reference Range Interpretation Comments TEG ACTIVATED CLOTTING TIME (BEAKER) (test code = 1407) minutes 4.0-7.0 No clot TGH ACTIVATED CLOTTING TIME (BEAKER) (test code = 1411) 10.5 minute s 4.0-7.0 H TGH FIBRINOGEN ACTIVITY (BEAKER) (test code = 1412) 51.6 degrees 61 .0-73.0 L TGH PLT. AGGREGATION (BEAKER) (test code = 1413) 43.8 MM 55.0- 65.0 L TGH FIBRINOLYSIS (BEAKER) (test code = 1414) 0.0 % 0.0-5.0 COMPREHENSIVE METABOLIC [id number] 05:21:00* Test Item Value Reference Range Interpretation Comments TOTAL PROTEIN (BEAKER) (test code = 770) 7.0 gm/dL 6.0-8.3 ALBUMIN (BEAKER) (test code = 1145) 3.3 g/dL 3.5-5.0 L ALKALINE PHOSPHATASE (BEAKER) (test code = 346) 89 U/L 40-150 BILIRUBIN TOTAL (BEAKER) (test code = 377) 9.1 mg/dL 0.2-1.2 H SODIUM (BEAKER) (test code = 381) 136 meq/L 136-145 POTASSIUM (BEAKER) (test code = 379) 4.1 meq/L 3.5-5.1 CHLORIDE (BEAKER) (test code = 382) 104 meq/L 98-107 CO2 (BEAKER) (test code = 355) 21 meq/L 22-29 L BLOOD UREA NITROGEN (BEAKER) (test code = 354) 40 mg/dL 7-21 H CREATININE (BEAKER) (test code = 358) 2.74 mg/dL 0.57-1.25 H GLUCOSE RANDOM (BEAKER) (test code = 652) 113 mg/dL 70-105 H CALCIUM (BEAKER) (test code = 697) 10.2 mg/dL 8.4-10.2 AST (SGOT) (BEAKER) (test code = 353) 2981 U/L 5-34 H ALT (SGPT) (BEAKER) (test code = 347) 1454 U/L 6-55 H EGFR (BEAKER) (test code = 1092) mL/min/1.73 sq m INSUFFICIENT CLINICAL DATA TO CALCULATE ESTIMATED GFR. Specimen moderately ictericLACTATE DEHYDROGENASE (LDH)2018-04-01 05:18:00* Test Item Value Reference Range Interpretation Comments LACTATE DEHYDROGENASE (BEAKER) (test code = 635) 6510 U/L 125-2 20 H [id number] 05:07:00* Test Item Value Reference Range Interpretation Comments PHOSPHORUS (BEAKER) (test code = 604) 2.6 mg/dL 2.3-4.7 [id number] 05:07:00* Test Item Value Reference Range Interpretation Comments MAGNESIUM (BEAKER) (test code = 627) 2.3 mg/dL 1.6-2.6 BLOOD GAS, [id number] 04:42:00* Test Item Value Reference Range Interpretation Comments PH ARTERIAL (BEAKER) (test code = 383) 7.54 7.35-7.45 H PCO2 ARTERIAL (BEAKER) (test code = 384) 29 mmHg 35-45 L PO2 ARTERIAL (BEAKER) (test code = 385) 87 mmHg 80-90 O2 SATURATION ARTERIAL (BEAKER) (test code = 386) 97.7 % 96.0 -97.0 H HCO3 ARTERIAL (BEAKER) (test code = 388) 25 mmol/L 21-29 BASE EXCESS ARTERIAL (BEAKER) (test code = 387) 2.8 mmol/L -2.0-3 .0 PATIENT TEMPERATURE (BEAKER) (test code = 1818) 36.8 C FIO2 (BEAKER) (test code = 1819) 50.0 % SODIUM NA-STAT [id number] 04:42:00* Test Item Value Reference Range Interpretation Comments SODIUM (BEAKER) (test code = 381) 131 meq/L 135-148 L GLUCOSE-STAT [id number] 04:42:00* Test Item Value Reference Range Interpretation Comments GLUCOSE RANDOM (BEAKER) (test code = 652) 125 mg/dL 70-110 H HGB/HCT (H&H) - STAT [id number] 04:42:00* Test Item Value Reference Range Interpretation Comments HEMOGLOBIN (BEAKER) (test code = 410) 10.9 g/dL 13.0-16.8 L HEMATOCRIT (BEAKER) (test code = 411) 32.0 % 40.0-50.0 L POTASSIUM-STAT [id number] 04:38:00* Test Item Value Reference Range Interpretation Comments POTASSIUM (BEAKER) (test code = 379) 3.8 meq/L 3.6-5.5 OXYGEN SATURATION, [id number] 04:37:00* Test Item Value Reference Range Interpretation Comments O2 SATURATION (MEASURED) (BEAKER) (test code = 1455) 54.7 % CALCIUM, [id number] 04:36:00* Test Item Value Reference Range Interpretation Comments CALCIUM IONIZED (BEAKER) (test code = 698) 1.22 mmol/L 1.12-1.27 PH, BLOOD (BEAKER) (test code = 1810) 7.53 LACTIC ACID, ARTERIAL, WHOLE [id number] 04:31:00* Test Item Value Reference Range Interpretation Comments LACTATE BLOOD ARTERIAL (2) (BEAKER) (test code = 2874) 1.7 mmol/L 0.5-2.2 Effective 03/03/2016: Units/Reference Range ChangeNew: 0.5-2.2 mmol/L Previous: 5 -20 mg/dLSpecimen moderately ictericPROTHROMBIN [id number] 04:29:00* Test Item Value Reference Range Interpretation Comments PROTIME (BEAKER) (test code = 759) 17.0 seconds 11.7-14.7 H INR (BEAKER) (test code = 370) 1.4 <=5.9 RECOMMENDED COUMADIN/WARFARIN INR THERAPY RANGESSTANDARD DOSE: 2.0 - 3.0 Inclu beata: PROPHYLAXIS for venous thrombosis, systemic embolization; TREATMENT for shaan ous thrombosis and/or pulmonary embolus.HIGH RISK: Target INR is 2.5-3.5 for pat ients with mechanical heart valves.[id number] 04:26:00* Test Item Value Reference Range Interpretation Comments PARTIAL THROMBOPLASTIN TIME (BEAKER) (test code = 760) 81.2 seconds 22.5-36.0 H CBC (HEMOGRAM ONLY)2018-04-01 04:23:00* Test Item Value Reference Range Interpretation Comments WHITE BLOOD CELL COUNT (BEAKER) (test code = 775) 33.7 K/ L 3.5- 10.5 H RED BLOOD CELL COUNT (BEAKER) (test code = 761) 3.64 M/ L 4.63-6 .08 L HEMOGLOBIN (BEAKER) (test code = 410) 10.3 GM/DL 13.7-17.5 L HEMATOCRIT (BEAKER) (test code = 411) 31.0 % 40.1-51.0 L MEAN CORPUSCULAR VOLUME (BEAKER) (test code = 753) 85.2 fL 79. 0-92.2 MEAN CORPUSCULAR HEMOGLOBIN (BEAKER) (test code = 751) 28.3 pg 25.7-32.2 MEAN CORPUSCULAR HEMOGLOBIN CONC (BEAKER) (test code = 752) 33.2 GM/DL 32.3-36.5 RED CELL DISTRIBUTION WIDTH (BEAKER) (test code = 412) 14.0 % 11.6-14.4 PLATELET COUNT (BEAKER) (test code = 756) 65 K/CU MM 150-450 L MEAN PLATELET VOLUME (BEAKER) (test code = 754) 12.5 fL 9.4-12 .4 H NUCLEATED RED BLOOD CELLS (BEAKER) (test code = 413) 11 /100 WBC 0 -0 H RAD, CHEST, 1 VIEW, NON [id number] 04:03:00Reason for exam:->ett placement; impella placementShould this be performed at the bedside?->YesFINAL REPORT Comparison exam: 03/31/2018 Right basilar atelectasis, new when compared to the prior exam. Stable cardiomediastinal contours. Appropriate position of the support hardware. Signed: Steven Weieport Verified Date/Time: 04/01/2018 04:03:33 Reading Location: [address] Reading Room Electronically signed by: STEVEN WEI M.D. on 0 04/01/2018 04:03 AM BLOOD GAS, [id number] 02:51:00* Test Item Value Reference Range Interpretation Comments PH ARTERIAL (BEAKER) (test code = 383) 7.54 7.35-7.45 H PCO2 ARTERIAL (BEAKER) (test code = 384) 29 mmHg 35-45 L PO2 ARTERIAL (BEAKER) (test code = 385) 89 mmHg 80-90 O2 SATURATION ARTERIAL (BEAKER) (test code = 386) 97.8 % 96.0 -97.0 H HCO3 ARTERIAL (BEAKER) (test code = 388) 25 mmol/L 21-29 BASE EXCESS ARTERIAL (BEAKER) (test code = 387) 2.4 mmol/L -2.0-3 .0 PATIENT TEMPERATURE (BEAKER) (test code = 1818) 36.8 C FIO2 (BEAKER) (test code = 1819) 50.0 % SODIUM NA-STAT [id number] 02:51:00* Test Item Value Reference Range Interpretation Comments SODIUM (BEAKER) (test code = 381) 132 meq/L 135-148 L GLUCOSE-STAT [id number] 02:51:00* Test Item Value Reference Range Interpretation Comments GLUCOSE RANDOM (BEAKER) (test code = 652) 124 mg/dL 70-110 H HGB/HCT (H&H) - STAT [id number] 02:51:00* Test Item Value Reference Range Interpretation Comments HEMOGLOBIN (BEAKER) (test code = 410) 10.9 g/dL 13.0-16.8 L HEMATOCRIT (BEAKER) (test code = 411) 32.0 % 40.0-50.0 L POTASSIUM-STAT [id number] 02:50:00* Test Item Value Reference Range Interpretation Comments POTASSIUM (BEAKER) (test code = 379) 3.8 meq/L 3.6-5.5 CALCIUM, [id number] 00:53:00* Test Item Value Reference Range Interpretation Comments CALCIUM IONIZED (BEAKER) (test code = 698) 1.22 mmol/L 1.12-1.27 PH, BLOOD (BEAKER) (test code = 1810) 7.56 BLOOD GAS, [id number] 00:53:00* Test Item Value Reference Range Interpretation Comments PH ARTERIAL (BEAKER) (test code = 383) 7.56 7.35-7.45 H PCO2 ARTERIAL (BEAKER) (test code = 384) 25 mmHg 35-45 L PO2 ARTERIAL (BEAKER) (test code = 385) 167 mmHg 80-90 H O2 SATURATION ARTERIAL (BEAKER) (test code = 386) 99.4 % 96.0 -97.0 H HCO3 ARTERIAL (BEAKER) (test code = 388) 22 mmol/L 21-29 BASE EXCESS ARTERIAL (BEAKER) (test code = 387) 1.1 mmol/L -2.0-3 .0 PATIENT TEMPERATURE (BEAKER) (test code = 1818) 36.7 C FIO2 (BEAKER) (test code = 1819) 70.0 % SODIUM NA-STAT [id number] 00:53:00* Test Item Value Reference Range Interpretation Comments SODIUM (BEAKER) (test code = 381) 132 meq/L 135-148 L GLUCOSE-STAT [id number] 00:53:00* Test Item Value Reference Range Interpretation Comments GLUCOSE RANDOM (BEAKER) (test code = 652) 121 mg/dL 70-110 H HGB/HCT (H&H) - STAT [id number] 00:53:00* Test Item Value Reference Range Interpretation Comments HEMOGLOBIN (BEAKER) (test code = 410) 10.9 g/dL 13.0-16.8 L HEMATOCRIT (BEAKER) (test code = 411) 32.0 % 40.0-50.0 L POTASSIUM-STAT [id number] 00:52:00* Test Item Value Reference Range Interpretation Comments POTASSIUM (BEAKER) (test code = 379) 4.1 meq/L 3.6-5.5 THROMBOELASTOGRAPH (TEG)2018-04-01 00:09:00* Test Item Value Reference Range Interpretation Comments TEG ACTIVATED CLOTTING TIME (BEAKER) (test code = 1407) minutes 4.0-7.0 No clot >57 minutes. TGH ACTIVATED CLOTTING TIME (BEAKER) (test code = 1411) 8.5 minutes 4.0-7.0 H TGH FIBRINOGEN ACTIVITY (BEAKER) (test code = 1412) 56.1 degrees 61 .0-73.0 L TGH PLT. AGGREGATION (BEAKER) (test code = 1413) 54.4 MM 55.0- 65.0 L TGH FIBRINOLYSIS (BEAKER) (test code = 1414) 0.0 % 0.0-5.0 CBC W/PLT COUNT & AUTO [id number] 23:13:00* Test Item Value Reference Range Interpretation Comments WHITE BLOOD CELL COUNT (BEAKER) (test code = 775) 32.1 K/ L 3.5- 10.5 H RED BLOOD CELL COUNT (BEAKER) (test code = 761) 3.92 M/ L 4.63-6 .08 L HEMOGLOBIN (BEAKER) (test code = 410) 11.3 GM/DL 13.7-17.5 L HEMATOCRIT (BEAKER) (test code = 411) 34.6 % 40.1-51.0 L MEAN CORPUSCULAR VOLUME (BEAKER) (test code = 753) 88.3 fL 79. 0-92.2 MEAN CORPUSCULAR HEMOGLOBIN (BEAKER) (test code = 751) 28.8 pg 25.7-32.2 MEAN CORPUSCULAR HEMOGLOBIN CONC (BEAKER) (test code = 752) 32.7 GM/DL 32.3-36.5 RED CELL DISTRIBUTION WIDTH (BEAKER) (test code = 412) 14.1 % 11.6-14.4 PLATELET COUNT (BEAKER) (test code = 756) 81 K/CU MM 150-450 L MEAN PLATELET VOLUME (BEAKER) (test code = 754) 12.2 fL 9.4-12 .4 NUCLEATED RED BLOOD CELLS (BEAKER) (test code = 413) 14 /100 WBC 0 -0 H COMPREHENSIVE METABOLIC [id number] 23:09:00* Test Item Value Reference Range Interpretation Comments TOTAL PROTEIN (BEAKER) (test code = 770) 7.6 gm/dL 6.0-8.3 Specimen slightly hemolyzed ALBUMIN (BEAKER) (test code = 1145) 3.6 g/dL 3.5-5.0 Specimen slightly hemolyzed ALKALINE PHOSPHATASE (BEAKER) (test code = 346) 102 U/L 40-150 BILIRUBIN TOTAL (BEAKER) (test code = 377) 8.4 mg/dL 0.2-1.2 H Specimen slightly hemolyzed SODIUM (BEAKER) (test code = 381) 134 meq/L 136-145 L POTASSIUM (BEAKER) (test code = 379) 5.5 meq/L 3.5-5.1 H Specimen slightly hemolyzed CHLORIDE (BEAKER) (test code = 382) 105 meq/L 98-107 CO2 (BEAKER) (test code = 355) 18 meq/L 22-29 L BLOOD UREA NITROGEN (BEAKER) (test code = 354) 45 mg/dL 7-21 H CREATININE (BEAKER) (test code = 358) 3.65 mg/dL 0.57-1.25 H Specimen slightly hemolyzed GLUCOSE RANDOM (BEAKER) (test code = 652) 102 mg/dL 70-105 CALCIUM (BEAKER) (test code = 697) 11.6 mg/dL 8.4-10.2 H AST (SGOT) (BEAKER) (test code = 353) 3771 U/L 5-34 H Specimen slightly hemolyzed ALT (SGPT) (BEAKER) (test code = 347) 1700 U/L 6-55 H Specimen slightly hemolyzed EGFR (BEAKER) (test code = 1092) mL/min/1.73 sq m INSUFFICIENT CLINICAL DATA TO CALCULATE ESTIMATED GFR. Specimen slightly lipemicSpecimen slightly [id number] 23:06:00* Test Item Value Reference Range Interpretation Comments MAGNESIUM (BEAKER) (test code = 627) 2.9 mg/dL 1.6-2.6 H Specimen slightly hemolyzed [id number] 23:06:00* Test Item Value Reference Range Interpretation Comments PHOSPHORUS (BEAKER) (test code = 604) 5.3 mg/dL 2.3-4.7 H Specimen slightly hemolyzed LACTIC ACID, ARTERIAL, WHOLE [id number] 23:02:00* Test Item Value Reference Range Interpretation Comments LACTATE BLOOD ARTERIAL (2) (BEAKER) (test code = 2874) 2.0 mmol/L 0.5-2.2 Specimen slightly hemolyzed Effective 03/03/2016: Units/Reference Range ChangeNew: 0.5-2.2 mmol/L Previous: 5 -20 mg/dLSpecimen moderately [id number] 22:59:00* Test Item Value Reference Range Interpretation Comments PARTIAL THROMBOPLASTIN TIME (BEAKER) (test code = 760) 61.9 seconds 22.5-36.0 H OXYGEN SATURATION, [id number] 22:45:00* Test Item Value Reference Range Interpretation Comments O2 SATURATION (MEASURED) (BEAKER) (test code = 1455) 50.4 % BLOOD GAS, [id number] 22:45:00* Test Item Value Reference Range Interpretation Comments PH ARTERIAL (BEAKER) (test code = 383) 7.44 7.35-7.45 PCO2 ARTERIAL (BEAKER) (test code = 384) 34 mmHg 35-45 L PO2 ARTERIAL (BEAKER) (test code = 385) 98 mmHg 80-90 H O2 SATURATION ARTERIAL (BEAKER) (test code = 386) 97.8 % 96.0 -97.0 H HCO3 ARTERIAL (BEAKER) (test code = 388) 23 mmol/L 21-29 BASE EXCESS ARTERIAL (BEAKER) (test code = 387) -0.8 mmol/L -2.0-3 .0 PATIENT TEMPERATURE (BEAKER) (test code = 1818) 36.8 C FIO2 (BEAKER) (test code = 1819) 75.0 % GLUCOSE-STAT [id number] 22:45:00* Test Item Value Reference Range Interpretation Comments GLUCOSE RANDOM (BEAKER) (test code = 652) 121 mg/dL 70-110 H HGB/HCT (H&H) - STAT [id number] 22:45:00* Test Item Value Reference Range Interpretation Comments HEMOGLOBIN (BEAKER) (test code = 410) 11.2 g/dL 13.0-16.8 L HEMATOCRIT (BEAKER) (test code = 411) 33.0 % 40.0-50.0 L SODIUM NA-STAT [id number] 22:45:00* Test Item Value Reference Range Interpretation Comments SODIUM (BEAKER) (test code = 381) 132 meq/L 135-148 L POTASSIUM-STAT [id number] 22:44:00* Test Item Value Reference Range Interpretation Comments POTASSIUM (BEAKER) (test code = 379) 4.7 meq/L 3.6-5.5 RAD, CHEST, 1 VIEW, NON [id number] 21:28:00Reason for exam:->ettShould this be performed at the bedside?->YesFINAL REPORT Chest, 1 view. History: Endotracheal tube placement. Comparison: 03/31/2018 at 1753. Discussion: Endotracheal tube tip now terminates approximately 3.0 cm above the [place]. Remaining lines and Impella device are stable in position. Stable mild left lower lung zone opacities again noted. There is no evidence for a large focal consolidation, pneumothorax, or significant pleural effusion. The cardiomediastinal silhouette is stable in appearance. No acute osseous abnormalities identified. Signed: Joseph Bansal Verified Date/Time: 03/31/2018 21:28:23 Reading Location: [address] Consult Reading Room D GAS, [id number] 21:10:00* Test Item Value Reference Range Interpretation Comments PH ARTERIAL (BEAKER) (test code = 383) 7.41 7.35-7.45 PCO2 ARTERIAL (BEAKER) (test code = 384) 32 mmHg 35-45 L PO2 ARTERIAL (BEAKER) (test code = 385) 126 mmHg 80-90 H O2 SATURATION ARTERIAL (BEAKER) (test code = 386) 98.6 % 96.0 -97.0 H HCO3 ARTERIAL (BEAKER) (test code = 388) 20 mmol/L 21-29 L BASE EXCESS ARTERIAL (BEAKER) (test code = 387) -4.4 mmol/L -2.0-3 .0 L PATIENT TEMPERATURE (BEAKER) (test code = 1818) 36.8 C FIO2 (BEAKER) (test code = 1819) 90.0 % POTASSIUM-STAT [id number] 20:12:00* Test Item Value Reference Range Interpretation Comments POTASSIUM (BEAKER) (test code = 379) 6.2 meq/L 3.6-5.5 HH Icteric specimenSODIUM NA-STAT [id number] 20:09:00* Test Item Value Reference Range Interpretation Comments SODIUM (BEAKER) (test code = 381) 133 meq/L 135-148 L BLOOD GAS, [id number] 20:08:00* Test Item Value Reference Range Interpretation Comments PH ARTERIAL (BEAKER) (test code = 383) 7.23 7.35-7.45 L PCO2 ARTERIAL (BEAKER) (test code = 384) 53 mmHg 35-45 H PO2 ARTERIAL (BEAKER) (test code = 385) 95 mmHg 80-90 H O2 SATURATION ARTERIAL (BEAKER) (test code = 386) 95.4 % 96.0 -97.0 L HCO3 ARTERIAL (BEAKER) (test code = 388) 22 mmol/L 21-29 BASE EXCESS ARTERIAL (BEAKER) (test code = 387) -6.2 mmol/L -2.0-3 .0 L PATIENT TEMPERATURE (BEAKER) (test code = 1818) 37.7 C FIO2 (BEAKER) (test code = 1819) 90.0 % GLUCOSE-STAT [id number] 20:08:00* Test Item Value Reference Range Interpretation Comments GLUCOSE RANDOM (BEAKER) (test code = 652) 136 mg/dL 70-110 H HGB/HCT (H&H) - STAT [id number] 20:08:00* Test Item Value Reference Range Interpretation Comments HEMOGLOBIN (BEAKER) (test code = 410) 12.4 g/dL 13.0-16.8 L HEMATOCRIT (BEAKER) (test code = 411) 36.0 % 40.0-50.0 L BLOOD GAS, [id number] 19:39:00* Test Item Value Reference Range Interpretation Comments PH ARTERIAL (BEAKER) (test code = 383) 6.95 7.35-7.45 LL PCO2 ARTERIAL (BEAKER) (test code = 384) 123 mmHg 35-45 HH PO2 ARTERIAL (BEAKER) (test code = 385) 110 mmHg 80-90 H O2 SATURATION ARTERIAL (BEAKER) (test code = 386) 93.3 % 96.0 -97.0 L HCO3 ARTERIAL (BEAKER) (test code = 388) 26 mmol/L 21-29 BASE EXCESS ARTERIAL (BEAKER) (test code = 387) -8.6 mmol/L -2.0-3 .0 L PATIENT TEMPERATURE (BEAKER) (test code = 1818) 37.6 C FIO2 (BEAKER) (test code = 1819) 90.0 % POTASSIUM-STAT [id number] 19:39:00* Test Item Value Reference Range Interpretation Comments POTASSIUM (BEAKER) (test code = 379) 6.3 meq/L 3.6-5.5 HH Specimen has brown plasma.CALCIUM, [id number] 19:37:00* Test Item Value Reference Range Interpretation Comments CALCIUM IONIZED (BEAKER) (test code = 698) 1.36 mmol/L 1.12-1.27 H PH, BLOOD (BEAKER) (test code = 1810) 6.95 GLUCOSE-STAT [id number] 19:37:00* Test Item Value Reference Range Interpretation Comments GLUCOSE RANDOM (BEAKER) (test code = 652) 136 mg/dL 70-110 H HGB/HCT (H&H) - STAT [id number] 19:37:00* Test Item Value Reference Range Interpretation Comments HEMOGLOBIN (BEAKER) (test code = 410) 12.8 g/dL 13.0-16.8 L HEMATOCRIT (BEAKER) (test code = 411) 38.0 % 40.0-50.0 L THROMBOELASTOGRAPH (TEG)2018-03-31 19:29:00* Test Item Value Reference Range Interpretation Comments TEG ACTIVATED CLOTTING TIME (BEAKER) (test code = 1407) 17.1 minute s 4.0-7.0 H TEG FIBRINOGEN ACTIVITY (BEAKER) (test code = 1408) 30.8 degrees 61 .0-73.0 L TEG PLT. AGGREGATION (BEAKER) (test code = 1409) 45.2 MM 55.0- 65.0 L TEG FIBRINOLYSIS (BEAKER) (test code = 1410) 1.0 % 0.0-5.0 TGH ACTIVATED CLOTTING TIME (BEAKER) (test code = 1411) 6.2 minutes 4.0-7.0 TGH FIBRINOGEN ACTIVITY (BEAKER) (test code = 1412) 61.1 degrees 61 .0-73.0 TGH PLT. AGGREGATION (BEAKER) (test code = 1413) 48.3 MM 55.0- 65.0 L TGH FIBRINOLYSIS (BEAKER) (test code = 1414) 0.0 % 0.0-5.0 RAD, CHEST, 1 VIEW, NON [id number] 19:03:00Reason for exam:->s/p impella exchangeShould this be performed at the bedside?->YesFINAL REPORT Chest, 1 view. History: Interval exchange. Comparison: 03/31/2018 at 0324. Impression: There has been interval exchange/repositioning of the Impella device which now enters from a right axillary course and is appropriately directed toward the cardiac apex. Surgical clips noted in the right axilla. Endotracheal tube tip terminates approximately 6 cm above the car [place]. Right sided PICC line, right IJ nontunneled dialysis catheter and left pulm onary arterial catheters in stable position. Grossly stable appearing retrocardi ac and left basilar opacities again noted. There is no evidence of new large foc al consolidation, pneumothorax, or significant pleural effusion. The cardiomedia stinal silhouette is stable in appearance. No acute osseous abnormalities identi fied. Signed: Joseph Bansal MDReport Verified Date/Time: 03/31/2018 19:03:00 Re ading Location: [facility] [id number] Consult Reading Room C METABOLIC [id number] 18:16:00* Test Item Value Reference Range Interpretation Comments SODIUM (BEAKER) (test code = 381) 135 meq/L 136-145 L POTASSIUM (BEAKER) (test code = 379) 5.5 meq/L 3.5-5.1 H CHLORIDE (BEAKER) (test code = 382) 105 meq/L 98-107 CO2 (BEAKER) (test code = 355) 20 meq/L 22-29 L BLOOD UREA NITROGEN (BEAKER) (test code = 354) 49 mg/dL 7-21 H CREATININE (BEAKER) (test code = 358) 3.99 mg/dL 0.57-1.25 H GLUCOSE RANDOM (BEAKER) (test code = 652) 120 mg/dL 70-105 H CALCIUM (BEAKER) (test code = 697) 11.4 mg/dL 8.4-10.2 H EGFR (BEAKER) (test code = 1092) mL/min/1.73 sq m INSUFFICIENT CLINICAL DATA TO CALCULATE ESTIMATED GFR. Specimen slightly [id number] 18:14:00* Test Item Value Reference Range Interpretation Comments PHOSPHORUS (BEAKER) (test code = 604) 7.0 mg/dL 2.3-4.7 H [id number] 18:14:00* Test Item Value Reference Range Interpretation Comments MAGNESIUM (BEAKER) (test code = 627) 3.2 mg/dL 1.6-2.6 H LACTIC ACID, ARTERIAL, WHOLE [id number] 18:10:00* Test Item Value Reference Range Interpretation Comments LACTATE BLOOD ARTERIAL (2) (BEAKER) (test code = 2874) 1.5 mmol/L 0.5-2.2 Specimen slightly hemolyzed Effective 03/03/2016: Units/Reference Range ChangeNew: 0.5-2.2 mmol/L Previous: 5 -20 mg/dLSpecimen slightly ictericSpecimen slightly [id number] 18:02:00* Test Item Value Reference Range Interpretation Comments PARTIAL THROMBOPLASTIN TIME (BEAKER) (test code = 760) 46.6 seconds 22.5-36.0 H CBC (HEMOGRAM ONLY)2018-03-31 17:59:00* Test Item Value Reference Range Interpretation Comments WHITE BLOOD CELL COUNT (BEAKER) (test code = 775) 36.1 K/ L 3.5- 10.5 H RED BLOOD CELL COUNT (BEAKER) (test code = 761) 4.36 M/ L 4.63-6 .08 L HEMOGLOBIN (BEAKER) (test code = 410) 12.4 GM/DL 13.7-17.5 L HEMATOCRIT (BEAKER) (test code = 411) 38.9 % 40.1-51.0 L MEAN CORPUSCULAR VOLUME (BEAKER) (test code = 753) 89.2 fL 79. 0-92.2 MEAN CORPUSCULAR HEMOGLOBIN (BEAKER) (test code = 751) 28.4 pg 25.7-32.2 MEAN CORPUSCULAR HEMOGLOBIN CONC (BEAKER) (test code = 752) 31.9 GM/DL 32.3-36.5 L RED CELL DISTRIBUTION WIDTH (BEAKER) (test code = 412) 14.1 % 11.6-14.4 PLATELET COUNT (BEAKER) (test code = 756) 84 K/CU MM 150-450 L MEAN PLATELET VOLUME (BEAKER) (test code = 754) 12.1 fL 9.4-12 .4 NUCLEATED RED BLOOD CELLS (BEAKER) (test code = 413) 10 /100 WBC 0 -0 H POTASSIUM-STAT [id number] 17:54:00* Test Item Value Reference Range Interpretation Comments POTASSIUM (BEAKER) (test code = 379) 5.4 meq/L 3.6-5.5 No hemolysis.OXYGEN SATURATION, [id number] 17:51:00* Test Item Value Reference Range Interpretation Comments O2 SATURATION (MEASURED) (BEAKER) (test code = 1455) 67.4 % BLOOD GAS, [id number] 17:51:00* Test Item Value Reference Range Interpretation Comments PH ARTERIAL (BEAKER) (test code = 383) 7.24 7.35-7.45 L PCO2 ARTERIAL (BEAKER) (test code = 384) 55 mmHg 35-45 H PO2 ARTERIAL (BEAKER) (test code = 385) 114 mmHg 80-90 H O2 SATURATION ARTERIAL (BEAKER) (test code = 386) 97.4 % 96.0 -97.0 H HCO3 ARTERIAL (BEAKER) (test code = 388) 23 mmol/L 21-29 BASE EXCESS ARTERIAL (BEAKER) (test code = 387) -5.0 mmol/L -2.0-3 .0 L PATIENT TEMPERATURE (BEAKER) (test code = 1818) 36.8 C FIO2 (BEAKER) (test code = 1819) 60.0 % GLUCOSE-STAT [id number] 17:51:00* Test Item Value Reference Range Interpretation Comments GLUCOSE RANDOM (BEAKER) (test code = 652) 130 mg/dL 70-110 H HGB/HCT (H&H) - STAT [id number] 17:51:00* Test Item Value Reference Range Interpretation Comments HEMOGLOBIN (BEAKER) (test code = 410) 12.9 g/dL 13.0-16.8 L HEMATOCRIT (BEAKER) (test code = 411) 38.0 % 40.0-50.0 L SODIUM NA-STAT [id number] 17:51:00* Test Item Value Reference Range Interpretation Comments SODIUM (BEAKER) (test code = 381) 133 meq/L 135-148 L POTASSIUM-STAT [id number] 17:50:00* Test Item Value Reference Range Interpretation Comments POTASSIUM (BEAKER) (test code = 379) 5.4 meq/L 3.6-5.5 CALCIUM, [id number] 15:33:00* Test Item Value Reference Range Interpretation Comments CALCIUM IONIZED (BEAKER) (test code = 698) 1.29 mmol/L 1.12-1.27 H PH, BLOOD (BEAKER) (test code = 1810) 7.34 POTASSIUM-STAT [id number] 15:32:00* Test Item Value Reference Range Interpretation Comments POTASSIUM (BEAKER) (test code = 379) 4.2 meq/L 3.6-5.5 BLOOD GAS, [id number] 15:32:00* Test Item Value Reference Range Interpretation Comments PH ARTERIAL (BEAKER) (test code = 383) 7.34 7.35-7.45 L PCO2 ARTERIAL (BEAKER) (test code = 384) 45 mmHg 35-45 PO2 ARTERIAL (BEAKER) (test code = 385) 223 mmHg 80-90 H O2 SATURATION ARTERIAL (BEAKER) (test code = 386) 99.4 % 96.0 -97.0 H HCO3 ARTERIAL (BEAKER) (test code = 388) 24 mmol/L 21-29 BASE EXCESS ARTERIAL (BEAKER) (test code = 387) -2.4 mmol/L -2.0-3 .0 L PATIENT TEMPERATURE (BEAKER) (test code = 1818) 35.5 C FIO2 (BEAKER) (test code = 1819) 100.0 % GLUCOSE-STAT [id number] 15:32:00* Test Item Value Reference Range Interpretation Comments GLUCOSE RANDOM (BEAKER) (test code = 652) 134 mg/dL 70-110 H HGB/HCT (H&H) - STAT [id number] 15:32:00* Test Item Value Reference Range Interpretation Comments HEMOGLOBIN (BEAKER) (test code = 410) 12.8 g/dL 13.0-16.8 L HEMATOCRIT (BEAKER) (test code = 411) 38.0 % 40.0-50.0 L SODIUM NA-STAT [id number] 15:32:00* Test Item Value Reference Range Interpretation Comments SODIUM (BEAKER) (test code = 381) 134 meq/L 135-148 L CALCIUM, [id number] 14:51:00* Test Item Value Reference Range Interpretation Comments CALCIUM IONIZED (BEAKER) (test code = 698) 1.07 mmol/L 1.12-1.27 L PH, BLOOD (BEAKER) (test code = 1810) 7.34 GLUCOSE-STAT [id number] 14:51:00* Test Item Value Reference Range Interpretation Comments GLUCOSE RANDOM (BEAKER) (test code = 652) 131 mg/dL 70-110 H HGB/HCT (H&H) - STAT [id number] 14:51:00* Test Item Value Reference Range Interpretation Comments HEMOGLOBIN (BEAKER) (test code = 410) 12.5 g/dL 13.0-16.8 L HEMATOCRIT (BEAKER) (test code = 411) 37.0 % 40.0-50.0 L SODIUM NA-STAT [id number] 14:50:00* Test Item Value Reference Range Interpretation Comments SODIUM (BEAKER) (test code = 381) 135 meq/L 135-148 POTASSIUM-STAT [id number] 14:50:00* Test Item Value Reference Range Interpretation Comments POTASSIUM (BEAKER) (test code = 379) 4.6 meq/L 3.6-5.5 BLOOD GAS, [id number] 14:50:00* Test Item Value Reference Range Interpretation Comments PH ARTERIAL (BEAKER) (test code = 383) 7.34 7.35-7.45 L PCO2 ARTERIAL (BEAKER) (test code = 384) 45 mmHg 35-45 PO2 ARTERIAL (BEAKER) (test code = 385) 209 mmHg 80-90 H O2 SATURATION ARTERIAL (BEAKER) (test code = 386) 99.4 % 96.0 -97.0 H HCO3 ARTERIAL (BEAKER) (test code = 388) 24 mmol/L 21-29 BASE EXCESS ARTERIAL (BEAKER) (test code = 387) -1.8 mmol/L -2.0-3 .0 PATIENT TEMPERATURE (BEAKER) (test code = 1818) 37.0 C FIO2 (BEAKER) (test code = 1819) 100.0 % VANCOMYCIN LEVEL, [id number] 10:52:00* Test Item Value Reference Range Interpretation Comments VANCOMYCIN TROUGH (BEAKER) (test code = 522) 13.9 ug/mL 10.0-20.0 THROMBOELASTOGRAPH (TEG)[id number] 10:35:00* Test Item Value Reference Range Interpretation Comments TEG ACTIVATED CLOTTING TIME (BEAKER) (test code = 1407) 35.8 minute s 4.0-7.0 H TEG FIBRINOGEN ACTIVITY (BEAKER) (test code = 1408) 9.9 degrees 61 .0-73.0 L TEG PLT. AGGREGATION (BEAKER) (test code = 1409) 41.3 MM 55.0- 65.0 L TEG FIBRINOLYSIS (BEAKER) (test code = 1410) 0.0 % 0.0-5.0 TGH ACTIVATED CLOTTING TIME (BEAKER) (test code = 1411) 7.5 minutes 4.0-7.0 H TGH FIBRINOGEN ACTIVITY (BEAKER) (test code = 1412) 60.0 degrees 61 .0-73.0 L TGH PLT. AGGREGATION (BEAKER) (test code = 1413) 52.9 MM 55.0- 65.0 L TGH FIBRINOLYSIS (BEAKER) (test code = 1414) 0.0 % 0.0-5.0 URINE [id number] 08:55:00* Test Item Value Reference Range Interpretation Comments CULTURE (BEAKER) (test code = 1095) No growth GRAM STAIN RESULT (BEAKER) (test code = 1123) No WBCs GRAM STAIN RESULT (BEAKER) (test code = 53050) No organisms seen [id number] 08:21:00* Test Item Value Reference Range Interpretation Comments PARTIAL THROMBOPLASTIN TIME (BEAKER) (test code = 760) 44.4 seconds 22.5-36.0 H GLUCOSE-STAT [id number] 08:14:00* Test Item Value Reference Range Interpretation Comments GLUCOSE RANDOM (BEAKER) (test code = 652) 145 mg/dL 70-110 H CALCIUM, [id number] 08:11:00* Test Item Value Reference Range Interpretation Comments CALCIUM IONIZED (BEAKER) (test code = 698) 1.13 mmol/L 1.12-1.27 PH, BLOOD (BEAKER) (test code = 1810) 7.46 POTASSIUM-STAT [id number] 08:10:00* Test Item Value Reference Range Interpretation Comments POTASSIUM (BEAKER) (test code = 379) 3.9 meq/L 3.6-5.5 SPUTUM CULTURE + GRAM [id number] 08:07:00* Test Item Value Reference Range Interpretation Comments CULTURE (BEAKER) (test code = 1095) <1+ Normal respiratory oneil pr esent GRAM STAIN RESULT (BEAKER) (test code = 1123) 1+ WBCs GRAM STAIN RESULT (BEAKER) (test code = 23358) 0-5 epithelial cells GRAM STAIN RESULT (BEAKER) (test code = 65268) No organisms seen COMPREHENSIVE METABOLIC [id number] 07:32:00* Test Item Value Reference Range Interpretation Comments TOTAL PROTEIN (BEAKER) (test code = 770) 8.4 gm/dL 6.0-8.3 H Specimen moderately hemolyzed ALBUMIN (BEAKER) (test code = 1145) 3.6 g/dL 3.5-5.0 Specimen moderately hemolyzed ALKALINE PHOSPHATASE (BEAKER) (test code = 346) 92 U/L 40-150 BILIRUBIN TOTAL (BEAKER) (test code = 377) 6.3 mg/dL 0.2-1.2 H Specimen moderately hemolyzed SODIUM (BEAKER) (test code = 381) 135 meq/L 136-145 L POTASSIUM (BEAKER) (test code = 379) 4.1 meq/L 3.5-5.1 Specimen moderately hemolyzed CHLORIDE (BEAKER) (test code = 382) 103 meq/L 98-107 CO2 (BEAKER) (test code = 355) 22 meq/L 22-29 BLOOD UREA NITROGEN (BEAKER) (test code = 354) 37 mg/dL 7-21 H CREATININE (BEAKER) (test code = 358) 3.13 mg/dL 0.57-1.25 H Specimen moderately hemolyzed GLUCOSE RANDOM (BEAKER) (test code = 652) 127 mg/dL 70-105 H CALCIUM (BEAKER) (test code = 697) 9.4 mg/dL 8.4-10.2 AST (SGOT) (BEAKER) (test code = 353) > U/L 5-34 H AST= 6341. ALT (SGPT) (BEAKER) (test code = 347) 2662 U/L 6-55 H Specimen moderately hemolyzed EGFR (BEAKER) (test code = 1092) mL/min/1.73 sq m INSUFFICIENT CLINICAL DATA TO CALCULATE ESTIMATED GFR. Specimen slightly lipemicSpecimen slightly ictericLACTATE DEHYDROGENASE (LDH) 2018-03-31 05:14:00* Test Item Value Reference Range Interpretation Comments LACTATE DEHYDROGENASE (BEAKER) (test code = 635) 8926 U/L 125-2 20 H Specimen moderately hemolyzed [id number] 05:10:00* Test Item Value Reference Range Interpretation Comments MAGNESIUM (BEAKER) (test code = 627) 3.0 mg/dL 1.6-2.6 H Specimen moderately hemolyzed [id number] 05:10:00* Test Item Value Reference Range Interpretation Comments PHOSPHORUS (BEAKER) (test code = 604) 3.2 mg/dL 2.3-4.7 Specimen moderately hemolyzed [id number] 05:02:00* Test Item Value Reference Range Interpretation Comments PARTIAL THROMBOPLASTIN TIME (BEAKER) (test code = 760) 46.9 seconds 22.5-36.0 H PROTHROMBIN TIME/[id number] 05:01:00* Test Item Value Reference Range Interpretation Comments PROTIME (BEAKER) (test code = 759) 17.2 seconds 11.7-14.7 H INR (BEAKER) (test code = 370) 1.4 <=5.9 RECOMMENDED COUMADIN/WARFARIN INR THERAPY RANGESSTANDARD DOSE: 2.0 - 3.0 Inclu beata: PROPHYLAXIS for venous thrombosis, systemic embolization; TREATMENT for shaan ous thrombosis and/or pulmonary embolus.HIGH RISK: Target INR is 2.5-3.5 for pat ients with mechanical heart valves.LACTIC ACID, ARTERIAL, WHOLE [id number] 04:58:00* Test Item Value Reference Range Interpretation Comments LACTATE BLOOD ARTERIAL (2) (BEAKER) (test code = 2874) 1.6 mmol/L 0.5-2.2 Specimen moderately hemolyzed Effective 03/03/2016: Units/Reference Range ChangeNew: 0.5-2.2 mmol/L Previous: 5 -20 mg/dLSpecimen slightly ictericSpecimen slightly lipemicCBC (HEMOGRAM ONLY) 2018-03-31 04:52:00* Test Item Value Reference Range Interpretation Comments WHITE BLOOD CELL COUNT (BEAKER) (test code = 775) 21.7 K/ L 3.5- 10.5 H RED BLOOD CELL COUNT (BEAKER) (test code = 761) 4.27 M/ L 4.63-6 .08 L HEMOGLOBIN (BEAKER) (test code = 410) 12.3 GM/DL 13.7-17.5 L HEMATOCRIT (BEAKER) (test code = 411) 36.8 % 40.1-51.0 L MEAN CORPUSCULAR VOLUME (BEAKER) (test code = 753) 86.2 fL 79. 0-92.2 MEAN CORPUSCULAR HEMOGLOBIN (BEAKER) (test code = 751) 28.8 pg 25.7-32.2 MEAN CORPUSCULAR HEMOGLOBIN CONC (BEAKER) (test code = 752) 33.4 GM/DL 32.3-36.5 RED CELL DISTRIBUTION WIDTH (BEAKER) (test code = 412) 13.9 % 11.6-14.4 PLATELET COUNT (BEAKER) (test code = 756) 75 K/CU MM 150-450 L MEAN PLATELET VOLUME (BEAKER) (test code = 754) 11.9 fL 9.4-12 .4 NUCLEATED RED BLOOD CELLS (BEAKER) (test code = 413) 7 /100 WBC 0 -0 H OXYGEN SATURATION, [id number] 04:49:00* Test Item Value Reference Range Interpretation Comments O2 SATURATION (MEASURED) (BEAKER) (test code = 1455) 48.4 % CALCIUM, [id number] 04:31:00* Test Item Value Reference Range Interpretation Comments CALCIUM IONIZED (BEAKER) (test code = 698) 1.14 mmol/L 1.12-1.27 PH, BLOOD (BEAKER) (test code = 1810) 7.44 BLOOD GAS, [id number] 04:30:00* Test Item Value Reference Range Interpretation Comments PH ARTERIAL (BEAKER) (test code = 383) 7.43 7.35-7.45 PCO2 ARTERIAL (BEAKER) (test code = 384) 39 mmHg 35-45 PO2 ARTERIAL (BEAKER) (test code = 385) 96 mmHg 80-90 H O2 SATURATION ARTERIAL (BEAKER) (test code = 386) 97.2 % 96.0 -97.0 H HCO3 ARTERIAL (BEAKER) (test code = 388) 25 mmol/L 21-29 BASE EXCESS ARTERIAL (BEAKER) (test code = 387) 0.6 mmol/L -2.0-3 .0 PATIENT TEMPERATURE (BEAKER) (test code = 1818) 37.9 C FIO2 (BEAKER) (test code = 1819) 40.0 % GLUCOSE-STAT [id number] 04:30:00* Test Item Value Reference Range Interpretation Comments GLUCOSE RANDOM (BEAKER) (test code = 652) 149 mg/dL 70-110 H HGB/HCT (H&H) - STAT [id number] 04:30:00* Test Item Value Reference Range Interpretation Comments HEMOGLOBIN (BEAKER) (test code = 410) 13.5 GM/DL 13.0-16.8 HEMATOCRIT (BEAKER) (test code = 411) 40.0 % 40.0-50.0 SODIUM NA-STAT [id number] 04:30:00* Test Item Value Reference Range Interpretation Comments SODIUM (BEAKER) (test code = 381) 133 meq/L 135-148 L POTASSIUM-STAT [id number] 04:29:00* Test Item Value Reference Range Interpretation Comments POTASSIUM (BEAKER) (test code = 379) 3.9 meq/L 3.6-5.5 RAD, CHEST, 1 VIEW, NON [id number] 04:22:00Reason for exam:->ett placement; impella placementShould this be performed at the bedside?->YesFINAL REPORT Comparison exam: 03/30/2018 Pulmonary venous congestion unchanged. Increasing retrocardiac left lower lobe atelectasis/consolidation. Stable cardiomediastinal contours. Appropriate position of the support hardware. Signed: Steven Weieport Verified Date/Time: 03/31/2018 04:22:32 Reading Location: [address] Reading Room Electro nically signed by: STEVEN WEI M.D. on 03/31/2018 04:22 AM THROMBOELASTOGRAPH (TEG)2018-03-31 04:05:00* Test Item Value Reference Range Interpretation Comments TEG ACTIVATED CLOTTING TIME (BEAKER) (test code = 1407) 23.8 minute s 4.0-7.0 H TEG FIBRINOGEN ACTIVITY (BEAKER) (test code = 1408) 13.2 degrees 61 .0-73.0 L TEG PLT. AGGREGATION (BEAKER) (test code = 1409) 43.1 MM 55.0- 65.0 L TEG FIBRINOLYSIS (BEAKER) (test code = 1410) 0.2 % 0.0-5.0 TGH ACTIVATED CLOTTING TIME (BEAKER) (test code = 1411) 6.8 minutes 4.0-7.0 TGH FIBRINOGEN ACTIVITY (BEAKER) (test code = 1412) 59.4 degrees 61 .0-73.0 L TGH PLT. AGGREGATION (BEAKER) (test code = 1413) 49.4 MM 55.0- 65.0 L TGH FIBRINOLYSIS (BEAKER) (test code = 1414) 0.1 % 0.0-5.0 U/S, ABDOMINAL, [id number] 00:16:00Abdomen limited area? Add comment if clarification is needed.->Gall BladderReason for exam:->acute hepatitisFINAL REPORT U/S, ABDOMINAL, LIMITED INDICATION: "acute h epatitis" COMPARISON: None TECHNIQUE: Real-time transabdominal prieto scale and c olor Doppler ultrasound of the abdominal right upper quadrant. FINDINGS:Visuali zed portion of the pancreas is normal.Diffuse hepatic steatosis.Normal caliber C BD at 5 mm.No cholelithiasis, gallbladder wall thickening, or pericholecystic fl uid.Sonographic Guan's sign is unreliable as the patient is intubated.Visualiz ed portion of the right kidney is unremarkable without obvious hydronephrosis.Vi sualized portions of the IVC are unremarkable. Partially visualized is a line in the aorta from the patient's impella device. IMPRESSION: Diffuse hepatic steato sis. Signed: Iesha Cali MDReport Verified Date/Time: 03/31/2018 00:16:43 R eading Location: [facility] B1 C013Y CT Body Reading Room [id number] 23:58:00* Test Item Value Reference Range Interpretation Comments PARTIAL THROMBOPLASTIN TIME (BEAKER) (test code = 760) 43.1 seconds 22.5-36.0 H [id number] 23:44:00* Test Item Value Reference Range Interpretation Comments SODIUM (BEAKER) (test code = 381) 135 meq/L 136-145 L POTASSIUM-STAT [id number] 23:39:00* Test Item Value Reference Range Interpretation Comments POTASSIUM (BEAKER) (test code = 379) 4.1 meq/L 3.6-5.5 CALCIUM, [id number] 23:39:00* Test Item Value Reference Range Interpretation Comments CALCIUM IONIZED (BEAKER) (test code = 698) 1.16 mmol/L 1.12-1.27 PH, BLOOD (BEAKER) (test code = 1810) 7.44 POCT-GLUCOSE [id number] 23:35:00* Test Item Value Reference Range Interpretation Comments POC-GLUCOSE METER (BEAKER) (test code = 1538) 136 mg/dL 70-[address] [facility] [address] [facility] [address] POCT-GLUCOSE [id number] 19:46:00* Test Item Value Reference Range Interpretation Comments POC-GLUCOSE METER (BEAKER) (test code = 1538) 109 mg/dL 70-[address] [facility] [address] [facility] [address] POCT-GLUCOSE [id number] 19:46:00* Test Item Value Reference Range Interpretation Comments POC-GLUCOSE METER (BEAKER) (test code = 1538) 90 mg/dL 70-[address] [facility] [address] [facility] [address] THROMBOELASTOGRAPH (TEG)2018-03-30 18:09:00* Test Item Value Reference Range Interpretation Comments TEG ACTIVATED CLOTTING TIME (BEAKER) (test code = 1407) 16.2 minute s 4.0-7.0 H TEG FIBRINOGEN ACTIVITY (BEAKER) (test code = 1408) 46.7 degrees 61 .0-73.0 L TEG PLT. AGGREGATION (BEAKER) (test code = 1409) 57.3 MM 55.0- 65.0 TEG FIBRINOLYSIS (BEAKER) (test code = 1410) 0.0 % 0.0-5.0 TGH ACTIVATED CLOTTING TIME (BEAKER) (test code = 1411) 7.0 minutes 4.0-7.0 TGH FIBRINOGEN ACTIVITY (BEAKER) (test code = 1412) 62.3 degrees 61 .0-73.0 TGH PLT. AGGREGATION (BEAKER) (test code = 1413) 56.4 MM 55.0- 65.0 TGH FIBRINOLYSIS (BEAKER) (test code = 1414) 0.0 % 0.0-5.0 [id number] 16:16:00* Test Item Value Reference Range Interpretation Comments MAGNESIUM (BEAKER) (test code = 627) 2.2 mg/dL 1.6-2.6 Specimen slightly hemolyzed [id number] 16:16:00* Test Item Value Reference Range Interpretation Comments PHOSPHORUS (BEAKER) (test code = 604) 2.6 mg/dL 2.3-4.7 Specimen slightly hemolyzed [id number] 16:11:00* Test Item Value Reference Range Interpretation Comments PARTIAL THROMBOPLASTIN TIME (BEAKER) (test code = 760) 38.0 seconds 22.5-36.0 H BLOOD GAS, [id number] 15:45:00* Test Item Value Reference Range Interpretation Comments PH ARTERIAL (BEAKER) (test code = 383) 7.47 7.35-7.45 H PCO2 ARTERIAL (BEAKER) (test code = 384) 36 mmHg 35-45 PO2 ARTERIAL (BEAKER) (test code = 385) 91 mmHg 80-90 H O2 SATURATION ARTERIAL (BEAKER) (test code = 386) 97.4 % 96.0 -97.0 H HCO3 ARTERIAL (BEAKER) (test code = 388) 26 mmol/L 21-29 BASE EXCESS ARTERIAL (BEAKER) (test code = 387) 2.4 mmol/L -2.0-3 .0 PATIENT TEMPERATURE (BEAKER) (test code = 1818) 37.3 C FIO2 (BEAKER) (test code = 1819) 40.0 % GLUCOSE-STAT [id number] 15:45:00* Test Item Value Reference Range Interpretation Comments GLUCOSE RANDOM (BEAKER) (test code = 652) 136 mg/dL 70-110 H POTASSIUM-STAT [id number] 15:44:00* Test Item Value Reference Range Interpretation Comments POTASSIUM (BEAKER) (test code = 379) 4.2 meq/L 3.6-5.5 CALCIUM, [id number] 15:44:00* Test Item Value Reference Range Interpretation Comments CALCIUM IONIZED (BEAKER) (test code = 698) 1.09 mmol/L 1.12-1.27 L PH, BLOOD (BEAKER) (test code = 1810) 7.47 ANTITHROMBIN [id number] 15:20:00* Test Item Value Reference Range Interpretation Comments ANTITHROMBIN III ACTIVITY (BEAKER) (test code = 711) 50.0 % 8 0.0-120.0 L EEG EXTENDED MONITORING > 1 [id number] 12:57:00EEG REPORT: [facility] Date of EEDate of report: Test location: Inpatient - ICUEEG start time: 8:17EEG end time: 10:59EEG #: [id number] No: [id number] ICD Code: #: R41.82 Altered mental status, unspecified (ICD 9: 780.97)CPT Code: #: 32737: 05. EEG extended: > 1hrPROCEDURE: EEG HISTORY: 22 y/o M w/ arrhythmia, s/p multiorgan failure, cardiac arrest, now ECMOMEDICATIONS AFFECTING EEG: Precedex, fentanylTECHNICAL SUMMARY: This is a digital EEG performed using disc electrodes placed according to the International 10-20 system of electrode placement. Scalp to scalp and scalp to ear montages were used. No sedation was given.DESCRIPTION OF RECORD: The EEG record was diffusely slow with a mixed frequency background consisting of delta (2-3 cycles/ sec) and theta (5-6 cycles/ sec) frequency activity. A clearly discernible posterior dominant rhythm was not apparent. The EEG background was not reactive spontaneously and to external stimulation. There was no focal asymmetry in the background. No epileptiform discharges were noted. No clinical or electrographic seizures were noted. SLEEP Sleep stages were not seen.HYPERVENTILATION: Hyperventilation was not performed.PHOTIC STIMULATION: Photic stimulation was not performed.EKG: The heart rate was 90/ min.IMPRESSION: The EEG was abnormal due to moderate to severe diffuse slowing of the background rhythm. No seizures or epileptiform discharges were seen. COMMENT: Diffuse slowing is a nonspecific finding indicative of global cerebral dysfunction of metabolic, toxic, drug-induced or other etiology. Please correlate clinically.Clinical Fellow: Nayely Duncan urophysiologist: Greg Vines OSE-STAT [id number] 12:33:00* Test Item Value Reference Range Interpretation Comments GLUCOSE RANDOM (BEAKER) (test code = 652) 126 mg/dL 70-110 H POTASSIUM-STAT [id number] 12:15:00* Test Item Value Reference Range Interpretation Comments POTASSIUM (BEAKER) (test code = 379) 4.6 meq/L 3.6-5.5 BLOOD GAS, [id number] 12:15:00* Test Item Value Reference Range Interpretation Comments PH ARTERIAL (BEAKER) (test code = 383) 7.47 7.35-7.45 H PCO2 ARTERIAL (BEAKER) (test code = 384) 33 mmHg 35-45 L PO2 ARTERIAL (BEAKER) (test code = 385) 141 mmHg 80-90 H O2 SATURATION ARTERIAL (BEAKER) (test code = 386) 98.9 % 96.0 -97.0 H HCO3 ARTERIAL (BEAKER) (test code = 388) 23 mmol/L 21-29 BASE EXCESS ARTERIAL (BEAKER) (test code = 387) 0.1 mmol/L -2.0-3 .0 PATIENT TEMPERATURE (BEAKER) (test code = 1818) 37.6 C FIO2 (BEAKER) (test code = 1819) 40.0 % THROMBOELASTOGRAPH (TEG)2018-03-30 10:35:00* Test Item Value Reference Range Interpretation Comments TEG ACTIVATED CLOTTING TIME (BEAKER) (test code = 1407) 32.8 minute s 4.0-7.0 H TEG FIBRINOGEN ACTIVITY (BEAKER) (test code = 1408) 14.3 degrees 61 .0-73.0 L TEG PLT. AGGREGATION (BEAKER) (test code = 1409) 44.1 MM 55.0- 65.0 L TEG FIBRINOLYSIS (BEAKER) (test code = 1410) 0.0 % 0.0-5.0 TGH ACTIVATED CLOTTING TIME (BEAKER) (test code = 1411) 6.2 minutes 4.0-7.0 TGH FIBRINOGEN ACTIVITY (BEAKER) (test code = 1412) 59.7 degrees 61 .0-73.0 L TGH PLT. AGGREGATION (BEAKER) (test code = 1413) 51.4 MM 55.0- 65.0 L TGH FIBRINOLYSIS (BEAKER) (test code = 1414) 0.2 % 0.0-5.0 RAD, ABDOMEN/KUB, 1 VIEW [id number] 09:53:00Reason for exam:->corpak placementShould this be performed at the bedside?->YesFINAL REPORT INDICATION:Feeding tube placement. COMPARISON: None. TECHNIQUE: Abdomen radiograph one view. FINDINGS / IMPRESSION:There is a feeding tube that follows the expected course of the stomach with the tip projecting over the distal part of the gastric body. There is also a nasogastric tube with the tip projecting over the mid gastric body. Ventricular assist device and pulmonary artery catheter noted. Bowel gas pattern unremarkable. Signed: Olivia Duran [place] Verified Date/Time: 03/30/2018 09:53:03 Reading Location: [facility] B1 C013X Ortho Consult Reading Room , CHEST, 1 VIEW, NON [id number] 09:43:00 Reason for exam:->ett placement; impella placementShould this be performed at the bedside?->YesFINAL REPORT Chest one view compared to March 29, 2018 Discussion: Tube/line placement and Impella device placement unremarkable. Pulmonary congestion and ill-defined lower lung opacities are similar. No gross effusion or pneumothorax. Signed: Angela Griffin MDReport Verified Date/Time: 03/30/2018 09:43:56 Reading Location: [facility] Radiology Reading Room -NUCLEAR ANTIBODY (TAL)2018-03-30 09:26:00* Test Item Value Reference Range Interpretation Comments ANTI-NUCLEAR ANTIBODY (TAL) (BEAKER) (test code = 418) Negative Negative [id number] 08:43:00* Test Item Value Reference Range Interpretation Comments MAGNESIUM (BEAKER) (test code = 627) 2.3 mg/dL 1.6-2.6 Specimen moderately hemolyzed [id number] 08:43:00* Test Item Value Reference Range Interpretation Comments PHOSPHORUS (BEAKER) (test code = 604) 3.4 mg/dL 2.3-4.7 Specimen moderately hemolyzed [id number] 08:43:00* Test Item Value Reference Range Interpretation Comments POTASSIUM (BEAKER) (test code = 379) 4.5 meq/L 3.5-5.1 Specimen moderately hemolyzed [id number] 08:43:00* Test Item Value Reference Range Interpretation Comments SODIUM (BEAKER) (test code = 381) 135 meq/L 136-145 L [id number] 08:30:00* Test Item Value Reference Range Interpretation Comments PARTIAL THROMBOPLASTIN TIME (BEAKER) (test code = 760) 44.3 seconds 22.5-36.0 H [id number] 08:25:00* Test Item Value Reference Range Interpretation Comments GLUCOSE RANDOM (BEAKER) (test code = 652) 101 mg/dL 70-105 PRN - repeat glucose levels every 1 hour or as specified by insulin titration or ders until glucose level is less than 450 mg/dLCALCIUM, [id number] 08:09:00* Test Item Value Reference Range Interpretation Comments CALCIUM IONIZED (BEAKER) (test code = 698) 1.12 mmol/L 1.12-1.27 PH, BLOOD (BEAKER) (test code = 1810) 7.43 BLOOD GAS, [id number] 08:09:00* Test Item Value Reference Range Interpretation Comments PH ARTERIAL (BEAKER) (test code = 383) 7.43 7.35-7.45 PCO2 ARTERIAL (BEAKER) (test code = 384) 39 mmHg 35-45 PO2 ARTERIAL (BEAKER) (test code = 385) 184 mmHg 80-90 H O2 SATURATION ARTERIAL (BEAKER) (test code = 386) 99.3 % 96.0 -97.0 H HCO3 ARTERIAL (BEAKER) (test code = 388) 25 mmol/L 21-29 BASE EXCESS ARTERIAL (BEAKER) (test code = 387) 0.8 mmol/L -2.0-3 .0 PATIENT TEMPERATURE (BEAKER) (test code = 1818) 37.2 C FIO2 (BEAKER) (test code = 1819) 50.0 % PLASMA FREE [id number] 07:35:00* Test Item Value Reference Range Interpretation Comments HEMOGLOBIN PLASMA (BEAKER) (test code = 1054) 300.0 mg/dl 0.0-30.0 H [id number] 06:43:00* Test Item Value Reference Range Interpretation Comments CALCIUM (BEAKER) (test code = 697) 8.8 mg/dL 8.4-10.2 COMPREHENSIVE METABOLIC [id number] 06:42:00* Test Item Value Reference Range Interpretation Comments TOTAL PROTEIN (BEAKER) (test code = 770) 7.8 gm/dL 6.0-8.3 Specimen moderately hemolyzed ALBUMIN (BEAKER) (test code = 1145) 3.4 g/dL 3.5-5.0 L Specimen moderately hemolyzed ALKALINE PHOSPHATASE (BEAKER) (test code = 346) 71 U/L 40-150 BILIRUBIN TOTAL (BEAKER) (test code = 377) 5.7 mg/dL 0.2-1.2 H Specimen moderately hemolyzed SODIUM (BEAKER) (test code = 381) 134 meq/L 136-145 L POTASSIUM (BEAKER) (test code = 379) 4.5 meq/L 3.5-5.1 Specimen moderately hemolyzed CHLORIDE (BEAKER) (test code = 382) 103 meq/L 98-107 CO2 (BEAKER) (test code = 355) 23 meq/L 22-29 BLOOD UREA NITROGEN (BEAKER) (test code = 354) 30 mg/dL 7-21 H CREATININE (BEAKER) (test code = 358) 3.21 mg/dL 0.57-1.25 H Specimen moderately hemolyzed GLUCOSE RANDOM (BEAKER) (test code = 652) 110 mg/dL 70-105 H CALCIUM (BEAKER) (test code = 697) 8.8 mg/dL 8.4-10.2 AST (SGOT) (BEAKER) (test code = 353) > U/L 5-34 H Specimen moderately hemolyzed ALT (SGPT) (BEAKER) (test code = 347) 3415 U/L 6-55 H Specimen moderately hemolyzed EGFR (BEAKER) (test code = 1092) mL/min/1.73 sq m INSUFFICIENT CLINICAL DATA TO CALCULATE ESTIMATED GFR. Specimen slightly ictericLACTATE DEHYDROGENASE (LDH)2018-03-30 06:42:00* Test Item Value Reference Range Interpretation Comments LACTATE DEHYDROGENASE (BEAKER) (test code = 635) 9596 U/L 125-2 20 H Specimen moderately hemolyzed VANCOMYCIN LEVEL, [id number] 06:38:00* Test Item Value Reference Range Interpretation Comments VANCOMYCIN RANDOM (BEAKER) (test code = 523) 43.8 ug/mL Reference Range: No NormalsCBC (HEMOGRAM ONLY)2018-03-30 06:36:00* Test Item Value Reference Range Interpretation Comments WHITE BLOOD CELL COUNT (BEAKER) (test code = 775) 22.5 K/ L 3.5- 10.5 H RED BLOOD CELL COUNT (BEAKER) (test code = 761) 4.19 M/ L 4.63-6 .08 L HEMOGLOBIN (BEAKER) (test code = 410) 11.9 GM/DL 13.7-17.5 L HEMATOCRIT (BEAKER) (test code = 411) 36.4 % 40.1-51.0 L MEAN CORPUSCULAR VOLUME (BEAKER) (test code = 753) 86.9 fL 79. 0-92.2 MEAN CORPUSCULAR HEMOGLOBIN (BEAKER) (test code = 751) 28.4 pg 25.7-32.2 MEAN CORPUSCULAR HEMOGLOBIN CONC (BEAKER) (test code = 752) 32.7 GM/DL 32.3-36.5 RED CELL DISTRIBUTION WIDTH (BEAKER) (test code = 412) 13.7 % 11.6-14.4 PLATELET COUNT (BEAKER) (test code = 756) 83 K/CU MM 150-450 L MEAN PLATELET VOLUME (BEAKER) (test code = 754) 12.3 fL 9.4-12 .4 NUCLEATED RED BLOOD CELLS (BEAKER) (test code = 413) 4 /100 WBC 0 -0 H LACTIC ACID, ARTERIAL, WHOLE [id number] 06:23:00* Test Item Value Reference Range Interpretation Comments LACTATE BLOOD ARTERIAL (2) (BEAKER) (test code = 2874) 1.4 mmol/L 0.5-2.2 Specimen moderately hemolyzed Effective 03/03/2016: Units/Reference Range ChangeNew: 0.5-2.2 mmol/L Previous: 5 -20 mg/dLSpecimen slightly ictericPOCT-GLUCOSE [id number] 06:08:00* Test Item Value Reference Range Interpretation Comments POC-GLUCOSE METER (BEAKER) (test code = 1538) 102 mg/dL 70-110 TESTED AT [address] [address] PROTHROMBIN [id number] 06:04:00* Test Item Value Reference Range Interpretation Comments PROTIME (BEAKER) (test code = 759) 19.8 seconds 11.7-14.7 H INR (BEAKER) (test code = 370) 1.7 <=5.9 RECOMMENDED COUMADIN/WARFARIN INR THERAPY RANGESSTANDARD DOSE: 2.0 - 3.0 Inclu beata: PROPHYLAXIS for venous thrombosis, systemic embolization; TREATMENT for sahan ous thrombosis and/or pulmonary embolus.HIGH RISK: Target INR is 2.5-3.5 for pat ients with mechanical heart valves.SODIUM NA-STAT [id number] 05:59:00* Test Item Value Reference Range Interpretation Comments SODIUM (BEAKER) (test code = 381) 136 meq/L 135-148 POTASSIUM-STAT [id number] 05:59:00* Test Item Value Reference Range Interpretation Comments POTASSIUM (BEAKER) (test code = 379) 4.3 meq/L 3.6-5.5 GLUCOSE-STAT [id number] 05:59:00* Test Item Value Reference Range Interpretation Comments GLUCOSE RANDOM (BEAKER) (test code = 652) 122 mg/dL 70-110 H HGB/HCT (H&H) - STAT [id number] 05:59:00* Test Item Value Reference Range Interpretation Comments HEMOGLOBIN (BEAKER) (test code = 410) 12.1 g/dL 13.0-16.8 L HEMATOCRIT (BEAKER) (test code = 411) 36.0 % 40.0-50.0 L OXYGEN SATURATION, [id number] 05:52:00* Test Item Value Reference Range Interpretation Comments O2 SATURATION (MEASURED) (BEAKER) (test code = 1455) 67.9 % BLOOD GAS, [id number] 05:51:00* Test Item Value Reference Range Interpretation Comments PH ARTERIAL (BEAKER) (test code = 383) 7.35 7.35-7.45 PCO2 ARTERIAL (BEAKER) (test code = 384) 53 mmHg 35-45 H PO2 ARTERIAL (BEAKER) (test code = 385) 185 mmHg 80-90 H O2 SATURATION ARTERIAL (BEAKER) (test code = 386) 99.2 % 96.0 -97.0 H HCO3 ARTERIAL (BEAKER) (test code = 388) 28 mmol/L 21-29 BASE EXCESS ARTERIAL (BEAKER) (test code = 387) 2.0 mmol/L -2.0-3 .0 PATIENT TEMPERATURE (BEAKER) (test code = 1818) 37.7 C FIO2 (BEAKER) (test code = 1819) 70.0 % THROMBOELASTOGRAPH (TEG)2018-03-30 03:59:00* Test Item Value Reference Range Interpretation Comments TEG ACTIVATED CLOTTING TIME (BEAKER) (test code = 1407) 42.0 minute s 4.0-7.0 H TEG FIBRINOGEN ACTIVITY (BEAKER) (test code = 1408) 8.0 degrees 61 .0-73.0 L TEG PLT. AGGREGATION (BEAKER) (test code = 1409) 42.3 MM 55.0- 65.0 L TEG FIBRINOLYSIS (BEAKER) (test code = 1410) 0.0 % 0.0-5.0 T[facility] ACTIVATED CLOTTING TIME (BEAKER) (test code = 1411) 6.9 minutes 4.0-7.0 TGH FIBRINOGEN ACTIVITY (BEAKER) (test code = 1412) 56.7 degrees 61 .0-73.0 L TGH PLT. AGGREGATION (BEAKER) (test code = 1413) 54.5 MM 55.0- 65.0 L TGH FIBRINOLYSIS (BEAKER) (test code = 1414) 0.8 % 0.0-5.0 [id number] 01:55:00* Test Item Value Reference Range Interpretation Comments POTASSIUM (BEAKER) (test code = 379) 4.5 meq/L 3.5-5.1 Specimen moderately hemolyzed [id number] 01:52:00* Test Item Value Reference Range Interpretation Comments PARTIAL THROMBOPLASTIN TIME (BEAKER) (test code = 760) 45.0 seconds 22.5-36.0 H BLOOD GAS, [id number] 01:35:00* Test Item Value Reference Range Interpretation Comments PH ARTERIAL (BEAKER) (test code = 383) 7.38 7.35-7.45 PCO2 ARTERIAL (BEAKER) (test code = 384) 46 mmHg 35-45 H PO2 ARTERIAL (BEAKER) (test code = 385) 73 mmHg 80-90 L O2 SATURATION ARTERIAL (BEAKER) (test code = 386) 93.7 % 96.0 -97.0 L HCO3 ARTERIAL (BEAKER) (test code = 388) 26 mmol/L 21-29 BASE EXCESS ARTERIAL (BEAKER) (test code = 387) 0.9 mmol/L -2.0-3 .0 PATIENT TEMPERATURE (BEAKER) (test code = 1818) 37.7 C FIO2 (BEAKER) (test code = 1819) 70.0 % GLUCOSE-STAT [id number] 01:35:00* Test Item Value Reference Range Interpretation Comments GLUCOSE RANDOM (BEAKER) (test code = 652) 133 mg/dL 70-110 H HGB/HCT (H&H) - STAT [id number] 01:35:00* Test Item Value Reference Range Interpretation Comments HEMOGLOBIN (BEAKER) (test code = 410) 13.1 g/dL 13.0-16.8 HEMATOCRIT (BEAKER) (test code = 411) 39.0 % 40.0-50.0 L CALCIUM, [id number] 01:33:00* Test Item Value Reference Range Interpretation Comments CALCIUM IONIZED (BEAKER) (test code = 698) 1.14 mmol/L 1.12-1.27 PH, BLOOD (BEAKER) (test code = 1810) 7.41 SODIUM NA-STAT [id number] 01:32:00* Test Item Value Reference Range Interpretation Comments SODIUM (BEAKER) (test code = 381) 136 meq/L 135-148 POTASSIUM-STAT [id number] 01:32:00* Test Item Value Reference Range Interpretation Comments POTASSIUM (BEAKER) (test code = 379) 4.3 meq/L 3.6-5.5 POCT-GLUCOSE [id number] 01:17:00* Test Item Value Reference Range Interpretation Comments POC-GLUCOSE METER (BEAKER) (test code = 1538) 140 mg/dL 70-[address] [facility] [address] [facility] [address] POCT-GLUCOSE [id number] 22:41:00* Test Item Value Reference Range Interpretation Comments POC-GLUCOSE METER (BEAKER) (test code = 1538) 117 mg/dL 70-[address] [facility] [address] [facility] [address] [id number] 22:03:00* Test Item Value Reference Range Interpretation Comments MAGNESIUM (BEAKER) (test code = 627) 2.3 mg/dL 1.6-2.6 Specimen moderately hemolyzed [id number] 22:03:00* Test Item Value Reference Range Interpretation Comments PHOSPHORUS (BEAKER) (test code = 604) 3.2 mg/dL 2.3-4.7 Specimen moderately hemolyzed [id number] 22:03:00* Test Item Value Reference Range Interpretation Comments POTASSIUM (BEAKER) (test code = 379) 4.5 meq/L 3.5-5.1 Specimen moderately hemolyzed [id number] 22:03:00* Test Item Value Reference Range Interpretation Comments SODIUM (BEAKER) (test code = 381) 134 meq/L 136-145 L BLOOD GAS, [id number] 21:41:00* Test Item Value Reference Range Interpretation Comments PH ARTERIAL (BEAKER) (test code = 383) 7.41 7.35-7.45 PCO2 ARTERIAL (BEAKER) (test code = 384) 40 mmHg 35-45 PO2 ARTERIAL (BEAKER) (test code = 385) 72 mmHg 80-90 L O2 SATURATION ARTERIAL (BEAKER) (test code = 386) 94.4 % 96.0 -97.0 L HCO3 ARTERIAL (BEAKER) (test code = 388) 25 mmol/L 21-29 BASE EXCESS ARTERIAL (BEAKER) (test code = 387) 0.1 mmol/L -2.0-3 .0 PATIENT TEMPERATURE (BEAKER) (test code = 1818) 37.3 C FIO2 (BEAKER) (test code = 1819) 60.0 % GLUCOSE-STAT [id number] 21:41:00* Test Item Value Reference Range Interpretation Comments GLUCOSE RANDOM (BEAKER) (test code = 652) 133 mg/dL 70-110 H SODIUM NA-STAT [id number] 21:41:00* Test Item Value Reference Range Interpretation Comments SODIUM (BEAKER) (test code = 381) 131 meq/L 135-148 L POTASSIUM-STAT [id number] 21:40:00* Test Item Value Reference Range Interpretation Comments POTASSIUM (BEAKER) (test code = 379) 4.2 meq/L 3.6-5.5 HGB/HCT (H&H) - STAT [id number] 21:40:00* Test Item Value Reference Range Interpretation Comments HEMOGLOBIN (BEAKER) (test code = 410) 13.6 g/dL 13.0-16.8 HEMATOCRIT (BEAKER) (test code = 411) 40.0 % 40.0-50.0 EEG AWAKE/ASLEEP AND [id number] 21:12:00Reason for exam:->Ecephalopathy evaluationDate(s) of EE03/29/2018 DATE OF REPORT: 03/29/2018 ACC: [id number] EEG Number: [id number] Test Location: Inpatient ICU Start time: 17:03 Stop time: 17:23 ICD-10: R56.9 CPT Code: 81817 HISTORY: 22 y/o man who presented with respiratory symptoms found to be in sinus tachycardia, hypoxic with pulmonary edema, went into ventricular tachycardia and received multiple shocks, multi- organ failure being considered for ECMO therapy MEDICATIONS THAT COULD AFFECT EEG: fentanyl TECHNICAL SUMMARY: This is a digital video-EEG recorded with 32 input channels reviewed with bipolar and referential montages using the modified combinatorial system nomenclature. DESCRIPTION OF RECORD: This EEG displays a highly disorganized symmetric continuous high amplitude delta frequency slowing, with predominant background frequencies in the 1.5-3 Hz range. Occasional superimposed generalized 13-15 Hz activity. Physical stimulation results does not affect background patterns. No clear sleep structures or state transitions are evident. SIGNIFICANT VIDEO EVENTS: None SIGNIFICANT ELECTROCARDIOGRAM EVENTS: The single EKG lead shows a rate of 100-105 bpm. HV: Hyperventilation was not performed. PHOTIC STIMULATION: Photic stimulation was done from 1-33 Hz and resulted in no photic driving or photoparoxysmal responses. IMPRESSION: This is an abnormal routine EEG due to the presence of symmetric continuous high amplitude delta frequency slowing and prominent background disorganization, consistent with a moderate etiologically nonspecific encephalopathy. There are no epileptiform discharges or electrographic seizures. Vickie King MD Neurophysiology Fellow Dion Ruiz [facility] Attending Neurophysiologist [facility] Electronically signed by: FADI RUIZ MD on 03/29 09:12 PM [id number] 19:11:00* Test Item Value Reference Range Interpretation Comments PARTIAL THROMBOPLASTIN TIME (BEAKER) (test code = 760) 42.8 seconds 22.5-36.0 H HEPATITIS PANEL, [id number] 19:06:00* Test Item Value Reference Range Interpretation Comments HEPATITIS A IGM ANTIBODY (BEAKER) (test code = 498) Nonreactive No nreactive HEPATITIS B CORE IGM ANTIBODY (BEAKER) (test code = 645) Non reactive Nonreactive HEPATITIS C ANTIBODY (BEAKER) (test code = 367) Nonreactive Nonrea ctive HEPATITIS B SURFACE ANTIGEN (2) (BEAKER) (test code = 2585) Nonreactive Nonreactive HIV-1 ANTIGEN WITH HIV-1/2 [id number] 19:06:00* Test Item Value Reference Range Interpretation Comments HIV-1 ANTIGEN WITH HIV 1\\T\\2 ANTIBODY (2) (BEAKER) (te st code = 2586) Nonreactive Nonreactive POCT-GLUCOSE [id number] 18:02:00* Test Item Value Reference Range Interpretation Comments POC-GLUCOSE METER (BEAKER) (test code = 1538) 139 mg/dL 70-[address] [facility] [address] [facility] [address] THROMBOELASTOGRAPH (TEG)2018-03-29 18:01:00* Test Item Value Reference Range Interpretation Comments TEG ACTIVATED CLOTTING TIME (BEAKER) (test code = 1407) 13.4 minute s 4.0-7.0 H TEG FIBRINOGEN ACTIVITY (BEAKER) (test code = 1408) 41.6 degrees 61 .0-73.0 L TEG PLT. AGGREGATION (BEAKER) (test code = 1409) 51.1 MM 55.0- 65.0 L TEG FIBRINOLYSIS (BEAKER) (test code = 1410) 2.4 % 0.0-5.0 TGH ACTIVATED CLOTTING TIME (BEAKER) (test code = 1411) 6.4 minutes 4.0-7.0 TGH FIBRINOGEN ACTIVITY (BEAKER) (test code = 1412) 59.1 degrees 61 .0-73.0 L TGH PLT. AGGREGATION (BEAKER) (test code = 1413) 60.2 MM 55.0- 65.0 TGH FIBRINOLYSIS (BEAKER) (test code = 1414) 0.2 % 0.0-5.0 [id number] 17:30:00* Test Item Value Reference Range Interpretation Comments POTASSIUM (BEAKER) (test code = 379) 4.4 meq/L 3.5-5.1 Specimen moderately hemolyzed CALCIUM, [id number] 16:52:00* Test Item Value Reference Range Interpretation Comments CALCIUM IONIZED (BEAKER) (test code = 698) 1.07 mmol/L 1.12-1.27 L PH, BLOOD (BEAKER) (test code = 1810) 7.38 BLOOD GAS, [id number] 16:52:00* Test Item Value Reference Range Interpretation Comments PH ARTERIAL (BEAKER) (test code = 383) 7.38 7.35-7.45 PCO2 ARTERIAL (BEAKER) (test code = 384) 43 mmHg 35-45 PO2 ARTERIAL (BEAKER) (test code = 385) 82 mmHg 80-90 O2 SATURATION ARTERIAL (BEAKER) (test code = 386) 95.7 % 96.0 -97.0 L HCO3 ARTERIAL (BEAKER) (test code = 388) 25 mmol/L 21-29 BASE EXCESS ARTERIAL (BEAKER) (test code = 387) -0.3 mmol/L -2.0-3 .0 PATIENT TEMPERATURE (BEAKER) (test code = 1818) 37.4 C FIO2 (BEAKER) (test code = 1819) 60.0 % CT BRAIN WITHOUT IV CONTRAST - [id number] 16:38:00Reason for exam:-> Encephalopathy Unexplained AMSFINAL REPORT CT Head without contrast CLINICAL HISTORY: Encephalopathy Unexplained AMS TECHNIQUE: Contiguous axial images through the head without contrast on the portable CT unit. This exam was performed according to the departmental dose optimization program which includes automated exposure control, adjustment of the mA and/or kV according to the patient size, and/or use of an iterative reconstruction technique. COMPARISON: None FINDINGS: The portable head CT technique does not reveal definitive evidence of acute infarct or intracranial hemorrhage. There is no hydrocephalus or midline shift. There are no extra-axial fluid collections. The skull is intact. There are air-fluid levels in the paranasal sinuses post port tubing in place. IMPRESSION: No definitive portable CT evidence of acute infarct or hemorrhage. Signed: Idris Braxton MDReport Verified Date/Time: 03/29/2018 16:38:42 Reading Location: [facility] Radiology Reading Room D GAS, [id number] 14:28:00* Test Item Value Reference Range Interpretation Comments PH ARTERIAL (BEAKER) (test code = 383) 7.38 7.35-7.45 PCO2 ARTERIAL (BEAKER) (test code = 384) 42 mmHg 35-45 PO2 ARTERIAL (BEAKER) (test code = 385) 69 mmHg 80-90 L O2 SATURATION ARTERIAL (BEAKER) (test code = 386) 93.2 % 96.0 -97.0 L HCO3 ARTERIAL (BEAKER) (test code = 388) 24 mmol/L 21-29 BASE EXCESS ARTERIAL (BEAKER) (test code = 387) -0.6 mmol/L -2.0-3 .0 PATIENT TEMPERATURE (BEAKER) (test code = 1818) 37.4 C FIO2 (BEAKER) (test code = 1819) 60.0 % TSH/FREE T4 IF [id number] 13:54:00* Test Item Value Reference Range Interpretation Comments THYROID STIMULATING HORMONE (BEAKER) (test code = 772) 0.45 uIU/mL 0.35-4.94 HEPATITIS PANEL, [id number] 13:22:00* Test Item Value Reference Range Interpretation Comments HEPATITIS A IGM ANTIBODY (BEAKER) (test code = 498) Nonreactive No nreactive HEPATITIS B CORE IGM ANTIBODY (BEAKER) (test code = 645) Non reactive Nonreactive HEPATITIS C ANTIBODY (BEAKER) (test code = 367) Nonreactive Nonrea ctive HEPATITIS B SURFACE ANTIGEN (2) (BEAKER) (test code = 2585) Nonreactive Nonreactive HIV-1 ANTIGEN WITH HIV-1/2 [id number] 13:22:00* Test Item Value Reference Range Interpretation Comments HIV-1 ANTIGEN WITH HIV 1\\T\\2 ANTIBODY (2) (BEAKER) (te st code = 2586) Nonreactive Nonreactive RAPID DRUG SCREEN, [id number] 12:51:00* Test Item Value Reference Range Interpretation Comments BARBITURATE URINE (BEAKER) (test code = 725) Negative Negative BENZODIAZEPINE SCREEN URINE (BEAKER) (test code = 726) Positive Negative A COCAINE (METAB.) SCREEN (BEAKER) (test code = 1164) Negative Ne gative METHADONE SCREEN (BEAKER) (test code = 1436) Negative Negative OPIATE SCREEN URINE (BEAKER) (test code = 734) Negative Negativ e CANNABINOID SCREEN URINE (BEAKER) (test code = 727) Negative Ne gative AMPH/METHAMPH SCREEN (BEAKER) (test code = 1438) Positive Negat qasim A PHENCYCLIDINE SCREEN URINE (BEAKER) (test code = 608) Negative Negative OXYCODONE SCREEN URINE (BEAKER) (test code = 2761) Negative Neg ative DRUG CUTOFF CONC.Cocaine 300 ng/mL Cannabinoid 50 ng/mL Benzodiazepine 200 ng/mLBarbiturate 200 ng/mLPh encyclidine 25 ng/mLOpiate 300 ng/mLMethadone 300 ng/mLAmphetamine/ 1000 ng/mL MethamphetamineOxycodone 300 ng/mLThis assay provides an unconfirmed qualitative test result for the cli nical management of patients in emergency situations. Chain of custody not maint ained. Some qyhx-psy-mgejupg medications, as well as adulterants, may cause inac curate results. Clinical correlation should be applied. A more comprehensive jett g screen or confirmation of a detected drug may be performed upon request.LACTIC ACID, ARTERIAL, WHOLE [id number] 12:38:00* Test Item Value Reference Range Interpretation Comments LACTATE BLOOD ARTERIAL (2) (BEAKER) (test code = 2874) 1.9 mmol/L 0.5-2.2 Specimen moderately hemolyzed Effective 03/03/2016: Units/Reference Range ChangeNew: 0.5-2.2 mmol/L Previous: 5 -20 mg/dLSpecimen slightly ictericBLOOD GAS, [id number] 12:13:00* Test Item Value Reference Range Interpretation Comments PH ARTERIAL (BEAKER) (test code = 383) 7.39 7.35-7.45 PCO2 ARTERIAL (BEAKER) (test code = 384) 40 mmHg 35-45 PO2 ARTERIAL (BEAKER) (test code = 385) 119 mmHg 80-90 H O2 SATURATION ARTERIAL (BEAKER) (test code = 386) 98.2 % 96.0 -97.0 H HCO3 ARTERIAL (BEAKER) (test code = 388) 24 mmol/L 21-29 BASE EXCESS ARTERIAL (BEAKER) (test code = 387) -0.6 mmol/L -2.0-3 .0 PATIENT TEMPERATURE (BEAKER) (test code = 1818) 37.6 C FIO2 (BEAKER) (test code = 1819) 80.0 % THROMBOELASTOGRAPH (TEG)2018-03-29 11:54:00* Test Item Value Reference Range Interpretation Comments TEG ACTIVATED CLOTTING TIME (BEAKER) (test code = 1407) 9.9 minutes 4.0-7.0 H TEG FIBRINOGEN ACTIVITY (BEAKER) (test code = 1408) 49.6 degrees 61 .0-73.0 L TEG PLT. AGGREGATION (BEAKER) (test code = 1409) 56.0 MM 55.0- 65.0 TEG FIBRINOLYSIS (BEAKER) (test code = 1410) 0.0 % 0.0-5.0 TGH ACTIVATED CLOTTING TIME (BEAKER) (test code = 1411) 6.2 minutes 4.0-7.0 TGH FIBRINOGEN ACTIVITY (BEAKER) (test code = 1412) 61.3 degrees 61 .0-73.0 TGH PLT. AGGREGATION (BEAKER) (test code = 1413) 55.9 MM 55.0- 65.0 TGH FIBRINOLYSIS (ANNE) (test code = 1414) 0.0 % 0.0-5.0 TROPONIN [id number] 11:09:00* Test Item Value Reference Range Interpretation Comments TROPONIN I (ANNE) (test code = 397) 0.49 ng/mL 0.00-0.03 HH Troponin I (TnI) levels must be interpreted in the context of the presenting sym ptoms and the clinical findings. Elevated TnI levels indicate myocardial damage, but are not specific for ischemic heart disease. Elevated TnI levels are seen in patients with other cardiac conditions (including myocarditis and congestive h eart failure), and slight TnI elevations occur in patients with other conditions , including sepsis, renal failure, acidosis, acute neurological disease, and per sistent tachyarrhythmia.LACTIC ACID, VENOUS, WHOLE [id number] 10:53:00* Test Item Value Reference Range Interpretation Comments LACTATE BLOOD VENOUS (2) (ANNE) (test code = 2872) 3.0 mmol/L 0 .5-2.2 H Specimen moderately hemolyzed Effective 03/03/2016: Units/Reference Range ChangeNew: 0.5-2.2 mmol/L Previous: 5 -20 mg/dLSpecimen slightly ictericPROTHROMBIN TIME/[id number] 10:32:00* Test Item Value Reference Range Interpretation Comments PROTIME (ANNE) (test code = 759) 23.3 seconds 11.7-14.7 H INR (ANNE) (test code = 370) 2.1 <=5.9 RECOMMENDED COUMADIN/WARFARIN INR THERAPY RANGESSTANDARD DOSE: 2.0 - 3.0 Inclu beata: PROPHYLAXIS for venous thrombosis, systemic embolization; TREATMENT for shaan ous thrombosis and/or pulmonary embolus.HIGH RISK: Target INR is 2.5-3.5 for pat ients with mechanical heart valves.POCT-GLUCOSE [id number] 10:29:00* Test Item Value Reference Range Interpretation Comments POC-GLUCOSE METER (SABINAAKER) (test code = 1538) 157 mg/dL 70-[address] [facility] [address] [facility] [address] POCT-GLUCOSE [id number] 10:29:00* Test Item Value Reference Range Interpretation Comments POC-GLUCOSE METER (ANNE) (test code = 1538) 151 mg/dL 70-[address] [facility] [address] [facility] [address] BLOOD GAS, [id number] 10:14:00* Test Item Value Reference Range Interpretation Comments PH ARTERIAL (BEAKER) (test code = 383) 7.47 7.35-7.45 H PCO2 ARTERIAL (BEAKER) (test code = 384) 32 mmHg 35-45 L PO2 ARTERIAL (BEAKER) (test code = 385) 120 mmHg 80-90 H O2 SATURATION ARTERIAL (BEAKER) (test code = 386) 98.5 % 96.0 -97.0 H HCO3 ARTERIAL (BEAKER) (test code = 388) 22 mmol/L 21-29 BASE EXCESS ARTERIAL (BEAKER) (test code = 387) -0.4 mmol/L -2.0-3 .0 PATIENT TEMPERATURE (BEAKER) (test code = 1818) 38.0 C FIO2 (BEAKER) (test code = 1819) 80.0 % [id number] 09:46:00* Test Item Value Reference Range Interpretation Comments MAGNESIUM (BEAKER) (test code = 627) 2.3 mg/dL 1.6-2.6 Specimen moderately hemolyzed [id number] 09:46:00* Test Item Value Reference Range Interpretation Comments PHOSPHORUS (BEAKER) (test code = 604) 3.9 mg/dL 2.3-4.7 Specimen moderately hemolyzed [id number] 09:46:00* Test Item Value Reference Range Interpretation Comments POTASSIUM (BEAKER) (test code = 379) 4.1 meq/L 3.5-5.1 Specimen moderately hemolyzed [id number] 09:46:00* Test Item Value Reference Range Interpretation Comments SODIUM (BEAKER) (test code = 381) 135 meq/L 136-145 L RAD, CHEST, 1 VIEW, NON [id number] 09:04:00Reason for exam:->ETT, PNEUMONIAShould this be performed at the bedside?->YesFINAL REPORT Chest one view compared to March 29 Discussion: Pulmonary opacities are similar. Unremarkable line and tube positions. Pulmonary catheter right main pulmonary artery. Impella device in place. I could not exclude small left effusion. No pneumothorax. Signed: Angela Griffin MDReport Verified Date/Time: 03/29/2018 09:04:54 Reading Location: [facility] Radiology Reading Room IUM, [id number] 08:57:00* Test Item Value Reference Range Interpretation Comments CALCIUM IONIZED (BEAKER) (test code = 698) 0.96 mmol/L 1.12-1.27 L PH, BLOOD (BEAKER) (test code = 1810) 7.43 BLOOD GAS, [id number] 08:52:00* Test Item Value Reference Range Interpretation Comments PH ARTERIAL (BEAKER) (test code = 383) 7.42 7.35-7.45 PCO2 ARTERIAL (BEAKER) (test code = 384) 35 mmHg 35-45 PO2 ARTERIAL (BEAKER) (test code = 385) 172 mmHg 80-90 H O2 SATURATION ARTERIAL (BEAKER) (test code = 386) 99.2 % 96.0 -97.0 H HCO3 ARTERIAL (BEAKER) (test code = 388) 22 mmol/L 21-29 BASE EXCESS ARTERIAL (BEAKER) (test code = 387) -1.9 mmol/L -2.0-3 .0 PATIENT TEMPERATURE (BEAKER) (test code = 1818) 37.6 C FIO2 (BEAKER) (test code = 1819) 100.0 % HEPATIC FUNCTION [id number] 08:45:00* Test Item Value Reference Range Interpretation Comments TOTAL PROTEIN (BEAKER) (test code = 770) 6.2 gm/dL 6.0-8.3 Specimen moderately hemolyzed ALBUMIN (BEAKER) (test code = 1145) 3.4 g/dL 3.5-5.0 L Specimen moderately hemolyzed BILIRUBIN TOTAL (BEAKER) (test code = 377) 2.8 mg/dL 0.2-1.2 H Specimen moderately hemolyzed BILIRUBIN DIRECT (BEAKER) (test code = 706) 1.0 mg/dL 0.1-0.5 H Specimen moderately hemolyzed ALKALINE PHOSPHATASE (BEAKER) (test code = 346) 65 U/L 40-150 AST (SGOT) (BEAKER) (test code = 353) > U/L 5-34 H [address]372 U/L(above assay range= use with caution) ALT (SGPT) (BEAKER) (test code = 347) 4073 U/L 6-55 H Specimen moderately hemolyzed Specimen slightly [id number] 08:00:00* Test Item Value Reference Range Interpretation Comments POTASSIUM (BEAKER) (test code = 379) 4.3 meq/L 3.5-5.1 Specimen moderately hemolyzed [id number] 08:00:00* Test Item Value Reference Range Interpretation Comments GLUCOSE RANDOM (BEAKER) (test code = 652) 188 mg/dL 70-105 H BLOOD GAS, [id number] 06:35:00* Test Item Value Reference Range Interpretation Comments PH ARTERIAL (BEAKER) (test code = 383) 7.28 7.35-7.45 L PCO2 ARTERIAL (BEAKER) (test code = 384) 39 mmHg 35-45 PO2 ARTERIAL (BEAKER) (test code = 385) 86 mmHg 80-90 O2 SATURATION ARTERIAL (BEAKER) (test code = 386) 94.9 % 96.0 -97.0 L HCO3 ARTERIAL (BEAKER) (test code = 388) 18 mmol/L 21-29 L BASE EXCESS ARTERIAL (BEAKER) (test code = 387) -8.4 mmol/L -2.0-3 .0 L PATIENT TEMPERATURE (BEAKER) (test code = 1818) 37.8 C FIO2 (BEAKER) (test code = 1819) 80.0 % SODIUM NA-STAT [id number] 06:35:00* Test Item Value Reference Range Interpretation Comments SODIUM (BEAKER) (test code = 381) 133 meq/L 135-148 L GLUCOSE-STAT [id number] 06:35:00* Test Item Value Reference Range Interpretation Comments GLUCOSE RANDOM (BEAKER) (test code = 652) 187 mg/dL 70-110 H [id number] 06:34:00* Test Item Value Reference Range Interpretation Comments PARTIAL THROMBOPLASTIN TIME (BEAKER) (test code = 760) 33.2 seconds 22.5-36.0 Prior to initiating heparinPOTASSIUM-STAT [id number] 06:34:00* Test Item Value Reference Range Interpretation Comments POTASSIUM (BEAKER) (test code = 379) 3.5 meq/L 3.6-5.5 L HGB/HCT (H&H) - STAT [id number] 06:34:00* Test Item Value Reference Range Interpretation Comments HEMOGLOBIN (BEAKER) (test code = 410) 13.9 g/dL 13.0-16.8 HEMATOCRIT (BEAKER) (test code = 411) 41.0 % 40.0-50.0 PLATELET [id number] 06:27:00* Test Item Value Reference Range Interpretation Comments PLATELET COUNT (BEAKER) (test code = 756) 120 K/CU MM 150-450 L THROMBOELASTOGRAPH (TEG)2018-03-29 06:24:00* Test Item Value Reference Range Interpretation Comments TEG ACTIVATED CLOTTING TIME (BEAKER) (test code = 1407) 13.7 minute s 4.0-7.0 H TEG FIBRINOGEN ACTIVITY (BEAKER) (test code = 1408) 33.9 degrees 61 .0-73.0 L TEG PLT. AGGREGATION (BEAKER) (test code = 1409) 48.9 MM 55.0- 65.0 L TEG FIBRINOLYSIS (BEAKER) (test code = 1410) 0.0 % 0.0-5.0 TGH ACTIVATED CLOTTING TIME (BEAKER) (test code = 1411) 7.8 minutes 4.0-7.0 H TGH FIBRINOGEN ACTIVITY (BEAKER) (test code = 1412) 47.6 degrees 61 .0-73.0 L TGH PLT. AGGREGATION (BEAKER) (test code = 1413) 54.7 MM 55.0- 65.0 L TGH FIBRINOLYSIS (BEAKER) (test code = 1414) 0.0 % 0.0-5.0 BLOOD GAS, [id number] 04:26:00* Test Item Value Reference Range Interpretation Comments PH ARTERIAL (BEAKER) (test code = 383) 7.29 7.35-7.45 L PCO2 ARTERIAL (BEAKER) (test code = 384) 48 mmHg 35-45 H PO2 ARTERIAL (BEAKER) (test code = 385) 115 mmHg 80-90 H O2 SATURATION ARTERIAL (BEAKER) (test code = 386) 97.4 % 96.0 -97.0 H HCO3 ARTERIAL (BEAKER) (test code = 388) 22 mmol/L 21-29 BASE EXCESS ARTERIAL (BEAKER) (test code = 387) -4.6 mmol/L -2.0-3 .0 L PATIENT TEMPERATURE (BEAKER) (test code = 1818) 38.2 C FIO2 (BEAKER) (test code = 1819) 100.0 % LACTATE DEHYDROGENASE (LDH)2018-03-29 04:25:00* Test Item Value Reference Range Interpretation Comments LACTATE DEHYDROGENASE (BEAKER) (test code = 635) > U/L 125-2 20 H GLUCOSE-STAT [id number] 04:23:00* Test Item Value Reference Range Interpretation Comments GLUCOSE RANDOM (BEAKER) (test code = 652) 170 mg/dL 70-110 H SODIUM NA-STAT [id number] 04:23:00* Test Item Value Reference Range Interpretation Comments SODIUM (BEAKER) (test code = 381) 133 meq/L 135-148 L POTASSIUM-STAT [id number] 04:22:00* Test Item Value Reference Range Interpretation Comments POTASSIUM (BEAKER) (test code = 379) 4.4 meq/L 3.6-5.5 HGB/HCT (H&H) - STAT [id number] 04:22:00* Test Item Value Reference Range Interpretation Comments HEMOGLOBIN (BEAKER) (test code = 410) 14.9 g/dL 13.0-16.8 HEMATOCRIT (BEAKER) (test code = 411) 44.0 % 40.0-50.0 BASIC METABOLIC [id number] 04:04:00* Test Item Value Reference Range Interpretation Comments SODIUM (BEAKER) (test code = 381) 137 meq/L 136-145 POTASSIUM (BEAKER) (test code = 379) 4.6 meq/L 3.5-5.1 Specimen moderately hemolyzed CHLORIDE (BEAKER) (test code = 382) 102 meq/L 98-107 CO2 (BEAKER) (test code = 355) 20 meq/L 22-29 L BLOOD UREA NITROGEN (BEAKER) (test code = 354) 28 mg/dL 7-21 H CREATININE (BEAKER) (test code = 358) 4.08 mg/dL 0.57-1.25 H Specimen moderately hemolyzed GLUCOSE RANDOM (BEAKER) (test code = 652) 174 mg/dL 70-105 H CALCIUM (BEAKER) (test code = 697) 7.9 mg/dL 8.4-10.2 L EGFR (BEAKER) (test code = 1092) mL/min/1.73 sq m INSUFFICIENT CLINICAL DATA TO CALCULATE ESTIMATED GFR. [id number] 04:01:00* Test Item Value Reference Range Interpretation Comments MAGNESIUM (BEAKER) (test code = 627) 2.7 mg/dL 1.6-2.6 H Specimen moderately hemolyzed [id number] 04:01:00* Test Item Value Reference Range Interpretation Comments PHOSPHORUS (BEAKER) (test code = 604) 7.2 mg/dL 2.3-4.7 H Specimen moderately hemolyzed LACTIC ACID, VENOUS, WHOLE [id number] 03:45:00* Test Item Value Reference Range Interpretation Comments LACTATE BLOOD VENOUS (2) (BEAKER) (test code = 2872) 6.8 mmol/L 0 .5-2.2 H Specimen markedly hemolyzed Effective 03/03/2016: Units/Reference Range ChangeNew: 0.5-2.2 mmol/L Previous: 5 -20 mg/dLSpecimen markedly lipemicPT/[id number] 03:45:00* Test Item Value Reference Range Interpretation Comments PROTIME (BEAKER) (test code = 759) 23.4 seconds 11.7-14.7 H INR (BEAKER) (test code = 370) 2.1 <=5.9 PARTIAL THROMBOPLASTIN TIME (BEAKER) (test code = 760) 49.3 seconds 22.5-36.0 H RECOMMENDED COUMADIN/WARFARIN INR THERAPY RANGESSTANDARD DOSE: 2.0 - 3.0 Inclu beata: PROPHYLAXIS for venous thrombosis, systemic embolization; TREATMENT for shaan ous thrombosis and/or pulmonary embolus.HIGH RISK: Target INR is 2.5-3.5 for pat ients with mechanical heart valves.CBC W/PLT COUNT & AUTO [id number] 03:38:00* Test Item Value Reference Range Interpretation Comments WHITE BLOOD CELL COUNT (BEAKER) (test code = 775) 21.5 K/ L 3.5- 10.5 H RED BLOOD CELL COUNT (BEAKER) (test code = 761) 5.33 M/ L 4.63-6 .08 HEMOGLOBIN (BEAKER) (test code = 410) 14.8 GM/DL 13.7-17.5 HEMATOCRIT (BEAKER) (test code = 411) 48.0 % 40.1-51.0 MEAN CORPUSCULAR VOLUME (BEAKER) (test code = 753) 90.1 fL 79. 0-92.2 MEAN CORPUSCULAR HEMOGLOBIN (BEAKER) (test code = 751) 27.8 pg 25.7-32.2 MEAN CORPUSCULAR HEMOGLOBIN CONC (BEAKER) (test code = 752) 30.8 GM/DL 32.3-36.5 L RED CELL DISTRIBUTION WIDTH (BEAKER) (test code = 412) 13.5 % 11.6-14.4 PLATELET COUNT (BEAKER) (test code = 756) 131 K/CU MM 150-450 L MEAN PLATELET VOLUME (BEAKER) (test code = 754) 10.6 fL 9.4-12 .4 NUCLEATED RED BLOOD CELLS (BEAKER) (test code = 413) 0 /100 WBC 0 -0 NEUTROPHILS RELATIVE PERCENT (BEAKER) (test code = 429) 91 % LYMPHOCYTES RELATIVE PERCENT (BEAKER) (test code = 430) 3 % MONOCYTES RELATIVE PERCENT (BEAKER) (test code = 431) 5 % EOSINOPHILS RELATIVE PERCENT (BEAKER) (test code = 432) 0 % BASOPHILS RELATIVE PERCENT (BEAKER) (test code = 437) 0 % NEUTROPHILS ABSOLUTE COUNT (BEAKER) (test code = 670) 19.43 K/ L 1.78-5.38 H LYMPHOCYTES ABSOLUTE COUNT (BEAKER) (test code = 414) 0.65 K/ L 1.32-3.57 L MONOCYTES ABSOLUTE COUNT (BEAKER) (test code = 415) 1.17 K/ L 0. 30-0.82 H EOSINOPHILS ABSOLUTE COUNT (BEAKER) (test code = 416) 0.00 K/ L 0.04-0.54 L BASOPHILS ABSOLUTE COUNT (BEAKER) (test code = 417) 0.03 K/ L 0. 01-0.08 IMMATURE GRANULOCYTES-RELATIVE PERCENT (BEAKER) (test code = 2801) 1 % 0-1 CALCIUM, [id number] 03:24:00* Test Item Value Reference Range Interpretation Comments CALCIUM IONIZED (BEAKER) (test code = 698) 1.10 mmol/L 1.12-1.27 L PH, BLOOD (BEAKER) (test code = 1810) 7.24 OXYGEN SATURATION, [id number] 03:22:00* Test Item Value Reference Range Interpretation Comments O2 SATURATION (MEASURED) (BEAKER) (test code = 1455) 79.6 % [id number] 03:15:00* Test Item Value Reference Range Interpretation Comments ACTIVATED CLOTTING TIME (BEAKER) (test code = 441) [address] [facility] [address] [facility] [address] COMPREHENSIVE METABOLIC [id number] 01:25:00* Test Item Value Reference Range Interpretation Comments TOTAL PROTEIN (BEAKER) (test code = 770) 6.3 gm/dL 6.0-8.3 ALBUMIN (BEAKER) (test code = 1145) 3.5 g/dL 3.5-5.0 ALKALINE PHOSPHATASE (BEAKER) (test code = 346) 79 U/L 40-150 BILIRUBIN TOTAL (BEAKER) (test code = 377) 2.2 mg/dL 0.2-1.2 H SODIUM (BEAKER) (test code = 381) 136 meq/L 136-145 POTASSIUM (BEAKER) (test code = 379) 4.8 meq/L 3.5-5.1 CHLORIDE (BEAKER) (test code = 382) 103 meq/L 98-107 CO2 (BEAKER) (test code = 355) 19 meq/L 22-29 L BLOOD UREA NITROGEN (BEAKER) (test code = 354) 27 mg/dL 7-21 H CREATININE (BEAKER) (test code = 358) 3.53 mg/dL 0.57-1.25 H GLUCOSE RANDOM (BEAKER) (test code = 652) 184 mg/dL 70-105 H CALCIUM (BEAKER) (test code = 697) 8.3 mg/dL 8.4-10.2 L AST (SGOT) (BEAKER) (test code = 353) > U/L 5-34 H AST = 22268 U/L. ALT (SGPT) (BEAKER) (test code = 347) 4924 U/L 6-55 H EGFR (BEAKER) (test code = 1092) mL/min/1.73 sq m INSUFFICIENT CLINICAL DATA TO CALCULATE ESTIMATED GFR. TROPONIN [id number] 01:16:00* Test Item Value Reference Range Interpretation Comments TROPONIN I (BEAKER) (test code = 397) 0.51 ng/mL 0.00-0.03 HH Troponin I (TnI) levels must be interpreted in the context of the presenting sym ptoms and the clinical findings. Elevated TnI levels indicate myocardial damage, but are not specific for ischemic heart disease. Elevated TnI levels are seen in patients with other cardiac conditions (including myocarditis and congestive h eart failure), and slight TnI elevations occur in patients with other conditions , including sepsis, renal failure, acidosis, acute neurological disease, and per sistent tachyarrhythmia.CREATINE KINASE (CK), TOTAL AND [id number] 01:10:00* Test Item Value Reference Range Interpretation Comments CREATINE KINASE TOTAL (BEAKER) (test code = 380) 408 U/L 29-20 0 H CREATINE KINASE-MB (BEAKER) (test code = 750) 1.7 ng/mL 0.0-6.6 CREATINE KINASE-MB INDEX (BEAKER) (test code = 395) 0.4 % CK-MB Reference Range:<6.7 Normal6.7-10.0 Borderline>10.0 AbnormalB- TYPE NATRIURETIC FACTOR (BNP)2018-03-29 01:09:00* Test Item Value Reference Range Interpretation Comments B-TYPE NATRIURETIC PEPTIDE (BEAKER) (test code = 700) 2913 pg/mL 0-100 H [id number] 01:04:00* Test Item Value Reference Range Interpretation Comments MAGNESIUM (BEAKER) (test code = 627) 2.3 mg/dL 1.6-2.6 RAD, CHEST, 1 VIEW, NON [id number] 01:04:00Reason for exam:->code blueShould this be performed at the bedside?->YesFINAL REPORT EXAMINATION: AP PORTABLE CHEST RADIOGRAPH CLINICAL INDICATION: Intubation. Central line placement. Cardiopulmonary arrest IMPRESSION: No comparison studies are available. The tip of the endotracheal tube projects over the midline 4 cm superior to the german[place]. The tip of the nasogastric tube extends below the diaphragm and inferior margin of today's study. The tips of the right jugular dialysis catheter in the right upper extremity central line projects over the superior vena cava. The heart is enlarged. Opacities are noted in both lungs, most conspicuous in the perihilar regions and lung bases. Although a component of atelectasis is suspected, superimposed pulmonary edema should also be considered. Pneumonia, aspiration, underlying neoplasm or pulmonary hemorrhage- infarct cannot be excluded. Bilateral pleural effusions are also noted. No evidence of a pneumothorax. In summary, constellation of findings concerning for fluid overload-heart failure. Other considerations included in the differential diagnosis as detailed above. Signed: Juarez Pineda MDReport Verified Date/Time: 03/29/2018 01:04:00 Reading Location: [address] Reading Room 2018-03-29 00:55:00* Test Item Value Reference Range Interpretation Comments PARTIAL THROMBOPLASTIN TIME (BEAKER) (test code = 760) 30.9 seconds 22.5-36.0 PROTHROMBIN TIME/[id number] 00:54:00* Test Item Value Reference Range Interpretation Comments PROTIME (BEAKER) (test code = 759) 20.9 seconds 11.7-14.7 H INR (BEAKER) (test code = 370) 1.8 <=5.9 RECOMMENDED COUMADIN/WARFARIN INR THERAPY RANGESSTANDARD DOSE: 2.0 - 3.0 Inclu beata: PROPHYLAXIS for venous thrombosis, systemic embolization; TREATMENT for shaan ous thrombosis and/or pulmonary embolus.HIGH RISK: Target INR is 2.5-3.5 for pat ients with mechanical heart valves.CBC W/PLT COUNT & AUTO [id number] 00:47:00* Test Item Value Reference Range Interpretation Comments WHITE BLOOD CELL COUNT (BEAKER) (test code = 775) 23.5 K/ L 3.5- 10.5 H RED BLOOD CELL COUNT (BEAKER) (test code = 761) 5.35 M/ L 4.63-6 .08 HEMOGLOBIN (BEAKER) (test code = 410) 15.2 GM/DL 13.7-17.5 HEMATOCRIT (BEAKER) (test code = 411) 47.2 % 40.1-51.0 MEAN CORPUSCULAR VOLUME (BEAKER) (test code = 753) 88.2 fL 79. 0-92.2 MEAN CORPUSCULAR HEMOGLOBIN (BEAKER) (test code = 751) 28.4 pg 25.7-32.2 MEAN CORPUSCULAR HEMOGLOBIN CONC (BEAKER) (test code = 752) 32.2 GM/DL 32.3-36.5 L RED CELL DISTRIBUTION WIDTH (BEAKER) (test code = 412) 13.5 % 11.6-14.4 PLATELET COUNT (BEAKER) (test code = 756) 136 K/CU MM 150-450 L MEAN PLATELET VOLUME (BEAKER) (test code = 754) 10.6 fL 9.4-12 .4 NUCLEATED RED BLOOD CELLS (BEAKER) (test code = 413) 0 /100 WBC 0 -0 NEUTROPHILS RELATIVE PERCENT (BEAKER) (test code = 429) 84 % LYMPHOCYTES RELATIVE PERCENT (BEAKER) (test code = 430) 6 % MONOCYTES RELATIVE PERCENT (BEAKER) (test code = 431) 9 % EOSINOPHILS RELATIVE PERCENT (BEAKER) (test code = 432) 0 % BASOPHILS RELATIVE PERCENT (BEAKER) (test code = 437) 0 % NEUTROPHILS ABSOLUTE COUNT (BEAKER) (test code = 670) 19.84 K/ L 1.78-5.38 H LYMPHOCYTES ABSOLUTE COUNT (BEAKER) (test code = 414) 1.31 K/ L 1.32-3.57 L MONOCYTES ABSOLUTE COUNT (BEAKER) (test code = 415) 2.01 K/ L 0. 30-0.82 H EOSINOPHILS ABSOLUTE COUNT (BEAKER) (test code = 416) 0.00 K/ L 0.04-0.54 L BASOPHILS ABSOLUTE COUNT (BEAKER) (test code = 417) 0.04 K/ L 0. 01-0.08 IMMATURE GRANULOCYTES-RELATIVE PERCENT (BEAKER) (test code = 2801) 1 % 0-1 POCT-BLOOD GASES, [id number] 23:46:00* Test Item Value Reference Range Interpretation Comments TEMP, CELSIUS-POC (BEAKER) (test code = 1834) 37.0 FIO2-POC (BEAKER) (test code = 1835) TESTED AT [facility] [address] [facility] [address] PH, ARTERIAL-POC (BEAKER) (test code = 1836) 7.307 7.350-7.4 50 L PCO2, ARTERIAL-POC (BEAKER) (test code = 1837) 41.6 mm Hg 35.0-45 .0 PO2, ARTERIAL-POC (BEAKER) (test code = 1838) 58.0 mm Hg 80.0-90. 0 L SO2, ARTERIAL-POC (BEAKER) (test code = 1839) 87.0 % 96.0-97. 0 L HCO3, ARTERIAL-POC (BEAKER) (test code = 1840) 20.8 meq/L 21.0-29 .0 L BASE EXCESS, ARTERIAL-POC (BEAKER) (test code = 1841) -5.0 meq/L -2.0-3.0 L [id number] 23:46:00* Test Item Value Reference Range Interpretation Comments POC-SODIUM (BEAKER) (test code = 1542) 137 meq/L 135-148 TESTED AT [place] [id number] 23:46:00* Test Item Value Reference Range Interpretation Comments POC-POTASSIUM (BEAKER) (test code = 1540) 4.7 meq/L 3.6-5.5 TESTED AT [place] [id number] 23:46:00* Test Item Value Reference Range Interpretation Comments POC-GLUCOSE (BEAKER) (test code = 1855) 202 mg/dL 70-110 H TESTED AT [place] [id number] POCT-CALCIUM [id number] 23:46:00* Test Item Value Reference Range Interpretation Comments POC-CALCIUM IONIZED (BEAKER) (test code = 1536) 1.11 mmol/L 1.12-1 .27 L TESTED AT [place] [id number] 23:46:00* Test Item Value Reference Range Interpretation Comments POC-HEMATOCRIT (BEAKER) (test code = 1857) 46 % 40-50 TESTED AT [place] [id number] [id number] 23:46:00* Test Item Value Reference Range Interpretation Comments POC-HEMOGLOBIN (BEAKER) (test code = 1856) 15.6 g/dL 13.0-16.8 TESTED AT [place] [id number] AT [place] [address] Bedside [id number] 19:39:00* Test Item Value Reference Range Interpretation Comments Bedside Glucose (test code = 79075-6) 147 70-120 H Meter ID: [id number] NorthwestArterial Blood pH 2018-03-28 19:24:00* Test Item Value Reference Range Interpretation Comments Arterial Blood pH (test code = 2744-1) 7.39 7.31-7.41 [facility] NorthwestArterial Blood Partial Pressure CO2 2018-03-28 19:24:00* Test Item Value Reference Range Interpretation Comments Arterial Blood Partial Pressure CO2 (test code = 2019-05) 37 41-51 L [facility] NorthwestArterial Blood Partial Pressure O2 2018-03-28 19:24:00* Test Item Value Reference Range Interpretation Comments Arterial Blood Partial Pressure O2 (test code = 2019-05) 84 80-105 [facility] NorthwestArterial Blood [id number] 19:24:00* Test Item Value Reference Range Interpretation Comments Arterial Blood HCO3 (test code = 1960-4) 23 23-28 [facility] NorthwestArterial Blood Base [id number] 19:24:00* Test Item Value Reference Range Interpretation Comments Arterial Blood Base Excess (test code = 1925-7) -2.0 -2-3 [facility] NorthwestArterial Blood Oxygen Saturation 2018-03-28 19:24:00* Test Item Value Reference Range Interpretation Comments Arterial Blood Oxygen Saturation (test code = 2708-6) 96.0 95-98 [facility] NorthwestFiO22018-05-29 19:24:00* Test Item Value Reference Range Interpretation Comments FiO2 (test code = FiO2) 100 PRVC 500, R 22, +7, 100[facility] NorthwestBlood Culture 2018-03-28 17:51:00* Test Item Value Reference Range Interpretation Comments Blood Culture (test code = 95605336) NO GROWTH AFTER 24 HOURS [facility] NorthwestAspartate Amino Transf (AST/SGOT) 2018-03-28 12:50:00* Test Item Value Reference Range Interpretation Comments Aspartate Amino Transf (AST/SGOT) (test code = Aspartate Amino Transf (AST/SGOT)) 01209 5-34 H [facility] NorthwestAlanine Aminotransferase (ALT/SGPT) 2018-03-28 12:49:00* Test Item Value Reference Range Interpretation Comments Alanine Aminotransferase (ALT/SGPT) (test code = 1742-6) 5513 0-55 H [facility] NorthwestDifferential Total Cells Counted 2018-03-28 12:40:00* Test Item Value Reference Range Interpretation Comments Differential Total Cells Counted (test code = Differen tial Total Cells Counted) 100 [facility] NorthwestNeutrophils % (Manual)2018-03-28 12:40:00 * Test Item Value Reference Range Interpretation Comments Neutrophils % (Manual) (test code = 54934-4) 88 40-74 H [facility] NorthwestLymphocytes % (Manual)2018-03-28 12:40:00 * Test Item Value Reference Range Interpretation Comments Lymphocytes % (Manual) (test code = 737-7) 3 19-48 L [facility] NorthwestMonocytes % (Manual)2018-03-28 12:40:00* Test Item Value Reference Range Interpretation Comments Monocytes % (Manual) (test code = 744-3) 9 3.4-9.0 [facility] NorthwestPlatelet [id number] 12:40:00* Test Item Value Reference Range Interpretation Comments Platelet Estimate (test code = 28107-8) ADEQUATE [facility] NorthwestPlatelet Morphology [id number] 12:40:00* Test Item Value Reference Range Interpretation Comments Platelet Morphology Comment (test code = 41330-9) NORMAL [facility] NorthwestRed Cell Morphology [id number] 12:40:00* Test Item Value Reference Range Interpretation Comments Red Cell Morphology Comment (test code = 6742-1) NORMAL [facility]inteodium Iwdue3233-04-75 12:35:00* Test Item Value Reference Range Interpretation Comments Sodium Level (test code = 2951-2) 136 136-145 [facility] NorthwestPotassium Ebksd0914-33-04 12:35:00* Test Item Value Reference Range Interpretation Comments Potassium Level (test code = 2823-3) 6.0 3.5-5.1 H NO HEMOLYSISCorpus Christi Medical Center NorthwestChloride Renuf6851-90-46 12:35:00* Test Item Value Reference Range Interpretation Comments Chloride Level (test code = 2075-0) 107 98-107 [facility] NorthwestCarbon Dioxide Vjiip6426-55-11 12:35:00* Test Item Value Reference Range Interpretation Comments Carbon Dioxide Level (test code = 2028-9) 14 22-29 L [facility] NorthwestAnion [id number] 12:35:00* Test Item Value Reference Range Interpretation Comments Anion Gap (test code = 45331-2) 21.0 8-16 H [facility] NorthwestBlood Urea Bupzyyuw4009-74-99 12:35:00* Test Item Value Reference Range Interpretation Comments Blood Urea Nitrogen (test code = 3094-0) 19 7-26 [facility] NorthwestCreatinine2018-05-29 12:35:00* Test Item Value Reference Range Interpretation Comments Creatinine (test code = 2160-0) 2.26 0.72-1.25 H [facility] NorthwestBUN/Creatinine Hvtku6466-60-74 12:35:00* Test Item Value Reference Range Interpretation Comments BUN/Creatinine Ratio (test code = 3097-3) 8 6-25 [facility] NorthwestEstimat Glomerular Filtration Rate 2018-03-28 12:35:00* Test Item Value Reference Range Interpretation Comments Estimat Glomerular Filtration Rate (test code = 01849-2) 36 >60 L Ranges were taken from the National Kidney Disease Education Program and the [facility] [employer] literature.Reference ranges:60 or greater: Dkmhez36-99 ( for 3 consecutive months): Chronic kidney disease 15 or less: Kidney failureCorpus Christi Medical Center NorthwestGlucose Etlcg1879-62-64 12:35:00* Test Item Value Reference Range Interpretation Comments Glucose Level (test code = IGF0087) 132 74-118 H [facility] NorthwestCalcium Cdhzx1509-98-78 12:35:00* Test Item Value Reference Range Interpretation Comments Calcium Level (test code = 96330-5) 8.1 8.4-10.2 L [facility] NorthwestPhosphorus Pxhch7582-08-82 12:35:00* Test Item Value Reference Range Interpretation Comments Phosphorus Level (test code = AVC8501) 7.7 2.3-4.7 H [facility] NorthwestMagnesium Hpqyc2055-31-77 12:35:00* Test Item Value Reference Range Interpretation Comments Magnesium Level (test code = 24786-2) 2.2 1.3-2.1 H [facility] NorthwestTotal Dueesakxg6690-77-22 12:35:00* Test Item Value Reference Range Interpretation Comments Total Bilirubin (test code = 1975-2) 2.1 0.2-1.2 H [facility] NorthwestDirect Pbybuuyqz7061-11-79 12:35:00* Test Item Value Reference Range Interpretation Comments Direct Bilirubin (test code = 69555-1) 1.1 0.0-0.5 H [facility] NorthwestTotal Qohvvhg7666-04-67 12:35:00* Test Item Value Reference Range Interpretation Comments Total Protein (test code = 2885-2) 6.9 6.5-8.1 [facility] NorthwestAlbumin2018-05-29 12:35:00* Test Item Value Reference Range Interpretation Comments Albumin (test code = 1751-7) 3.5 3.5-5.0 [facility] NorthwestAlkaline Obsvmbfuvcv6756-18-05 12:35:00* Test Item Value Reference Range Interpretation Comments Alkaline Phosphatase (test code = 6768-6) 78 40-150 [facility] NorthwestProthrombin Syob0112-00-14 12:32:00* Test Item Value Reference Range Interpretation Comments Prothrombin Time (test code = 5902-2) 20.4 11.9-14.5 H [facility] NorthwestProthromb Time International Ratio 2018-03-28 12:32:00* Test Item Value Reference Range Interpretation Comments Prothromb Time International Ratio (test code = 6301-6) 1.89 Oral Anticoagulant Therapy INR Values:1. Low Intensity Therapy 1.5 - 2.02 . Moderate Intensity Therapy 2.0 - 3.03. High Intensity Therapy(1) 2.5 - 3. 54. High Intensity Therapy(2) 3.0 - 4.05. Panic Value INR > 5.0 [facility] NorthwestActivated Partial Thromboplast Time 2018-03-28 12:32:00* Test Item Value Reference Range Interpretation Comments Activated Partial Thromboplast Time (test code = 99809-0) 33.8 23.8-35.5 [facility] NorthwestCreatine Kinase [id number] 12:29:00* Test Item Value Reference Range Interpretation Comments Creatine Kinase MB (test code = 04858-4) 2.60 0-5.0 [facility] NorthwestTroponin [id number] 12:29:00* Test Item Value Reference Range Interpretation Comments Troponin I (test code = AEI5990) 0.275 0-0.300 [facility] NorthwestCreatine Jkpkuc5795-49-69 12:24:00* Test Item Value Reference Range Interpretation Comments Creatine Kinase (test code = 2157-6) 251 30-200 H [facility] NorthwestWhite Blood Rnejo8962-87-49 12:09:00* Test Item Value Reference Range Interpretation Comments White Blood Count (test code = 6690-2) 24.73 4.8-10.8 H [facility] NorthwestRed Blood Cokvj1132-78-15 12:09:00* Test Item Value Reference Range Interpretation Comments Red Blood Count (test code = 789-8) 5.53 4.3-5.7 [facility] NorthwestHemoglobin2018-05-29 12:09:00* Test Item Value Reference Range Interpretation Comments Hemoglobin (test code = 16692-6) 15.8 14.0-18.0 [facility] NorthwestHematocrit2018-05-29 12:09:00* Test Item Value Reference Range Interpretation Comments Hematocrit (test code = 4544-3) 51.2 38.2-49.6 H [facility] NorthwestMean Corpuscular Kxyjef0644-71-30 12:09:00* Test Item Value Reference Range Interpretation Comments Mean Corpuscular Volume (test code = 787-2) 92.6 81-99 [facility] NorthwestMean Corpuscular Karvglsrpz9765-42-65 12:09:00* Test Item Value Reference Range Interpretation Comments Mean Corpuscular Hemoglobin (test code = 785-6) 28.6 28-32 [facility] NorthwestMean Corpuscular Hemoglobin Concent 2018-03-28 12:09:00* Test Item Value Reference Range Interpretation Comments Mean Corpuscular Hemoglobin Concent (test code = 786-4) 30.9 31-35 L [facility] NorthwestRed Cell Distribution Znivg6327-89-67 12:09:00* Test Item Value Reference Range Interpretation Comments Red Cell Distribution Width (test code = 87610-4) 13.4 11.7 -14.4 [facility] NorthwestPlatelet Gvmyv8225-29-98 12:09:00* Test Item Value Reference Range Interpretation Comments Platelet Count (test code = 777-3) 278 140-360 [facility] NorthwestNeutrophils (%) (Auto)2018-03-28 12:09:00 * Test Item Value Reference Range Interpretation Comments Neutrophils (%) (Auto) (test code = 55374-2) 85.5 38.7-80.0 H [facility] NorthwestLymphocytes (%) (Auto)2018-03-28 12:09:00 * Test Item Value Reference Range Interpretation Comments Lymphocytes (%) (Auto) (test code = 736-9) 4.9 18.0-39.1 L [facility] NorthwestMonocytes (%) (Auto)2018-03-28 12:09:00* Test Item Value Reference Range Interpretation Comments Monocytes (%) (Auto) (test code = 5905-5) 7.5 4.4-11.3 [facility] NorthwestEosinophils (%) (Auto)2018-03-28 12:09:00 * Test Item Value Reference Range Interpretation Comments Eosinophils (%) (Auto) (test code = 713-8) 0.0 0.0-6.0 [facility] NorthwestBasophils (%) (Auto)2018-03-28 12:09:00* Test Item Value Reference Range Interpretation Comments Basophils (%) (Auto) (test code = 706-2) 0.2 0.0-1.0 [facility] NorthwestIM GRANULOCYTES %2018-03-28 12:09:00* Test Item Value Reference Range Interpretation Comments IM GRANULOCYTES % (test code = IM GRANULOCYTES %) 1.9 0.0- 1.0 H [facility] NorthwestNeutrophils # (Auto)2018-03-28 12:09:00* Test Item Value Reference Range Interpretation Comments Neutrophils # (Auto) (test code = 751-8) 21.1 2.1-6.9 H [facility] NorthwestLymphocytes # (Auto)2018-03-28 12:09:00* Test Item Value Reference Range Interpretation Comments Lymphocytes # (Auto) (test code = 23855-0) 1.2 1.0-3.2 [facility] NorthwestMonocytes # (Auto)2018-03-28 12:09:00* Test Item Value Reference Range Interpretation Comments Monocytes # (Auto) (test code = 742-7) 1.9 0.2-0.8 H [facility] NorthwestEosinophils # (Auto)2018-03-28 12:09:00* Test Item Value Reference Range Interpretation Comments Eosinophils # (Auto) (test code = 711-2) 0.0 0.0-0.4 [facility] NorthwestBasophils # (Auto)2018-03-28 12:09:00* Test Item Value Reference Range Interpretation Comments Basophils # (Auto) (test code = 704-7) 0.1 0.0-0.1 [facility] NorthwestAbsolute Immature Granulocyte (auto 2018-03-28 12:09:00* Test Item Value Reference Range Interpretation Comments Absolute Immature Granulocyte (auto (alicja t code = Absolute Immature Granulocyte (auto) 0.46 0-0.1 H [facility] NorthwestBand Neutrophils %2018-03-28 07:45:00* Test Item Value Reference Range Interpretation Comments Band Neutrophils % (test code = 764-1) 3 [facility] NorthwestAmylase Derrh4348-04-13 06:58:00* Test Item Value Reference Range Interpretation Comments Amylase Level (test code = 1798-8) 46 25-125 [facility] NorthwestLipase2018-05-29 06:58:00* Test Item Value Reference Range Interpretation Comments Lipase (test code = 3040-3) 25 8-78 [facility] NorthwestD-Dimer Quantitative (PE/DVT)2018-03-28 06:56:00* Test Item Value Reference Range Interpretation Comments D-Dimer Quantitative (PE/DVT) (test code = 75712-1) 4050 0- 400 H The Triage D-Dimer Test has not been evaluated for use as sole evidence for the presence or absence of PE or DVT. As with all in vitro diagnostic tests, the te st results should be interpreted by the physician in conjunction with clinical f indings and other test results.Test results are reported in D-dimer units.[facility] NorthwestTriiodothyronine (T3) Uehhfo4798-24-66 06:55:00* Test Item Value Reference Range Interpretation Comments Triiodothyronine (T3) Uptake (test code = 3050-2) 31.81 22.5 -37.0 [facility] NorthwestB-Type Natriuretic Jefzfcb4210-12-55 06:41:00* Test Item Value Reference Range Interpretation Comments B-Type Natriuretic Peptide (test code = 34033-0) 1393.0 0-100 H [facility] NorthwestGlobulin2018-05-29 06:38:00* Test Item Value Reference Range Interpretation Comments Globulin (test code = 89568-8) 3.0 2.3-3.5 [facility] NorthwestAlbumin/Globulin Wpbpx8924-43-42 06:38:00 * Test Item Value Reference Range Interpretation Comments Albumin/Globulin Ratio (test code = 1759-0) 1.1 0.8-2.0 [facility] NorthwestLactic Acid Aklwe2608-65-34 06:32:00* Test Item Value Reference Range Interpretation Comments Lactic Acid Level (test code = Lactic Acid Level) 38.7 4.5- 19.8 H [facility] NorthwestIonized Psdkefj5328-44-15 06:19:00* Test Item Value Reference Range Interpretation Comments Ionized Calcium (test code = 52893-2) 1.0 1.09-1.30 L [facility] NorthwestInfluenza Virus Types A,B Antigen 2018-03-27 22:31:00* Test Item Value Reference Range Interpretation Comments Influenza Virus Types A,B Antigen (test code = 82627-2) NEGATIVE NEGATIVE [facility] NorthwestUrine RIR8032-15-28 16:10:00* Test Item Value Reference Range Interpretation Comments Urine WBC (test code = 5821-4) 0-5 0-5 [facility] NorthwestUrine CXB3104-10-41 16:10:00* Test Item Value Reference Range Interpretation Comments Urine RBC (test code = 37078-3) NONE 0-5 [facility] NorthwestUrine Iipaelzv6958-97-86 16:10:00* Test Item Value Reference Range Interpretation Comments Urine Bacteria (test code = 66292-7) FEW NONE [facility] NorthwestU[facility] Epithelial Xgfzq0134-00-27 16:10:00 * Test Item Value Reference Range Interpretation Comments Urine Epithelial Cells (test code = 81332-5) FEW NONE [facility] NorthwestU[facility] Hyaline Oqtrc9990-22-20 16:10:00* Test Item Value Reference Range Interpretation Comments Urine Hyaline Casts (test code = 83563-6) 2-5 0-1 H [facility] NorthwestUrine Zkwkz8784-34-60 16:10:00* Test Item Value Reference Range Interpretation Comments Urine Mucus (test code = 8247-9) MODERATE RARE H [facility] NorthwestTriglycerides Lphhb1797-79-14 16:09:00* Test Item Value Reference Range Interpretation Comments Triglycerides Level (test code = 2571-8) 85 0-149 [facility] NorthwestCholesterol Ypvck1485-91-46 16:09:00* Test Item Value Reference Range Interpretation Comments Cholesterol Level (test code = 2093-3) 159 0-199 Less than 200 mg/dL Low Kggw170 - 239 mg/dL Borderline Bfuy977 m g/dl and greater High Risk [facility] NorthwestLDL Sgmxtdlivwe7571-22-67 16:09:00* Test Item Value Reference Range Interpretation Comments LDL Cholesterol (test code = 2089-1) 107 60-130 [facility] NorthwestHDL Zeaumqptslb4495-51-56 16:09:00* Test Item Value Reference Range Interpretation Comments HDL Cholesterol (test code = 2085-9) 35 40-60 L [facility] NorthwestCholesterol/HDL Ykaca0311-65-66 16:09:00 * Test Item Value Reference Range Interpretation Comments Cholesterol/HDL Ratio (test code = 9830-1) 4.5 3.9-4.7 [facility] NorthwestUrine Iegdh1486-87-66 16:00:00* Test Item Value Reference Range Interpretation Comments Urine Color (test code = 5778-6) YELLOW YELLOW [facility] NorthwestUrine Pgefxrv1049-19-04 16:00:00* Test Item Value Reference Range Interpretation Comments Urine Clarity (test code = 98305-7) SL CLOUDY CLEAR H [facility] NorthwestUrine Specific Wajxxei1807-60-04 16:00:00 * Test Item Value Reference Range Interpretation Comments Urine Specific [place] (test code = 5811-5) 1.020 1.010-1.02 5 [facility] NorthwestUrine lI9431-56-45 16:00:00* Test Item Value Reference Range Interpretation Comments Urine pH (test code = 94965-7) 5 5-7 [facility] Northwest[facility] Leukocyte Ohngljsb1855-97-79 16:00:00* Test Item Value Reference Range Interpretation Comments Urine Leukocyte Esterase (test code = 5799-2) NEGATIVE NEGATIVE [facility] NorthwestUrine Ujisitr5675-82-02 16:00:00* Test Item Value Reference Range Interpretation Comments Urine Nitrite (test code = 12507-4) NEGATIVE NEGATIVE [facility] NorthwestU[facility] Yradmqd1547-01-36 16:00:00* Test Item Value Reference Range Interpretation Comments Urine Protein (test code = 5804-0) 1+ NEGATIVE H [facility] NorthwestUrine Glucose (UA)2018-03-27 16:00:00* Test Item Value Reference Range Interpretation Comments Urine Glucose (UA) (test code = 2349-9) NEGATIVE NEGATIVE [facility] NorthwestU[facility] Qytipzf3681-44-32 16:00:00* Test Item Value Reference Range Interpretation Comments Urine Ketones (test code = 92312-9) NEGATIVE NEGATIVE [facility] NorthwestUrine Opiates Onhrvo6640-72-72 16:00:00* Test Item Value Reference Range Interpretation Comments Urine Opiates Screen (test code = 83298-6) NEGATIVE NEGATIVE [facility] NorthwestU[facility] Barbiturates Tegiqf5376-67-04 16:00:00* Test Item Value Reference Range Interpretation Comments Urine Barbiturates Screen (test code = 790275286) NEGATIVE NEGA TIVE [facility] NorthwestU[facility] Phencyclidine Eehnnl9215-15-11 16:00:00* Test Item Value Reference Range Interpretation Comments Urine Phencyclidine Screen (test code = 84306-9) NEGATIVE NEGAT [facility] Amphetamines Qfqcol0749-93-22 16:00:00* Test Item Value Reference Range Interpretation Comments Urine Amphetamines Screen (test code = 14172-9) NEGATIVE NEGATI VE [facility] NorthwestU[facility] Methamphetamines Dyjzau4595-04-01 16:00:00* Test Item Value Reference Range Interpretation Comments Urine Methamphetamines Screen (test code = Urine Metha mphetamines Screen) NEGATIVE NEGATIVE [facility] NorthwestU[facility] Benzodiazepines Pbyeux7916-91-73 16:00:00* Test Item Value Reference Range Interpretation Comments Urine Benzodiazepines Screen (test code = 60021-4) NEGATIVE NEG ATIVE [facility] NorthwestU[facility] Cocaine Fircob0902-28-01 16:00:00* Test Item Value Reference Range Interpretation Comments Urine Cocaine Screen (test code = 3398-5) NEGATIVE NEGATIVE [facility] NorthwestU[facility] Cannabinoids Vvoort2311-74-62 16:00:00* Test Item Value Reference Range Interpretation Comments Urine Cannabinoids Screen (test code = 73346-9) NEGATIVE NEGATI VE THESE RESULTS ARE FOR MEDICAL TREATMENT ONLYTHIS REPORT CONTAINS UNCONFIR MED SCREENING RESULTS*POSITIVE RESULTS WILL BE CONFIRMED BY REFERENCE LAB UPON R EQUEST CUT-OFFDRUG CLASS CONCENTRATION ng/mLAmphetamines 1000Methamphetamines 1000Cocaine 300Opiate 300Phencyc lidine 25Cannabinoid 50Barbiturates 300Benzodiazepine 300Methadone 300[facility]adone Vcndkn9745-02-11 16:00:00* Test Item Value Reference Range Interpretation Comments Urine Methadone Screen (test code = 60622-0) NEGATIVE NEGATIVE THESE RESULTS ARE FOR MEDICAL TREATMENT ONLYTHIS REPORT CONTAINS UNCONFIR MED SCREENING RESULTS*POSITIVE RESULTS WILL BE CONFIRMED BY REFERENCE LAB UPON R EQUEST CUT-OFFDRUG CLASS CONCENTRATION ng/mLAmphetamines 1000Methamphetamines 1000Cocaine Metabolite 300Opiate 300Phencyc lidine 25Cannabinoid 50Barbiturates 300Benzodiazepine 300Methadone 300[facility] Rgwnkhaxwzle9915-94-27 16:00:00* Test Item Value Reference Range Interpretation Comments Urine Urobilinogen (test code = 40466-2) 0.2 0.2-1 [facility] NorthwestU[facility] Mczmkonld0587-90-31 16:00:00* Test Item Value Reference Range Interpretation Comments Urine Bilirubin (test code = 1978-6) NEGATIVE NEGATIVE [facility] NorthwestU[facility] Ucurd3685-35-90 16:00:00* Test Item Value Reference Range Interpretation Comments Urine Blood (test code = 10772-7) NEGATIVE NEGATIVE [facility] NorthwestFree Uwmpxlytf1653-99-88 15:27:00* Test Item Value Reference Range Interpretation Comments Free Thyroxine (test code = 3024-7) 1.20 0.9-1.8 [facility] NorthwestThyroid Stimulating Hormone (TSH) 2018-03-27 15:27:00* Test Item Value Reference Range Interpretation Comments Thyroid Stimulating Hormone (TSH) (test code = 93400-6) 1.208 0.350-4.940 [facility] NorthwestCHEST XRAY LINE PLACEMENT [facility] [address] [place] [address] Patient Name: MERLIN COFFMAN MR #: [id number] : 1995 Age/Sex: 22/M Req #: [id number] Adm Physician: EDGAR GE MD Ordered by: ANGELA BE MD Report #: [id number] Locatio n: ICU Room/Bed: ICU [facility]ly [facility] Procedure: [id number] DX/CH EST XRAY LINE PLACEMENT Exam Date: 03/28/18 Exam Vishnu e: 1430 REPORT STATUS: Signed PROCEDURE: A single AP view of the ches t. COMPARISON: [facility], DX, CHEST SINGLE (PORTABLE), , 5:30. INDICATIONS: S/P HD CATHETER FINDINGS: See im pression. IMPRESSION: 1. interval placement of hemodialysis cathete r, with distal tip projecting in the region of the proximal atrium. Unchanged endotracheal and enteric tubes. 2. No pneumothorax is identified. 3. No interval change in enlarged cardiac silhouette, central pulmonary venous héctor estion, bilateral interstitial edema and likely bilateral pleural effusions, left greater than right, with left lower lobe atelectasis or consolidation. Kirby Alcantar M.D. Dictated by: Kirby Alcantar M.D. on at 15:56 Electronically approved by: Kirby Alcantar M.D. on 03/28/2018 at 15:56 Dictated By: KIRBY ALCANTAR MD Electronic ally Signed By: KIRBY ALCANTAR MD on 03/28/18 155 Transcribed By: MILENA on 1556 COPY TO: ANGELA BE MD IR CONSULT [place] [address] Patient Name: MERLIN COFFMAN MR #: [id number] : 1995 Age/Sex: 22/M Req #: [id number] Adm Physician: EDGAR GE MD Ordered by: EDGAR BALDWIN MD Report #: [id number] Location : ICU Room/Bed: ICU [facility] Procedure: [id number] DX/IR CONSULT Exam Date: Exam Time: REPORT STATUS: Signed Non-tunneled Dialysis Catheter Placement 03/28/2018 Pre-Procedure Diagnosis: Kidney failure Post-procedure Diagnosis: Kidney failure Ope rator: Rohan Be Rebrander: None Sedation: None. Heart rate and oxygen s aturation were monitored in real-time. Blood pressure was measured in 5 minut e increments. 1% lidocaine was used for local anesthesia. Estimate bloo d loss: <5 mL Blood administered: None Complications: None Implants/Grafts: 13 British 15 cm 3 lumen temporary dialysis catheter (Trialysis) Specimen: None Procedure: Informed consent was obtained and the patient positioned supine in the ICU. A timeout was performed, followed by preliminary ultrasound of the right internal jugular vein (see findings below). The right neck and chest were prepped and draped in standard fashion. Using real- time ultrasound guidance a 18 gauge vascular needle was used to access the right internal jugular vein. An image was stored in the electronic medical record. A wire was advanced and the needle exchanged for a non-tunneled dialysis catheter using standard Salinger technique. At the end of the procedure the catheter was flushed, secured to the skin and a sterile dressing applied. The patient tolerated the procedure well and without immediate complication. Findings: Patent right internal jugular vein as demonstrated by normal ultrasound compressibility. Impression: Successful placement of a non-tunneled right internal jugular vein dialysis catheter using ultrasound guidance. Electronically approved by: Angela Be M.D. on 03/30/2018 at 7:50 Dictated By: ANGELA BE MD 0750 Transcribed By: MILENA on 03/30/18749 COPY TO: EDGAR BALDWIN MD ABDOMEN- 1VIEW (KUB) [facility] [address] [place] [address] Patient Name: MERLIN COFFMAN MR #: [id number] : 1995 Age/Sex: 22/M Req #: [id number] Adm Physician: EDGAR BALDWIN MD Ordered by: EDGAR BALDWIN MD Report #: [id number] Location: ICU Room/Bed: ICU [facility] Procedure: [id number] DX/ABD OMEN-1VIEW (KUB) Exam Date: 03/28/18 Exam Time: 1150 REPORT STATUS: Signed PROCEDURE: X-RAY ABDOMEN - KUB COMPARISO N: [facility], DX, CHEST SINGLE (PORTABLE), 03/28/2018, 5:30. INDICATIONS: ABD PAIN FINDINGS: Enteric tube has distal tip pr ojecting in the stomach fundus. Mild dilation of the ascending colon, which is air-filled and measures approximately 8 cm in diameter. No other air-filled, dilated loops of bowel are identified. No abnormal calcifications project over genitourinary system. No acute bony abnormalities. Unchanged increased density in the left retrocardiac region and obscuration of left hemidiaphragm , which represent pleural effusion with atelectasis and/or consolidation. CONCLUSION: Enteric tube with distal tip projecting in the stomach fundu s. Mild dilation of the ascending colon, which is air-filled and measures a pproximately 8 cm. Kirby Alcantar M.D. Dictated by: Kirby murcia M.D. on 03/28/2018 at 12:21 Electronically approved by: Kirby Alcantar M.D. on 03/28/2018 at 12:21 Dictated By: KIRBY Roque MD 20 Transcribed By: MILENA on 03/28/181220 COPY TO: EDGAR BALDWIN MD CHEST SINGLE (PORTABLE) [place] [address] Patient Name: MERLIN COFFMAN MR #: [id number] : 1995 Age/Sex: 22/M Req #: [id number] Adm Physician: EDGAR BALDWIN MD Ordered by: SAJI GAGNON MD Report #: [id number] Location: ICU Room/Bed: [place] [address] Procedure: [id number] DX/C HEST SINGLE (PORTABLE) Exam Date: 03/28/18 Exam Time : 524 REPORT STATUS: Signed CHEST SINGLE (PORTABLE), 03/28/2018 5:00 AM Technique: CHEST SINGLE (PORTABLE) Comparison: previous day Clinical h istory: Intubated Findings: See Impression Impression: Severely limi onesimo by portable technique and motion with lung apices excluded. 1. Lines/Tub es: Right PICC seen over the expected very proximal SVC. ET tube 3.3 cm above the germania. Subdiaphragmatic NG tube. 2. Stable cardiomediastinal silhouette. 3. Persistent bilateral pulmonary opacities. Signed by: Dr Emely Hernandez MD on 03/28/2018 5:55 AM Dictated By: EMELY HERNANDEZ MD 4 Transcribed By: NU on 03/28 COPY TO: SAJI GAGNON MD, [facility] US RENAL RETROPERITONEAL COMP [place] [address] Patient Name: MERLIN COFFMAN MR #: [id number] : 1995 Age/Sex: 22/M Req #: [id number] Adm Physician: EDGAR BALDWIN MD Ordered by: JAUN EUCEDA, ROBSON EUCEDA Report #: [id number] Location: ICU Room/Bed: ICU [facility] Procedure: [id number] US/US RENAL RETROPERITONEAL COMP Exam Date: Exam Time: REPORT STATUS: Signed PROCEDURE: US RETROPERITONEAL ( KIDNEY ). COM PARISON: None. INDICATIONS: ATN TECHNIQUE: Maher-scale and color sonograp hic images of the bilateral kidneys and bladder where obtained in transverse and longitudinal planes. FINDINGS: Exam limited due to the patient's la rge body habitus and inability to mobilize, intubation (ICU patient) RIGHT KIDNEY: 13.7 cm, cortex 1.5 cm Cysts: None Solid masses: None Stone s: None Hydronephrosis: None Echogenicity: Normal LEFT KIDNEY: 12.6 cm , cortex 2.0 cm Cysts: None Solid masses: None Stones: None Hydronephros is: None Echogenicity: Normal Bladder: Decompressed, with Valdez catheter in place. Incidental note is made of increase echogenicity of the visuali zed hepatic parenchyma. CONCLUSION: 1. Normal bilateral renal size , and echogenicity. No hydronephrosis, stones, or solid masses. 2. Hepatic steatosis. Kirby Alcantar M.D. Dictated by: Kirby roque M.D. on 03/28/2018 at 16:16 Electronically approved by: Kirby espitia M.D. on 03/28/2018 at 16:16 Dictated By: KIRBY ALCANTAR MD 15 Transcribed By: MILENA on 03/28/181615 COPY TO: ROBSON ZAMORANO NON-TUNNELLED CVC CATH PLACMNT [place] [address] Patient Name: MERLIN COFFMAN MR #: [id number] : 1995 Age/Sex: 22/M Req #: [id number] Adm Physician: EDGAR BALDWIN MD Ordered by: EDGAR BALDWIN MD Report #: [id number] Location: ICU Room/Bed: [place] [address] Procedure: [id number] IR/NON -TUNNELLED CVC CATH PLACMNT Exam Date: 03/28/18 Exam Time: 1417 REPORT STATUS: Signed Non-tunneled Dialysis Catheter Placem ent 03/28/2018 Pre-Procedure Diagnosis: Kidney failure Post-procedure Diag nosis:Kidney failure Artifacts Conservator: Rohan Be Rebrander: None Sedation: None. Heart rate and oxygen saturation were monitored in real-time. Blood pre ssure was measured in 5 minute increments. 1% lidocaine was used for local ane sthesia. Estimate blood loss: <5 mL Blood administered: None Complications: None Implants/Grafts: 13 British 15 cm 3 lumen temporary dialysis catheter (Trialysis) Specimen: None Procedure: Informed consent was obtained and the patient positioned supine in the ICU. A timeout was performed, followed by preliminary ultrasound of the right internal jugular vein (see findings below). The right neck and chest were prepped and draped in standard fashion. Using real-time ultrasound guidance a 18 gauge vascular needle was used to access the right internal jugular vein. An image was stored in the electronic medical record. A wire was advanced and the needle exchanged for a non-tunneled dialysis catheter using standard Salinger technique. At the end of the procedure the catheter was flushed, secured to the skin and a sterile dressing applied. The patient tolerated the procedure well and without immediate complication. Findings: Patent right internal jugular vein as demonstrated by normal ultrasound compressibility. Impression: Successful placement of a non-tunneled right internal jugular vein dialysis catheter using ultrasound guidance. This report was generated with voice-recognition technology. Errors in brick wheeler can occ ur. Please interpret accordingly and contact a radiologist if there are any qu estions regarding the report. Signed by: Dr. Angela Be M.D. on 018 4:25 PM Dictated By: ANGELA BE MD 24 Transcribed By: NU on 03/28/181624 COPY TO: EDGAR BALDWIN MD US LIVER [place] [address] Patient Name: MERLIN COFFMAN MR #: [id number] : 1995 Age/Sex: 22/M Req #: [id number] Adm Physician: EDGAR BALDWIN MD Ordered by: MOLLY HESS MD Report #: [id number] Location: ICU Room/Bed: [place] [address] Procedure: [id number] U S/US LIVER Exam Date: 03/28/18 Exam Time: 2100 REPORT STATUS: Signed EXAM: US LIVER DATE: 03/28/2018 12:00 AM INDICATI ON: S elevated lft, evaluate portal system, COMPARISON: None TECHNIQ UE: Transverse and longitudinal prieto scale and color doppler sonographic image s of the upper abdomen were obtained. FINDINGS: LIVER 17.2 cm in the right midclavicular line, borderline enlarged Increased echogenicity, norm al contour, no masses. GALLBLADDER No stones, sludge, wall-thickening (re measured 2.6 mm) or pericholecystic fluid. Negative sonographic Guan's sig n. BILE DUCTS No intra nor extra-hepatic biliary dilation. Common bile duct measures 0.4 cm PANCREAS: Visualized portions are normal. RIGHT K IDNEY: 12.1 cm Echogenicity: Normal Collecting System: No hydronephrosis Stones: None Cyst/Mass: None VESSELS: Aorta: Visualized portions are w ithin normal size limits Inferior Vena Cava: Visualized portions are normal Main Portal Vein: 1.2 cm, with hepatopetal flow, but with slow velocities < 20 cm/s. Patent visualized right and left portal veins. FREE FLUID: None IMPRESSION: Hepatic steatosis with borderline hepatomegaly. Patent v isualized portal veins, with slow velocities in the main portal vein. [place] d by: Dr Emely Hernandez MD on 03/28/2018 10:51 PM Dictated By: EMELY DOUGLASS MD 50 Transcri bed By: NU on 03/28/182250 COPY TO: MOLLY HESS MD US GUIDANCE FOR VASCULAR ACCES [place] [address] Patient Name: MERLIN COFFMAN MR #: [id number] : 1995 Age/Sex: 22/M Req #: [id number] Adm Physician: EDGAR BALDWIN MD Ordered by: EDGAR BALDWIN MD Report #: [id number] Location: ICU Room/Bed: ICU [facility] Procedure: [id number] US/US GUIDANCE FOR VASCULAR ACCES Exam Date: 03/28/18 Exam Time: 1417 REPORT STATUS: Signed Non-tunneled Dialysis Catheter Placem ent 03/28/2018 Pre-Procedure Diagnosis: Kidney failure Post-procedure Felicitas gnosis: Kidney failure Artifacts Conservator: Rohan Be Rebrander: Gene Sedatio n: None. Heart rate and oxygen saturation were monitored in real-time. Blood pressure was measured in 5 minute increments. 1% lidocaine was used for local anesthesia. Estimate blood loss: <5 mL Blood administered: None Complications: None Implants/Grafts: 13 British 15 cm 3 lumen temporary dialysis catheter (Trialysis) Specimen: None Procedure: Informed consent was obtained and the patient positioned supine in the ICU. A timeout was performed, followed by preliminary ultrasound of the right internal jugular vein (see findings below). The right neck and chest were prepped and draped in standard fashion. Using real-time ultrasound guidance a 18 gauge vascular needle was used to access the right internal jugular vein. An image was stored in the electronic medical record. A wire was advanced and the needle exchanged for a non-tunneled dialysis catheter using standard Salinger technique. At the end of the procedure the catheter was flushed, secured to the skin and a sterile dressing applied. The patient tolerated the procedure well and without immediate complication. Findings: Patent right internal jugular vein as demonstrated by normal ultrasound compressibility. Impression: Successful placement of a non-tunneled righ t internal jugular vein dialysis catheter using ultrasound guidance. Electr onically approved by: Angela Be M.D. on 03/30/2018 at 7:50 Dictated By: ANGELA BE MD 075 Transcribed By: MILENA on 03/30/18 075 COPY TO: EDGAR BALDWIN MD CHEST XRAY LINE PLACEMENT [place] [address] Patient Name: MERLIN COFFMAN MR #: [id number] : 1995 Age/Sex: 22/M Req #: [id number] Adm Physician: EDGAR BALDWIN MD Ordered by: RADHA JIMENEZ MD Report #: [id number] Location: ICU Room/Bed: ICU 195-1 Procedure: [id number] DX/CHEST XRAY LINE PLACEMENT Exam Date: 03/27/18 Ex am Time: 2129 REPORT STATUS: Signed CHEST XRAY LINE PLACEMENT, 8 9:33 PM Technique: CHEST XRAY LINE PLACEMENT Comparison: 03/27/2018 Cl inical history: PICC line placement Findings: See Impression Impress ion: Severely limited by portable technique and body habitus. 1. Lines/Tubes : Right PICC seen over the expected right brachiocephalic vein. ET tube 3.1 cm above the germania. NG tube extends subdiaphragmatically. 2. Stable enlarged ca rdiomediastinal silhouette. Diffuse bilateral opacities increased from prior c hest radiograph. Signed by: Dr Emely Hernandez MD on 03/27/2018 10:12 PM Dictated By: EMELY HERNANDEZ MD 11 Transcribed By: NU on 03/27/182211 COPY TO: RADHA PIERRE MD CT CHEST W [place] [address] Patient Name: MERLIN COFFMAN MR #: [id number] : 1995 Age/Sex: 22/M Req #: [id number] Adm Physician: Ordered by: DANTE JACKSON MD Report #: [id number] Location: ER Room/Bed: Procedure: [id number] CT/CT CHEST W Exam Date: 03/01 06/17 Exam Time: 1600 REPORT STATUS: Signed E XAM: CT Chest WITH contrast 03/27/2018 2:13 PM INDICATION: COMPARISON: None TECHNIQUE: Chest was scanned utilizing a multidetector h elical scanner from the lung apex through the level of the adrenal glands with out administration of IV contrast. Coronal and sagittal reformations were obta ined. Routine protocol was performed. IV CONTRAST: 100 mL of Isovue-370 COMPLICATIONS: None RADIATION DOSE: Total DLP: 593.62 mGy*cm Estimated effective dose: (DLP x 0.014 x size factor) mSv CTDIvol has been reviewed. It is below the limits set by the Radiation Protocol Commit twin (RPC). FINDINGS: LINES/ TUBES: Endotracheal tube tip approximately 2.8 cm above the [place]. LUNGS AND AIRWAYS: Patchy bilateral airspace opa cities with interlobular septal thickening. No filling defects to the level of the segmental pulmonary arteries. Central airways are clear. PLEURA: Sm all pleural effusions. HEART AND MEDIASTINUM: The thyroid gland is normal. No mediastinal, hilar or axillary lymphadenopathy. The heart is normal in si ze.. There is no pericardial effusion. Main pulmonary artery measures 2.7 cm in diameter. UPPER ABDOMEN: Unremarkable. BONES: The visualized bony t horax is within normal limits. SOFT TISSUES: Unremarkable. IMPRESSION: Findings concerning for multifocal pneumonia with superimposed interstitial edema. No pulmonary emboli. Signed by: DR. Cheo Jay MD on 03/27/2018 4:41 PM Dictated By: CHEO JAY MD 40 Transcribed By: NU on 03/27/181640 COPY TO: DANTE JACKSON MD CHEST SINGLE (PORTABLE) [place] [address] Patient Name: MERLIN COFFMAN MR #: [id number] : 1995 Age/Sex: 22/M Req #: [id number] Adm Physician: Ordered by: JARET BERGERON NP Report #: [id number] Location: ER Room/Bed: Procedure: [id number] DX/CHEST SINGLE (PORTABLE) Ex am Date: 03/27/18 Exam Time: 1335 REPORT STATUS : Signed EXAMINATION: CHEST SINGLE (PORTABLE) INDICATION: COMPARISON: None FINDINGS: AP view TUBES and L NANO: None. LUNGS: Lungs are well inflated. Hazy bibasilar opacity. Chang tral venous congestion. PLEURA: No pleural effusion or pneumothorax. HEART AND MEDIASTINUM: The cardiomediastinal silhouette is upper normal.. BONES AND SOFT TISSUES: No acute osseous lesion. Soft tissues are unr emarkable. UPPER ABDOMEN: No free air under the diaphragm. IMPRESS ION: Hazy bibasilar opacities which may be related to body habitus and techni que. Recommend two-view chest radiograph if clinically feasible. [place] d by: DR. Cheo Jay MD on 03/27/2018 2:39 PM Dictated By: CHEO GUY MD [id number] Transcribed By: NU on 03/27/18 143 COPY TO: JARET BERGERON PARTS EXPEDITER
[2020-06-30 12:03] LABS: FREE T4 (FREE THYROXINE) 0.54 ng/dL (0.8-1.8); THYROID STIMULATING HORMONE 25.018 uIU/mL (0.350-4.940)
--- NOTE | 2020-06-30 14:56 | NUR ---
PATIENT BROUGHT BACK INTO TRIAGE. DR. ORR RE EVALUATING HIM AND REQUESTING HE BE ADMITTED TO THE HOSPITAL
--- NOTE | 2020-06-30 14:58 | Emergency Department Note ---
History of Present Illnes History of Present Illness Chief Complaint: Respiratory History of Present Illness This is a 24 year old male PATIENT HAD SHORTNESS OF BREATH FOR 30-45 MIN WITH NAUSEA, PALPITATIONS. DENIED ANY CHEST PAIN. CHECKED HIS VITAL SIGNS AND THEY WERE ALL WITHIN NORMAL LIMITS PATIENT HOOKED TO [facility]. HAD ROUTING ECHO 3 WEEKS AGO, NORMAL. Historian: Patient Arrival Mode: Car Additional Treatment INFORMATION ASSURANCE ANALYST: NONE Surveillance Monitor Required: No Onset (how long ago): minute(s) Radiation: Reports non-radiation Severity: moderate Timing of current episode: intermittent Progression: waxing and waning Chronicity: new Relieving factors: none Exacerbating factors: none Associated symptoms: Reports chest pain, Reports shortness of breath Treatments prior to arrival: none Past Medical/Family History Physician Review I have reviewed the patient's past medical and family history. Any updates have been documented here. Past Medical History Recent Fever: No Clinical Suspicion of Infectio: No New/Unexplained Change in Ment: No Past Medical History: None, CHF, Hypothyroidism Other Medical History: LIFE VEST S/P CARDIAC ARREST VTACH/PVC'S Past Surgical History: None Social History Smoking Cessation: Never Smoker Counseling Performed: No Alcohol Use: None Any Illegal Drug Use: No TB Exposure/Symptoms: No Physically hurt or threatened: No Family History Family history of heart diseas: No Other Last Tetanus: OOD Any Pre-Existing Lines (PICC,: No Review of Systems Review of Systems Constitutional: Reports no symptoms EENTM: Reports no symptoms Cardiovascular: Reports as per HPI Respiratory: Reports as per HPI Gastrointestinal: Reports no symptoms Genitourinary: Reports no symptoms Musculoskeletal: Reports no symptoms Integumentary: Reports no symptoms Neurological: Reports no symptoms Psychological: Reports no symptoms Endocrine: Reports no symptoms Hematological/Lymphatic: Reports no symptoms Physical Exam Related Data Allergies: Coded Allergies: No Known Allergies (Unverified , 06/30/20) Triage Vital Signs Vital Signs Date Time Temp Pulse Resp B/P (MAP) Pulse Ox O2 Delivery O2 Flow Rate FiO2 06/30/20 10:25 98.4 63 18 113/72 100 Room Air Vital signs reviewed: Yes Physical Exam CONSTITUTIONAL Constitutional: Present well-developed, Present well-nourished HENT HENT: Present normocephalic, Present atraumatic, Present oropharynx clear/moist, Present nose normal HENT L/R: Present left ext ear normal, Present right ext ear normal EYES Eyes: Reports PERRL, Reports conjunctivae normal NECK Neck: Present ROM normal PULMONARY Pulmonary: Present effort normal, Present breath sounds normal CARDIOVASCULAR Cardiovascular: Present irregular rhythm (REGULARLY IRREGULAR), Present heart sounds normal GASTROINTESTINAL Abdominal: Present soft, Present nontender, Present bowel sounds normal GENITOURINARY Genitourinary: Present exam deferred SKIN Skin: Present warm, Present dry MUSCULOSKELETAL Musculoskeletal: Present ROM normal NEUROLOGICAL Neurological: Present alert, Present oriented x 3, Present no gross motor or sensory deficits PSYCHOLOGICAL Psychological: Present mood/affect normal, Present judgement normal Results Laboratory Result Diagram: 06/30/20 1047 06/30/20 1047 Laboratory Laboratory Tests Test 06/30/20 10:47 White Blood Count 9.89 x10e3/uL (4.8-10.8) Red Blood Count 6.13 x10e6/uL (4.3-5.7) Hemoglobin 17.2 g/dL (14.0-18.0) Hematocrit 52.9 % (38.2-49.6) Mean Corpuscular Volume 86.3 fL (81-99) Mean Corpuscular Hemoglobin 28.1 pg (28-32) Mean Corpuscular Hemoglobin Concent 32.5 g/dL (31-35) Red Cell Distribution Width 14.3 % (11.7-14.4) Platelet Count 274 x10e3/uL (140-360) Neutrophils (%) (Auto) 55.8 % (38.7-80.0) Lymphocytes (%) (Auto) 35.6 % (18.0-39.1) Monocytes (%) (Auto) 6.5 % (4.4-11.3) Eosinophils (%) (Auto) 1.1 % (0.0-6.0) Basophils (%) (Auto) 0.5 % (0.0-1.0) Neutrophils # (Auto) 5.5 (2.1-6.9) Lymphocytes # (Auto) 3.5 (1.0-3.2) Monocytes # (Auto) 0.6 (0.2-0.8) Eosinophils # (Auto) 0.1 (0.0-0.4) Basophils # (Auto) 0.1 (0.0-0.1) Absolute Immature Granulocyte (auto 0.05 x10e3/uL (0-0.1) Sodium Level 138 mmol/L (136-145) Potassium Level 3.9 mmol/L (3.5-5.1) Chloride Level 105 mmol/L (98-107) Carbon Dioxide Level 21 mmol/L (22-29) Anion Gap 15.9 mmol/L (8-16) Blood Urea Nitrogen 10 mg/dL (7-26) Creatinine 0.75 mg/dL (0.72-1.25) Estimat Glomerular Filtration Rate > 60 ML/MIN (60-) BUN/Creatinine Ratio 13 (6-25) Glucose Level 91 mg/dL (74-118) Calcium Level 9.4 mg/dL (8.4-10.2) Magnesium Level 2.1 MG/DL (1.3-2.1) Total Bilirubin 0.8 mg/dL (0.2-1.2) Aspartate Amino Transf (AST/SGOT) 16 IU/L (5-34) Alanine Aminotransferase (ALT/SGPT) 17 IU/L (0-55) Alkaline Phosphatase 102 IU/L (40-150) Creatine Kinase 237 IU/L (30-200) Creatine Kinase MB 1.30 ng/mL (0-5.0) Troponin I 0.002 ng/mL (0-0.300) B-Type Natriuretic Peptide 48.3 pg/mL (0-100) Total Protein 8.0 g/dL (6.5-8.1) Albumin 4.5 g/dL (3.5-5.0) Globulin 3.5 g/dL (2.3-3.5) Albumin/Globulin Ratio 1.3 (0.8-2.0) Thyroid Stimulating Hormone (TSH) 25.018 uIU/mL (0.350-4.940) Free Thyroxine 0.54 ng/dL (0.8-1.8) Thyroxine (T4) 4.06 ug/dL (4.5-10.9) Lab results reviewed: Yes Imaging Imaging results reviewed: Yes Procedures 12 Lead ECG Interpretation ECG Interpretation : ECG: ECG 1 Surveillance Monitor: Interpreted by ED physician Date: Jun 30, 2020 Time: 10:35 Rhythm: sinus rhythm Ectopy: frequent PVC's (COUPLETS) Rate: normal (97) QRS axis: normal ST segments normal: Yes T waves normal: Yes Clinical Impression: abnormal ECG Critical Care Time Total Critical Care Time (min): 30 Critical care time exclusive o: separately billable procedures Critcal care necessary due to: cardiac failure Critcal care time spent by me: discussion w primary provider, examination of patient, order/perform tx or interventions, order/review laboratory studies, order/review radiographic studies, re-evaluation of patient condition, review of old charts Assessment & Plan Medical Decision Making MDM CBC, CHEM, ECG, CARDIACS, CXR, MAG, TSH - R/O ELECTROLYTE ABNL, STEMI, NSTEMI, HYPERTHYROID, PNEUMONIA Reassessment Reassessment I SPOKE WITH PT ABOUT NEED FOR ADMISSION AND HE WANTS TO BE TRANSFERRED TO [facility] - I INITIATED TRANSFER, SPOKE WITH DR LENNON (HIS CHIEF INVESTMENT OFFICER) AT 1605 WHO ACCEPTED PT FOR TRANSFER TO CCU, SAID HE LIKELY NEEDS CARDIAC ABLATION Assessment & Plan Final Impression: (1) Ventricular dysrhythmia Depart Disposition: TRANS TO OTHER [facility] Last Vital Signs Date Time Temp Pulse Resp B/P (MAP) Pulse Ox O2 Delivery O2 Flow Rate FiO2 06/30/20 10:25 98.4 63 18 113/72 100 Room Air Medications in the ED Aspirin 81 mg PRN ONCE PO ; Start 06/30/20 at 10:45; Stop 06/30/20 at 10:47; Status DC AARON ORR MD Jun 30, 2020 14:57
--- NOTE | 2020-06-30 15:02 | NUR ---
PT IS RELUCTANT TO STAY IN HOSPITAL. WE PLACED A CALL TO HIS COUNTER TACKER DR. BRANDI LENNON AT [phone] AND LEFT MESSAGE TO CALL DR. ORR BACK
[2020-06-30] MEDS ORDERED: ASPIRIN 81 MG CHEW TAB ONE (15:13)
[2020-06-30] MEDS ORDERED: CARVEDILOL 12.5 MG TAB PO SCH ×2 (15:15→17:00)
--- NOTE | 2020-06-30 16:58 | NUR ---
REPORT GIVEN TO ANILA VELASQUEZ AT [facility] BY Emily REYNOLDS RN
[2020-06-30] MEDS ORDERED: SACUBITRIL/VALSARTAN 1 EACH TABLET PO SCH (17:00)
--- NOTE | 2020-06-30 19:36 | NUR ---
DR ROSA CALL AND INFORMED OF VTACH RUNS. NO NEW ORDERS AT THIS TIME. PT [facility] BE [facility]
[2020-06-30 20:20] VITALS: BP 108/72
--- NOTE | 2020-06-30 21:09 | Consultation ---
DATE OF CONSULTATION: 06/30/2020 REASON FOR CONSULTATION: Palpitations. CHIEF COMPLAINT: Shortness of breath. HISTORY OF PRESENT ILLNESS: This is a 24-year-old male with history of nonischemic cardiomyopathy with recent echo showing normal EF, as per the patient, hyperthyroidism, ventral tachycardia. The patient presents to [facility] ER with complaints of shortness of breath lasting few minutes about 30 minutes. Cardiology was consulted to evaluate the patient. The patient is seen in the ER, reports this morning, woke up, felt short of breath for about 30 to 40 minutes. States, he does feel this one is heart right at this time. The patient reports he is feeling fine. He is breathing comfortably, however, he does report that he is being followed at [facility] with Dr. Zhao. Reports, he was on amiodarone therapy for about a year secondary to ventricular tachycardia history. However, was taken off amiodarone secondary to complications of hyperthyroidism. The patient reports on methimazole and Coreg, being followed by Endocrine. Labs noted with TSH of 25. BNP of 48. Troponin 0.02. EKG showing sinus rhythm with couplets. Chest x-ray showing no acute abnormalities. At this time, the patient reports he feels back to baseline and is requesting to be transferred to [facility]. 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 PAST SURGICAL HISTORY: Left heart catheterization in 2018. SOCIAL HISTORY: He is single. Denies any alcohol or tobacco use. FAMILY HISTORY: Mother is alive, history of mitral regurgitation. Father is alive, history of diabetes. HOME MEDICATIONS: Include Coreg 25 mg b.i.d., methimazole 15 mg q.a.m. and 10 mg q.p.m., Entresto 97/103 twice a day, spironolactone daily, aspirin 81 mg daily. ALLERGIES: NO KNOWN ALLERGIES. REVIEW OF SYSTEMS: GENERAL: Denies any recent weight changes, any fatigue, weakness, fevers, or chills. SKIN: No rashes or bruises. HEENT: No nausea, vomiting, blurred vision, double vision, epistaxis, sore throat, or swollen neck. CARDIAC: Positive for palpitations. Denies any dyspnea on exertion. Positive for shortness of breath this a.m. Denies any orthopnea, PND, or lower extremity edema. RESPIRATORY: Shortness of breath this a.m., however, reports it has resolved. Denies any wheezing, coughing, or hemoptysis. GI: Denies any nausea, vomiting, diarrhea, constipation, melena, or tarry bloody stools. URINARY: Denies any hematuria or dysuria. VASCULAR: Denies any lower extremity edema or claudication. MUSCULOSKELETAL: Denies any muscle weakness, joint pains, or back pain. NEUROLOGIC: Denies any numbness, tingling, tremors, fainting, or seizures. HEMATOLOGY: Denies any bruising or anemia. ENDOCRINE: Denies any heat or cold intolerance, polyuria, polydipsia, or polyphagia. PHYSICAL EXAMINATION: VITAL SIGNS: Height 70 inches, weight 243 pounds, temperature 99.0, pulse 89, respiratory rate 18, blood pressure 124/52, pulse ox 100% on room air. GENERAL: Appears stated age, reliable informant. No acute distress. SKIN: No rashes or bruises noted. HEENT: Normocephalic. Pupils are equal and reactive. Extraocular movements intact. Trachea midline. No JVD. No carotid bruit. Oral mucosa pink. HEART: Regular rate and rhythm. PMI about 4th and 5th intercostal space. The patient with a LifeVest. LUNGS: Bilateral breath sounds. Clear to auscultation. Good airway entry. ABDOMEN: Soft, nontender, and nondistended. No organomegaly noted. MUSCULOSKELETAL: Good muscle strength throughout. No lower extremity edema noted. VASCULAR: +2 radial pulses, bilateral+1 DP/PT pulses bilaterally. NEUROLOGIC: Cranial nerves II through XII seem intact. LABORATORY DATA: Sodium 138, potassium 3.9, chloride 105, BUN 10 and creatinine 0.7. Troponin 0.002. BNP 48. TSH 25, free T4 0.54. White count 9, hemoglobin 17, platelets of 274, hematocrit 52. Chest x-ray, no acute abnormalities. EKG showing sinus rhythm with couplets. ASSESSMENT AND PLAN: 1. Premature ventricular contractions, history of ventricular tachycardia. 2. Hyperthyroidism after amiodarone therapy. 3. Shortness of breath. 4. Nonischemic cardiomyopathy by left heart catheterization in 2018. PLAN: 1. The patient presents to [facility] ER with complaints of shortness of breath with history of VT, being followed by [facility], was on amiodarone therapy, however, has came off secondary to complications of hyperthyroidism being followed by Endocrine, [facility]. The patient is requesting to be transferred to [facility] at [facility], given his well-established in that facility. Transfer is being initiated by ER. 2. We will recommend restarting the patient's home cardiac medications, Coreg 25 mg b.i.d., Entresto 97/103 b.i.d., spironolactone daily, and aspirin daily. We will get echo to evaluate heart function structure while the patient is here. Also, if the patient does not transfer, we will recommend and consult EP. Given the patient's history of multiple PVCs and history of VT. 3. Further recommendations as course progresses. Again, the patient is being transferred to [facility]. Thank you very much for this consult. Dictated by Arnulfo Cabrera NP Katiuska Gonzalez DC/ADRIANE /[id number]
[2020-07-01] MEDS ORDERED: ASPIRIN 81 MG ENTERIC COATED PO SCH (09:00)
[2020-07-01] MEDS ORDERED: SPIRONOLACTONE 25 MG TAB PO SCH (09:00)
== END 2020-06-30 21:00 | disposition other institution (70) ==
LOC: ER 10:10
DX: R06.02 Shortness of breath (principal); I47.0 Re-entry ventricular arrhythmia; Z11.59 Encounter for screening for other viral diseases
CPT/HCPCS: 36415; 71045; 80053; 82550; 82553; 83735; 83880; 84436; 84439; 84443; 84484; 85025; 93005; 99284; U0002